=== PATIENT | female | born 1955 | race Caucasian/White ===

== ENCOUNTER → 2020-07-19 09:15 | Outpatient (BNVA) | payer OTHER, SELFPAY | PROVIDERS: PCP Internal Medicine; Visit Provider Internal Medicine | DX: I51.81 Takotsubo syndrome (principal); I51.3 Intracardiac thrombosis, not elsewhere classified; I21.4 Non-ST elevation (NSTEMI) myocardial infarction | CPT/HCPCS: Q3014 ==

== ENCOUNTER → 2020-11-12 09:33 | Outpatient (REF) | payer OTHER, SELFPAY ==
--- NOTE | 2020-11-12 09:37 | CA_ITS ---
Transthoracic Echocardiogram Patient (Last, First, Middle): Jossy Boone J Gender: Female Date of : 1955 Age: 65 Procedure Date: 11/12/2020 Procedure Type: Transthoracic Echocardiogram Location: OP Height: 160.02 cm Weight: 63.5 kg BSA: 1.66 m2 Heart Rate: bpm BP: 120 / 60 mmHg Extracting Machine Operator: LAVONNE Referring MD: Fred Gabriel MD Symptoms: I51.3 - Intracardiac thrombosis, not elsewhere classified Study Quality: Fair ECG Rhythm: Sinus Conclusions: - The left ventricular systolic function is normal. The visually estimated ejection fraction is between 60-65%. - No obvious valvular pathology seen on this study. Findings Left Ventricle Normal left ventricular cavity size. There is normal left ventricular wall thickness. The left ventricular systolic function is normal. The visually estimated ejection fraction is between 60-65%. There is no evidence of regional wall motion abnormalities. Diastolic function is normal for age. E/E prime ratio is <8, consistent with normal filling pressures. Right Ventricle Normal right ventricular cavity size and systolic function. Atria Both atria are normal in size. Aortic Valve There is a normal trileaflet aortic valve. There is no aortic valve stenosis. There is no aortic valve regurgitation. Mitral Valve The mitral valve appears normal. There is no mitral valve regurgitation. There is no mitral valve stenosis. Pulmonic Valve The pulmonic valve was not well visualized. Tricuspid Valve Normal tricuspid valve structure. There is trace tricuspid valve regurgitation. The pulmonary artery systolic pressure is normal. Great Vessels The asc aorta is normal in size. Venous The inferior vena cava is normal in size and collapses greater than 50% with inspiration. Pericardium/Pleural There is no evidence of pericardial effusion. Prior Study Comparison No significant change compared to prior study dated: 07/12/2019. Recommendations, Care & Conclusions No obvious valvular pathology seen on this study. Measurements 2D Linear Measurements IVSd: 1.04 0.6-0.9/0.6-1.0 cm LVIDd: 4.61 3.9-5.3/4.2-5.9 cm LVIDd Index: 2.78 2.4-3.2/2.2-3.1 cm/m2 LVIDs: 3.07 2.0-3.6 cm LVPWd: 1.01 0.7-1.1 cm Ao Root: 3.00 2.1-3.5 cm LA Diam: 3.30 2.7-3.8/3.0-4.0 cm LAIDs Index: 1.99 1.5-2.3 cm/m2 LV Mass: 205.33 67-162/88-224 g LV Mass Index: 123.69 43-95/49-115 g/m2 LVOT Diam: 2.00 3.0+(-)1.3 cm 2D Systolic Function EF 4C: 66.40 >55% EF 2C: 54.10 >55% EF BiP: 60.50 >55% Mitral Valve MV Pk E: 0.53 MV PK A: 0.59 MV Decel Time: 454.00 E/A: 0.90 E'Lateral: 8.70 E'Medial: 6.85 E/E' Med: 7.80 E/E' Lat: 6.10 PHT: 133.00 MVA PHT: 1.65 Decel Elliott: 1.17 Aortic Valve AoV Pk Refugio: 0.91 AoV Mn Refugio: 0.56 AoV VTI: 0.19 AoV Pk Grad: 3.00 Aov Mn Grad: 1.00 DAVY Cont.VTI: 3.71 LVOT LVOT Pk Refugio: 1.04 LVOT Mn Refugio: 0.67 LVOT VTI: 0.22 LVOT Pk Grad: 4.00 LVOT Mn Grad: 2.00 LVOT Diam: 2.00 LVOT Area: 3.14 Diastolic Function MV Pk E: 0.53 MV Pk A: 0.59 E/A: 0.90 E'Medial: 6.85 E/E' Med: 7.80 E' Laterial: 8.70 E/E' Lat: 6.10 Great Vessels Aorta Ao Root-2D: 3.00 2.0-3.7 cm Ao Asc: 3.00 2.1-3.4 cm Ao Arch: 2.70 Updated in Other Vendor System with Status of Final Fred Gabriel MD electronically signed on 11/12/2020 12:31:24 PM with status of Final
== END ==
LOC: HO.CARD 09:33
PROVIDERS: PCP Internal Medicine; Visit Provider Internal Medicine
DX: I51.3 Intracardiac thrombosis, not elsewhere classified (principal)
CPT/HCPCS: 93306

== ENCOUNTER → 2020-11-19 10:09 | Outpatient (BNVA) | payer OTHER, SELFPAY | PROVIDERS: PCP Internal Medicine; Referring Provider Internal Medicine; Visit Provider Internal Medicine | DX: I51.81 Takotsubo syndrome (principal); I51.3 Intracardiac thrombosis, not elsewhere classified; I21.4 Non-ST elevation (NSTEMI) myocardial infarction | CPT/HCPCS: 93005; 99212 ==

== ENCOUNTER 2021-04-01 08:29 | Outpatient (REF) | payer OTHER, SELFPAY ==
--- NOTE | 2021-04-04 11:38 | MHC.AU.ANO ---
Adult Audiological Evaluation Date of Visit: 04/01/21 Welfare Investigator Used: Not Applicable Reason for Appointment: Audiologic evaluation due to increasing hearing difficulties. Jossy reports she is frequently asking others to repeat speech and often watches television using the closed captions. Speech understanding seems more difficult when background noise is present and she tends to tune out or avoid social situations when there is too much noise. Jossy also notes loud sounds/speech become distorted and had one episode of unsteadiness with nausea when a loud plane passed overhead. Does patient feel they have a hearing loss?: Yes If Yes, Which Ear?: Both Ears When Was Hearing Difficulty First Noticed?: 4 to 5 years ago. Has hearing been tested previously?: No Hearing Handicap Inventory: HHIE SCORE: 32 Based on HHIE score, patient has: Severe perceived hearing handicap Ear History: Recent Ear Pain: With loud sounds Family History of Hearing Loss?: Yes Ear Infections in Childhood: Both Ears Ear used on the phone: Left Ear Blocked/Full Sensation in Ear(s): History of occupational noise exposure?: No History: History: No Medical History: Medical History: Interstitial Cystitis, Anxiety/Bipolar Disorder, High Blood Pressure, History of Heart Attack, History of Pancreatitis with gall bladder removed Medication List: Metoprolol Otoscopy: Right Ear: Unremarkable Left Ear: Unremarkable Tympanometry: Tympanometry performed due to: To assess integrity of the middle ear system Right Ear: Normal Middle Ear System (Type A) Left Ear: Normal Middle Ear System (Type A) Otoacoustic Emissions Frequency Range Used: 1.6-8 kHz Right Ear Results: Present 7548-0982 Hz, Absent 7320-7187 Hz Analysis: Present emissions suggest normal cochlear function Rules out peripheral hearing loss greater than a mild degree Reduced/Absent emissions suggest cochlear dysfunction Left Ear Results: Present 1850-4284 Hz, Absent 4267-8541 Hz Analysis: Present emissions suggest normal cochlear function Rules out peripheral hearing loss greater than a mild degree Reduced/Absent emissions suggest cochlear dysfunction Hearing Evaluation: Transducer(s) Used: Circumaural Headphones Method: Conventional Audiometry Stimuli Used: Pure Tones Right Ear: Description of Hearing: Normal hearing thresholds 250-4000 Hz, sloping to a moderate high frequency sensorineural hearing loss Left Ear: Description of Hearing: Normal hearing thresholds 250-4000 Hz, sloping to a mild high frequency sensorineural hearing loss Speech Recognition Threshold (SRT): Method Used: Monitored Live Voice Stimuli Used: Spondee Words Right Ear: 10 dB HL Left Ear: 10 dB HL Word Discrimination: Method: Recorded Lists Word Lists Used: NU-6 Right Ear: 100% at 50 dB HL Left Ear: 100% at 50 dB HL QuickSIN: Binaural Quick SIN Test : -3 dB SNR Loss. This score falls well within the normal range and suggests Jossy does not experience any more difficulty understanding speech with increasing levels of background noise than expected when in this controlled test environment. Real world listening situation may be more difficult. Interpretation of Results: Jossy overall has good hearing for both ears with excellent speech discrimination ability when in this controlled test environment with her full attention to the listening tasks. Listening in real world environments may be very different, particularly if Jossy is not fully focused on the speaker, or her anxiety/emotional state becomes hightened. Processing of auditory information may become much more difficult with these situations. Loud sounds may be unpleasant for Jossy which will also increase her sensitivity to these sounds and increase her anxiety and processing ability. These factors were discussed with Jossy and she feels they are likely influencing her hearing/listening difficulties. Recommendations: Discussed and provided a handout regarding communication strategies to use as needed. No further audiological action is indicated at this time. Advise re-evaluation if a change in hearing ability is suspected. Diagnosis: Primary Diagnosis: H90.3 Bilateral Sensorineural Hearing Loss Secondary Diagnosis: H93.293 Abnormal Auditory Perception Services Performed: Comprehensive Audiological Evaluation (CPT 39781) Diagnostic Otoacoustic Emissions (CPT 90385, 26+TC) Tympanometry (CPT 03196) Signature: Provider: Markell Ladd, [facility]
== END 2021-04-01 08:30 | disposition home or self-care (01) ==
LOC: HO.SH 08:29
PROVIDERS: Visit Provider Internal Medicine
DX: H90.3 Sensorineural hearing loss, bilateral (principal); H93.293 Other abnormal auditory perceptions, bilateral
CPT/HCPCS: 92557; 92567; 92588

== ENCOUNTER → 2021-11-25 09:28 | Outpatient (BNVA) | payer OTHER, SELFPAY | PROVIDERS: PCP Internal Medicine; Referring Provider Internal Medicine; Visit Provider Internal Medicine | DX: I51.81 Takotsubo syndrome (principal); I51.3 Intracardiac thrombosis, not elsewhere classified; I21.4 Non-ST elevation (NSTEMI) myocardial infarction | CPT/HCPCS: 93005; 99212 ==

== ENCOUNTER 2022-02-25 06:17 | Outpatient (REF) | payer OTHER, SELFPAY ==
[2022-02-25 06:29] LABS: MANUAL DIFF FLAG NO
[2022-02-25 07:27] LABS: Basophils Absolute Auto 0.1 X10*3/uL (0.0-0.2); Basophils Percent Auto 1.7 % (0-2); Eosinophils Absolute Auto 0.2 X10*3/uL (0.0-0.4); Eosinophils Percent Auto 5.3 % (0-4); Hematocrit 41.7 % (37.0-47.0); Hemoglobin 13.7 g/dl (12.0-16.0); Imm Gran Abs Auto 0.01 X10*3/uL (0.00-0.03); Imm Gran Pct Auto 0.2 % (0.0-0.4); Lymphocytes Absolute Auto 1.7 X10*3/uL (1.2-4.9); Lymphocytes Percent Auto 40.5 % (20-40); Mean Corpuscular HGB Conc 32.9 g/dl (31.0-35.0); Mean Corpuscular Hemoglobin 29.7 pg (27.0-33.0); Mean Corpuscular Volume 90.5 fL (80.0-98.0); Mean Platelet Volume 9.1 fL (9.4-12.3); Monocytes Absolute Auto 0.4 X10*3/uL (0.1-1.2); Monocytes Percent Auto 10.6 % (2-11); Neutrophils Absolute Auto 1.7 x10*3/uL (2.0-8.3); Neutrophils Percent Auto 41.7 % (45-73); Platelet Count 240 X10*3/uL (160-400); Red Blood Count 4.61 X10*6/uL (4.20-5.50); Red Cell Distribution Width 13.6 % (11.0-16.0); White Blood Count 4.2 X10*3/uL (4.8-10.8)
[2022-02-25 07:58] LABS: Alanine Aminotransferase 29 U/L (0-31); Albumin Level 3.9 g/dL (3.5-5.0); Alkaline Phosphatase 84 U/L (39-117); Anion Gap 16 (12-20); Aspartate Amino Transferase 28 U/L (5-31); Bilirubin Direct < 0.2 mg/dL (0.0-0.5); Bilirubin Total 0.3 mg/dL (0.0-1.0); Blood Urea Nitrogen 13 mg/dL (9-16); Carbon Dioxide 24 mmol/L (22-29); Chloride 107 mmol/L (96-108); Cholesterol 258 mg/dL; Estimated Glomerular Filt Rate > 60; Glucose Fasting 105 mg/dL (60-99); HDL Cholesterol 60 mg/dL; LDL Cholesterol Calculated 171 mg/dl; Potassium 4.6 mmol/L (3.3-5.1); Sodium 142 mmol/L (135-145); Total Protein 6.3 g/dL (6.5-8.0); Triglycerides 137 mg/dL
[2022-02-25 08:21] LABS: TSH reflex Free T4 1.97 uIU/mL (0.32-4.0)
== END 2022-02-25 06:18 | disposition home or self-care (01) ==
LOC: HO.LAB 06:17
PROVIDERS: Absent Provider Internal Medicine; PCP Internal Medicine; Visit Provider Internal Medicine
DX: Z00.01 Encounter for general adult medical examination with abnormal findings (principal); I51.81 Takotsubo syndrome; H91.93 Unspecified hearing loss, bilateral
CPT/HCPCS: 36415; 80053; 80061; 80076; 82248; 84443; 85025

== ENCOUNTER 2022-03-15 11:13 | Outpatient (REF) | payer OTHER, SELFPAY ==
[2022-03-15 11:23] LABS: Appearance Urine Clear; Color Urine Yellow; Glucose Urine UA Negative (Negative); Leukocyte Esterase Urine Small (1+) (Negative); Nitrite Urine Negative (Negative); Specific Gravity - Urine <= 1.005 (1.005-1.025); Urine Blood Negative (Negative); Urine Ketones Negative (Negative); Urine Protein Negative (Neg-Trace)
[2022-03-15 11:29] LABS: Bacteria Urine 4+ (None Seen); Hyaline Casts Urine 0-2 /LPF (0-2); RBC Urine 0-2 /HPF (0-2); Squamous Epithelial Cell Urine 0-2 /HPF (0-2); UACC Culture Trigger YES
== END 2022-03-15 11:14 | disposition home or self-care (01) ==
LOC: HO.LNP 11:13
PROVIDERS: Visit Provider Physician Assistant Medical
DX: R30.0 Dysuria (principal)
CPT/HCPCS: 81001; 87086; 87088; 87186

== ENCOUNTER 2022-09-12 16:01 | Emergency (ER) | payer OTHER, SELFPAY ==
[2022-09-12 16:43] VITALS: BP 163/85; BP 173/99; PULSE 75; PULSE 79; RESP 18; TEMP 36.6; O2SAT 98; O2SAT 99; BMI 21.0
--- NOTE | 2022-09-12 18:44 | MHC.EDTECH ---
due to dirrhea pt unable to give urine sample .
[2022-09-12 18:47] LABS: Basophils Percent Auto 0.4 % (0-2); Eosinophils Percent Auto 0.1 % (0-4); Hematocrit 44.3 % (37.0-47.0); Imm Gran Abs Auto 0.04 X10*3/uL (0.00-0.03); Imm Gran Pct Auto 0.4 % (0.0-0.4); Lymphocytes Absolute Auto 0.3 X10*3/uL (1.2-4.9); Lymphocytes Percent Auto 2.8 % (20-40); MANUAL DIFF FLAG SCAN; Mean Corpuscular HGB Conc 33.9 g/dl (31.0-35.0); Mean Corpuscular Hemoglobin 30.2 pg (27.0-33.0); Mean Corpuscular Volume 89.1 fL (80.0-98.0); Mean Platelet Volume 8.9 fL (9.4-12.3); Monocytes Absolute Auto 0.3 X10*3/uL (0.1-1.2); Monocytes Percent Auto 3.3 % (2-11); Neutrophils Absolute Auto 8.8 x10*3/uL (2.0-8.3); Platelet Count 227 X10*3/uL (160-400); Red Blood Count 4.97 X10*6/uL (4.20-5.50); Red Cell Distribution Width 12.9 % (11.0-16.0); SCAN SMEAR FLAG 1; White Blood Count 9.5 X10*3/uL (4.8-10.8)
[2022-09-12 18:54] LABS: Anion Gap 22 (12-20); Blood Urea Nitrogen 21 mg/dL (9-16); Calcium 9.5 mg/dL (8.4-10.2); Carbon Dioxide 16 mmol/L (22-29); Chloride 106 mmol/L (96-108); Creatinine Clr Calc Pharmacy 53.7; Estimated Glomerular Filt Rate > 60; Glucose Random 160 mg/dL (60-115); Potassium 4.1 mmol/L (3.3-5.1); Sodium 140 mmol/L (135-145)
[2022-09-12 19:19] LABS: SLIDE REVIEW VERIFIED
[2022-09-12] MEDS: Ondansetron ODT 4 MG TAB.RAPDIS TRANSLINGU (20:39)
--- NOTE | 2022-09-12 21:44 | ED_ITS ---
HPI - Nausea/Vomiting/Diarrhea General Chief complaint: Nausea/Vomiting/Diarrhea Stated complaint: FLU-LIKE SYMPTOMS,N/V/D Time Seen by Provider: 09/12/22 21:34 Source: patient Mode of arrival: ambulatory Limitations: no limitations History of Present Illness HPI Narrative: Patient comes to the emergency room complaining of nausea vomiting and diarrhea that is been present for about 20 hours. Patient states that her has the same symptoms but he is doing better now. Patient continues feeling nauseous, vomiting quite a bit and having diarrhea. Patient denies fever chills, no significant abdominal pain other than cramping. Patient denies chest pain, URI or UTI symptoms. Patient complaining of headache. Related Data Previous Rx's Medication Instructions Recorded lisinopril 5 mg tablet 5 mg PO DAILY #90 tabs 11/25/21 amitriptyline 10 mg tablet 10 mg PO BEDTIME 30 days #30 tabs 03/19/22 nitrofurantoin 100 mg PO Q12H 5 days #10 caps 06/05/22 monohydrate/macrocrystals 100 mg capsule (Macrobid) ketorolac 10 mg tablet 10 mg PO TID PRN pain #7 tabs 09/13/22 loperamide 2 mg capsule 2 mg PO Q4H PRN loose stool #14 09/13/22 caps ondansetron 4 mg disintegrating 4 mg PO Q6H PRN nausea and 09/13/22 tablet vomiting #14 tabs Allergies Allergy/AdvReac Type Severity Reaction Status Date / Time Penicillins [PENICILLINS] Allergy Severe HIVES Verified 09/12/22 20:36 cephalexin [Keflex] Allergy Unknown unknown Verified 09/12/22 20:36 Sulfa (Sulfonamide Allergy Unknown hives Verified 09/12/22 20:36 Antibiotics) morphine [MORPHINE] AdvReac Unknown ITCHY Verified 09/12/22 20:36 perflutren [From DEFINITY] AdvReac Unknown CHEST PAIN Verified 09/12/22 20:36 NSAIDS AdvReac Unknown GI upset Uncoded 03/19/22 09:00 Review of Systems Review of Systems: Constitutional : No Weight loss, No Fever, No Chills, No Night Sweats, No Fatigue, complaining of generalized Malaise ENT/Mouth : No Hearing loss, No Ear Pain, No Nasal Congestion, No Sinus Pain, No Hoarseness, No sore throat, No Rhinorrhea, No Swallowing Difficulty Eyes: No Eye Pain, No Swelling, No Redness, No Foreign Body, No Discharge, No Vision Changes Cardiovascular : No Chest Pain, No SOB, No Dyspnea on Exertion, No Orthopnea, No Edema, No Palpitations Respiratory : No Cough, No Sputum, No Wheezing, No Smoke Exposure, No Dyspnea Gastrointestinal : Complaining of nausea, vomiting and diarrhea. No Constipation, complaining of abdominal cramping intermittently, No Hematochezia, No Melena Genitourinary : no irregular bleeding, No Dysuria, No Urinary Frequency, No Hematuria, No Urinary Incontinence, No Urgency, No Flank Pain, No Urinary Flow Changes, No Hesitancy Musculoskeletal : No joint pain, No Myalgias, No Joint Swelling Skin : No Skin Lesions, No rash Neuro : No Weakness, No Numbness, No Paresthesias, No Loss of Consciousness, No Dizziness, No Headache Psych : No Anxiety/Panic, No Depression, No SI/HI/AH/VH, No Social Issues, Heme/Lymph: No Bruising, No Bleeding,No Lymphadenopathy Endocrine : No Polyuria, No Polydipsia, No Temperature Intolerance [facility] Past Medical History Medical History LV (left ventricular) mural thrombus Non-STEMI (non-ST elevated myocardial infarction) Stress-induced cardiomyopathy Surgical History History of cardiac catheterization (~05/13/19) History of cholecystectomy (~06/2017) History of knee surgery Family History Family History Father Substance use disorder Mother Cancer Other Mental health disorder Social History Social History Housing: House Patient Tobacco Use Status: Former Tobacco user Quit Date: 2014 Years Smoked: 30 e-Cigarette/Vaping Use: Never Used Advance Directives: No Advance Directives Information Provided: No Current occupational status: retired Cognitive needs: No Hearing needs: No Vision needs: Yes Physical Exam Vital Signs: Vital Signs: Last Vital Signs Temp 97.6 F 09/12/22 23:30 Pulse 82 09/12/22 23:30 Resp 16 09/12/22 23:30 BP 109/72 09/12/22 23:30 Pulse Ox 98 09/12/22 23:30 O2 Del Method 09/12/22 23:30 BMI result Body Mass Index 21.0 Const: Other: Appearance: Alert. Oriented X3. Patient is very nauseous Eyes: Pupils equal, round and reactive to light. ENT: Pharynx normal. Neck: Normal inspection. Neck supple. No lymph nodes noted. No crepitus CVS: Normal heart rate and rhythm. Pulses normal. Normal S1 and S2 Respiratory: No respiratory distress. Breath sounds normal. No Wheezing. No rales Abdomen: Soft and nontender. No rigidity. No distention. Skin: Skin warm and dry. Normal skin color. Normal skin turgor. Extremities: No lower extremity edema. No Lacerations. No Rash Neuro: Oriented X 3. No motor deficit. No sensory deficit. Moving all extremities. No slurred speech. CN 2 through 12 grossly intact Psych: calm, cooperative Course Course Course Narrative: -white blood cell count within normal limits. Patient's LFTs and Lipase levels pending -patient receiving IV fluids, Toradol, metoclopramide, patient refuses the permit this time, states that she cannot take anything p.o., we will offer later. Medications Administered Discontinued Medications Generic Name Dose Route Start Last Admin Trade Name Donavonq PRN Reason Stop Dose Admin Sodium Chloride 2,000 mls @ 999 mls/hr 09/12/22 21:42 09/12/22 22:06 Ns IVCONT 09/12/22 23:42 999 mls/hr .Q2H1M ONE Administration Ketorolac Tromethamine 30 mg 09/12/22 21:42 09/12/22 22:06 Ketorolac Tromethamine 30 Mg/Ml Vial IVPUSH 09/12/22 21:43 30 mg ONCE ONE Administration Metoclopramide HCl 10 mg 09/12/22 21:42 09/12/22 22:06 Metoclopramide Hcl 10 Mg/2 Ml Vial IVPUSH 09/12/22 21:43 10 mg ONCE ONE Administration Ondansetron HCl 4 mg 09/12/22 20:36 09/12/22 20:39 Ondansetron Odt 4 Mg Tab.Rapdis TRANSLINGU 09/12/22 20:37 4 mg ONCE ONE Administration Medical Decision Making Medical Decision Making MDM Narrative: Patient received IV fluids, ketorolac, Reglan and 1 p.o. dose of Zofran. Patient states that she feels much better. -patient was p.o. challenged, 8 solids and fluids and she was able to hold it down. Patient states that she feels ready to be discharged Differential Diagnosis Differential Diagnoses: The differential diagnosis associated with the presentation includes (Gastroenteritis, viral syndrome) Lab Data [facility] Lab Attestation statement: I reviewed the patient's lab results. 09/12/22 18:33 09/12/22 18:25 Labs: Lab Results 09/12/22 09/12/22 09/12/22 Range/Units 18:25 18:33 21:24 WBC 9.5 (4.8-10.8) X10*3/uL RBC 4.97 (4.20-5.50) X10*6/uL Hgb 15.0 (12.0-16.0) g/dl Hct 44.3 (37.0-47.0) % MCV 89.1 (80.0-98.0) fL MCH 30.2 (27.0-33.0) pg MCHC 33.9 (31.0-35.0) g/dl RDW 12.9 (11.0-16.0) % Plt Count 227 (160-400) X10*3/uL MPV 8.9 L (9.4-12.3) fL Immature Gran % (Auto) 0.4 (0.0-0.4) % Neut % (Auto) 93.0 H (45-73) % Lymph % (Auto) 2.8 L (20-40) % Stephens % (Auto) 3.3 (2-11) % Eos % (Auto) 0.1 (0-4) % Baso % (Auto) 0.4 (0-2) % Lymph # (Auto) 0.3 L (1.2-4.9) X10*3/uL Stephens # (Auto) 0.3 (0.1-1.2) X10*3/uL Eos # (Auto) 0.0 (0.0-0.4) X10*3/uL Baso # (Auto) 0.0 (0.0-0.2) X10*3/uL Abs Immat Gran (auto) 0.04 H (0.00-0.03) X10*3/uL Absolute Neuts (auto) 8.8 H (2.0-8.3) x10*3/uL Absolute Nucleated RBC 0.000 (0.0-0.012) X10*3/uL Nucleated RBC % (auto) 0.0 (0.0-0.2) /100WBC Smear Tech's Comments VERIFIED Sodium 140 (135-145) mmol/L Potassium 4.1 (3.3-5.1) mmol/L Chloride 106 (96-108) mmol/L Carbon Dioxide 16 L (22-29) mmol/L Anion Gap 22 H (12-20) BUN 21 H (9-16) mg/dL Creatinine 0.84 (0.5-1.4) mg/dL Estim Creat Clear Calc 53.7 Estimated GFR > 60 Random Glucose 160 H (60-115) mg/dL Calcium 9.5 (8.4-10.2) mg/dL Total Bilirubin 0.5 (0.0-1.0) mg/dL Direct Bilirubin < 0.2 (0.0-0.5) mg/dL AST 31 (5-31) U/L ALT 24 (0-31) U/L Alkaline Phosphatase 92 (39-117) U/L Total Protein 7.1 (6.5-8.0) g/dL Albumin 4.5 (3.5-5.0) g/dL Lipase 10 (8-78) U/L Influenza Type A (PCR) NEGATIVE (Negative) Influenza Type B (PCR) NEGATIVE (Negative) RSV RNA Qual (PCR) NEGATIVE (Negative) SARS-CoV-2 RNA (RT-PCR) NEGATIVE (Negative) Discharge Plan Discharge Clinical Impression: Nausea vomiting and diarrhea, Headache Patient Disposition: Home, Self-Care Instructions: Acute Headache (ED), Acute Nausea and Vomiting (ED), Acute Diarrhea (ED) Additional Instructions: Please follow-up with your primary care physician tomorrow. If you have any worsening or new symptoms, please return to the emergency room or call 911 Prescriptions: New ondansetron 4 mg tablet,disintegrating 4 mg PO Q6H PRN (Reason: nausea and vomiting) Qty: 14 0RF loperamide 2 mg capsule 2 mg PO Q4H PRN (Reason: loose stool) Qty: 14 0RF Rx Instructions: administer after each loose stool until symptoms controlled; do not exceed 8 mg per 24 hrs ketorolac 10 mg tablet 10 mg PO TID PRN (Reason: pain) Qty: 7 0RF No Action nitrofurantoin monohyd/m-cryst [Macrobid] 100 mg capsule 100 mg PO Q12H 5 Days Qty: 10 0RF Rx Instructions: must administer with a meal/food amitriptyline 10 mg tablet 10 mg PO BEDTIME 30 Days Qty: 30 0RF lisinopril 5 mg tablet 5 mg PO DAILY Qty: 90 3RF
[2022-09-12] MEDS: Ketorolac Tromethamine 30 MG/ML VIAL IVPUSH (22:06)
[2022-09-12] MEDS: Metoclopramide HCl 10 MG/2 ML VIAL IVPUSH (22:06)
[2022-09-12] MEDS: 0.9 % Sodium Chloride 2,000 ML 999 ML IVCONT (22:06)
[2022-09-12 22:08] LABS: Influenza A PCR NEGATIVE (Negative); Influenza B PCR NEGATIVE (Negative); Resp Syncy Virus RNA Qual PCR NEGATIVE (Negative); SARS COV2 PCR INHOUSE NEGATIVE (Negative)
[2022-09-12 22:26] LABS: Alanine Aminotransferase 24 U/L (0-31); Albumin Level 4.5 g/dL (3.5-5.0); Alkaline Phosphatase 92 U/L (39-117); Aspartate Amino Transferase 31 U/L (5-31); Bilirubin Direct < 0.2 mg/dL (0.0-0.5); Bilirubin Total 0.5 mg/dL (0.0-1.0); Lipase 10 U/L (8-78); Total Protein 7.1 g/dL (6.5-8.0)
[2022-09-12 23:30] VITALS: BP 109/72; PULSE 82; RESP 16; TEMP 36.4; O2SAT 98
--- NOTE | 2022-09-12 23:33 | MHC.EDTECH ---
this pct assumed care of pt at 2300 ,pt vitals sign taken .
--- NOTE | 2022-09-13 02:01 | PC.NURSE ---
I have been wathcing over this pts care since 2299 when our nurse left EM and we did not have a nurse to cover [facility] patients. So while in charge of the ED i watched over this patient. She has been discharged at this time. She verbalized an understanding of all DC orders and ambulated out of the department indepenently and with steady gait.
== END 2022-09-13 02:02 | disposition home or self-care (01) ==
PROVIDERS: Emergency Provider Emergency Medicine; PCP Internal Medicine
DX: R11.2 Nausea with vomiting, unspecified (principal); R19.7 Diarrhea, unspecified; R51.9 Headache, unspecified; I25.2 Old myocardial infarction; Z20.822 Contact with and (suspected) exposure to COVID-19
CPT/HCPCS: 0241U; 36415; 80048; 80076; 83690; 85025; 96374; 96375; 99284; J1885; J2765

== ENCOUNTER → 2022-12-09 15:09 | Outpatient (BNVA) | payer OTHER, SELFPAY | PROVIDERS: PCP Internal Medicine; Referring Provider Internal Medicine; Visit Provider Nurse Practitioner Family | DX: I51.81 Takotsubo syndrome (principal); E78.5 Hyperlipidemia, unspecified; I25.2 Old myocardial infarction | CPT/HCPCS: 93005; 99212 ==

== ENCOUNTER 2023-03-06 13:39 | Outpatient (REF) | payer MEDICARE, MEDICAID, SELFPAY ==
[2023-03-06 14:54] LABS: Appearance Urine Clear; Color Urine Yellow; Glucose Urine UA Negative (Negative); Leukocyte Esterase Urine Trace (Negative); Nitrite Urine Negative (Negative); Specific Gravity - Urine <= 1.005 (1.005-1.025); UMIC TRIGGER UACC YES; Urine Blood Negative (Negative); Urine Ketones Negative (Negative); Urine Protein Negative (Neg-Trace)
[2023-03-06 15:10] LABS: Bacteria Urine None Seen (None Seen); Hyaline Casts Urine 0-2 /LPF (0-2); RBC Urine 0-2 /HPF (0-2); WBC Urine 0-5 /HPF (0-5)
== END 2023-03-06 13:40 | disposition home or self-care (01) ==
LOC: HO.LAB 13:39
PROVIDERS: PCP Internal Medicine; Visit Provider Internal Medicine
DX: R30.0 Dysuria (principal)
CPT/HCPCS: 81001

== ENCOUNTER 2023-03-27 09:54 | Outpatient (AMB) | payer MEDICARE, SELFPAY ==
--- NOTE | 2023-03-27 09:57 | AM.OFFVISMDC ---
Intake Vital Signs 03/27/23 10:06 Height 5 ft 3 in Weight 125 lb 8 oz BMI 22.2 BP 134/56 L Blood Pressure Location Rt brachial Position Sitting Pulse 63 Pulse Source Pulse Oximeter Pulse Oximetry (%) 99 Oxygen Delivery Method Room Air Intake Visit Reasons: AWV Allergies Penicillins [PENICILLINS] Allergy (Severe, Verified 03/27/23 10:06) HIVES cephalexin [Keflex] Allergy (Unknown, Verified 03/27/23 10:06) unknown Sulfa (Sulfonamide Antibiotics) Allergy (Unknown, Verified 03/27/23 10:06) hives morphine [MORPHINE] Adverse Reaction (Unknown, Verified 03/27/23 10:06) ITCHY perflutren [From DEFINITY] Adverse Reaction (Unknown, Verified 03/27/23 10:06) CHEST PAIN NSAIDS Adverse Reaction (Unknown, Uncoded 12/09/22 15:15) GI upset Medication List - Last Reconciled 03/27/23 by Carrillo Zarco MD levofloxacin 250 mg PO DAILY 3 days lisinopril 5 mg PO DAILY HPI AWV HPI Details Patient is a 67-year-old female with a history of stress cardiomyopathy currently seeing 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 Patient says that she does not use more than 5 or 6 tablets a month She will be meeting with our behavior health coordinator so we can get her established with a new psychiatrist Meanwhile I can help her for next 3 months. If she needed script beyond that patient will come in for follow-up. Interstitial cystitis: Patient has been having symptoms for the past few days be did sent antibiotic for her as her UA showed small amount of inflammation She is feeling better She has made appointment with the Urology as well for follow-up. Labs are needed order placed to be done today. HPI Comments History of Present Illness Details AWV Medical/social history reviewed Past medical history reviewed [place] of care / care team list updated Surgical/ hospitalization history reviewed Current medications including OTC and supplements reviewed Family history reviewed Tobacco controlled form updated Alcohol use form updated Illicit drug use in social history reviewed Current diagnosis of depression ?screening updated Appropriate PHQ 2/PHQ-9 completed . Vital signs reviewed Alcohol tobacco drug use reviewed and discussed . MMSE completed . ? Fall risk: ?Assessed Fall history: ?None Have you had any falls with injury in the past year?? No Have you had 2 or more falls in the past year?? No Fall risk assessment completed Home safety discussed with the patient Functional ability assessed and discussed and documented Activities of daily living reviewed and appropriate actions taken . HRA filled out by the patient and reviewed by provider and scanned . Appropriate written screening schedule established . Any health advise needed provided . Advance care planning discussed with the patient , necessary paperwork filled Examination IPPE/AWE: Balance intact Romberg intact Tandem walk intact walk-in turn intact rise from sit to stand intact . ?Hearing ?whisper test pass . Medication list reviewed, patient is stable on medications All other providers patient is seeing discussed and noted . [facility] Medical History Non-STEMI (non-ST elevated myocardial infarction) LV (left ventricular) mural thrombus Stress-induced cardiomyopathy Surgical History History of cardiac catheterization (~05/13/19) History of cholecystectomy (~06/2017) History of knee surgery Family History Father Substance use disorder Mother Cancer Other Mental health disorder Social History Housing: House Patient Tobacco Use Status: Former Tobacco user Quit Date: 2014 Years Smoked: 30 e-Cigarette/Vaping Use: Never Used Current occupational status: retired Cognitive needs: No Hearing needs: No Vision needs: Yes Questionnaire Medicare Wellness Checkup What [age] 65-69 What gender do you identify with?: female During the past 4 weeks, how much have you been bothered by emotional problems such as feeling anxious, depressed, irritable, sad or downhearted, and blue?: moderately During the past 4 weeks, has your physical & emotional health limited your social activities with family, friends, neighbors, or groups?: moderately During the past 4 weeks, how much bodily pain have you generally had?: mild pain During the past 4 weeks, was someone available to help you if you needed & wanted help?: yes, some During the past 4 weeks, what was the hardest physical activity you could do for at least 2 minutes?: moderate Can you get to places out of walking distance without help? (For eg., can you travel alone on buses, taxis or drive your car?): Yes Can you go shopping for groceries or clothes without someone's help?: Yes Can you do your housework without help?: Yes Because of any health problems, do you need the help of another person with your personal care needs such as eating, bathing, dressing or getting around the house?: No Can you handle your own money without help?: Yes During the past 4 weeks, how would you rate your health in general?: fair During the past 4 weeks how have things been going for you?: good & bad parts about equal Are you having difficulties driving your car?: not applicable, I don't use a car Do you always fasten your seat belt when you are in a car?: yes, usually During past 4 weeks, have you been bothered by the following: often: Tiredness or fatigue? Have you fallen 2 or more times in the past year?: No Are you afraid of falling?: No Are you a smoker?: no During the past 4 weeks, how many drinks of wine, beer, or other alcoholic beverages did you have?: no alcohol at all Do you exercise for about 20 minutes 3 or more times a week?: yes, some of the time Have you been given information to help with the following?: no: Hazards in your house that might hurt you? How often do you have trouble taking medicines the way you have been told to take them?: I always take medicine as prescribed How confident are you that you can control & manage most of your health problems?: very confident What is your race?: White Mini Mental State Exam (MMSE) Orientation What is the (year) (season) (date) (day) (month)?: year, season, date, day and month Where are we (state) (county) (town or city) (hospital) (floor)?: state, county, town or city, hospital/clinic and floor Score Score: 10 Activity of Daily Living Bathing - sponge bath, tub bath or shower: receives no assistance (gets in/out by self, if usual bathing means Dressing - getting clothes from closets & drawers, including inner/outer garments & fasteners.: gets clothes & gets completely dressed without help Toileting - going to the 'toilet room' for urine/bowel elimination & cleaning self/arranging clothes: goes to toilet room, cleans self, arranges clothes without help Transfer: moves in & out of bed and chair without help (may use support object) Continence: controls urination/bowel movements completely by self Feeding: feeds self without help Total Score: 0 Information obtained from: patient Using telephone: independent Traveling: dependent Shopping: independent Preparing meals: independent Housework: independent Taking medicine: independent Managing money: independent PHQ-9 Over the last 2 weeks, how often have you been bothered by any of the following problems? 1. Little interest or pleasure in doing things: several days 2. Feeling down, depressed, or hopeless: not at all 3. Trouble falling or staying asleep, or sleeping too much: more than half the days 4. Feeling tired or having little energy: more than half the days 5. Poor appetite or overeating: more than half the days 6. Feeling bad about yourself - or that you are a failure or have let yourself or your family down: several days 7. Trouble concentrating on things, such as reading the newspaper or watching television: more than half the days 8. Moving or speaking so slowly that other people could have noticed. Or the opposite - being so fidgety or restless that you have been moving around a lot more than usual: more than half the days 9. Thoughts that you would be better off or of hurting yourself in some way: several days Total score: 13 Depression Screening Interpretation: Negative 41553 - PHQ-9 Billing: Yes Source: Developed by Drs. Emery Iqbal, Mayuri Cunha, Lester Kemp and colleagues, with an educational cheyanne from [employer]. Review of Systems Const Denies chills and Denies fever(s) ENT Denies epistaxis and Denies nasal discharge Card Denies chest pain Resp Denies chest congestion, Denies cough and Denies hemoptysis GI Denies diarrhea and Denies nausea Skin/Breast Denies rash Neuro Reports no additional complaints Psych Reports no additional complaints Endo Reports no additional complaints Physical Exam Vital Signs: Last Vital Signs Pulse 63 03/27/23 10:06 BP 134/56 L 03/27/23 10:06 Pulse Ox 99 03/27/23 10:06 Oxygen Delivery Method Room Air 03/27/23 10:06 BMI result Body Mass Index 22.2 Const General: cooperative, comfortable and no acute distress Orientation/consciousness: patient oriented x3 HEENT Head: Yes normocephalic Eyes General: appearance normal, both eyes and all related structures Neck Other: Supple Neck: Yes supple Resp Effort & Inspection: normal respiratory effort, no cough and no stridor Cardio Rhythm: regular rhythm Heart sounds: S1 normal heart sound present and S2 normal heart sound present Skin General skin exam: turgor normal Neuro Other: Motor sensory intact General: patient oriented x3, tone normal and moves all extremities Extrem Other: No lower extremity swelling. Right lower extremity: no edema Left lower extremity: no edema Psych Other: Normal effect, speech clear Assessment & Plan Assessment & Plan (1) Medicare annual wellness visit, initial: Code(s): Z00.00 - Encounter for general adult medical examination without abnormal findings (2) Papanicolaou smear declined: Code(s): Z53.20 - Procedure and treatment not carried out because of patient's decision for unspecified reasons (3) Mammogram declined: Code(s): Z53.20 - Procedure and treatment not carried out because of patient's decision for unspecified reasons (4) Colonoscopy refused: Code(s): Z53.20 - Procedure and treatment not carried out because of patient's decision for unspecified reasons (5) Interstitial cystitis: Code(s): N30.10 - Interstitial cystitis (chronic) without hematuria (6) Hyperlipidemia: Code(s): E78.5 - Hyperlipidemia, unspecified Qualifiers: Hyperlipidemia type: mixed hyperlipidemia Qualified Code(s): E78.2 - Mixed hyperlipidemia Plan Patient is a 67-year-old female with a history of stress cardiomyopathy currently seeing 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 Patient says that she does not use more than 5 or 6 tablets a month She will be meeting with our behavior health coordinator so we can get her established with a new psychiatrist Meanwhile I can help her for next 3 months. If she needed script beyond that patient will come in for follow-up. Interstitial cystitis: Patient has been having symptoms for the past few days be did sent antibiotic for her as her UA showed small amount of inflammation She is feeling better She has made appointment with the Urology as well for follow-up. Labs are needed order placed to be done today. Orders: Orders TSH reflex Free T4 Today E78.5 - Hyperlipidemia, unspecified, N30.10 - Interstitial cystitis (chronic) without hematuria Comprehensive Met. Panel Today E78.5 - Hyperlipidemia, unspecified, N30.10 - Interstitial cystitis (chronic) without hematuria LDL Cholesterol Direct Today E78.5 - Hyperlipidemia, unspecified, N30.10 - Interstitial cystitis (chronic) without hematuria Complete Blood Count Auto Diff Today E78.5 - Hyperlipidemia, unspecified, N30.10 - Interstitial cystitis (chronic) without hematuria Referrals Cologuard Test Z12.11 - Encounter for screening for malignant neoplasm of colon, Z12.12 - Encounter for screening for malignant neoplasm of rectum Medications: Discontinued levofloxacin Discontinued Reason: Doctor's Order 250 mg PO DAILY 3 days 3 tabs 0RF Quality Reporting (2019) Depression/Bipolar (159/160/161/177) PHQ-9: Total score: 13 Coding Level of Care Code Medicare First (G0438) Est Pt Level 4 (71536) Diagnoses Medicare annual wellness visit, initial Z00.00 Papanicolaou smear declined Z53.20 Mammogram declined Z53.20 Colonoscopy refused Z53.20 Interstitial cystitis N30.10 Mixed hyperlipidemia E78.2 Hyperlipidemia type: mixed hyperlipidemia CPT Codes Advance Care Planning - Time spent: 1-15 minutes, not on file ([id number]) Advance Care Planning Forms completed: [facility] Time spent: 1-15 minutes, not on file Actual minutes spent: 10
[2023-03-27 10:06] VITALS: BP 134/56; PULSE 63; O2SAT 99; BMI 22.2
== END 2023-03-27 11:44 | disposition home or self-care (01) ==
PROVIDERS: PCP Internal Medicine; Visit Provider Internal Medicine
DX: Z00.00 Encounter for general adult medical examination without abnormal findings (principal); Z53.20 Procedure and treatment not carried out because of patient's decision for unspecified reasons; N30.10 Interstitial cystitis (chronic) without hematuria; E78.2 Mixed hyperlipidemia
CPT/HCPCS: 1124F; G0438

== ENCOUNTER 2023-04-24 14:54 | Outpatient (AMB) | payer MEDICARE, MEDICAID, SELFPAY ==
--- NOTE | 2023-04-24 14:55 | A.OFFVIS_ITS ---
Intake Intake Visit Reasons: Interstitial cystitis (chronic) without hematuria Intake Note: NEW Patient presents today to established treatment for Interstitial cystitis (chronic) without Hematuria: Meds- None Allergies to Antibiotic- Penicillin & Sulfa Blood Thinner- None PVR- 72 mL Drug And Alcohol Treatment Specialist Required: No Accompanied by: Self / Same As Patient Allergies Penicillins [PENICILLINS] Allergy (Severe, Verified 04/24/23 15:13) HIVES cephalexin [Keflex] Allergy (Unknown, Verified 04/24/23 15:13) unknown Sulfa (Sulfonamide Antibiotics) Allergy (Unknown, Verified 04/24/23 15:13) hives morphine [MORPHINE] Adverse Reaction (Unknown, Verified 04/24/23 15:13) ITCHY perflutren [From DEFINITY] Adverse Reaction (Unknown, Verified 04/24/23 15:13) CHEST PAIN NSAIDS Adverse Reaction (Unknown, Uncoded 04/24/23 15:13) GI upset Medication List - Last Reconciled 04/24/23 by Perry Kline MD clonazepam 0.5 mg PO BEDTIME 30 days lisinopril 5 mg PO DAILY [id number]-ffqxb-exr 118-10-40.8-36 mg (Uribel) 1 tab PO QID PRN HPI HPI Comments History of Present Illness Details Jossy is a 67-year-old female who presents today to the office to establish as a new patient for an evaluation of interstitial cystitis. 04/24/2023? She presents today for an evaluation of chronic interstitial cystitis. The patient has past medical history significant for bipolar. Patient states that she was diagnosed with interstitial cystitis in 2014 by a urologist in [facility], she does not remember the name. She states that Cystoscopy was done at that time which was very painful and she ended up in the hospital after the Cystoscopy. She states that she had urinary symptoms of bladder pressure, and urinary frequency of every hour during day time, and nocturia x 2. Currently, she manages her interstitial cystitis symptom by following IC diet, however she cheats sometimes with ocassional wine or coffee. She states that she takes Prelief at that time. She is taking Prelief which helps to cut the acids out from beverages or foods. She states that she cannot take pyridium as it causes signfcant stomach upset. She states that she is unable to give a urine sample. Bladder scan was 72 ml. Plan: Continue IC diet, and Uirbel was prescribed 1 tablet up to 4 times a day, however I think that BID should be adequate no 90 tablets. Patient has had urinary tract infections in the past. She will call if UTIs recurs. I discussed that we requested urine sample so that it can be sent for culture to direct the antibiotic therapy. Follow-up in 1 year. [facility] Medical History Non-STEMI (non-ST elevated myocardial infarction) LV (left ventricular) mural thrombus Stress-induced cardiomyopathy Surgical History History of cardiac catheterization (~05/13/19) History of cholecystectomy (~06/2017) History of knee surgery Family History Father Substance use disorder Mother Cancer Other Mental health disorder Social History Housing: House Patient Tobacco Use Status: Former Tobacco user Quit Date: 2014 Years Smoked: 30 e-Cigarette/Vaping Use: Never Used Current occupational status: retired Cognitive needs: No Hearing needs: No Vision needs: Yes Review of Systems Const All systems reviewed & are unremarkable except as noted in HPI and below Reports no additional complaints Eyes Reports no additional complaints ENT Reports no additional complaints Card Denies dyspnea Resp Denies cough and Denies dyspnea GI Reports no additional complaints Reports no additional complaints Musc Reports no additional complaints Skin/Breast Denies rash and Denies unusual bruising Neuro Reports no additional complaints Psych Reports no additional complaints Endo Reports no additional complaints Alfonzo/Lymph Reports no additional complaints Aller/Immun Reports no additional complaints Physical Exam Const General: cooperative, healthy appearing and no acute distress Orientation/consciousness: patient oriented x3 HEENT Head: Yes normal to inspection, Yes normocephalic and Yes atraumatic Eyes Conjunctivae: conjunctivae normal Neck Neck: Yes normal visual inspection and Yes trachea midline Chest Chest palpation & inspection: normal inspection of the chest Resp Effort & Inspection: normal respiratory effort Cardio Rate: regular rate GI Inspection: Yes normal to inspection Palpation (GI): Soft to palpation Skin General skin exam: no rashes or lesions noted Neuro General: patient oriented x3 Extrem General: No edema Psych Appearance: grossly normal Office Procedures Post Void Residual Post Residual Void Post Void Residual (PVR): 72 [id number] Void Residual by ultrasound Assessment & Plan Assessment & Plan (1) Interstitial cystitis: Code(s): N30.10 - Interstitial cystitis (chronic) without hematuria (2) Urinary frequency: Code(s): R35.0 - Frequency of micturition (3) Sensation of pressure in bladder area: Code(s): R39.89 - Other symptoms and signs involving the genitourinary system Plan Plan: Continue IC diet, and Uirbel was prescribed 1 tablet up to 4 times a day, however I think that BID should be adequate no 90 tablets. Patient has had urinary tract infections in the past. She will call if UTIs recurs. I discussed that we will request a urine sample so that it can be sent for culture to direct the antibiotic therapy. Follow-up in 1 year. Orders: Orders AMB Post Void Residual by ultrasound 04/24/23 N39.8 - Other specified disorders of urinary system Medications: Abhi jeanjwlk-cwfzt-qga 118-10-40.8-36 mg (Uribel) administer with plenty of fluids 1 tab PO QID PRN 90 caps 0RF bladder pain Patient Instructions: The patient had an opportunity to ask questions regarding treatment plan. All questions were answered. Imaging, Laboratory studies and physical exam results were discussed and reviewed in detail. No major barriers to understanding were identified. The patient expressed understanding and agreement with the above treatment plan.? ? ? The patient is aware they should contact our office by phone for worsening of their current condition or the appearance of new symptoms. Compliance is encouraged with any medications and followup testing that is ordered.? ? ? It is a privilege to be allowed the opportunity to participate in the urologic care of your patient. If you have any questions or concerns regarding treatment for the above conditions please do not hesitate to contact me. The office telephone contact is [phone].? ? ? This note is constructed in part using voice recognition software. While every effort has been made to ensure accuracy silverware cleaner errors may have been included.? ? ? Yours sincerely,? ? ? Perry Kline MD? Coding Level of Care Code New Pt Level 4 (00071) Diagnoses Interstitial cystitis N30.10 Urinary frequency R35.0 Sensation of pressure in bladder area R39.89 CPT Codes Post Residual Void - PVR CPT Code: 28712-[id number] Void Residual by ultrasound ([id number])
== END 2023-04-24 15:46 | disposition home or self-care (01) ==
PROVIDERS: PCP Internal Medicine; Visit Provider Urology
DX: N30.10 Interstitial cystitis (chronic) without hematuria (principal); R35.0 Frequency of micturition; R39.89 Other symptoms and signs involving the genitourinary system
CPT/HCPCS: 99204

== ENCOUNTER → 2023-04-24 14:54 | Outpatient (BNVA) | payer MEDICARE, MEDICAID, SELFPAY | PROVIDERS: PCP Internal Medicine; Visit Provider Urology | DX: N30.10 Interstitial cystitis (chronic) without hematuria (principal); R35.0 Frequency of micturition; R39.89 Other symptoms and signs involving the genitourinary system | CPT/HCPCS: 51798 ==

== ENCOUNTER 2023-05-04 15:42 | Outpatient (REF) | payer MEDICARE, MEDICAID, SELFPAY ==
[2023-05-04 16:52] LABS: Appearance Urine Clear; Color Urine Yellow; Glucose Urine UA Negative (Negative); Leukocyte Esterase Urine Negative (Negative); Nitrite Urine Negative (Negative); PH 5.5 (5.0-9.0); Specific Gravity - Urine <= 1.005 (1.005-1.025); Urine Blood Negative (Negative); Urine Ketones Negative (Negative); Urine Protein Negative (Neg-Trace)
[2023-05-04 16:58] LABS: Bacteria Urine None Seen (None Seen); Hyaline Casts Urine 0-2 /LPF (0-2); RBC Urine 0-2 /HPF (0-2); Squamous Epithelial Cell Urine 0-2 /HPF (0-2); WBC Urine 0-5 /HPF (0-5)
== END 2023-05-04 15:43 | disposition home or self-care (01) ==
LOC: HO.LAB 15:42
PROVIDERS: PCP Internal Medicine; Visit Provider Urology
DX: R35.0 Frequency of micturition (principal)
CPT/HCPCS: 81001; 87086

== ENCOUNTER 2023-05-19 11:45 | Outpatient (REF) | payer MEDICARE, MEDICAID, SELFPAY ==
[2023-05-19 12:56] LABS: Appearance Urine Clear; Color Urine Yellow; Glucose Urine UA Negative (Negative); Leukocyte Esterase Urine Negative (Negative); Nitrite Urine Negative (Negative); PH 5.5 (5.0-9.0); Specific Gravity - Urine <= 1.005 (1.005-1.025); Urine Blood Negative (Negative); Urine Ketones Negative (Negative); Urine Protein Negative (Neg-Trace)
[2023-05-19 13:00] LABS: Bacteria Urine None Seen (None Seen); Hyaline Casts Urine 0-2 /LPF (0-2); RBC Urine 0-2 /HPF (0-2); Squamous Epithelial Cell Urine 0-2 /HPF (0-2); WBC Urine 0-5 /HPF (0-5)
== END 2023-05-19 11:46 | disposition home or self-care (01) ==
LOC: HO.LAB 11:45
PROVIDERS: Visit Provider Urology
DX: N30.10 Interstitial cystitis (chronic) without hematuria (principal)
CPT/HCPCS: 81001; 87086

== ENCOUNTER 2023-06-11 08:54 | Outpatient (AMB) | payer MEDICARE, MEDICAID, SELFPAY ==
--- NOTE | 2023-06-11 08:55 | A.OFFVIS_ITS ---
Intake Intake Visit Reasons: discuss treatment Intake Note: Patient presents today via phone to discuss treatment for Interstitial Cystitis: Meds- Oxybutynin Allergies to Antibiotic- Penicillin & Sulfa Blood Thinner- None Senior Program Analyst Required: No Accompanied by: Self / Same As Patient Allergies Penicillins [PENICILLINS] Allergy (Severe, Verified 06/11/23 08:56) HIVES cephalexin [Keflex] Allergy (Unknown, Verified 06/11/23 08:56) unknown Sulfa (Sulfonamide Antibiotics) Allergy (Unknown, Verified 06/11/23 08:56) hives morphine [MORPHINE] Adverse Reaction (Unknown, Verified 06/11/23 08:56) ITCHY perflutren [From DEFINITY] Adverse Reaction (Unknown, Verified 06/11/23 08:56) CHEST PAIN NSAIDS Adverse Reaction (Unknown, Uncoded 06/11/23 08:56) GI upset PFSH Medical History Non-STEMI (non-ST elevated myocardial infarction) LV (left ventricular) mural thrombus Stress-induced cardiomyopathy Surgical History History of cardiac catheterization (~05/13/19) History of cholecystectomy (~06/2017) History of knee surgery Family History Father Substance use disorder Mother Cancer Other Mental health disorder Social History Housing: House Patient Tobacco Use Status: Former Tobacco user Quit Date: 2014 Years Smoked: 30 e-Cigarette/Vaping Use: Never Used Current occupational status: retired Cognitive needs: No Hearing needs: No Vision needs: Yes Coding
--- NOTE | 2023-06-11 08:55 | A.OFFVIS_ITS ---
Intake Intake Visit Reasons: discuss treatment Allergies Penicillins [PENICILLINS] Allergy (Severe, Verified 07/09/23 08:49) HIVES cephalexin [Keflex] Allergy (Unknown, Verified 07/09/23 08:49) unknown Sulfa (Sulfonamide Antibiotics) Allergy (Unknown, Verified 07/09/23 08:49) hives morphine [MORPHINE] Adverse Reaction (Unknown, Verified 07/09/23 08:49) ITCHY perflutren [From DEFINITY] Adverse Reaction (Unknown, Verified 07/09/23 08:49) CHEST PAIN NSAIDS Adverse Reaction (Unknown, Uncoded 06/11/23 08:56) GI upset HPI HPI Comments History of Present Illness Details Jossy is a 68-year-old female who presents today via Tele-health visit for a follow-up. 06/11/2023? She is followed today to discuss treatment. She was last seen by me on 04/24/2023 for chronic interstitial cystitis. She states that she had cystoscopy hydrodistention and bladder instillation in the past was not helpful. She states that her insurance did not cover the uribel. She had tried Pyridium in the past which caused her nausea, vomiting and diarrhea. Patient states that she is on oxybutynin which did not help her bladder spasms. Review of charts: Last visit: 04/24/2023? She presents today for an evaluation of chronic interstitial cystitis. The patient has past medical history significant for bipolar. Patient states that she was diagnosed with interstitial cystitis in 2015 by a urologist in [facility], she does not remember the name. She states that Cystoscopy was done at that time which was very painful and she ended up in the hospital after the Cystoscopy. She states that she had urinary symptoms of bladder pressure, and urinary frequency of every hour during day time, and nocturia x 2. Currently, she manages her interstitial cystitis symptom by following IC diet, however she cheats sometimes with ocassional wine or coffee. She states that she takes Prelief at that time. She is taking Prelief which helps to cut the acids out from beverages or foods. She states that she cannot take pyridium as it causes signfcant stomach upset. She states that she is unable to give a urine sample. Bladder scan was 72 ml. 06/11/2023: Plan: Advised the patient to continue to follow IC diet. I will look into the insurance protocol for uribel and if she will call if UTIs recurs. I discussed that we requested urine sample so that it can be sent for culture to rule out UTI and direct the antibiotic therapy. [facility] Medical History Gallstone pancreatitis Non-STEMI (non-ST elevated myocardial infarction) LV (left ventricular) mural thrombus Stress-induced cardiomyopathy Surgical History History of cardiac catheterization (~05/13/19) History of cholecystectomy (~06/2017) History of knee surgery Family History Father Substance use disorder Mother Cancer Other Mental health disorder Social History Housing: House Alcohol intake: former Patient Tobacco Use Status: Former Tobacco user Quit Date: 2014 Years Smoked: 30 e-Cigarette/Vaping Use: Never Used Current occupational status: retired Cognitive needs: No Hearing needs: No Vision needs: Yes Review of Systems Const All systems reviewed & are unremarkable except as noted in HPI and below Reports no additional complaints Eyes Reports no additional complaints ENT Reports no additional complaints Card Denies dyspnea Resp Denies cough and Denies dyspnea GI Reports no additional complaints Reports no additional complaints Musc Reports no additional complaints Skin/Breast Denies rash and Denies unusual bruising Neuro Reports no additional complaints Psych Reports no additional complaints Endo Reports no additional complaints Alfonzo/Lymph Reports no additional complaints Aller/Immun Reports no additional complaints Assessment & Plan Assessment & Plan (1) Interstitial cystitis: Code(s): N30.10 - Interstitial cystitis (chronic) without hematuria (2) Urinary frequency: Code(s): R35.0 - Frequency of micturition (3) Sensation of pressure in bladder area: Code(s): R39.89 - Other symptoms and signs involving the genitourinary system Plan Advised the patient to continue to follow IC diet. I will look into the insurance protocol for uribel and if she will call if UTIs recurs. I discussed that we requested urine sample so that it can be sent for culture to direct the antibiotic therapy. Patient Instructions: The patient had an opportunity to ask questions regarding treatment plan. All questions were answered. Imaging, Laboratory studies and physical exam results were discussed and reviewed in detail. No major barriers to understanding were identified. The patient expressed understanding and agreement with the above treatment plan. The patient is aware they should contact our office by phone for worsening of their current condition or the appearance of new symptoms. Compliance is encouraged with any medications and followup testing that is ordered. It is a privilege to be allowed the opportunity to participate in the urologic care of your patient. If you have any questions or concerns regarding treatment for the above conditions please do not hesitate to contact me. The office telephone contact is [phone]. This note is constructed in part using voice recognition software. While every effort has been made to ensure accuracy shop laborer errors may have been included. Yours sincerely, Perry Kline MD Telehealth Telehealth Location of provider rendering services: practice address Location of patient: address on file Patient Identification confirmed using: Name, : Yes Telehealth method: voice only Patient verbally consented to treatment: Yes Patient verbally consented to billing insurance company: Yes Patient informed of any privacy concerns related to visit: Yes Minutes spent on Phone/Video with Pt.: 18 Coding Level of Care Code Tele Est Pt Level 3 (55632) Diagnoses Interstitial cystitis N30.10 Urinary frequency R35.0 Sensation of pressure in bladder area R39.89
== END 2023-06-11 10:44 | disposition home or self-care (01) ==
LOC: HO.HUSH 08:54
PROVIDERS: PCP Internal Medicine; Visit Provider Urology
DX: N30.10 Interstitial cystitis (chronic) without hematuria (principal); R35.0 Frequency of micturition; R39.89 Other symptoms and signs involving the genitourinary system
CPT/HCPCS: 99442

== ENCOUNTER → 2023-06-11 08:54 | Outpatient (BNVA) | payer MEDICARE, SELFPAY | PROVIDERS: PCP Internal Medicine; Visit Provider Urology ==

== ENCOUNTER 2023-06-15 20:55 | Emergency (ER) | payer MEDICARE, OTHER, SELFPAY ==
[2023-06-15 21:02] VITALS: BP 154/71; BP 164/100; PULSE 70; PULSE 74; RESP 16; TEMP 37.1; O2SAT 98; BMI 26.9
--- NOTE | 2023-06-15 21:09 | ECG_ITS ---
Test Reason : N/V Blood Pressure : / mmHG Vent. Rate : 070 BPM Atrial Rate : 070 BPM P-R Int : 156 ms QRS Dur : 076 ms QT Int : 408 ms P-R-T Axes : 042 053 052 degrees QTc Int : 440 ms Normal sinus rhythm Normal ECG When compared with ECG of 11-MAY-2019 01:59, T wave inversion no longer evident in Inferior leads T wave inversion no longer evident in Anterolateral leads QT has shortened Referred By: Gino Weston Electronically Signed By:Chevy Chadwick
--- NOTE | 2023-06-15 21:20 | ED.NAVMDI ---
HPI - Nausea/Vomiting/Diarrhea General Chief complaint: Nausea/Vomiting/Diarrhea Stated complaint: N/V Time Seen by Provider: 06/15/23 21:07 Source: patient Mode of arrival: EMS Limitations: no limitations History of Present Illness HPI Narrative: Patient came from home for nausea vomiting diarrhea started after midnight unable to take any p.o. fluids patient's was sick with only diarrhea got better. Patient vomited more than 15 times since last night and only for watery diarrhea loose bowel complaining of upper abdominal discomfort no fever but does have some chills denied any bad food intake no seafood intake no recent travel Related Data Previous Rx's Medication Instructions Recorded lisinopril 5 mg tablet 5 mg PO DAILY #90 tabs 01/09/23 clonazepam 0.5 mg tablet 0.5 mg PO BEDTIME Sleep and 04/24/23 anxiety 30 days #30 tabs methenam 118 mg-m.blue 10 1 tab PO QID PRN bladder pain #90 04/24/23 mg-s.phos 40.8 mg-p.salic 36 caps mg-hyos capsule (Uribel) oxybutynin chloride 5 mg tablet 5 mg PO TID PRN bladder spasms 30 05/18/23 days #90 tabs dicyclomine 20 mg tablet 20 mg PO TID PRN abdominal pain 06/16/23 #15 tabs ondansetron 4 mg disintegrating 4 mg PO Q6-8H PRN nausea and 06/16/23 tablet vomiting #10 tabs Allergies Allergy/AdvReac Type Severity Reaction Status Date / Time Penicillins [PENICILLINS] Allergy Severe HIVES Verified 06/11/23 08:56 cephalexin [Keflex] Allergy Unknown unknown Verified 06/11/23 08:56 Sulfa (Sulfonamide Allergy Unknown hives Verified 06/11/23 08:56 Antibiotics) morphine [MORPHINE] AdvReac Unknown ITCHY Verified 06/11/23 08:56 perflutren [From DEFINITY] AdvReac Unknown CHEST PAIN Verified 06/11/23 08:56 NSAIDS AdvReac Unknown GI upset Uncoded 06/11/23 08:56 Review of Systems Review of Systems: Yes all other systems are reviewed and are negative PMFSH Past Medical History Medical History (Updated 06/16/23 @ 00:17 by Gino Weston MD) Gallstone pancreatitis Non-STEMI (non-ST elevated myocardial infarction) LV (left ventricular) mural thrombus Stress-induced cardiomyopathy Surgical History History of cardiac catheterization (~05/13/19) History of cholecystectomy (~06/2017) History of knee surgery Family History Family History Father Substance use disorder Mother Cancer Other Mental health disorder Social History Social History Housing: House Patient Tobacco Use Status: Former Tobacco user Quit Date: 2014 Years Smoked: 30 e-Cigarette/Vaping Use: Never Used Advance Directives: No Advance Directives Information Provided: No Current occupational status: retired Cognitive needs: No Hearing needs: No Vision needs: Yes Physical Exam Vital Signs: Vital Signs: Last Vital Signs Temp 98.5 F 06/15/23 23:58 Pulse 69 06/15/23 23:58 Resp 12 06/15/23 23:58 BP 136/60 06/15/23 23:58 Pulse Ox 99 06/15/23 23:58 O2 Del Method Room Air 06/15/23 23:58 BMI result Body Mass Index 26.9 Appearance: Alert. Oriented X3. No acute distress. Eyes: PERRLA, No Nystagmus ENT: Pharynx normal. Oral Mucosa dry Neck: Normal inspection. Neck supple. CVS: Normal heart rate and rhythm. Pulses normal. Respiratory: No respiratory distress. Equal air entry bilateral, no wheezing/rales/rhonchi Abdomen: Soft, mild tenderness mid abdomen no rebound tenderness or guarding. Bowel sounds are present, no mass palpable, no CVA tenderness Skin: Skin warm and dry. Normal skin color. Normal skin turgor. Extremities: No lower extremity edema. No calf tenderness Neuro: Oriented X 3. No motor deficit. Medications Administered Discontinued Medications Generic Name Dose Route Start Last Admin Trade Name Freq PRN Reason Stop Dose Admin Dicyclomine HCl 20 mg 06/15/23 21:40 06/15/23 22:19 Dicyclomine Hcl 10 Mg Capsule PO 06/15/23 21:41 20 mg ONCE ONE Administration Sodium Chloride 1,000 mls @ 999 mls/hr 06/15/23 21:39 06/15/23 22:19 Ns IV 06/15/23 22:39 999 mls/hr .Q1H1M ONE Administration Ondansetron HCl 4 mg 06/15/23 21:39 06/15/23 22:19 Ondansetron Hcl 4 Mg/2 Ml Vial IVPUSH 06/15/23 21:40 4 mg ONCE ONE Administration Medical Decision Making Medical Decision Making [facility] Narrative: Patient with gastroenteritis likely viral after IV fluids and nausea medication patient feeling much better taking p.o. fluids discharge patient home on Zofran and dicyclomine Differential Diagnosis Differential Diagnoses: The differential diagnosis associated with the presentation includes Gastroenteritis/pancreatitis/gastritis Admission/Observation Consideration of admission/observation: Escalation of care including admission/observation considered Lab Data [facility] Lab Attestation statement: I reviewed the patient's lab results. 06/15/23 21:23 06/15/23 21:23 Labs: Lab Results 06/15/23 Range/Units 21:23 WBC 7.5 (4.8-10.8) X10*3/uL RBC 5.26 (4.20-5.50) X10*6/uL Hgb 15.1 (12.0-16.0) g/dl Hct 45.1 (37.0-47.0) % MCV 85.7 (80.0-98.0) fL MCH 28.7 (27.0-33.0) pg MCHC 33.5 (31.0-35.0) g/dl RDW 13.2 (11.0-16.0) % Plt Count 284 D (160-400) X10*3/uL MPV 9.3 L (9.4-12.3) fL Immature Gran % (Auto) 0.1 (0.0-0.4) % Neut % (Auto) 89.6 H (45-73) % Lymph % (Auto) 7.3 L (20-40) % [place] % (Auto) 2.7 (2-11) % Eos % (Auto) 0.0 (0-4) % Baso % (Auto) 0.3 (0-2) % Lymph # (Auto) 0.6 L (1.2-4.9) X10*3/uL [place] # (Auto) 0.2 (0.1-1.2) X10*3/uL Eos # (Auto) 0.0 (0.0-0.4) X10*3/uL Baso # (Auto) 0.0 (0.0-0.2) X10*3/uL Abs Immat Gran (auto) 0.01 (0.00-0.03) X10*3/uL Absolute Neuts (auto) 6.7 (2.0-8.3) x10*3/uL Absolute Nucleated RBC 0.000 (0.0-0.012) X10*3/uL Nucleated RBC % (auto) 0.0 (0.0-0.2) /100WBC Sodium 140 (135-145) mmol/L Potassium 4.3 (3.3-5.1) mmol/L Chloride 105 (96-108) mmol/L Carbon Dioxide 20 L (22-29) mmol/L Anion Gap 19 (12-20) BUN 20 H (9-16) mg/dL Creatinine 0.88 (0.5-1.4) mg/dL Estim Creat Clear Calc 57.0 Estimated GFR > 60 Random Glucose 157 H (60-115) mg/dL Calcium 10.0 (8.4-10.2) mg/dL Total Bilirubin 0.6 (0.0-1.0) mg/dL AST 28 (5-31) U/L ALT 21 (0-31) U/L Alkaline Phosphatase 72 (39-117) U/L Total Protein 7.9 (6.5-8.0) g/dL Albumin 4.7 (3.5-5.0) g/dL Lipase 13 (8-78) U/L COVID-19 (JUVENCIO) Negative (Negative) COVID-19 Clin Com See Note Discharge Plan Discharge Clinical Impression: Gastroenteritis Patient Disposition: Home, Self-Care Instructions: Gastroenteritis (ED) Additional Instructions: Drink plenty of fluids Medication for nausea as prescribed Follow with PCP if not better Prescriptions: New ondansetron 4 mg tablet,disintegrating 4 mg PO Q6-8H PRN (Reason: nausea and vomiting) Qty: 10 0RF dicyclomine 20 mg tablet 20 mg PO TID PRN (Reason: abdominal pain) Qty: 15 0RF No Action lisinopril 5 mg tablet 5 mg PO DAILY Qty: 90 3RF clonazepam 0.5 mg tablet 0.5 mg PO BEDTIME 30 Days Qty: 30 0RF Rx Instructions: administer 30 minutes before bedtime oxybutynin chloride 5 mg tablet 5 mg PO TID PRN (Reason: bladder spasms) 30 Days Qty: 90 0RF Uribel 118-10-40.8-36 mg capsule 1 tab PO QID PRN (Reason: bladder pain) Qty: 90 0RF Rx Instructions: administer with plenty of fluids
[2023-06-15 21:28] LABS: Basophils Percent Auto 0.3 % (0-2); Hemoglobin 15.1 g/dl (12.0-16.0); PLT CLUMP 1; SCAN SMEAR FLAG 1
[2023-06-15 21:30] LABS: Hematocrit 45.1 % (37.0-47.0); Imm Gran Abs Auto 0.01 X10*3/uL (0.00-0.03); Imm Gran Pct Auto 0.1 % (0.0-0.4); Lymphocytes Absolute Auto 0.6 X10*3/uL (1.2-4.9); Lymphocytes Percent Auto 7.3 % (20-40); MANUAL DIFF FLAG SCAN; Mean Corpuscular HGB Conc 33.5 g/dl (31.0-35.0); Mean Corpuscular Hemoglobin 28.7 pg (27.0-33.0); Mean Corpuscular Volume 85.7 fL (80.0-98.0); Mean Platelet Volume 9.3 fL (9.4-12.3); Monocytes Absolute Auto 0.2 X10*3/uL (0.1-1.2); Monocytes Percent Auto 2.7 % (2-11); Neutrophils Absolute Auto 6.7 x10*3/uL (2.0-8.3); Neutrophils Percent Auto 89.6 % (45-73); Red Blood Count 5.26 X10*6/uL (4.20-5.50); Red Cell Distribution Width 13.2 % (11.0-16.0)
[2023-06-15 21:46] LABS: Alanine Aminotransferase 21 U/L (0-31); Albumin Level 4.7 g/dL (3.5-5.0); Alkaline Phosphatase 72 U/L (39-117); Anion Gap 19 (12-20); Aspartate Amino Transferase 28 U/L (5-31); Bilirubin Total 0.6 mg/dL (0.0-1.0); Blood Urea Nitrogen 20 mg/dL (9-16); Carbon Dioxide 20 mmol/L (22-29); Chloride 105 mmol/L (96-108); Estimated Glomerular Filt Rate > 60; Glucose Random 157 mg/dL (60-115); Lipase 13 U/L (8-78); Potassium 4.3 mmol/L (3.3-5.1); Sodium 140 mmol/L (135-145); Total Protein 7.9 g/dL (6.5-8.0)
[2023-06-15 21:47] LABS: Platelet Count 284 X10*3/uL (160-400); White Blood Count 7.5 X10*3/uL (4.8-10.8)
[2023-06-15] MEDS: ondansetron HCL 4 MG/2 ML VIAL IVPUSH (22:19)
[2023-06-15] MEDS: 0.9 % Sodium Chloride 1,000 ML 999 ML IV (22:19)
[2023-06-15] MEDS: Dicyclomine HCl 10 MG CAPSULE 20 MG PO (22:19)
[2023-06-15 22:28] LABS: COVID-19 Test Negative (Negative); IDNOW Serial# 6674DD1D
[2023-06-15 23:58] VITALS: BP 136/60; PULSE 69; RESP 12; TEMP 36.9; O2SAT 99
[2023-06-16] MEDS: Prochlorperazine Edisylate 10 MG/2 ML VIAL 5 MG IVPUSH (00:41)
[2023-06-16] MEDS: Ketorolac Tromethamine 30 MG/ML VIAL IVPUSH (00:41)
[2023-06-16] MEDS: 0.9 % Sodium Chloride 1,000 ML 999 ML IV (00:43)
[2023-06-16 07:07] LABS: SLIDE REVIEW VERIFIED
== END 2023-06-16 01:49 | disposition home or self-care (01) ==
PROVIDERS: Emergency Provider Internal Medicine; PCP Internal Medicine
DX: K52.9 Noninfective gastroenteritis and colitis, unspecified (principal); Z87.891 Personal history of nicotine dependence; Z11.52 Encounter for screening for COVID-19
CPT/HCPCS: 80053; 83690; 85025; 87635; 93005; 96361; 96374; 96375; 99285; J0737; J1885; J2405

== ENCOUNTER → 2023-06-15 21:09 | Outpatient (BNV) | payer MEDICARE, SELFPAY | PROVIDERS: Emergency Provider Internal Medicine; PCP Internal Medicine; Visit Provider Internal Medicine Cardiovascular Disease | DX: K52.9 Noninfective gastroenteritis and colitis, unspecified (principal) | CPT/HCPCS: 93010 ==

== ENCOUNTER 2023-07-09 08:29 | Outpatient (AMB) | payer MEDICARE, MEDICAID, SELFPAY ==
--- NOTE | 2023-07-09 08:48 | MHC.PC.OV ---
Intake Visit Reasons: Med review/ [phone] Allergies Penicillins [PENICILLINS] Allergy (Severe, Verified 07/09/23 08:49) HIVES cephalexin [Keflex] Allergy (Unknown, Verified 07/09/23 08:49) unknown Sulfa (Sulfonamide Antibiotics) Allergy (Unknown, Verified 07/09/23 08:49) hives morphine [MORPHINE] Adverse Reaction (Unknown, Verified 07/09/23 08:49) ITCHY perflutren [From DEFINITY] Adverse Reaction (Unknown, Verified 07/09/23 08:49) CHEST PAIN NSAIDS Adverse Reaction (Unknown, Uncoded 06/11/23 08:56) GI upset Medication List - Last Reconciled 07/09/23 by Carrillo Zarco MD clonazepam 0.5 mg PO BEDTIME 30 days dicyclomine 20 mg PO TID PRN lisinopril 5 mg PO DAILY [id number] 118-10-40.8-36 mg (Uribel) 1 tab PO QID PRN ondansetron 4 mg PO Q6-8H PRN oxybutynin chloride 5 mg PO TID PRN 30 days Tobacco use date assessed: 07/09/23 Fall risk assessment: No Falls in past year Last assessed Fall Risk: 07/09/23 Dental Screening Dental Screen Date: 07/09/23 Did you have a dental visit in the last 12 months?: No Did you have a dental problem in the last 6 months where you did not have access to dental care?: No Was dental information given to patient?: No HPI Med review/ [phone] HPI Details Rib back I is suffering from COVID infection she is recovering it has been 2 weeks, but continued to cough and has slight chest congestion. Patient thinks that she does not need any antibiotic however at times do feel short of breath and would like to have a script for prednisone for few days. I have sent prednisone 20 mg to be taken once a day for 5 days. Clonazepam script sent for anxiety, patient now have psych med prescriber from end of July. That will be the last prescription from me for clonazepam. [facility] Medical History Gallstone pancreatitis Non-STEMI (non-ST elevated myocardial infarction) LV (left ventricular) mural thrombus Stress-induced cardiomyopathy Surgical History History of cardiac catheterization (~05/13/19) History of cholecystectomy (~06/2017) History of knee surgery Family History Father Substance use disorder Mother Cancer Other Mental health disorder Social History Housing: House Alcohol intake: former Patient Tobacco Use Status: Former Tobacco user Quit Date: 2014 Smoked: 30 e-Cigarette/Vaping Use: Never Used Current occupational status: retired Cognitive needs: No Hearing needs: No Vision needs: Yes Questionnaire Thrive Questionnaire Date Thrive assessed: 03/19/22 AUDIT C Alcohol Use Questionnaire (AUDIT-C) 1. How often do you have a drink containing alcohol?: Never 3. How often do you have six or more drinks on one occasion?: Never Total Score: 0 Score Reviewed/Action Taken: Yes CORBY-7 AMB Questionnaire CORBY-7 Date CORBY - 7 assessed: 03/19/22 Source: Developed by Drs. Emery Iqbal, Mayuri Cunha, Lester Kemp and colleagues, with an educational chyeanne from [employer]. Review of Systems Const Denies chills and Denies fever(s) ENT Denies epistaxis and Denies nasal discharge Card Denies chest pain Resp Denies hemoptysis GI Denies diarrhea and Denies nausea Skin/Breast Denies rash Neuro Reports no additional complaints Psych Reports no additional complaints Endo Reports no additional complaints Physical exam (Primary Care) Tobacco/Smoking Status: Tobacco use Status Tobacco use date assessed 07/09/23 07/09/23 08:49 Patient Tobacco Use Status Former Tobacco user 07/09/23 08:49 e-Cigarette/Vaping Use Never Used 07/09/23 08:49 Thrive Assessment: Date of Thrive Assessment Date Thrive assessed 03/19/22 07/09/23 08:49 Telehealth Telehealth Location of provider rendering services: practice address Location of patient: address on file Patient Identification confirmed using: Name, : Yes Telehealth method: voice only Patient verbally consented to treatment: Yes Patient verbally consented to billing insurance company: Yes Patient informed of any privacy concerns related to visit: Yes Minutes spent on Phone/Video with Pt.: 13 Assessment and Plan Assessment & Plan (1) COVID-19 virus infection: Code(s): U07.1 - COVID-19 (2) Anxiety, generalized: Code(s): F41.1 - Generalized anxiety disorder Plan Rib back I is suffering from COVID infection she is recovering it has been 2 weeks, but continued to cough and has slight chest congestion. Patient thinks that she does not need any antibiotic however at times do feel short of breath and would like to have a script for prednisone for few days. I have sent prednisone 20 mg to be taken once a day for 5 days. Clonazepam script sent for anxiety, patient now have psych med prescriber from end of July. That will be the last prescription from me for clonazepam. Medications: New prednisone 20 mg PO DAILY 5 tabs 0RF 5 days Refilled clonazepam administer 30 minutes before bedtime 0.5 mg PO BEDTIME 30 tabs 0RF Sleep and anxiety 30 days Coding Level of Care Code Tele New Pt Level 3 (29435) Diagnoses COVID-19 virus infection U07.1 Anxiety, generalized F41.1
== END 2023-07-09 13:05 | disposition home or self-care (01) ==
LOC: HO.HMGC 08:29
PROVIDERS: PCP Internal Medicine; Visit Provider Internal Medicine
DX: U07.1 COVID-19 (principal); F41.1 Generalized anxiety disorder
CPT/HCPCS: 99442

== ENCOUNTER 2023-08-31 16:57 | Outpatient (REF) | payer MEDICARE, MEDICAID, SELFPAY | END 2023-08-31 16:58 | disposition home or self-care (01) | LOC: HO.LAB 16:57 | PROVIDERS: PCP Internal Medicine; Visit Provider Urology | DX: Z13.89 Encounter for screening for other disorder (principal) ==

== ENCOUNTER 2023-09-01 17:34 | Outpatient (REF) | payer MEDICARE, MEDICAID, SELFPAY ==
[2023-09-01 18:27] LABS: Appearance Urine Clear; Color Urine Yellow; Glucose Urine UA Negative (Negative); Leukocyte Esterase Urine Negative (Negative); Nitrite Urine Negative (Negative); Specific Gravity - Urine <= 1.005 (1.005-1.025); Urine Blood Negative (Negative); Urine Ketones Negative (Negative); Urine Protein Negative (Neg-Trace)
[2023-09-01 18:30] LABS: Bacteria Urine None Seen (None Seen); Hyaline Casts Urine 0-2 /LPF (0-2); RBC Urine 0-2 /HPF (0-2); Squamous Epithelial Cell Urine 0-2 /HPF (0-2); WBC Urine 0-5 /HPF (0-5)
== END 2023-09-01 17:35 | disposition home or self-care (01) ==
LOC: HO.LNP 17:34
PROVIDERS: Visit Provider Urology
DX: R30.0 Dysuria (principal); R35.0 Frequency of micturition
CPT/HCPCS: 81001; 87086

== ENCOUNTER 2023-09-18 18:04 | Outpatient (REF) | payer MEDICARE, MEDICAID, SELFPAY ==
[2023-09-18 18:18] LABS: Appearance Urine Clear; Color Urine Yellow; Glucose Urine UA Negative (Negative); Leukocyte Esterase Urine Negative (Negative); Nitrite Urine Negative (Negative); Urine Blood Negative (Negative); Urine Ketones Negative (Negative); Urine Protein Negative (Neg-Trace)
[2023-09-18 19:45] LABS: Bacteria Urine None Seen (None Seen); Hyaline Casts Urine 0-2 /LPF (0-2); RBC Urine 0-2 /HPF (0-2); Squamous Epithelial Cell Urine 0-2 /HPF (0-2); WBC Urine 0-5 /HPF (0-5)
== END 2023-09-18 18:05 | disposition home or self-care (01) ==
LOC: HO.LNP 18:04
PROVIDERS: Visit Provider Urology
DX: N30.10 Interstitial cystitis (chronic) without hematuria (principal); R35.0 Frequency of micturition; E78.2 Mixed hyperlipidemia
CPT/HCPCS: 81001

== ENCOUNTER 2023-10-26 16:59 | Outpatient (REF) | payer MEDICARE, MEDICAID, SELFPAY ==
[2023-10-26 18:02] LABS: Appearance Urine Hazy; Color Urine Yellow; Glucose Urine UA Negative (Negative); Leukocyte Esterase Urine Trace (Negative); Nitrite Urine Negative (Negative); Specific Gravity - Urine >= 1.030 (1.005-1.025); UMIC TRIGGER UA YES; Urine Blood Moderate (2+) (Negative); Urine Ketones 15 mg/dL (Negative); Urine Protein 30 (1+) mg/dL (Neg-Trace)
[2023-10-26 18:24] LABS: Bacteria Urine 3+ (None Seen); Hyaline Casts Urine 0-2 /LPF (0-2); RBC Urine >20 /HPF (0-2); WBC Urine 21-50 /HPF (0-5)
== END 2023-10-26 17:00 | disposition home or self-care (01) ==
LOC: HO.LAB 16:59
PROVIDERS: PCP Internal Medicine; Visit Provider Urology
DX: R35.0 Frequency of micturition (principal); R30.0 Dysuria
CPT/HCPCS: 81001; 87086; 87088; 87186

== ENCOUNTER 2023-11-22 08:47 | Emergency (ER) | payer MEDICARE, MEDICAID, SELFPAY ==
[2023-11-22 08:57] VITALS: BP 169/88; PULSE 84; RESP 16; TEMP 36.7; O2SAT 99; BMI 23.4
--- NOTE | 2023-11-22 10:03 | ED_ITS ---
HPI - Skin/Abscess/Foreign Bdy General Chief complaint: Skin/Abscess/Foreign Body Stated complaint: hives, no relief Time Seen by Provider: 11/22/23 10:03 Source: patient Mode of arrival: ambulatory Limitations: no limitations History of Present Illness HPI narrative: 68 yo female with PMH of anxiety, cystitis, HLD, cardiomyopathy here with c/o being on macrobid in the past but for the past two weeks notes intermittent hives and itching sometimes responds to benadryl has tried OTC without relief. She has not had reaction in past. No airway issues. MYRTLE NATHAN complaint: rash Onset (ago): week(s) (2) Location: generalized Severity: mild Quality: pruritic Relieving factors: medication Exacerbating factors: none Context: recent illness and recent antibiotic Associated symptoms: denies other symptoms Treatments prior to arrival: OTC topical medication and Benadryl Related Data Previous Rx's ?Medication ?Instructions ?Recorded methenam 118 mg-m.blue 10 1 tab PO QID PRN bladder pain #90 04/24/23 mg-s.phos 40.8 mg-p.salic 36 caps mg-hyos capsule (Uribel) oxybutynin chloride 5 mg tablet 5 mg PO TID PRN bladder spasms 30 05/18/23 days #90 tabs dicyclomine 20 mg tablet 20 mg PO TID PRN abdominal pain 06/16/23 #15 tabs ondansetron 4 mg disintegrating 4 mg PO Q6-8H PRN nausea and 06/16/23 tablet vomiting #10 tabs clonazepam 0.5 mg tablet 0.5 mg PO BEDTIME Sleep and 07/09/23 anxiety 30 days #30 tabs prednisone 20 mg tablet 20 mg PO DAILY 5 days #5 tabs 07/09/23 fosfomycin tromethamine 3 gram 3 g PO Q3D 9 days #3 ea 09/03/23 oral packet tadalafil 5 mg tablet 5 mg PO DAILY 30 days #30 tabs 09/14/23 lisinopril 5 mg tablet 5 mg PO DAILY #90 tabs 10/15/23 nitrofurantoin 100 mg PO BID UTI 7 days #14 caps 10/29/23 monohydrate/macrocrystals 100 mg capsule (Macrobid) famotidine 20 mg tablet (Pepcid) 20 mg PO DAILY abdominal 11/22/23 discomfort 10 days #10 tabs prednisone 20 mg tablet 40 mg (2 x 20 mg) PO DAILY 5 days 11/22/23 #10 tabs Allergies Allergy/AdvReac Type Severity Reaction Status Date / Time Penicillins [PENICILLINS] Allergy Severe HIVES Verified 11/22/23 09:01 cephalexin [Keflex] Allergy Unknown unknown Verified 11/22/23 09:01 Sulfa (Sulfonamide Allergy Unknown hives Verified 11/22/23 09:01 Antibiotics) morphine [MORPHINE] AdvReac Unknown ITCHY Verified 11/22/23 09:01 perflutren [From DEFINITY] AdvReac Unknown CHEST PAIN Verified 11/22/23 09:01 NSAIDS AdvReac Unknown GI upset Uncoded 11/22/23 09:01 Review of Systems Review of Systems: Constitutional : No Fever, No Chills ENT/Mouth : No sore throat, No Rhinorrhea Eyes: No Eye Pain, No Swelling, No Redness Cardiovascular : No Chest Pain, No SOB Respiratory : No Cough, No Sputum Gastrointestinal : No Nausea, No Vomiting, No Diarrhea, No abdominal Pain Genitourinary : No Dysuria, No Hematuria Musculoskeletal : No joint pain, No Myalgias, No Joint Swelling Skin : No Skin Lesions, positive skin rash Neuro : No Weakness, No Numbness, No Headache Psych : No Anxiety, No Depression All other systems reviewed and are negative PMFSH Past Medical History Attestation statement: The following information was validated with the patient. Source: old records reviewed Medical History Gallstone pancreatitis Non-STEMI (non-ST elevated myocardial infarction) LV (left ventricular) mural thrombus Stress-induced cardiomyopathy Surgical History History of cardiac catheterization (~05/13/19) History of cholecystectomy (~06/2017) History of knee surgery Family History Family History Father Substance use disorder Mother Cancer Other Mental health disorder Social History Social History Housing: House Alcohol intake: former Patient Tobacco Use Status: Former Tobacco user Quit Date: 2014 Years Smoked: 30 e-Cigarette/Vaping Use: Never Used Current occupational status: retired Cognitive needs: No Hearing needs: No Vision needs: Yes Physical Exam Vital Signs: Vital Signs: Last Vital Signs Temp 98.1 F 11/22/23 08:57 Pulse 84 11/22/23 08:57 Resp 16 11/22/23 08:57 BP 169/88 H 11/22/23 08:57 Pulse Ox 99 11/22/23 08:57 O2 Del Method Room Air 11/22/23 08:57 BMI result Body Mass Index 23.4 Appearance: Alert. Oriented X3. No acute distress. Eyes: Pupils equal, round and reactive to light. ENT: Pharynx normal. no swelling Neck: Normal inspection. Neck supple. CVS: Normal heart rate and rhythm. Pulses normal. Respiratory: No respiratory distress. Breath sounds normal. Abdomen: Soft and nontender. Skin: Skin warm and dry. Normal skin color. faint hives noted on upper arms and lower abdomen Extremities: No lower extremity edema. Neuro: Oriented X 3. No motor deficit. No sensory deficit. Medical Decision Making Medical Decision Making [facility] Narrative: 68 yo female with PMH of anxiety, cystitis, HLD, cardiomyopathy here with c/o intermittent hives but no other symptoms post macrobid at this time will need to try other medications such as steroids, pepcid and zyrtec. She has no systemic symptoms she is very anxious wants urine test. At this time I will order urine. If no improvement in 5 days to follow up with doctor for lab work verbally discussed with patient. Differential Diagnosis Differential Diagnoses: The differential diagnosis associated with the presentation includes med related hives, stress related hives Admission/Observation Consideration of admission/observation: Escalation of care including admission/observation considered no airway issues stable for DC Lab Data [facility] Lab Attestation statement: I reviewed the patient's lab results. External Record Review External record reviewed: Inpatient record Prescription Management I considered prescription management with: Other Discharge Plan Discharge Clinical Impression: Urticaria Patient Disposition: Home, Self-Care Instructions: Urticaria (ED) Additional Instructions: take medications with food return for worsening swelling difficulty breathing I would be hesitant to take that medication again talk to your doctor follow up with doctor if not better in 5 days please take zyrtec 10 mg daily over the counter for 10 days Prescriptions: New prednisone 20 mg tablet 40 mg PO DAILY 5 Days Qty: 10 0RF famotidine [Pepcid] 20 mg tablet 20 mg PO DAILY 10 Days Qty: 10 0RF No Action oxybutynin chloride 5 mg tablet 5 mg PO TID PRN (Reason: bladder spasms) 30 Days Qty: 90 0RF fosfomycin tromethamine 3 gram packet 3 g PO Q3D 9 Days Qty: 3 0RF Rx Instructions: One dose (one packet) every 3 days tadalafil 5 mg tablet 5 mg PO DAILY 30 Days Qty: 30 1RF lisinopril 5 mg tablet 5 mg PO DAILY Qty: 90 0RF nitrofurantoin monohyd/m-cryst [Macrobid] 100 mg capsule 100 mg PO BID 7 Days Qty: 14 0RF Rx Instructions: must administer with a meal/food ondansetron 4 mg tablet,disintegrating 4 mg PO Q6-8H PRN (Reason: nausea and vomiting) Qty: 10 0RF dicyclomine 20 mg tablet 20 mg PO TID PRN (Reason: abdominal pain) Qty: 15 0RF clonazepam 0.5 mg tablet 0.5 mg PO BEDTIME 30 Days Qty: 30 0RF Rx Instructions: administer 30 minutes before bedtime prednisone 20 mg tablet 20 mg PO DAILY 5 Days Qty: 5 0RF Uribel 118-10-40.8-36 mg capsule 1 tab PO QID PRN (Reason: bladder pain) Qty: 90 0RF Rx Instructions: administer with plenty of fluids Print Language: Gambian
[2023-11-22 10:13] VITALS: BP 175/97; PULSE 88; RESP 16; TEMP 37.2; O2SAT 100
[2023-11-22 10:34] LABS: Appearance Urine Clear; Color Urine Yellow; Glucose Urine UA Negative (Negative); Leukocyte Esterase Urine Trace (Negative); Nitrite Urine Negative (Negative); PH 5.5 (5.0-9.0); Specific Gravity - Urine <= 1.005 (1.005-1.025); UMIC TRIGGER UACC YES; Urine Blood Negative (Negative); Urine Ketones Negative (Negative); Urine Protein Negative (Neg-Trace)
[2023-11-22 10:37] LABS: Bacteria Urine None Seen (None Seen); RBC Urine 0-2 /HPF (0-2); Squamous Epithelial Cell Urine 0-2 /HPF (0-2); WBC Urine 0-5 /HPF (0-5)
== END 2023-11-22 10:27 | disposition home or self-care (01) ==
LOC: HO.ED 10:17
PROVIDERS: Emergency Provider Emergency Medicine; PCP Internal Medicine
DX: L50.9 Urticaria, unspecified (principal); N30.90 Cystitis, unspecified without hematuria; Z79.2 Long term (current) use of antibiotics; F41.9 Anxiety disorder, unspecified; E78.5 Hyperlipidemia, unspecified; Z87.891 Personal history of nicotine dependence; Z79.899 Other long term (current) drug therapy
CPT/HCPCS: 81001; 99282; 99283

== ENCOUNTER 2023-12-05 08:04 | Outpatient (REF) | payer MEDICARE, MEDICAID, SELFPAY ==
[2023-12-05 08:20] LABS: MANUAL DIFF FLAG NO
[2023-12-05 08:41] LABS: Basophils Absolute Auto 0.1 X10*3/uL (0.0-0.2); Basophils Percent Auto 0.8 % (0-2); Eosinophils Absolute Auto 0.2 X10*3/uL (0.0-0.4); Eosinophils Percent Auto 2.4 % (0-4); Hematocrit 42.8 % (37.0-47.0); Imm Gran Abs Auto 0.02 X10*3/uL (0.00-0.03); Imm Gran Pct Auto 0.3 % (0.0-0.4); Lymphocytes Absolute Auto 2.1 X10*3/uL (1.2-4.9); Mean Corpuscular HGB Conc 32.7 g/dl (31.0-35.0); Mean Corpuscular Hemoglobin 28.8 pg (27.0-33.0); Mean Corpuscular Volume 88.1 fL (80.0-98.0); Mean Platelet Volume 8.6 fL (9.4-12.3); Monocytes Absolute Auto 0.7 X10*3/uL (0.1-1.2); Monocytes Percent Auto 8.9 % (2-11); Neutrophils Absolute Auto 4.7 x10*3/uL (2.0-8.3); Neutrophils Percent Auto 60.6 % (45-73); Platelet Count 271 X10*3/uL (160-400); Red Blood Count 4.86 X10*6/uL (4.20-5.50); Red Cell Distribution Width 12.8 % (11.0-16.0); White Blood Count 7.8 X10*3/uL (4.8-10.8)
[2023-12-05 09:20] LABS: Alanine Aminotransferase 19 U/L (0-31); Albumin Level 4.4 g/dL (3.5-5.0); Alkaline Phosphatase 78 U/L (39-117); Anion Gap 11 (12-20); Aspartate Amino Transferase 24 U/L (5-31); Bilirubin Total 0.4 mg/dL (0.0-1.0); Blood Urea Nitrogen 15 mg/dL (9-16); Calcium 9.8 mg/dL (8.4-10.2); Carbon Dioxide 26 mmol/L (22-29); Chloride 104 mmol/L (96-108); Estimated Glomerular Filt Rate > 60; Glucose Random 101 mg/dL (60-115); Potassium 4.3 mmol/L (3.3-5.1); Sodium 137 mmol/L (135-145); Total Protein 7.3 g/dL (6.5-8.0)
[2023-12-05 09:36] LABS: TSH reflex Free T4 1.76 uIU/mL (0.32-4.0)
[2023-12-05 10:59] LABS: Appearance Urine Turbid; Color Urine Yellow; Glucose Urine UA Negative (Negative); Leukocyte Esterase Urine Trace (Negative); Nitrite Urine Negative (Negative); PH 5.5 (5.0-9.0); Specific Gravity - Urine 1.015 (1.005-1.025); UMIC TRIGGER UA YES; Urine Blood Negative (Negative); Urine Ketones Negative (Negative); Urine Protein Trace mg/dL (Neg-Trace)
[2023-12-05 11:15] LABS: Bacteria Urine 1+ (None Seen); Hyaline Casts Urine 0-2 /LPF (0-2); RBC Urine 0-2 /HPF (0-2); Squamous Epithelial Cell Urine >20 /HPF (0-2)
[2023-12-07 21:23] LABS: LDL Cholesterol Direct 213 mg/dL (<100)
== END 2023-12-05 08:05 | disposition home or self-care (01) ==
LOC: HO.LAB 08:04
PROVIDERS: PCP Internal Medicine; Visit Provider Urology
DX: N30.10 Interstitial cystitis (chronic) without hematuria (principal); E78.5 Hyperlipidemia, unspecified; R30.0 Dysuria; R35.0 Frequency of micturition
CPT/HCPCS: 36415; 80053; 81001; 83721; 84443; 85025; 87086

== ENCOUNTER 2023-12-14 10:16 | Outpatient (AMB) | payer MEDICARE, MEDICAID, SELFPAY ==
--- NOTE | 2023-12-14 10:16 | A.OFFVIS_ITS ---
Intake Visit Reasons: Discuss UTI tx/microgen Intake Note: Patient presents today via phone to discuss Recurrent UTIs: Meds- None Allergies to Antibiotic- Penicillin & Sulfa Blood Thinner- None Sem Manager Required: No Accompanied by: Self / Same As Patient Allergies Penicillins [PENICILLINS] Allergy (Severe, Verified 12/14/23 10:18) HIVES cephalexin [Keflex] Allergy (Unknown, Verified 12/14/23 10:18) unknown Sulfa (Sulfonamide Antibiotics) Allergy (Unknown, Verified 12/14/23 10:18) hives morphine [MORPHINE] Adverse Reaction (Unknown, Verified 12/14/23 10:18) ITCHY perflutren [From DEFINITY] Adverse Reaction (Unknown, Verified 12/14/23 10:18) CHEST PAIN macrobid Allergy (Intermediate, Uncoded 12/14/23 10:18) Hives NSAIDS Adverse Reaction (Unknown, Uncoded 12/14/23 10:18) GI upset Medication List - Last Reconciled 12/14/23 by Perry Kline MD clonazepam 0.5 mg PO BEDTIME 30 days famotidine (Pepcid) 20 mg PO DAILY 10 days lisinopril 5 mg PO DAILY phenazopyridine (Pyridium) 100 mg PO TID PRN 3 days HPI Comments Details: 12/14/23--Jossy is a 68-year-old female who presents today via Tele-health visit for a follow-up. Past medical has history of bipolar. Chronic interstitial cystitis patient manages with IC diet and Prelief. She does not want to take other medications for the interstitial cystitis. She will use Pyridium p.r.n. for flare in painful urinary symptoms but states that the medication upsets her stomach even when she takes it with food. She was treated for UTI in October urine culture came back E coli. She had a urine culture 12/05/2023 that noted mixed bacteria. She states she saw a urogynecologist the told her she had stage II cystocele and vaginal atrophy, she was prescribed Estrace cream but stated that when she used the cream at affected her mood causing her to be very irritated. She is using [id number]-[id number] D mannose and a probiotic. Plan discussed she will call when she has UTI symptoms to have a urine culture done to distinguish between and IC flare and a true UTI. 30 minutes spent in review of records pertaining to this visit and including discussion with the patient and documentation of this visit. Review of charts: 06/11/2023? She is followed today to discuss treatment. She was last seen by me on 04/24/2023 for chronic interstitial cystitis. She states that she had cystoscopy hydrodistention and bladder instillation in the past was not helpful. She states that her insurance did not cover the uribel. She had tried Pyridium in the past which caused her nausea, vomiting and diarrhea. Patient states that she is on oxybutynin which did not help her bladder spasms. 04/24/2023? She presents today for an evaluation of chronic interstitial cystitis. The patient has past medical history significant for bipolar. Patient states that she was diagnosed with interstitial cystitis in 2015 by a urologist in [facility], she does not remember the name. She states that Cystoscopy was done at that time which was very painful and she ended up in the hospital after the Cystoscopy. She states that she had urinary symptoms of bladder pressure, and urinary frequency of every hour during day time, and nocturia x 2. Currently, she manages her interstitial cystitis symptom by following IC diet, however she cheats sometimes with ocassional wine or coffee. She states that she takes Prelief at that time. She is taking Prelief which helps to cut the acids out from beverages or foods. She states that she cannot take pyridium as it causes signfcant stomach upset. She states that she is unable to give a urine sample. Bladder scan was 72 ml. [facility] Medical History Gallstone pancreatitis Non-STEMI (non-ST elevated myocardial infarction) LV (left ventricular) mural thrombus Stress-induced cardiomyopathy Surgical History History of cardiac catheterization (~05/13/19) History of cholecystectomy (~06/2017) History of knee surgery Family History Father Substance use disorder Mother Cancer Other Mental health disorder Social History Housing: House Alcohol intake: former Patient Tobacco Use Status: Former Tobacco user Years Smoked: 30 e-Cigarette/Vaping Use: Never Used Current occupational status: retired Cognitive needs: No Hearing needs: No Vision needs: Yes Review of Systems Const All systems reviewed & are unremarkable except as noted in HPI and below Reports no additional complaints Eyes Reports no additional complaints ENT Reports no additional complaints Card Reports no additional complaints Resp Reports no additional complaints GI Reports no additional complaints Reports as per HPI Musc Reports no additional complaints Skin/Breast Reports system reviewed and no additional complaints, except as documented Neuro Reports no additional complaints Psych Reports no additional complaints Endo Reports no additional complaints Alfonzo/Lymph Reports no additional complaints Aller/Immun Reports no additional complaints Telehealth Telehealth Telehealth Platform: [employer] Location of provider rendering services: practice address Location of patient: address on file Patient Identification confirmed using: Name, : Yes Telehealth method: voice only Patient verbally consented to treatment: Yes Patient verbally consented to billing insurance company: Yes Patient informed of any privacy concerns related to visit: Yes Minutes spent on Phone/Video with Pt.: 23 Assessment & Plan Assessment & Plan (1) Interstitial cystitis: Code(s): N30.10 - Interstitial cystitis (chronic) without hematuria Category: Medical (2) Urinary frequency: Code(s): R35.0 - Frequency of micturition Category: Medical (3) Sensation of pressure in bladder area: Code(s): R39.89 - Other symptoms and signs involving the genitourinary system Category: Medical (4) Vaginal atrophy: Code(s): N95.2 - Postmenopausal atrophic vaginitis Category: Medical (5) Recurrent UTI: Code(s): N39.0 - Urinary tract infection, site not specified Category: Medical Plan She is using nejs-zqy-zvfwsey D mannose and a probiotic. Plan discussed she will call when she has UTI symptoms to have a urine culture done to distinguish between and IC flare and a true UTI. Medications: Discontinued ondansetron Discontinued Reason: Patient no longer taking 4 mg PO Q6-8H PRN 10 tabs 0RF nausea and vomiting dicyclomine Discontinued Reason: Patient no longer taking 20 mg PO TID PRN 15 tabs 0RF abdominal pain prednisone Discontinued Reason: Patient Completed Course 40 mg (2 x 20 mg) PO DAILY 5 days 10 tabs 0RF prednisone Discontinued Reason: Patient no longer taking 20 mg PO DAILY 5 days 5 tabs 0RF oxybutynin chloride Discontinued Reason: Patient no longer taking 5 mg PO TID 30 days PRN 90 tabs 0RF bladder spasms fosfomycin tromethamine One dose (one packet) every 3 days Discontinued Reason: Patient Completed Course 3 grams PO Q3D 9 days 3 ea 0RF N39.0 - Urinary tract infection, site not specified tadalafil Discontinued Reason: Patient Refused 5 mg PO DAILY 30 days 30 tabs 1RF N30.10 - Interstitial cystitis (chronic) without hematuria [id number] 118-10-40.8-36 mg (Uribel) administer with plenty of fluids Discontinued Reason: Doctor's Order 1 tab PO QID PRN 90 caps 0RF bladder pain levofloxacin Discontinued Reason: Patient Completed Course 250 mg PO DAILY 7 days 7 tabs 0RF R35.0 - Frequency of micturition Coding Level of Care Code Tele Est Pt Level 4 (84602) Diagnoses Interstitial cystitis N30.10 Urinary frequency R35.0 Sensation of pressure in bladder area R39.89 Vaginal atrophy N95.2 Recurrent UTI N39.0
== END 2023-12-14 11:11 | disposition home or self-care (01) ==
LOC: HO.HUSH 10:16
PROVIDERS: PCP Internal Medicine; Visit Provider Urology
DX: N30.10 Interstitial cystitis (chronic) without hematuria (principal); R35.0 Frequency of micturition; R39.89 Other symptoms and signs involving the genitourinary system; N95.2 Postmenopausal atrophic vaginitis; N39.0 Urinary tract infection, site not specified
CPT/HCPCS: 99442

== ENCOUNTER → 2023-12-14 10:16 | Outpatient (BNVA) | payer MEDICARE, MEDICAID, SELFPAY | PROVIDERS: PCP Internal Medicine; Visit Provider Urology ==

== ENCOUNTER 2023-12-18 12:41 | Outpatient (REF) | payer MEDICARE, MEDICAID, SELFPAY ==
[2023-12-18 12:51] LABS: Appearance Urine Clear; Color Urine Yellow; Glucose Urine UA Negative (Negative); Leukocyte Esterase Urine Negative (Negative); Nitrite Urine Negative (Negative); PH 5.5 (5.0-9.0); Urine Blood Negative (Negative); Urine Ketones Negative (Negative); Urine Protein Negative (Neg-Trace)
[2023-12-18 12:54] LABS: Bacteria Urine None Seen (None Seen); Hyaline Casts Urine 0-2 /LPF (0-2); RBC Urine 0-2 /HPF (0-2); Squamous Epithelial Cell Urine 0-2 /HPF (0-2); WBC Urine 0-5 /HPF (0-5)
== END 2023-12-18 12:42 | disposition home or self-care (01) ==
LOC: HO.LNP 12:41
PROVIDERS: Visit Provider Urology
DX: N39.0 Urinary tract infection, site not specified (principal)
CPT/HCPCS: 81001; 87086

== ENCOUNTER 2024-01-04 17:27 | Outpatient (REF) | payer MEDICARE, MEDICAID, SELFPAY ==
[2024-01-04 17:33] LABS: Appearance Urine Clear; Color Urine Yellow; Glucose Urine UA Negative (Negative); Leukocyte Esterase Urine Small (1+) (Negative); Nitrite Urine Negative (Negative); Specific Gravity - Urine <= 1.005 (1.005-1.025); UMIC TRIGGER UA YES; Urine Blood Negative (Negative); Urine Ketones Negative (Negative); Urine Protein Negative (Neg-Trace)
[2024-01-04 17:35] LABS: Bacteria Urine None Seen (None Seen); Hyaline Casts Urine 0-2 /LPF (0-2); RBC Urine 0-2 /HPF (0-2)
== END 2024-01-04 17:28 | disposition home or self-care (01) ==
LOC: HO.LNP 17:27
PROVIDERS: Visit Provider Urology
DX: R35.0 Frequency of micturition (principal); R30.0 Dysuria; N30.10 Interstitial cystitis (chronic) without hematuria
CPT/HCPCS: 81001; 87086

== ENCOUNTER 2024-01-08 08:09 | Outpatient (AMB) | payer MEDICARE, MEDICAID, SELFPAY ==
--- NOTE | 2024-01-08 08:41 | MHC.OFFWIV ---
Intake Vital Signs 01/08/24 08:44 Weight 0 oz BMI Reason not done Patient refused/unable BP 130/82 Blood Pressure Location Lt brachial Position Sitting Pulse 66 Pulse Source Pulse Oximeter Pulse Oximetry (%) 98 Oxygen Delivery Method Room Air Intake Visit Reasons: EP ?sty RT eye Patient Tobacco Use Status: Former Tobacco user Allergies Penicillins [PENICILLINS] Allergy (Severe, Verified 01/08/24 08:44) HIVES cephalexin [Keflex] Allergy (Unknown, Verified 01/08/24 08:44) unknown Sulfa (Sulfonamide Antibiotics) Allergy (Unknown, Verified 01/08/24 08:44) hives morphine [MORPHINE] Adverse Reaction (Unknown, Verified 01/08/24 08:44) ITCHY perflutren [From DEFINITY] Adverse Reaction (Unknown, Verified 01/08/24 08:44) CHEST PAIN macrobid Allergy (Intermediate, Uncoded 01/08/24 08:44) Hives NSAIDS Adverse Reaction (Unknown, Uncoded 01/08/24 08:44) GI upset Medication List - Last Reconciled 01/08/24 by Carrillo Zarco MD clonazepam 0.5 mg PO BEDTIME 30 days fosfomycin tromethamine 3 grams PO Q3D 9 days lisinopril 5 mg PO DAILY Do you need a note to return to daycare/school/sports/work: No HPI EP ?sty RT eye HPI Details Patient is 68-year-old female who has developed stye right upper eyelid with a past few days Came in today for assistance Vision is intact there is no blurring There is no pain with palpation of I On examination she has stye upper eyelid medial corner Patient is allergic to penicillin, sulfa, and had a reaction to Macrobid, she is reluctant to take Ciloxan eyedrops Have sent erythromycin eye ointment to be used Q 8 If stye not resolved patient will need ophthalmology visit. [facility] Medical History Gallstone pancreatitis Non-STEMI (non-ST elevated myocardial infarction) LV (left ventricular) mural thrombus Stress-induced cardiomyopathy Surgical History History of cardiac catheterization (~05/13/19) History of cholecystectomy (~06/2017) History of knee surgery Family History Father Substance use disorder Mother Cancer Other Mental health disorder Social History Housing: House Alcohol intake: former Patient Tobacco Use Status: Former Tobacco user Years Smoked: 30 e-Cigarette/Vaping Use: Never Used Current occupational status: retired Cognitive needs: No Hearing needs: No Vision needs: Yes Review of Systems Const All systems reviewed & are unremarkable except as noted in HPI and below Physical Exam Vital Signs: Last Vital Signs Pulse 66 01/08/24 08:44 BP 130/82 01/08/24 08:44 Pulse Ox 98 01/08/24 08:44 Oxygen Delivery Method Room Air 01/08/24 08:44 Const General: no acute distress Orientation/consciousness: patient oriented x3 Eyes Eyes/upper lids images: 1. Stye right upper eyelid medial corner, PEER, EOMI, no pain with palpation, conjunctiva non icteric and noninjected Resp Effort & Inspection: normal respiratory effort and able to speak in complete sentences Neuro General: patient oriented x3 Psych Mental Status: mental status grossly normal Assessment & Plan Assessment & Plan (1) Hordeolum externum right upper eyelid: Code(s): H00.011 - Hordeolum externum right upper eyelid Plan Patient is 68-year-old female who has developed stye right upper eyelid with a past few days Came in today for assistance Vision is intact there is no blurring There is no pain with palpation of I On examination she has stye upper eyelid medial corner Patient is allergic to penicillin, sulfa, and had a reaction to Macrobid, she is reluctant to take Ciloxan eyedrops Have sent erythromycin eye ointment to be used Q 8 If stye not resolved patient will need ophthalmology visit. Medications: New erythromycin 0.5 inches ophthalmic (eye) TID 3.5 grams 0RF Stye right eye Coding Level of Care Code Est Pt Level 3 (90229) Diagnoses Hordeolum externum right upper eyelid H00.011
[2024-01-08 08:44] VITALS: BP 130/82; PULSE 66; O2SAT 98
== END 2024-01-08 09:00 | disposition home or self-care (01) ==
PROVIDERS: PCP Internal Medicine; Visit Provider Internal Medicine
DX: H00.011 Hordeolum externum right upper eyelid (principal)
CPT/HCPCS: 99213

== ENCOUNTER 2024-01-23 10:32 | Outpatient (REF) | payer MEDICARE, MEDICAID, SELFPAY ==
[2024-01-23 11:16] LABS: Appearance Urine Clear; Color Urine Yellow; Glucose Urine UA Negative (Negative); Leukocyte Esterase Urine Trace (Negative); Nitrite Urine Negative (Negative); UMIC TRIGGER UACC YES; Urine Blood Negative (Negative); Urine Ketones Negative (Negative); Urine Protein Negative (Neg-Trace)
[2024-01-23 11:22] LABS: Bacteria Urine None Seen (None Seen); Hyaline Casts Urine 0-2 /LPF (0-2); RBC Urine 0-2 /HPF (0-2); WBC Urine 0-5 /HPF (0-5)
== END 2024-01-23 10:33 | disposition home or self-care (01) ==
LOC: HO.LAB 10:32
PROVIDERS: PCP Internal Medicine; Visit Provider Urology
DX: R39.9 Unspecified symptoms and signs involving the genitourinary system (principal)
CPT/HCPCS: 81001

== ENCOUNTER 2024-01-26 08:52 | Outpatient (REF) | payer MEDICARE, MEDICAID, SELFPAY ==
[2024-01-26 09:46] LABS: Appearance Urine Clear; Color Urine Dark Yellow; Glucose Urine UA Negative (Negative); Leukocyte Esterase Urine Negative (Negative); Nitrite Urine Negative (Negative); PH 5.5 (5.0-9.0); Urine Blood Negative (Negative); Urine Ketones Negative (Negative); Urine Protein Negative (Neg-Trace)
== END 2024-01-26 08:53 | disposition home or self-care (01) ==
LOC: HO.LAB 08:52
PROVIDERS: PCP Internal Medicine; Visit Provider Urology
DX: R39.9 Unspecified symptoms and signs involving the genitourinary system (principal)
CPT/HCPCS: 81003

== ENCOUNTER 2024-01-28 13:49 | Outpatient (AMB) | payer MEDICARE, MEDICAID, SELFPAY ==
[2024-01-28 13:58] VITALS: BP 116/58; PULSE 65; BMI 24.3
--- NOTE | 2024-01-28 13:58 | A.OFFVIS_ITS ---
Vital Signs 01/28/24 13:58 Height 5 ft 3 in Weight 137 lb 2.04 oz BMI 24.3 BP 116/58 L Blood Pressure Location Lt brachial Position Sitting Pulse 65 Intake Visit Reasons: r/sx 2 /1 year followup w/ekg Selling Manager Required: No Accompanied by: Self / Same As Patient Allergies Penicillins [PENICILLINS] Allergy (Severe, Verified 01/08/24 08:44) HIVES cephalexin [Keflex] Allergy (Unknown, Verified 01/08/24 08:44) unknown Sulfa (Sulfonamide Antibiotics) Allergy (Unknown, Verified 01/08/24 08:44) hives morphine [MORPHINE] Adverse Reaction (Unknown, Verified 01/08/24 08:44) ITCHY perflutren [From DEFINITY] Adverse Reaction (Unknown, Verified 01/08/24 08:44) CHEST PAIN macrobid Allergy (Intermediate, Uncoded 01/08/24 08:44) Hives NSAIDS Adverse Reaction (Unknown, Uncoded 01/08/24 08:44) GI upset Medication List - Last Reconciled 01/28/24 by Fred Gabriel MD clonazepam 0.5 mg PO BEDTIME 30 days hydroxyzine HCl 10 mg PO TID PRN lisinopril 5 mg PO DAILY HPI Comments Details: Jossy returns for follow-up regarding stress-induced cardiomyopathy. To recall, in 2019, she had chest pain and shortness of breath following argument with her family. Then had elevated troponins and elevated cardiac BNP. She was diagnosed as NSTEMI. She underwent cardiac catheterization. This revealed only minimal to mild luminal irregularities. She also had apical thrombus on echocardiogram. Impression was stress-induced cardiomyopathy. Of note, she had a similar episode of stress-induced cardiomyopathy but without any LV thrombus, in 2017 that happened in the setting of pancreatitis. Since last seen, she states she is doing quite good. No specific complaints from cardiac. In the past, she was walking almost 10 miles a day. She has not doing as much these days. With regard to medications, she has not been tolerant of beta-blockers including metoprolol and carvedilol. She is currently on a small dose of lisinopril only. [facility] Medical History Gallstone pancreatitis Non-STEMI (non-ST elevated myocardial infarction) LV (left ventricular) mural thrombus Stress-induced cardiomyopathy Surgical History History of cardiac catheterization (~05/13/19) History of cholecystectomy (~06/2017) History of knee surgery Family History Father Substance use disorder Mother Cancer Other Mental health disorder Social History Housing: House Alcohol intake: former Patient Tobacco Use Status: Former Tobacco user Years Smoked: 30 e-Cigarette/Vaping Use: Never Used Current occupational status: retired Cognitive needs: No Hearing needs: No Vision needs: Yes Review of Systems Const Denies chills, Denies fatigue, Denies fever(s), Denies weight gain and Denies weight loss ENT Denies dizziness Card Denies chest pain, Denies leg edema, Denies lightheadedness, Denies palpitations, Denies dyspnea on exertion, Denies orthopnea and Denies other Resp Denies cough and Denies dyspnea on exertion GI Denies hematochezia and Denies change in stool character Musc Denies abnormal gait, Denies muscle weakness, Denies numbness, Denies radiating pain into limb and Denies tingling Neuro Denies abnormal gait, Denies dizziness, Denies numbness and Denies tingling Endo Denies fatigue and Denies palpitations Physical Exam Vital Signs: Last Vital Signs Pulse 65 01/28/24 13:58 BP 116/58 L 01/28/24 13:58 BMI result Body Mass Index 24.3 Const General: comfortable and no acute distress Orientation/consciousness: patient oriented x3 HEENT Other: Unremarkable Head: Yes normal to inspection Neck Neck: Yes normal visual inspection Chest Chest palpation & inspection: normal inspection of the chest Resp Auscultation: clear to auscultation bilaterally Cardio Palpation: normal PMI Heart sounds: S1 normal heart sound present, S2 normal heart sound present, no gallops, no murmurs and no rubs GI Palpation (GI): Soft to palpation Back/Spine/Pelvis Other: unremarkable Skin General skin exam: no rashes or lesions noted Neuro General: patient oriented x3 Extrem General: Yes normal to inspection Psych Mental Status: mental status grossly normal Office Procedures EKG Details: EKG with sinus rhythm at 65/Min; sinus arrhythmias; no significant ST-T changes and otherwise unremarkable[place] [address][id number], Complete Assessment & Plan Assessment & Plan (1) Stress-induced cardiomyopathy: Code(s): I51.81 - Takotsubo syndrome Category: Medical (2) Hyperlipidemia: Code(s): E78.5 - Hyperlipidemia, unspecified Category: Medical Qualifiers: Hyperlipidemia type: mixed hyperlipidemia Qualified Code(s): E78.2 - Mixed hyperlipidemia Plan Cardiac studies were reviewed. Echocardiogram from 2019 hospitalization had shown LVEF of 15-20% with extensive wall motion abnormalities as well as an apical thrombus. Last echocardiogram from 2020 shows recovered LVEF. No thrombus noted. Cardiac catheterization had shown minimal irregularities in the LAD and circumflex and mild irregularities in the RCA but no obstructive disease anywhere. Similar picture in 2017 as well even though she did have a thrombus at that time. Overall, she has recurrent stress-induced cardiomyopathy, but now with recovered LVEF. She is not tolerant of beta-blockers including metoprolol/carvedilol. She remains on lisinopril and that can be continued. She is only on a small dose. Blood pressure is normal to slightly lowish. May not be able tolerate higher doses. With regard to lipids, they are quite high. Direct LDL 213 mg/dL. There is no significant disease on catheterization. However, his LDL is very high she can start taking statins. Recheck lipids in 3 months. Total time including review of records, counseling, documentation coordination of care-31 minutes. Orders: Orders Lipid Panel 3 Months E78.2 - Mixed hyperlipidemia, E78.5 - Hyperlipidemia, unspecified Liver Panel 3 Months E78.2 - Mixed hyperlipidemia, I25.10 - Atherosclerotic heart disease of [place] coronary artery without angina pectoris Medications: New atorvastatin (Lipitor) 40 mg PO QPM 90 tabs 3RF Coding Level of Care Code Est Pt Level 4 (95604) Diagnoses Stress-induced cardiomyopathy I51.81 Mixed hyperlipidemia E78.2 Hyperlipidemia type: mixed hyperlipidemia CPT Codes EKG - CPT: 18108-[id number], Complete ([id number])
== END 2024-01-28 14:23 | disposition home or self-care (01) ==
PROVIDERS: PCP Internal Medicine; Visit Provider Internal Medicine
DX: I51.81 Takotsubo syndrome (principal); E78.2 Mixed hyperlipidemia
CPT/HCPCS: 93010; 99214

== ENCOUNTER → 2024-01-28 13:49 | Outpatient (BNVA) | payer MEDICARE, MEDICAID, SELFPAY | PROVIDERS: PCP Internal Medicine; Visit Provider Internal Medicine | DX: I51.81 Takotsubo syndrome (principal); Z98.890 Other specified postprocedural states; E78.2 Mixed hyperlipidemia | CPT/HCPCS: 93005; 99212 ==

== ENCOUNTER 2024-04-16 11:01 | Outpatient (REF) | payer MEDICARE, MEDICAID, SELFPAY ==
[2024-04-16 11:27] LABS: Appearance Urine Clear; Color Urine Yellow; Glucose Urine UA Negative (Negative); Leukocyte Esterase Urine Negative (Negative); Nitrite Urine Negative (Negative); PH 5.5 (5.0-9.0); Urine Blood Negative (Negative); Urine Ketones Negative (Negative); Urine Protein Negative (Neg-Trace)
[2024-04-16 11:36] LABS: Bacteria Urine None Seen (None Seen); Hyaline Casts Urine 0-2 /LPF (0-2); RBC Urine 0-2 /HPF (0-2); Squamous Epithelial Cell Urine 0-2 /HPF (0-2); WBC Urine 0-5 /HPF (0-5)
== END 2024-04-16 11:02 | disposition home or self-care (01) ==
LOC: HO.LNP 11:01
PROVIDERS: Visit Provider Urology
DX: R30.0 Dysuria (principal); R39.9 Unspecified symptoms and signs involving the genitourinary system; N39.0 Urinary tract infection, site not specified
CPT/HCPCS: 81001; 87086

== ENCOUNTER → 2024-04-28 14:30 | Outpatient (BNVA) | payer MEDICARE, MEDICAID, SELFPAY | PROVIDERS: PCP Internal Medicine; Visit Provider Urology ==

== ENCOUNTER 2024-04-29 14:25 | Outpatient (AMB) | payer MEDICARE, MEDICAID, SELFPAY ==
--- NOTE | 2024-04-28 14:22 | A.OFFVIS_ITS ---
Intake Visit Reasons: 1y follow up Intake Note: Patient presents today via phone FOR 1Y F/U Meds- None Allergies to Antibiotic- Penicillin & Sulfa Blood Thinner- None Proof Machine Operator Required: No Accompanied by: Self / Same As Patient Allergies Penicillins [PENICILLINS] Allergy (Severe, Verified 04/28/24 14:25) HIVES cephalexin [Keflex] Allergy (Unknown, Verified 04/28/24 14:25) unknown Sulfa (Sulfonamide Antibiotics) Allergy (Unknown, Verified 04/28/24 14:25) hives morphine [MORPHINE] Adverse Reaction (Unknown, Verified 04/28/24 14:25) ITCHY perflutren [From DEFINITY] Adverse Reaction (Unknown, Verified 04/28/24 14:25) CHEST PAIN macrobid Allergy (Intermediate, Uncoded 04/28/24 14:25) Hives NSAIDS Adverse Reaction (Unknown, Uncoded 04/28/24 14:25) GI upset Medication List - Last Reconciled 04/29/24 by Perry Kline MD atorvastatin (Lipitor) 40 mg PO QPM clonazepam 0.5 mg PO BEDTIME 30 days hydroxyzine HCl 10 mg PO TID PRN lisinopril 5 mg PO DAILY phenazopyridine (Pyridium) 200 mg PO Q8H PRN HPI Comments Details: 04/29/24--Jossy is a 68-year-old female who presents today via Tele-health visit for a follow-up. Past medical has history of bipolar. Chronic interstitial cystitis patient states she is has symptoms of bladder/pelvic pain. She denies dysuria. Discussed trial os gabapentin, pyridium prn. Review of charts: 12/14/23--Jossy is a 68-year-old female who presents today via Tele-health visit for a follow-up. Past medical has history of bipolar. Chronic interstitial cystitis patient manages with IC diet and Prelief. She does not want to take other medications for the interstitial cystitis. She will use Pyridium p.r.n. for flare in painful urinary symptoms but states that the medication upsets her stomach even when she takes it with food. She was treated for UTI in October urine culture came back E coli. She had a urine culture 12/05/2023 that noted mixed bacteria. She states she saw a urogynecologist the to ld her she had stage II cystocele and vaginal atrophy, she was prescribed Estrace cream but stated that when she used the cream at affected her mood causing her to be very irritated. She is using [id number] D mannose and a probiotic. Plan discussed she will call when she has UTI symptoms to have a urine culture done to distinguish between and IC flare and a true UTI. 30 minutes spent in review of records pertaining to this visit and including discussion with the patient and documentation of this visit. 06/11/2023? She is followed today to discuss treatment. She was last seen by me on 04/24/2023 for chronic interstitial cystitis. She states that she had cystoscopy hydrodistention and bladder instillation in the past was not helpful. She states that her insurance did not cover the uribel. She had tried Pyridium in the past which caused her nausea, vomiting and diarrhea. Patient states that she is on oxybutynin which did not help her bladder spasms. 04/24/2023?She presents today for an evaluation of chronic interstitial cystitis. The patient has past medical history significant for bipolar. Patient states that she was diagnosed with interstitial cystitis in 2014 by a urologist in [facility], she does not remember the name. She states that Cystoscopy was done at that time which was very painful and she ended up in the hospital after the Cystoscopy. She states that she had urinary symptoms of bladder pressure, and urinary frequency of every hour during day time, and nocturia x 2. Currently, she manages her interstitial cystitis symptom by following IC diet, however she cheats sometimes with ocassional wine or coffee. She states that she takes Prelief at that time. She is taking Prelief which helps to cut the acids out from beverages or foods. She states that she cannot take pyridium as it causes signfcant stomach upset. She states that she is unable to give a urine sample. Bladder scan was 72 ml. [facility] Medical History Gallstone pancreatitis Non-STEMI (non-ST elevated myocardial infarction) LV (left ventricular) mural thrombus Stress-induced cardiomyopathy Surgical History History of cardiac catheterization (~05/13/19) History of cholecystectomy (~06/2017) History of knee surgery Family History Father Substance use disorder Mother Cancer Other Mental health disorder Social History Housing: House Alcohol intake: former Patient Tobacco Use Status: Former Tobacco user Years Smoked: 30 e-Cigarette/Vaping Use: Never Used Current occupational status: retired Cognitive needs: No Hearing needs: No Vision needs: Yes Telehealth Telehealth Telehealth Platform: Kiveda Location of provider rendering services: practice address Location of patient: address on file Patient Identification confirmed using: Name, : Yes Telehealth method: voice only Patient verbally consented to treatment: Yes Patient verbally consented to billing insurance company: Yes Patient informed of any privacy concerns related to visit: Yes Minutes spent on Phone/Video with Pt.: 18 Assessment & Plan Assessment & Plan (1) Interstitial cystitis: Code(s): N30.10 - Interstitial cystitis (chronic) without hematuria Category: Medical (2) Urinary frequency: Code(s): R35.0 - Frequency of micturition Category: Medical (3) Sensation of pressure in bladder area: Code(s): R39.89 - Other symptoms and signs involving the genitourinary system Category: Medical (4) Vaginal atrophy: Code(s): N95.2 - Postmenopausal atrophic vaginitis Category: Medical (5) Recurrent UTI: Code(s): N39.0 - Urinary tract infection, site not specified Category: Medical Plan Gabapentin, pyridium prn Medications: New phenazopyridine (Pyridium) take with food and hydrate well, drink water 200 mg PO Q8H PRN 30 tabs 1RF urinary pain gabapentin start with one tab daily for 7 days than may increase to bid, call for symptoms of dizziness 100 mg PO BID-TID 60 caps 1RF Coding Level of Care Code Tele Est Pt Level 4 (04106) Diagnoses Interstitial cystitis N30.10 Urinary frequency R35.0 Sensation of pressure in bladder area R39.89 Vaginal atrophy N95.2 Recurrent UTI N39.0
--- OUTSIDE RECORDS SUMMARY | 2024-04-28 14:45 | XMS_ITS | Continuity of Care Document ---
Author Organization [facility] Address [address] [place] [address], [address] [place] [address]- Care Team Providers Care Financial Data Analyst Name Role Phone Ilda Emery DE GUZMAN Primary Care Physician [place] [facility] [place]17[place]23 - 12/17/23 [facility] [address] [facility], [address]th [address] [place], [place] [address] Allergies, Adverse Reactions, Alerts Substance Reaction Severity Status penicillin Active Keflex Active E-Mycin Active Bactrim Active Medications apixaban 5 mg oral tablet = 5 mg, By Mouth, 2 times a day, # 60 tablet, 0 Refills, Maintenance, 05/14/19 10:24:20 EST, Tablet Start Date: 05/14/19 Stop Date: 06/13/19 Status: Ordered aspirin 81 mg oral delayed release tablet 81 mg, By Mouth, Daily, # 30 tablet, Refills 0, Tot. Refills 0, Maintenance, 05/14/19 10:24:54 EST,Route to Pharmacy Electronically, [id number], [facility] Start Date: 05/14/19 Status: Ordered atorvastatin 40 mg oral tablet = 40 mg, By Mouth, Daily at bedtime, # 30 tablet, 0 Refills, Maintenance, 05/14/19 10:25:06 EST, Tablet Start Date: 05/14/19 Status: Ordered estradiol 0.1 mg/g vaginal cream = 1 Gm, Vaginally, Every Thursday and Thursday, take every night for two weeks then twice weekly, # 42.5 Gm, 6 Refills, Maintenance, 11/17/23 16:33:00 EDT, [facility]/pharmacy #[id number], Partial fill upon patient request if the prescription is for a schedule II opi... Start Date: 11/17/23 Status: Ordered Vitamin C 500 mg oral tablet, chewable 1 tablet = 500 mg, Chew, 2 times a day, # 180 tablet, 3 Refills, Maintenance, 12/10/23 15:21:00 EDT, Chew Tablet, [facility]/pharmacy #[id number], Partial fill upon patient request if the prescription is for a schedule II opioid drug., 160, cm, 11/16/23 14:19:00 E... Start Date: 12/10/23 Status: Ordered Problem List Condition Confirmation Course Effective Dates Status H ealth Status Informant Anxiety Confirmed Active Vaginal atrophy Confirmed Active Bladder pain Confirmed Active Rectocele Confirmed Active Chronic GERD Confirmed Active HTN (hypertension) Confirmed Active Mixed incontinence Confirmed Active Cystocele with prolapse Confirmed Active [place] (myocardial infarction) Confirmed Active Myofascial pain Confirmed Active Osteoarthritis Confirmed Active Osteoporosis Confirmed Active Pelvic floor weakness Confirmed Active Recurrent UTI Confirmed Active Social History Social History Type Response Smoking Status Former smoker, quit more than 30 days ago entered on: 05/12/19 Sex Patient Care team information Care Team Personnel Name: Emery Gonsales DO Position: Reference Physician Member Role: PCP Address: Address: [address] [place] [address] [place] [address]- Name: Ernestina JACKSON, Charisma Position: [facility] RN Member Role: Primary Care Nurse Care Team Related Persons Name: JUVE SANCHEZ Address: [address] [address]
--- OUTSIDE RECORDS SUMMARY | 2024-04-28 14:45 | XMS_ITS | Continuity of Care Document ---
Author Organization [facility] Address [address] [place] [address], [address] [place] [address]- Care Team Providers Care Americanization Teacher Name Role Phone Ilda Emery DE GUZMAN Primary Care Physician [place] [facility] [place]s): 12/10/23 - 01/09/24 [facility] [address] [facility], 4th [address] [place], [place] [address] Allergies, Adverse Reactions, Alerts Substance Reaction Severity [...] Maintenance, 05/14/19 10:24:54 EST,Route to Pharmacy Electronically, [id number], [facility] Start Date: 05/14/19 Status: Ordered [...] Gm, 6 Refills, Maintenance, 11/17/23 16:33:00 EDT, [facility]/pharmacy #[id number], Partial fill upon patient request if the prescription is for a schedule II opi... Start Date: 11/17/23 Status: Ordered Vitamin C 500 mg oral tablet, chewable 1 tablet = 500 mg, Chew, 2 times a day, # 180 tablet, 3 Refills, Maintenance, 12/10/23 15:21:00 EDT, Chew Tablet, [facility]/pharmacy #[id number], Partial fill upon patient request if the [...] Confirmed Active Cystocele with prolapse Confirmed Active [place] (myocardial infarction) Confirmed Active Myofascial pain Confirmed Active Osteoarthritis Confirmed Active Osteoporosis Confirmed Active Pelvic floor weakness Confirmed Active Recurrent UTI Confirmed Active Social History Social History Type Response Smoking Status Former smoker, quit more than 30 days ago entered on: 05/12/19 Sex Patient Care team information Care Team Personnel Name: Emery Gonsales DO Position: Reference Physician Member Role: PCP Address: Address: [address] [place] [address] [place] [address]- Name: Ernestina JACKSON, Charisma Position: [facility] RN Member Role: Primary Care Nurse Care Team Related Persons Name: JUVE SANCHEZ Address: [address] [address]
--- OUTSIDE RECORDS SUMMARY | 2024-04-28 14:45 | XMS_ITS | Continuity of Care Document ---
Author Organization [facility] Address [address] [place] [address], [address] [place] [address]- Care Team Providers Care Jinrikisha Driver Name Role Phone Ilda Emery DE GUZMAN Primary Care Physician [phone] Encounter [facility] [place] Date(s): 12/14/23 - 01/13/24 [facility] [address] [facility], 4th [address] [place], [place] [address] Allergies, Adverse Reactions, Alerts Substance Reaction [...] Maintenance, 05/14/19 10:24:54 EST,Route to Pharmacy Electronically, [id number], [facility] Start Date: 05/14/19 Status: [...] Gm, 6 Refills, Maintenance, 11/17/23 16:33:00 EDT, [facility]/pharmacy #[id number], Partial fill upon patient request if the prescription is for a schedule II opi... Start Date: 11/17/23 Status: Ordered Vitamin C 500 mg oral tablet, chewable 1 tablet = 500 mg, Chew, 2 times a day, # 180 tablet, 3 Refills, Maintenance, 12/10/23 15:21:00 EDT, Chew Tablet, [facility]/pharmacy #[id number], Partial fill upon patient request if the [...] Confirmed Active Cystocele with prolapse Confirmed Active [place] (myocardial infarction) Confirmed Active Myofascial pain Confirmed Active Osteoarthritis Confirmed Active Osteoporosis Confirmed Active Pelvic floor weakness Confirmed Active Recurrent UTI Confirmed Active Social History Social History Type Response Smoking Status Former smoker, quit more than 30 days ago entered on: 05/12/19 Sex Patient Care team information Care Team Personnel Name: Emery Gonsales DO Position: Reference Physician Member Role: PCP Address: Address: [address] [place] [address] [place] [address]- Name: Ernestina JACKSON, Charisma Position: [facility] RN Member Role: Primary Care Nurse Care Team Related Persons Name: JUVE SANCHEZ Address: [address] [address]
--- OUTSIDE RECORDS SUMMARY | 2024-04-28 14:45 | XMS_ITS | Continuity of Care Document ---
Author Organization [facility] Address [address] [place] [address], [address] [place] [address]- Care Team Providers Care Learning Coordinator Name Role Phone Emery Gonsales DO Primary Care Physician [id number] Date[facility]23 - 03/23/[facility] [address] [facility], [address]th [address] [place], [place] [address] Attending Physician: Analia Velásquez MD Admitting Physician: Analia Velásquez MD Referring Physician: Emery Gonsales DO Allergies, Adverse Reactions, Alerts Substance Reaction Severity [...] Maintenance, 05/14/19 10:24:54 EST,Route to Pharmacy Electronically, [id number], [facility] Start Date: 05/14/19 Status: [...] Gm, 6 Refills, Maintenance, 11/17/23 16:33:00 EDT, [id number], Partial fill upon patient request if the prescription is for a schedule II opi... Start Date: 11/17/23 Status: Ordered Vitamin C 500 mg oral tablet, chewable 1 tablet = 500 mg, Chew, 2 times a day, # 180 tablet, 3 Refills, Maintenance, 12/10/23 15:21:00 EDT, Chew Tablet, [id number], Partial fill upon patient request if the [...] Confirmed Active Cystocele with prolapse Confirmed Active [place] (myocardial infarction) Confirmed Active Myofascial pain Confirmed Active Osteoarthritis Confirmed Active Osteoporosis Confirmed Active Pelvic floor weakness Confirmed Active Recurrent UTI Confirmed Active Social History Social History Type Response Smoking Status Former smoker, quit more than 30 days ago entered on: 05/12/19 Sex Patient Care team information Care Team Personnel Name: Emery Gonsales DO Position: Reference Physician Member Role: PCP Address: Address: [address] [place] [address] [place] [address]- Name: Ernestina JACKSON, Charisma Position: [facility] RN Member Role: Primary Care Nurse Care Team Related Persons Name: JUVE SANCHEZ Address: home [address] [place] [address]
--- OUTSIDE RECORDS SUMMARY | 2024-04-28 14:45 | XMS_ITS | Continuity of Care Document ---
Author Organization [facility] Address [address] [place] [address], 4t [place] [address]- Care Team Providers Care Steel Fabricating Supervisor Name Role Phone Ilda Emery DE GUZMAN Primary Care Physician Encounter [facility] Date(s): 11/17/23 - 12/17/23 [facility] [address] [facility], 4th Floor [place], [place] [address] Allergies, Adverse Reactions, Alerts Substance Reaction [...] Maintenance, 05/14/19 10:24:54 EST,Route to Pharmacy Electronically, [id number], [facility] Start Date: 05/14/19 Status: Ordered [...] Gm, 6 Refills, Maintenance, 11/17/23 16:33:00 EDT, [facility]/pharmacy #[id number], Partial fill upon patient request if the prescription is for a schedule II opi... Start Date: 11/17/23 Status: Ordered Vitamin C 500 mg oral tablet, chewable 1 tablet = 500 mg, Chew, 2 times a day, # 180 tablet, 3 Refills, Maintenance, 12/10/23 15:21:00 EDT, Chew Tablet, [facility]/pharmacy #[id number], Partial fill upon patient request if the [...] Confirmed Active Cystocele with prolapse Confirmed Active [place] (myocardial infarction) Confirmed Active Myofascial pain Confirmed Active Osteoarthritis Confirmed Active Osteoporosis Confirmed Active Pelvic floor weakness Confirmed Active Recurrent UTI Confirmed Active Social History Social History Type Response Smoking Status Former smoker, quit more than 30 days ago entered on: 05/12/19 Sex Patient Care team information Care Team Personnel Name: Emery Gonsales DO Position: Reference Physician Member Role: PCP Address: Address: [address] [place] [address] [place] [address]- Name: Ernestina JACKSON, Charisma Position: [facility] RN Member Role: Primary Care Nurse Care Team Related Persons Name: JUVE ASNCHEZ Address: [address] [address]
--- OUTSIDE RECORDS SUMMARY | 2024-04-28 14:45 | XMS_ITS | Continuity of Care Document ---
Author Organization [facility] Address [address] [place] [address], 4t [place] [address]- Care Team Providers Care Director Of Epidemiology Name Role Phone Ilda Emery DE GUZMAN Primary Care Physician Encounter [facility] Date(s): 12/11/23 - 01/10/24 [facility] [address] [facility], 4th [address] [place], [place] [address] Allergies, Adverse Reactions, Alerts Substance Reaction [...] Maintenance, 05/14/19 10:24:54 EST,Route to Pharmacy Electronically, [id number], [facility] Start Date: 05/14/19 [...] Gm, 6 Refills, Maintenance, 11/17/23 16:33:00 EDT, [facility]/pharmacy #[id number], Partial fill upon patient request if the prescription is for a schedule II opi... Start Date: 11/17/23 Status: Ordered Vitamin C 500 mg oral tablet, chewable 1 tablet = 500 mg, Chew, 2 times a day, # 180 tablet, 3 Refills, Maintenance, 12/10/23 15:21:00 EDT, Chew Tablet, [facility]/pharmacy #[id number], Partial fill upon patient request if the [...] Confirmed Active Cystocele with prolapse Confirmed Active [place] (myocardial infarction) Confirmed Active Myofascial pain Confirmed Active Osteoarthritis Confirmed Active Osteoporosis Confirmed Active Pelvic floor weakness Confirmed Active Recurrent UTI Confirmed Active Social History Social History Type Response Smoking Status Former smoker, quit more than 30 days ago entered on: 05/12/19 Sex Patient Care team information Care Team Personnel Name: Emery Gonsales DO Position: Reference Physician Member Role: PCP Address: Address: [address] [place] [address] [place] [address]- Name: Ernestina JACKSON, Charisma Position: [facility] RN Member Role: Primary Care Nurse Care Team Related Persons Name: JUVE SANCHEZ Address: [address] [address]
== END 2024-04-29 16:03 | disposition home or self-care (01) ==
PROVIDERS: PCP Internal Medicine; Visit Provider Urology
DX: R35.0 Frequency of micturition (principal); R39.89 Other symptoms and signs involving the genitourinary system; N95.2 Postmenopausal atrophic vaginitis; N39.0 Urinary tract infection, site not specified
CPT/HCPCS: 99442

== ENCOUNTER → 2024-04-29 14:25 | Outpatient (BNVA) | payer MEDICARE, MEDICAID, SELFPAY | PROVIDERS: PCP Internal Medicine; Visit Provider Urology ==

== ENCOUNTER 2024-07-04 15:53 | Outpatient (AMB) | payer MEDICARE, MEDICAID, SELFPAY ==
--- NOTE | 2024-07-04 15:53 | MHC.OFFVIS ---
Intake Visit Reasons: 10w/med review Intake Note: Patient is Present for Telephone Follow Up For Med Review Urology Med: None Antibiotic Allergy: Penicllins, Keflex,Sulfa Blood Thinner: None Patient states that she has not had any recent UTI symptoms. She did not take Gabapentin states that once her UTI cleared up her symptoms improved She states that she believes that when she had a UTI it triggered her IC Flare up Inbound Ingredient Logistics Specialist Required: No Accompanied by: Self / Same As Patient Allergies Penicillins [PENICILLINS] Allergy (Severe, Verified 07/04/24 15:57) HIVES cephalexin [Keflex] Allergy (Unknown, Verified 07/04/24 15:57) unknown Sulfa (Sulfonamide Antibiotics) Allergy (Unknown, Verified 07/04/24 15:57) hives morphine [MORPHINE] Adverse Reaction (Unknown, Verified 07/04/24 15:57) ITCHY perflutren [From DEFINITY] Adverse Reaction (Unknown, Verified 07/04/24 15:57) CHEST PAIN macrobid Allergy (Intermediate, Uncoded 07/04/24 15:57) Hives NSAIDS Adverse Reaction (Unknown, Uncoded 07/04/24 15:57) GI upset Medication List - Last Reconciled 07/04/24 by Perry Kline MD atorvastatin (Lipitor) 40 mg PO QPM clonazepam 0.5 mg PO BEDTIME 30 days hydroxyzine HCl 10 mg PO TID PRN lisinopril 5 mg PO DAILY phenazopyridine (Pyridium) 200 mg PO Q8H PRN HPI Comments Details: 07/04/24--Jossy is a 68-year-old female who presents today via Tele-health visit for a follow-up. Past medical has history of bipolar. Chronic interstitial cystitis patient states her symptoms of bladder/pelvic pain improved after she completed treatment for UTI. She did not take Gabapentin. She complains of flank pain. 04/29/24--Jossy is a 68-year-old female who presents today via Tele-health visit for a follow-up. Past medical has history of bipolar. Chronic interstitial cystitis patient states she is has symptoms of bladder/pelvic pain. She denies dysuria. Discussed trial os gabapentin, pyridium prn. 12/14/23--Jossy is a 68-year-old female who presents today via Tele-health visit for a follow-up. Past medical has history of bipolar. Chronic interstitial cystitis patient manages with IC diet and Prelief. She does not want to take other medications for the interstitial cystitis. She will use Pyridium p.r.n. for flare in painful urinary symptoms but states that the medication upsets her stomach even when she takes it with food. She was treated for UTI in October urine culture came back E coli. She had a urine culture 12/05/2023 that noted mixed bacteria. She states she saw a urogynecologist the told her she had stage II cystocele and vaginal atrophy, she was prescribed Estrace cream but stated that when she used the cream at affected her mood causing her to be very irritated. She is using [id number] D mannose and a probiotic. Plan discussed she will call when she has UTI symptoms to have a urine culture done to distinguish between and IC flare and a true UTI. 30 minutes spent in review of records pertaining to this visit and including discussion with the patient and documentation of this visit. 06/11/2023? She is followed today to discuss treatment. She was last seen by me on 04/24/2023 for chronic interstitial cystitis. She states that she had cystoscopy hydrodistention and bladder instillation in the past was not helpful. She states that her insurance did not cover the uribel. She had tried Pyridium in the past which caused her nausea, vomiting and diarrhea. Patient states that she is on oxybutynin which did not help her bladder spasms. [facility] Medical History Gallstone pancreatitis Non-STEMI (non-ST elevated myocardial infarction) LV (left ventricular) mural thrombus Stress-induced cardiomyopathy Surgical History History of cardiac catheterization (~05/13/19) History of cholecystectomy (~06/2017) History of knee surgery Family History Father Substance use disorder Mother Cancer Other Mental health disorder Social History Housing: House Alcohol intake: former Patient Tobacco Use Status: Former Tobacco user Years Smoked: 30 e-Cigarette/Vaping Use: Never Used Current occupational status: retired Cognitive needs: No Hearing needs: No Vision needs: Yes Telehealth Telehealth Telehealth Platform: Man[employer] Location of provider rendering services: practice address Location of patient: address on file Patient Identification confirmed using: Name, : Yes Telehealth method: voice only Patient verbally consented to treatment: Yes Patient verbally consented to billing insurance company: Yes Patient informed of any privacy concerns related to visit: Yes Minutes spent on Phone/Video with Pt.: 14 Assessment & Plan Assessment & Plan (1) Interstitial cystitis: Code(s): N30.10 - Interstitial cystitis (chronic) without hematuria Category: Medical (2) Urinary frequency: Code(s): R35.0 - Frequency of micturition Category: Medical (3) Vaginal atrophy: Code(s): N95.2 - Postmenopausal atrophic vaginitis Category: Medical (4) Recurrent UTI: Code(s): N39.0 - Urinary tract infection, site not specified Category: Medical Plan CT KUB. Orders: Orders CT abdomen pelvis wo IV con 07/04/24 R10.9 - Unspecified abdominal pain, N20.0 - Calculus of kidney Medications: Discontinued gabapentin start with one tab daily for 7 days than may increase to bid, call for symptoms of dizziness Discontinued Reason: Doctor's Order 100 mg PO BID-TID 60 caps 1RF Coding Level of Care Code Tele Est Pt Level 3 (79845) Complex EM visit Add On G2211 Diagnoses Interstitial cystitis N30.10 Urinary frequency R35.0 Vaginal atrophy N95.2 Recurrent UTI N39.0
--- OUTSIDE RECORDS SUMMARY | 2024-07-04 15:54 | XMS_ITS | Continuity of Care Document ---
Author Organization [facility] Address [address] [facility], 4t [place] [address]- Care Team Providers Care Real Estate Leasing Agent Name Role Phone Emery Gonsales DO Primary Care Physician Encounter [facility] Date(s): 05/16/24 - 06/15/24 [facility] [address] [facility], 4th [place] [address]- Attending Physician: Viola Hurtado Admitting Physician: Viola Hurtado Referring Physician: AdmtrViola Encounter Type: Triage Allergies, Adverse Reactions, Alerts Substance Criticality Severity Reaction Reaction Severity Status penicillin Active Keflex Active Bactrim Active E-Mycin Active Medications apixaban 5 mg oral tablet = 5 mg, By Mouth, 2 times a day, # 60 tablet, 0 Refills, Maintenance, 05/14/19 10:24:20 AM EST, Tablet, [facility] 3 Start Date: 05/14/19 Stop Date: 06/13/19 Status: Ordered Quantity: 60.0 Unit: tablet Repeat number: 1 aspirin 81 mg oral delayed release tablet 81 mg, By Mouth, Daily, # 30 tablet, Refills 0, Tot. Refills 0, Maintenance, 05/14/19 10:24:54 AM EST, Route to Pharmacy Electronically, [facility] 3 Start Date: 05/14/19 Status: Ordered Quantity: 30.0 Unit: tablet Repeat number: 1 atorvastatin 40 mg oral tablet = 40 mg, By Mouth, Daily at bedtime, # 30 tablet, 0 Refills, Maintenance, 05/14/19 10:25:06 AM EST, Tablet, [facility] 3 Start Date: 05/14/19 Status: Ordered Quantity: 30.0 Unit: tablet Repeat number: 1 estradiol 0.1 mg/g vaginal cream = 1 Gm, Vaginally, Every Thursday and Thursday, take every night for two weeks then twice weekly, # 42.5 Gm, 6 Refills, Maintenance, 11/17/23 4:33:00 PM EDT, [id number], Partial fill upon patientrequest if the prescription is for a schedule II opioid drug., 160, cm, 11/16/23 14:19:00 EDT, Height Start Date: 11/17/23 Status: Ordered Quantity: 42.5 Unit: g Repeat number: 7 Vitamin C 500 mg oral tablet, chewable 1 tablet = 500 mg, Chew, 2 times a day, # 180 tablet, 3 Refills, Maintenance, 12/10/23 3:21:00 PM EDT, Chew Tablet, [id number], Partial fill upon patient request if the prescription is for a schedule II opioid drug., 160, cm, 11/16/23 14:19:00 EDT, Height Start Date: 12/10/23 Status: Ordered Quantity: 180.0 Unit: tablet Repeat number: 4 Problem List Condition Confirmation Course Effective Dates Status H ealth Status Informant Anxiety Confirmed Active Vaginal atrophy Confirmed Active Bladder pain Confirmed Active Rectocele Confirmed Active Chronic GERD Confirmed Active HTN (hypertension) Confirmed Active Mixed incontinence Confirmed Active Cystocele with prolapse Confirmed Active [place] (myocardial infarction) Confirmed Active Myofascial pain Confirmed Active Osteoarthritis Confirmed Active Osteoporosis Confirmed Active Pelvic floor weakness Confirmed Active Recurrent UTI Confirmed Active Social History Social History Type Response Smoking Status Former smoker, quit more than 30 days ago entered on: 05/12/19 Sex Sex Representation Female (finding) Patient Care team information Care Team Personnel Name: Emery Gonsales DO Position: Reference Physician Member Role: PCP Address: [address] [place] [address] Emery Gonsales [place], [place] [address] Telecom: Name: Charisma Do RN Position: S RN Member Role: Primary Care Nurse Care Team Related Persons Name: JUVE SANCHEZ Insurance Providers Guarantor name: SHEKHAR Health Plan Information #: 1 Payer: MEDICARE PART B OUTPT Member Number: NA Policy Number: NA Group Number: NA Health Plan Information #: 2 Payer: [place] Member Number: NA Policy Number: NA Group Number: NA
== END 2024-07-04 16:29 | disposition home or self-care (01) ==
LOC: HO.HUSH 15:53
PROVIDERS: PCP Internal Medicine; Visit Provider Urology
DX: N30.10 Interstitial cystitis (chronic) without hematuria (principal); R35.0 Frequency of micturition; N95.2 Postmenopausal atrophic vaginitis; N39.0 Urinary tract infection, site not specified
CPT/HCPCS: 99442

== ENCOUNTER → 2024-08-09 16:13 | Outpatient (BNV) | payer MEDICARE, MEDICAID, SELFPAY | PROVIDERS: PCP Internal Medicine; Visit Provider Radiology Diagnostic Radiology | DX: N28.1 Cyst of kidney, acquired (principal); R14.0 Abdominal distension (gaseous) | CPT/HCPCS: 74176 ==

== ENCOUNTER 2024-11-24 16:09 | Outpatient (REF) | payer MEDICARE, MEDICAID, SELFPAY ==
[2024-11-24 17:25] LABS: Appearance Urine Clear; Color Urine Yellow; Glucose Urine UA Negative (Negative); Leukocyte Esterase Urine Negative (Negative); Nitrite Urine Negative (Negative); PH 6.5 (5.0-9.0); Urine Blood Negative (Negative); Urine Ketones Negative (Negative); Urine Protein Negative (Neg-Trace)
== END 2024-11-24 16:10 | disposition home or self-care (01) ==
LOC: HO.LAB 16:09
PROVIDERS: PCP Internal Medicine; Visit Provider Nurse Practitioner Family
DX: R39.9 Unspecified symptoms and signs involving the genitourinary system (principal)
CPT/HCPCS: 81003

== ENCOUNTER 2024-12-26 10:42 | Outpatient (REF) | payer MEDICARE, MEDICAID, SELFPAY ==
--- NOTE | ~2024-12-26 | XR_ITS ---
EXAMINATION: XR HAND, RIGHT CLINICAL INFORMATION: M79.641 - Pain in right hand COMPARISON: None available. TECHNIQUE: PA, lateral, and oblique views of the right hand. FINDINGS: There is mild asymmetric narrowing of DIP joints. Small marginal osteophytes are present at the IP joint of the thumb. Sclerosis and mild to moderate narrowing is noted at the first carpal metacarpal joint. Ulnar variance measured -2.7 mm. XR/XR hand RT min 3V IMPRESSION: Osteoarthritis is most evident at the first CMC joint. Electronically signed by: Hiren Benz MD 12/26/2024 02:23 PM EDT
== END 2024-12-26 10:43 | disposition home or self-care (01) ==
LOC: HO.HOSX 10:42
DX: S62.326A Displaced fracture of shaft of fifth metacarpal bone, right hand, initial encounter for closed fracture (principal); M79.643 Pain in unspecified hand
CPT/HCPCS: 73130; 99202

== ENCOUNTER 2024-12-26 13:09 | Outpatient (AMB) | payer MEDICARE, MEDICAID, SELFPAY ==
--- NOTE | 2024-12-26 13:17 | A.OFFVIS_ITS ---
Vital Signs 12/26/24 13:18 Height 5 ft 3 in Weight 137 lb BMI 24.3 Intake Visit Reasons: UC f/u RT hand fx Intake Note: Jossy is a right hand dominant female who presents today for a new patient evaluation of her right hand pain. Patient states she tripped and fell and forced all weight on hand and wrist. Seen at urgent care where xrays were taken. States pain is constant on palm. Denies any treatment for injury. She has been taking Tylenol to minimize pain. Reports she has numbness and tingling in all her hand. AM Allergies Penicillins (PENICILLINS) Allergy (Severe, Verified 12/26/24 14:27) HIVES cephalexin (Keflex) Allergy (Unknown, Verified 12/26/24 14:27) unknown Sulfa (Sulfonamide Antibiotics) Allergy (Unknown, Verified 12/26/24 14:27) hives morphine (MORPHINE) Adverse Reaction (Unknown, Verified 12/26/24 14:27) ITCHY perflutren (From DEFINITY) Adverse Reaction (Unknown, Verified 12/26/24 14:27) CHEST PAIN macrobid Allergy (Intermediate, Uncoded 12/26/24 13:38) Hives NSAIDS Adverse Reaction (Unknown, Uncoded 12/26/24 13:38) GI upset HPI HPI UC f/u RT hand fx: Details: Jossy is a right hand dominant female who presents today for a new patient evaluation of her right hand pain. Patient states she tripped and fell and forced all weight on hand and wrist. Seen at urgent care where xrays were taken. States pain is constant on palm. Denies any treatment for injury, however the patient was seen in the urgent care where x-rays were taken and she was provided with a Velcro wrist splint.. She has been taking Tylenol to minimize pain. Reports she has numbness and tingling in all her hand. [facility] Medical History Gallstone pancreatitis Non-STEMI (non-ST elevated myocardial infarction) LV (left ventricular) mural thrombus Stress-induced cardiomyopathy Surgical History History of cardiac catheterization (~05/13/19) History of cholecystectomy (~06/2017) History of knee surgery Family History Father Substance use disorder Mother Cancer Other Mental health disorder Social History Housing: House Alcohol intake: former Patient Tobacco Use Status: Former Tobacco user Years Smoked: 30 e-Cigarette/Vaping Use: Never Used Advance Directives: No Advance Directives Information Provided: Yes Current occupational status: retired 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 Neuro: Normal sensation of the tips of all digits of the right hand at this time Vascular: Cap refill brisk Pain: Tenderness to palpation over 5th metacarpal of right hand Slight tenderness to scaphoid tubercle of right hand Pain with all range of motion ROM: Patient is able to very weakly make close to a closed fist with the right hand Skin: No lacerations or abrasions. General: Significant ecchymosis noted throughout the right hand, worst on the 5th metacarpal Psych: Appears grossly normal Affect normal Attitude cooperative Office Procedures AMB Fracture Care Fracture Billing Code: Fracture Billing Code Results Reviewed Results Reviewed: X-rays obtained in the office today and independently reviewed by me, Gabriele Chance PA-C, demonstrate nondisplaced oblique 5th metacarpal shaft fracture. Assessment & Plan Assessment & Plan (1) Closed fracture of shaft of fifth metacarpal bone of right hand: Code(s): S62.326A - Displaced fracture of shaft of fifth metacarpal bone, right hand, initial encounter for closed fracture Category: Medical (2) Tenderness of anatomical snuffbox: Code(s): M79.643 - Pain in unspecified hand Category: Medical Plan 1. 5th metacarpal shaft fracture of right hand 2. Scaphoid tubercle/anatomical snuffbox tenderness Patient is educated about this condition Patient is educated about the typical recovery course At this time, patient was to be placed into a 2 finger ulnar gutter splint However, the patient did leave the office prior to being placed into a splint Patient went to the emergency department from our office, in the emergency department was called to place the patient into a splint Follow-up in 1 week with repeat x-rays to ensure no further displacement of the fracture If in 2 weeks the patient is still experiencing tenderness of the scaphoid tubercle and anatomic snuffbox, we will consider MRI to rule out an occult scaphoid fracture Patient and her daughter expressed understanding of this and are amenable to this plan Follow-up in 1 week Orders: Orders XR hand RT min 3V Today M79.641 - Pain in right hand Coding Level of Care Code New Pt Level 3 (27518) Diagnoses Closed fracture of shaft of fifth metacarpal bone of right hand S62.326A Tenderness of anatomical snuffbox M79.643 CPT Codes Fracture Care - Fracture Billing Code: Fracture Billing Code ([id number])
[2024-12-26 13:18] VITALS: BMI 24.3
== END 2024-12-26 13:58 | disposition home or self-care (01) ==
LOC: HO.HOS 13:09
PROVIDERS: PCP Internal Medicine
DX: S62.326A Displaced fracture of shaft of fifth metacarpal bone, right hand, initial encounter for closed fracture (principal); M79.643 Pain in unspecified hand
CPT/HCPCS: 99203

== ENCOUNTER → 2024-12-26 13:11 | Outpatient (BNV) | payer MEDICARE, MEDICAID, SELFPAY | PROVIDERS: Visit Provider Radiology Diagnostic Radiology | DX: M50.320 Other cervical disc degeneration, mid-cervical region, unspecified level (principal); R90.82 White matter disease, unspecified; M18.11 Unilateral primary osteoarthritis of first carpometacarpal joint, right hand | CPT/HCPCS: 70450; 72125; 73130 ==

== ENCOUNTER 2024-12-26 14:08 | Inpatient (IN) | payer MEDICARE, OTHER, SELFPAY ==
--- NOTE | ~2024-12-26 | CT_ITS ---
EXAMINATION: CT CERVICAL SPINE WITHOUT CONTRAST CLINICAL INFORMATION: Multiple falls DLP: 1224 mGY*cm COMPARISON: April 06, 2017 TECHNIQUE: Axial imaging was performed from the base of the skull through T2 without IV contrast. Coronal and sagittal reformatted images were generated from the original axial data set. ALARA: The examination used one or more of the following radiation dose reduction techniques: Automated exposure control, iterative reconstruction, and/or adjustment of mA and/or KV. FINDINGS: Degenerative endplate changes with sclerosis and osteophytes and moderate to severe disc space narrowing has mildly progressed since the prior examination at C3-4, C4-5, C5-6, and C6-7. C2-3 and C7-T1: Subtle anterolisthesis is again noted. Bilateral facet arthropathy is noted at C6-7 and C7-T1. Atherosclerotic calcific lesions are present in the carotid arteries. CT/CT cervical spine wo IV con IMPRESSION: Interval progression of degenerative disease and facet arthropathy. No acute abnormality. IMPRESSION: Unremarkable examination. Fleischner guidelines were followed. Electronically signed by: Hiren Benz MD 12/26/2024 03:27 PM EDT
--- NOTE | ~2024-12-26 | CT_ITS ---
CLINICAL HISTORY: flank pain CT abdomen and pelvis without contrast Comparison: CT/SR - CT ABDOMEN PELVIS WO IV CON - 08/09/24 16:21 EST Findings: Small linear scar within the right lower lobe. No consolidation or pleural effusion. There are multiple bilateral kidney cysts, similar to the prior study. There is a 9 mm hyperdense nodule within the lower pole of the left kidney without change. Renal lesions are incompletely evaluated secondary to lack of contrast. There is relatively pronounced infiltration of fat adjacent to the right kidney with interval increase. There is no urolithiasis or hydronephrosis. There are a few pancreatic calcifications. The liver, spleen, and adrenal glands are unremarkable. There has been a prior cholecystectomy. Moderate fecal retention within the colon. No bowel edema or dilatation. Pelvic contents unremarkable. Normal appendix. No acute fracture. IMPRESSION: 1. Infiltration of fat adjacent to the right kidney. Correlate with urinalysis to exclude pyelonephritis. 2. There are multiple bilateral kidney cysts and there is a small hyperdense nodule within the left kidney. These are incompletely evaluated by the current study. Consider further evaluation with ultrasound. This could be done on a nonemergent basis. This document has been electronically signed by: Kari Downing MD on 12/28/2024 18:39:50
--- NOTE | ~2024-12-26 | XR_ITS ---
EXAMINATION: XR THORACIC SPINE CLINICAL INFORMATION: fall, thoracic spine pain COMPARISON: None available. TECHNIQUE: 3 views of the thoracic spine were obtained. FINDINGS: There is a mild levoconvex scoliosis, apex at T6. There is a normal kyphosis. There is no subluxation. There are no fractures or compression deformities. No suspicious bone lesions. Mild multilevel disc and facet degenerative change. Cholecystectomy clips noted. There are mild vascular calcifications of the aorta. Remainder of the paravertebral soft tissues appear normal. Imaged lungs are clear. Mediastinal structures are normal. XR/XR thoracic spine 2V IMPRESSION: 1. No acute findings of the thoracic spine. Electronically signed by: Gordon Victor MD 12/28/2024 12:19 PM EDT
--- NOTE | ~2024-12-26 | CT_ITS ---
EXAMINATION: CT HEAD WITHOUT CONTRAST CLINICAL INFORMATION: Multiple falls COMPARISON: April 06, 2017 TECHNIQUE: Contiguous axial imaging was performed from the skull base to vertex without intravenous administration of contrast. This CT examination was performed using dose optimization techniques as appropriate, variously including the following: *Automated exposure control *Adjustment of mA and/or kV according to patient size (this includes techniques or standardized protocols for targeted exams where dose is matched to indication/reason for exam; i.e. extremities or head) *Use of iterative reconstruction technique DLP: 1224 mGY*cm FINDINGS: There is no acute ischemic change. Deep white matter and periventricular hypodensities are again noted. There is mild generalized atrophy. There is no intracranial hemorrhage. There is no mass-effect or midline shift. Basal cisterns and ventricles are within normal limits for age/cerebral volume. Orbits are symmetrical and unremarkable. Paranasal sinuses and mastoid air cells are pneumatized. There are no bony abnormalities. CT/CT head/brain wo IV con IMPRESSION: No acute intracranial abnormality. Electronically signed by: Hiren Benz MD 12/26/2024 03:19 PM EDT
[2024-12-26 14:21] VITALS: BP 99/62; PULSE 69; RESP 18; TEMP 36.3; O2SAT 100; BMI 23.5
--- NOTE | 2024-12-26 14:22 | ED_ITS ---
HPI - General Adult General Chief complaint: Head Injury Stated complaint: Fall 2 Times Head Injury Time Seen by Provider: 12/26/24 16:42 Source: patient and family (Daughter) Mode of arrival: ambulatory Limitations: no limitations History of Present Illness ED Provider: DR. Plunkett HPI narrative: A 69-year-old female came in with her daughter for evaluation of a mechanical fall today at home. Patient sustained a mechanical fall earlier today, +head strike, no LOC, +neck pain, no new weakness, no numbness. Patient lives home with her , as per family patient always have issue drinking water and keep herself hydrated. Patient declined any LOC or loss of consciousness. Patient used to take lithium for bipolar patient do not use lithium anymore. No history of anticoagulation. Also that patient been having a memory issues and becoming more disorganized. No SI, no HI, no auditory or visual hallucination. Related Data Previous Rx's ?Medication ?Instructions ?Recorded clonazepam 0.5 mg tablet 0.5 mg PO BEDTIME Sleep and 07/09/23 anxiety 30 days #30 tabs lisinopril 5 mg tablet 5 mg PO DAILY #90 tabs 01/13 phenazopyridine 200 mg tablet 200 mg PO Q8H PRN urinar y pain #30 04/29/24 (Pyridium) tabs fosfomycin tromethamine 3 gram 3 g PO Q3D 3 days #1 ea 12/12/24 oral packet Allergies Allergy/AdvReac Type Severity Reaction Status Date / Time Penicillins (PENICILLINS) Allergy Severe HIVES Verified 12/26/24 14:27 cephalexin (Keflex) Allergy Unknown unknown Verified 12/26/24 14:27 Sulfa (Sulfonamide Allergy Unknown hives Verified 12/26/24 14:27 Antibiotics) morphine (MORPHINE) AdvReac Unknown ITCHY Verified 12/26/24 14:27 perflutren (From DEFINITY) AdvReac Unknown CHEST PAIN Verified 12/26/24 14:27 macrobid Allergy Intermediate Hives Uncoded 12/26/24 13:38 NSAIDS AdvReac Unknown GI upset Uncoded 12/26/24 13:38 Review of Systems 2 Review of Systems: All other systems are reviewed and are negative Constitutional: Reports as per HPI and Reports no additional constitutional complaints Eyes: Reports as per HPI and Reports no additional eye complaints Reports system reviewed and no additional complaints, except as documented Cardiovascular: Reports as per HPI and Reports no additional cardiovascular complaints Respiratory: Reports as per HPI and Reports no additional respiratory complaints Gastrointestinal: Reports as per HPI and Reports no additional gastrointestinal complaints Genitourinary: Reports no additional female genitourinary complaints Musculoskeletal: Reports no additional musculoskeletal complaints Skin/Breast: Reports system reviewed and no additional complaints, except as docu Psychiatric: Reports no additional psychiatric complaints Endocrine: Reports no additional endocrine complaints Hematologic/Lymphatic: Reports no additional hematologic/lymphatic complaints Allergic/Immunologic: Reports no additional allergic/immunologic complaints Reports system reviewed and no additional complaints, except as documented and Reports Abnormal speech present [facility] Past Medical History Medical History Gallstone pancreatitis Non-STEMI (non-ST elevated myocardial infarction) LV (left ventricular) mural thrombus Stress-induced cardiomyopathy Surgical History History of cardiac catheterization (~05/13/19) History of cholecystectomy (~06/2017) History of knee surgery Family History Family History Father Substance use disorder Mother Cancer Other Mental health disorder Social History Social History Housing: House Alcohol intake: former Patient Tobacco Use Status: Former Tobacco user Years Smoked: 30 e-Cigarette/Vaping Use: Never Used Advance Directives: No Advance Directives Information Provided: Yes Current occupational status: retired 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 Blood pressure elevated. Heart rate normal. Respiratory rate normal. Temperature normal. Oxygen saturation normal. Appearance: Alert. Oriented X3. No acute distress. Head: Normal external exam. Normocephalic. Atraumatic. No Wyman signs noted. No raccoon eyes noted Eyes: PERRLA. EOMI. Conjunctiva and sclera normal. Eyelids normal. ENT: TM's Normal. Pharynx normal. Uvula midline. Moist mucous membranes. No trismus noted. No drooling noted. No muffled voice noted. Neck: Normal inspection. Neck supple. FROM. No adenopathy. Thyroid Normal. No meningeal signs. No neck mass noted. CVS: Normal heart rate and rhythm. Heart sound normal. No murmurs noted. Pulses normal throughout. Respiratory: No respiratory distress. Painless inspiration. Breath sounds normal. No wheezes/rales/rhonchi noted. Chest nontender. No accessory muscle usage noted or decreased air movement noted. Abdomen: Soft and nontender. Bowel sounds normal in all 4 quadrants. No distention noted. No organomegaly noted. No visible injury noted. Back: No CVA tenderness. Full range of motion noted. Skin: Skin warm and dry. Normal skin color. Normal skin turgor. No rashes/lesions/lacerations noted. Extremities: No lower extremity edema. Extremities exhibit normal range of motion. Extremities nontender. Neuro: Oriented X 3. Cranial nerve exam: II-XII are grossly intact No motor deficit. No sensory deficit. Reflexes normal. Course Course Course Narrative: This is an RME: Additional HPI, ROS, PE not included below will be deferred to primary provider. RME assessment and note performed by: Gloria Mello PA-C This is a [id number]-female who presents to the ER with a complaint of multiple falls. Family member reports disorganized thoughts and memory issues. Pt FOOSH and hit head 1 week ago. Pt following commands, ?very subtle right sided pronator drift. No obvious injury to head/neck. speech slightly slurred. Plan: CT head/neck, labs, further ER eval needed >>umberto nunez PA-C requesting patient to be placed in ulnar gutter splint as patient left without this previously. Reevaluation(s) Reevaluation #1: Patient with chronic problem of eating and drinking with decreased p.o. intake as per family, patient found to be dehydrated on exam, orthostatic in the emergency department, labs is showing MARIA E, receiving IV fluids in the emergency department and will admit. Patient is supposed to take lithium for bipolar but patient is not compliant confirmed that she has not had lithium for a while now. Time: 17:58 Medical Decision Making Differential Diagnosis Differential Diagnoses: The differential diagnosis associated with the presentation includes (Dehydration, electrolyte derangement, MARIA E, severe anemia, falls, intracranial bleed, cervical spine injury.) Admission/Observation Consideration of admission/observation: Escalation of care including admission/observation considered Lab Data MDM Lab Attestation statement: I reviewed the patient's lab results. 12/26/24 14:45 12/26/24 14:45 Labs: Lab Results 12/26/24 Range/Units 14:45 WBC 6.9 (4.8-10.8) X10*3/uL RBC 4.44 (4.20-5.50) X10*6/uL Hgb 12.2 (12.0-16.0) g/dl Hct 35.8 L (37.0-47.0) % MCV 80.6 (80.0-98.0) fL MCH 27.5 (27.0-33.0) pg MCHC 34.1 (31.0-35.0) g/dl RDW 13.6 (11.0-16.0) % Plt Count 317 (160-400) X10*3/uL MPV 7.7 L (9.4-12.3) fL Immature Gran % (Auto) 0.3 (0.0-0.4) % Neut % (Auto) 51.7 (45-73) % Lymph % (Auto) 35.6 (20-40) % Elbert % (Auto) 9.1 (2-11) % Eos % (Auto) 1.9 (0-4) % Baso % (Auto) 1.4 (0-2) % Lymph # (Auto) 2.5 (1.2-4.9) X10*3/uL Elbert # (Auto) 0.6 (0.1-1.2) X10*3/uL Eos # (Auto) 0.1 (0.0-0.4) X10*3/uL Baso # (Auto) 0.1 (0.0-0.2) X10*3/uL Abs Immat Gran (auto) 0.02 (0.00-0.03) X10*3/uL Absolute Neuts (auto) 3.6 (2.0-8.3) x10*3/uL Absolute Nucleated RBC 0.000 (0.0-0.012) X10*3/uL Nucleated RBC % (auto) 0.0 (0.0-0.2) /100WBC Sodium 132 L (135-145) mmol/L Potassium 5.3 H D (3.3-5.1) mmol/L Chloride 102 (96-108) mmol/L Carbon Dioxide 20 L (22-29) mmol/L Anion Gap 15 (12-20) BUN 33 H (9-16) mg/dL Creatinine 1.73 H (0.5-1.4) mg/dL Estim Creat Clear Calc 26.4 Estimated GFR 29 Random Glucose 98 (60-115) mg/dL Calcium 9.7 (8.4-10.2) mg/dL Magnesium 2.0 (1.6-2.6) mg/dL Total Bilirubin 0.5 (0.0-1.0) mg/dL Direct Bilirubin 0.2 (0.0-0.5) mg/dL AST 33 H (5-31) U/L ALT 22 (0-31) U/L Alkaline Phosphatase 148 H (39-117) U/L Troponin I High Sens 3.8 (<3.5-17.0) ng/L Total Protein 7.7 (6.5-8.0) g/dL Albumin 5.1 H (3.5-5.0) g/dL Independent Interpretation I performed an independent interpretation of an: CT Scan (Head/C-spine CT: Unremarkable examinations) Radiology Impression Discussion of test interpretation with radiology: I have reviewed the radiologist's reading. Discharge Plan Discharge Clinical Impression: MARIA E (acute kidney injury), Dehydration, Falls Patient Disposition: Admitted As Inpatient Print Language: Israeli
--- NOTE | 2024-12-26 14:30 | ECG_ITS ---
Test Reason : ?syncope Blood Pressure : */* mmHG Vent. Rate : 70 BPM Atrial Rate : 70 BPM P-R Int : 174 ms QRS Dur : 70 ms QT Int : 382 ms P-R-T Axes : 46 28 48 degrees QTcB Int : 412 ms Normal sinus rhythm Normal ECG When compared with ECG of 15-Jun-2023 21:57, Nonspecific T wave abnormality now evident in Anterior leads Referred By: Gloria Mello Electronically Signed By: KIM BELL
[2024-12-26 14:48] LABS: MANUAL DIFF FLAG NO
[2024-12-26 14:49] LABS: Basophils Absolute Auto 0.1 X10*3/uL (0.0-0.2); Basophils Percent Auto 1.4 % (0-2); Eosinophils Absolute Auto 0.1 X10*3/uL (0.0-0.4); Eosinophils Percent Auto 1.9 % (0-4); Hematocrit 35.8 % (37.0-47.0); Hemoglobin 12.2 g/dl (12.0-16.0); Imm Gran Abs Auto 0.02 X10*3/uL (0.00-0.03); Imm Gran Pct Auto 0.3 % (0.0-0.4); Lymphocytes Absolute Auto 2.5 X10*3/uL (1.2-4.9); Lymphocytes Percent Auto 35.6 % (20-40); Mean Corpuscular HGB Conc 34.1 g/dl (31.0-35.0); Mean Corpuscular Hemoglobin 27.5 pg (27.0-33.0); Mean Corpuscular Volume 80.6 fL (80.0-98.0); Mean Platelet Volume 7.7 fL (9.4-12.3); Monocytes Absolute Auto 0.6 X10*3/uL (0.1-1.2); Monocytes Percent Auto 9.1 % (2-11); Neutrophils Absolute Auto 3.6 x10*3/uL (2.0-8.3); Neutrophils Percent Auto 51.7 % (45-73); Platelet Count 317 X10*3/uL (160-400); Red Blood Count 4.44 X10*6/uL (4.20-5.50); Red Cell Distribution Width 13.6 % (11.0-16.0); White Blood Count 6.9 X10*3/uL (4.8-10.8)
[2024-12-26 15:09] LABS: Alanine Aminotransferase 22 U/L (0-31); Albumin Level 5.1 g/dL (3.5-5.0); Alkaline Phosphatase 148 U/L (39-117); Anion Gap 15 (12-20); Aspartate Amino Transferase 33 U/L (5-31); Bilirubin Direct 0.2 mg/dL (0.0-0.5); Bilirubin Total 0.5 mg/dL (0.0-1.0); Blood Urea Nitrogen 33 mg/dL (9-16); Calcium 9.7 mg/dL (8.4-10.2); Carbon Dioxide 20 mmol/L (22-29); Chloride 102 mmol/L (96-108); Creatinine Clr Calc Pharmacy 26.4; Estimated Glomerular Filt Rate 29; Glucose Random 98 mg/dL (60-115); Potassium 5.3 mmol/L (3.3-5.1); Sodium 132 mmol/L (135-145); Total Protein 7.7 g/dL (6.5-8.0)
[2024-12-26 15:16] LABS: Troponin-I High Sensitivity 3.8 ng/L (<3.5-17.0)
[2024-12-26 17:35] VITALS: BP 115/68; BP 118/54; PULSE 68; PULSE 83
[2024-12-26 17:36] VITALS: BP 110/71; PULSE 71
[2024-12-26] MEDS: Lactated Ringers 1,000 ML 999 ML IV (17:58)
[2024-12-26 18:01] VITALS: BP 118/54; PULSE 68; RESP 14; TEMP 36.3; O2SAT 97
--- NOTE | 2024-12-26 18:04 | PC.NURSE ---
Patient A&O x 3. Patient presents to ED c/o neck pain rated 5/10 non radiating and lightheadedness after falling multiple times and hitting head last week. Denies LOC, vision changes, and SOB. - thinners. Patient states Sary been feeling weaker and unsteady Orthostatics performed patient passed but felt dizzy during trial. IV 20G placed in left forearm, currently running LR. Xrays unremarkable. VSS and up to date. Plan of care on going
--- NOTE | 2024-12-26 18:37 | PC.NURSE ---
Patient ambulated to bathroom 1 assist, patient unsteady at times. Patient returned safely back to bed and infusion continued
[2024-12-26] MEDS: Enoxaparin Sodium 30 MG/0.3 ML SYRINGE SUBCUT (19:24)
[2024-12-26] MEDS: Lactated Ringers 1,000 ML 125 ML IVCONT (19:24)
--- NOTE | 2024-12-26 19:48 | PC.NURSE ---
pt comes with soft left wrist splint. states she was at another facility and was told it was unstable. no imaging done here. admit orders in, awaiting hospitalist. VICTORIANO Trinidad notified and assessed patient wrist at this time. plan for wrist splint application and ortho f/u tomorrow
--- NOTE | 2024-12-26 19:53 | PHA.MEDREC ---
Addendum entered by Debra Roth RPh 12/26/24 21:37: MED REC REVIEWED BY [facility] Original Note: Pharmacy Consult ? Medication Reconciliation Pharmacy has completed the medication reconciliation. spoke with pt and she confirmed her medications. Pt confirmed she is not taking Hydroxyzine anymore due to it keeping her up at night. Pt also confirmed she is not taking her Atorvastatin anymore stating it was giving her violent muscle spasms.
--- NOTE | 2024-12-26 19:58 | P.EN_ITS ---
Event Note Date of Service: 12/26/24 Event Note: Patient is a 69 YO F admitted to the hospital for dehydration and an MARIA E Patient was seen in our office earlier today for R fifth metacarpal shaft fracture Left office prior to splint placement Splint then placed in ED when it was discovered patient had walked there from our office Keep splint clean, dry, intact No acute orthopedic intervention needed at this time Keep previously scheduled follow up appt in 1 week in our office for re- evaluation Will re-evaluate in hospital if patient is still admitted at that time Time Spent With Patient Time: Total time managing care of this patient today ____ minutes.
--- NOTE | 2024-12-26 20:03 | PC.NURSE ---
pt comes with soft right wrist splint. states she was at another facility and was told it was unstable. no imaging done here. admit orders in, awaiting hospitalist. VICTORIANO Trinidad notified and assessed patient wrist at this time. plan for wrist splint application and ortho f/u tomorrow
--- NOTE | 2024-12-26 20:09 | PC.NURSE ---
per adilson, no wrist xr needed at this time as patient had one today and provider will obtain record
--- NOTE | 2024-12-26 20:24 | PC.NURSE ---
daughter of pt told this RN that patient had recent dx of bipolar and daughter feels pt is having an episode. pt a+ox2, rapid disorganized thoughts at times although redirects calmly, cooperatively. daughter states pt has episodes like this at home. VICTORIANO Larson notified and replied with confirmation
[2024-12-26 20:43] VITALS: BMI 24.1
[2024-12-26 20:44] VITALS: BP 121/87; PULSE 68; RESP 14; TEMP 36.5; O2SAT 97
[2024-12-26] MEDS: clonazePAM 0.5 MG TABLET PO (21:43)
--- NOTE | 2024-12-26 22:20 | P.HPHOSP_ITS ---
History of Present Illness Date of Service: 12/26/24 Attending physician on admission: Berta Salas Chief Complaint: s/p fall Patient is a 69-year-old female with past medical history bipolar disorder/schizoaffective disorder currently manic with auditory hallucinations, anxiety, undiagnosed ADHD/OCD, agoraphobia, claustrophobia, UTI, nephrolithiasis, , cataract was seen in the emergency department for a recent fall 5 days prior. Patient had just walked from the Orthopedics office for a R fifth metacarpal shaft fracture and left before receiving the wrist splint. Orthopedics was notified that patient was in the ED and patient was seen there. A splint is now in place on the right wrist. But more importantly patient's labs revealed an MARIA E and a UA is currently pending to rule out UTI. Patient also has evidence of hyperkalemia and hyponatremia. It is possible that patient has not been drinking fluids very well as she has been more groggy using hydroxyzine pamoate along with clonazepam and cyclobenzaprine as well as alcohol use more regularly over the last week. Patient also vapes marijuana at least twice daily if not more. Family expressed since your concern regarding patient's well being overall. Patient is permitting psychiatric evaluation and is not suicidal at this time. Patient also denies any homicidal ideations. Patient is reporting auditory hallucinations but is nonspecific accept the say that they are ?scary?. Small altercation between daughter and patient occurred during admission interview regarding patient's recent alcohol use. Patient's daughter brought up the subject of alcohol use and wanted to be sure that this advertising copy writer new the patient was using alcohol more often. Patient has been shooting [employer] LABS's and chloride in her coffee. Family did report over weekend that patient walked 4 [address] to the [employer] store and patient denies this. Patient has been dealing with her mental health issues her whole life but things worsened when she lost her daughter in 2010 to suicide. Patient was supposed to be on lithium 10-15 years prior and refused to start the medication. Patient states she was cheeking the medication. Patient has been hospitalized inpatient for her psychiatric history. Patient is acknowledging that she would benefit from a mood stabilizing agent along with Wellbutrin although she states this is probably contraindicated due to her diagnosis. Patient denies any history of overdose or intentions to hurt herself. Patient does not perform any self- injurious behaviors. Family does appear to be very supportive. Most concerning is the patient's fall that occurred approximately 5 days prior with a hit to the head. CT scans are all negative for any acute findings. Patient's memory has not been as good. Patient no longer drives. Patient has been more manic at home as well. OT evaluation with [facility] ordered. Psychiatric consultation will also be ordered. Review of Systems 2 Review of Systems: Patient currently denies any chest pain or shortness of breath at rest or with exertion. Patient is reporting ongoing insomnia and is looking forward to hopefully sleep tonight. Patient denies any headaches or visual changes. Patient denies any suicidal or homicidal ideations. Patient is reporting nonspecific auditory hallucinations and states ?it is scary?. Patient denies any issues with diarrhea or constipation. Yes all other systems are reviewed and are negative [facility] Medical History (Updated 12/26/24 @ 22:47 by EMA Ceja) Anxiety, generalized Marijuana use Alcohol use disorder Claustrophobia Agoraphobia Schizoaffective disorder Bipolar 1 disorder with moderate rama Gout Gallstone pancreatitis Non-STEMI (non-ST elevated myocardial infarction) LV (left ventricular) mural thrombus Stress-induced cardiomyopathy Cognitive capacity: Alert and orientated x3, able to follow commands Functional capacity: independent ambulation Patient : No Family History Father Substance use disorder Mother Cancer Other Mental health disorder Surgical History History of cardiac catheterization (~05/13/19) History of cholecystectomy (~06/2017) History of knee surgery Social History Household Members: Family Housing: House Do you presently have visiting nurse or other home services: No Alcohol intake: current Alcohol intake frequency: holidays/special occasions only Patient Tobacco Use Status: Former Tobacco user Years Smoked: 30 e-Cigarette/Vaping Use: Never Used Substance Use Type: Marijuana Current occupational status: retired 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 Cognitive needs: No Hearing needs: No Vision needs: Yes Ebola Risk: Travel/Contact With Anyone From Affected Area/s: No Has Patient Experienced Ebola Symptoms: No Meds Allergies Allergy/AdvReac Type Severity Reaction Status Date / Time Penicillins (PENICILLINS) Allergy Severe HIVES Verified 12/26/24 14:27 cephalexin (Keflex) Allergy Unknown unknown Verified 12/26/24 14:27 Sulfa (Sulfonamide Allergy Unknown hives Verified 12/26/24 14:27 Antibiotics) morphine (MORPHINE) AdvReac Unknown ITCHY Verified 12/26/24 14:27 perflutren (From DEFINITY) AdvReac Unknown CHEST PAIN Verified 12/26/24 14:27 macrobid Allergy Intermediate Hives Uncoded 12/26/24 13:38 NSAIDS AdvReac Unknown GI upset Uncoded 12/26/24 13:38 Active Medications: Current Medications Acetaminophen (Acetaminophen 325 Mg Tablet) 650 mg PO Q6H PRN PRN Reason: Pain, Mild 1-3,fever,headache Aspirin (Aspirin Enteric Coated 81 Mg Tablet.Dr) 81 mg PO DAILY COUNT INCLUDES THE [facility] Calcium Carbonate (Calcium Carbonate 750 Mg Tab.Chew) 750 mg PO Q4H PRN PRN Reason: Heartburn Clonazepam (Clonazepam 0.5 Mg Tablet) 0.5 mg PO DAILY PRN PRN Reason: Anxiety Enoxaparin Sodium (Enoxaparin Sodium 30 Mg/0.3 Ml Syringe) 30 mg SUBCUT Q24H COUNT INCLUDES THE [facility] Last Admin: 12/26/24 19:24 Dose: 30 mg Lactated Ringer's (Lr) 1,000 mls @ 125 mls/hr IVCONT .Q8H COUNT INCLUDES THE [facility] Last Infusion: 12/26/24 21:17 Dose: 0 mls/hr Lisinopril (Lisinopril 5 Mg Tablet) 5 mg PO DAILY COUNT INCLUDES THE [facility]; Protocol Magnesium Hydroxide (Milk Of Magnesia 30 Ml Oral.Susp) 30 ml PO DAILY PRN PRN Reason: Constipation Melatonin (Melatonin 3 Mg Tablet) 6 mg PO BEDTIME PRN PRN Reason: Insomnia Ondansetron HCl (Ondansetron Hcl 4 Mg/2 Ml Vial) 4 mg IVPUSH Q8H PRN PRN Reason: Nausea and Vomiting Polyethylene Glycol (Polyethylene Glycol 3350 17 Gm Powd.Pack) 17 gm PO DAILY PRN PRN Reason: Constipation Sodium Chloride (0.9 % Sodium Chloride Flush 3 Ml Syringe) 3 ml IVFLUSH QSHIFT COUNT INCLUDES THE [facility] Home Medications ?Medication ?Instructions ?Recorded ?Confirmed ?Last Taken ?Type acetaminophen 500 mg tablet 1,000 mg PO Q6H PRN Pain 0 12/26/24 12/26/24 12/26/24 History aspirin 81 mg tablet 81 mg PO DAILY 12/26/24/09/2712/25/24 History clonazepam 0.5 mg tablet 0.5 mg PO DAILY PRN Anxiety 12/26/24 12/26/24 12/26/24 History cyclobenzaprine 5 mg tablet 5 mg PO TID PRN Muscle Spa sm 12/26/24 12/26/24 Unknown History Physical Exam 2 Vital Signs and Narrative: Vital Signs: Last Vital Signs Temp 97.7 F 12/26/24 20:44 Pulse 68 12/26/24 20:44 Resp 14 12/26/24 20:44 BP 121/87 12/26/24 20:44 Pulse Ox 97 12/26/24 20:44 O2 Del Method Room Air 12/26/24 20:44 BMI result Body Mass Index 24.1 Alert and orientated X3, speech somewhat slow, patient is somewhat groggy able to provide history and follow commands Neuro: CN II-X11 intact, no deficits, visual acuity intact EYES: PERRLA, EOM intact, sclerae nonicteric, glasses on ENT: hearing intact, no issues with swallowing, uvula midline, lips moist, nares patent no epistaxis, dentures in place Cardiac: S1 S2 RRR, no murmur, no JVD, no edema in Lower ext Pulmonary: lungs clear to auscultation B Abdominal: BS active in all 4 quadrants, no guarding, tenderness, rebounding MSK: strength 5/5 upper and lower extremities : no CVA tenderness no bladder distension Extremities: no edema in lower extremities, PT and DP pulses palpable +2 Psych: mood manic, judgement and insight fair Skin: Intact Results Labs 12/26/24 14:45 12/26/24 14:45 Labs: Laboratory Results - last 24 hr 12/26/24 14:45 MCV 80.6 MCH 27.5 MCHC 34.1 RDW 13.6 Plt Count 317 MPV 7.7 L Immature Gran % (Auto) 0.3 Neut % (Auto) 51.7 Lymph % (Auto) 35.6 Petroleum % (Auto) 9.1 Eos % (Auto) 1.9 Baso % (Auto) 1.4 Lymph # (Auto) 2.5 Petroleum # (Auto) 0.6 Eos # (Auto) 0.1 Baso # (Auto) 0.1 Abs Immat Gran (auto) 0.02 Absolute Neuts (auto) 3.6 Absolute Nucleated RBC 0.000 Nucleated RBC % (auto) 0.0 Anion Gap 15 Estim Creat Clear Calc 26.4 Estimated GFR 29 Random Glucose 98 Calcium 9.7 Magnesium 2.0 Total Bilirubin 0.5 Direct Bilirubin 0.2 AST 33 H ALT 22 Alkaline Phosphatase 148 H Troponin I High Sens 3.8 Total Protein 7.7 Albumin 5.1 H ECG Attestation: I personally reviewed and interpreted this ECG as follows: (Normal sinus rhythm no ischemic changes normal QTC) Prior ECG tracings: available for review Imaging Radiologist's Impressions: Impressions Cervical Spine CT 12/26/24 13:43 IMPRESSION: Interval progression of degenerative disease and facet arthropathy. No acute abnormality. IMPRESSION: Unremarkable examination. Fleischner guidelines were followed. Electronically signed by: Hiren Benz MD 12/26/2024 03:27 PM EDT RP Head CT 12/26/24 13:43 IMPRESSION: No acute intracranial abnormality. Electronically signed by: Hiren Benz MD 12/26/2024 03:19 PM EDT RP Assessment and Plan (1) MARIA E (acute kidney injury): Status: Acute Plan Patient is a 69-year-old female with past medical history bipolar disorder/schizoaffective disorder currently manic with auditory hallucinations, anxiety, undiagnosed ADHD/OCD, agoraphobia, claustrophobia, UTI, nephrolithiasis, , cataract presenting with ?stubbed toe status post fall with no obvious injury to the left foot. Patient did encounter a R fifth metacarpal shaft fracture and was in the orthopedics office when she left suddenly without the splint and walk to the emergency department. Patient was found to be in MARIA E with hyperkalemia and hyponatremia. Family very concerned about patient's disposition mentally. Patient is agreeable to psychiatric evaluation and is reporting auditory hallucinations nonspecific that are scary but denies any SI or HI. MARIA E -IV fluids continue -BMP in AM -Avoid hypotension -Avoid nephrotoxic meds -Suspect secondary to dehydration Hyperkalemia -IV fluids running - on telemetry -Repeat labs in the a.m. Hyponatremia -Sodium 132 -Repeat BMP in AM Metabolic acidosis with normal anion gap -Repeat labs in the a.m. -No indication for bicarb -Continue IV fluids S/p Fall -PT eval -Fall prevention measures in place -CT of the head and neck were all negative for acute findings -There has been an increase in alcohol use with the last 1-2 weeks, use of marijuana via vaping, use of hydroxyzine pamoate combined with clonazepam and Flexeril which may have contributed to the fall R fifth metacarpal shaft fracture -Patient currently has wrist splint in place with no pain -Follow with Orthopedics as an outpatient Bipolar Scizoaffective disorder, currently depressed, somewhat manic with Auditory hallucinations -Patient has untreated psychiatric mental health issues for the last 10 years, history of noncompliance and inpatient psychiatric admissions -Psychiatric consultation ordered -Patient does not require section at this time -Patient does not require one-to-one at this time -Nursing staff updated and will notify this advertising copy writer if patient exhibits any unusual behaviors or need for further intervention -Clonazepam provided per patient's request, patient does take this at home -There has been an increase in alcohol use with the last 1-2 weeks, use of marijuana via vaping, use of hydroxyzine pamoate combined with clonazepam and Flexeril which may have contributed to the fall -Toxicology screen pending -OT eval ordered for [place] secondary to report of memory issues Alcohol use -Only reported increased use of alcohol over the last 1-2 weeks, patient walked 4 miles to the liquor store over the weekend -Patient has been drinking Sheryl is and/or occlusion in her coffee -CIWA ordered -Thiamine and folic acid ordered -No indication for phenobarbital at this time Marijuana use -Patient vapes marijuana at least twice daily -Patient maybe using marijuana to help with anxiety -No issues with hyperemesis cyclical syndrome DVT prophylaxis: Lovenox PPI prophylaxis: Omeprazole Med rec pending Full code status Quality Stroke Does the patient have a stroke diagnosis?: No Reason for No Anti-thrombotic by Day Two: N/A - Med Ordered VTE Prior VTE?: No VTE Risk Level:: Medical - moderate - high VTE Device Contraindication: Treatment Not Indicated VTE Drug Contraindication: N/A - Med Ordered
--- NOTE | 2024-12-26 23:16 | PC.NURSE ---
During admission patient at first denied alcohol use, than daughter stated that apparently patient has been drinking lately but since patient lives alone for most time it is unknown how much or how often. Finally patient agreed to drinking but only sometimes, not happy with daughter for mentioning this fact. CIWA scoring ordered. At this time =3.
[2024-12-27 00:49] LABS: Appearance Urine Clear; Color Urine Yellow; Glucose Urine UA Negative (Negative); Leukocyte Esterase Urine Trace (Negative); Nitrite Urine Negative (Negative); PH 5.5 (5.0-9.0); Specific Gravity - Urine <= 1.005 (1.005-1.025); UMIC TRIGGER UA YES; Urine Blood Negative (Negative); Urine Ketones Negative (Negative); Urine Protein Negative (Neg-Trace)
[2024-12-27 01:01] LABS: Amphetamine Screen Urine Not Detected (Not Detect); Barbiturates, Urine Not Detected (Not Detect); Benzodiazepines Screen Urine Not Detected (Not Detect); Buprenorphine Scr Not Detected (Not Detect); Cannabinoid Screen Urine POSITIVE (Not Detect); Cocaine Screen Urine Not Detected (Not Detect); Fentanyl, urine Not Detected (Not Detect); Methadone Screen, Urine Not Detected (Not Detect); Opiate Screen Urine Not Detected (Not Detect); Oxycodone Screen Urine Not Detected (Not Detect); Phencyclidine Screen Urine Not Detected (Not Detect)
[2024-12-27 01:15] LABS: Bacteria Urine None Seen (None Seen); Hyaline Casts Urine 0-2 /LPF (0-2); RBC Urine 0-2 /HPF (0-2); Squamous Epithelial Cell Urine 0-2 /HPF (0-2); WBC Urine 0-5 /HPF (0-5)
[2024-12-27 04:00] VITALS: BP 110/50; PULSE 63; RESP 16; TEMP 36.4; O2SAT 98
[2024-12-27] MEDS: Lactated Ringers 1,000 ML 125 ML IVCONT ×2 (04:16→12:22)
[2024-12-27] MEDS: Omeprazole 20 MG CAPSULE.DR PO (05:50)
[2024-12-27 06:03] LABS: MANUAL DIFF FLAG NO
[2024-12-27 06:19] LABS: Basophils Absolute Auto 0.1 X10*3/uL (0.0-0.2); Basophils Percent Auto 1.5 % (0-2); Eosinophils Absolute Auto 0.2 X10*3/uL (0.0-0.4); Eosinophils Percent Auto 3.3 % (0-4); Hematocrit 30.3 % (37.0-47.0); Imm Gran Abs Auto 0.01 X10*3/uL (0.00-0.03); Imm Gran Pct Auto 0.2 % (0.0-0.4); Lymphocytes Absolute Auto 2.1 X10*3/uL (1.2-4.9); Lymphocytes Percent Auto 44.9 % (20-40); Mean Corpuscular Hemoglobin 26.7 pg (27.0-33.0); Mean Platelet Volume 8.2 fL (9.4-12.3); Monocytes Absolute Auto 0.5 X10*3/uL (0.1-1.2); Monocytes Percent Auto 10.5 % (2-11); Neutrophils Absolute Auto 1.8 x10*3/uL (2.0-8.3); Neutrophils Percent Auto 39.6 % (45-73); Platelet Count 234 X10*3/uL (160-400); Red Blood Count 3.74 X10*6/uL (4.20-5.50); Red Cell Distribution Width 13.4 % (11.0-16.0); White Blood Count 4.6 X10*3/uL (4.8-10.8)
[2024-12-27 06:24] LABS: Alanine Aminotransferase 10 U/L (0-31); Albumin Level 3.6 g/dL (3.5-5.0); Alkaline Phosphatase 109 U/L (39-117); Anion Gap 12 (12-20); Aspartate Amino Transferase 24 U/L (5-31); Bilirubin Total 0.6 mg/dL (0.0-1.0); Blood Urea Nitrogen 26 mg/dL (9-16); Calcium 8.7 mg/dL (8.4-10.2); Carbon Dioxide 21 mmol/L (22-29); Chloride 109 mmol/L (96-108); Creatinine Clr Calc Pharmacy 40.5; Estimated Glomerular Filt Rate 48; Glucose Random 101 mg/dL (60-115); Potassium 4.6 mmol/L (3.3-5.1); Sodium 137 mmol/L (135-145); Total Protein 5.5 g/dL (6.5-8.0)
[2024-12-27 07:57] VITALS: BP 158/65; PULSE 70; RESP 18; TEMP 36.1; O2SAT 93
[2024-12-27] MEDS: 0.9 % Sodium Chloride Flush 3 ML SYRINGE IVFLUSH ×3 (08:20→23:42)
[2024-12-27] MEDS: Aspirin Enteric Coated 81 MG TABLET.DR PO (08:21)
[2024-12-27] MEDS: lisinopriL 5 MG TABLET PO (08:21)
[2024-12-27] MEDS: Folic Acid 1 MG TABLET PO (08:21)
[2024-12-27] MEDS: Thiamine HCL 100 MG TABLET PO (08:23)
[2024-12-27] MEDS: Acetaminophen 325 MG TABLET 650 MG PO (09:55)
[2024-12-27] MEDS: clonazePAM 0.5 MG TABLET PO ×2 (09:56→15:18)
--- NOTE | 2024-12-27 12:17 | PC.NURSE ---
patient does not want ike johnson to be involved in decision making,VICTORIANO Chua and Edith caseworker intake notified,
--- NOTE | 2024-12-27 13:13 | MHC.CM.PN ---
pt lives with her x and had no previous services she will be seen by psych prior to determing a dc plan pts hcp is [facility] [phone] other dgter is elizabeth [phone] family to bring in hcp
--- NOTE | 2024-12-27 15:00 | PC.NURSE ---
pt very upset about having a high fall risk bracelet and refuses to wear it and requests RN remove it
--- NOTE | 2024-12-27 15:05 | PM.PSYCN ---
History of Present Illness Date of Service: 12/27/2024 Chief Complaint: Adult Failure to thrive, MARIA E Sources of Information: patient interviewed, chart reviewed and crisis/core team assessment reviewed HPI Narrative: Mrs. Boone is a 69 year-old woman with hx of Bipolar Disorder who was admitted for MARIA E, electrolyte abnormalities due to decrease oral intake. She was brought to [facility] by her daughter as she was acting out of character in that she seemed more confused asking same questions over and over, has been presenting as more suspicious thinking someone she knew for decades ago may have been following her and was in waiting area at doctor's office, labile and irritable. Per daughter, she had also made statements about wanting to which is very frightening to them as they do have a sister (pt's daughter) who of suicide. Pt has had some falls and had a fracture but apparently was not seeking help for this until it came to her daughter's attention who brought her to see orthopedic provider. Pt had similar incident of manic/depressive episode that required inpatient psychiatric admission on M5. Per daughter, she has increased alcohol use, which pt declines. Utox was positive for THC. BAL not obtained. Pt seen in her room. She presents as tearful, but guarded at times. She reports this appeals writer should not believe what family are saying about her as this is some car of punishment. She notes that she has had difficulty sleeping and was concern about someone trying to harm her. When asked to elaborate, pt declines to give more details stating I'm better now. She does admit to a diagnosis of Bipolar but reports she will not take any antipsychotic medications to treat it. She reports it was traumatic to be hospitalized against her will almost 10 years ago. She reports she has been on number of medications including lamictal, lithium, risperidone which she does not think were helpful nor she needed them. She denies suicidal ideation. She is quite labile and dysphoric during our interview. She is suspicious of family and thinks that their motives to raise concern about her behaviors are not with intent to help her but punish her. Past Psychiatric History: Inpt: M5 2015 OP: Corey Mortensen Past medications trial: clonazepam, lithium, risperidone, lamictal. [facility] Medical History (Updated 12/27/24 @ 15:20 by Tika Chua PA-C) Anxiety, generalized Marijuana use Alcohol use disorder Claustrophobia Agoraphobia Schizoaffective disorder Bipolar 1 disorder with moderate rama Gout Gallstone pancreatitis Non-STEMI (non-ST elevated myocardial infarction) LV (left ventricular) mural thrombus Stress-induced cardiomyopathy Surgical History History of cardiac catheterization (~05/13/19) History of cholecystectomy (~06/2017) History of knee surgery Diagnostics Vital Signs (24Hr): Vital Signs - 24 hr 12/26/24 17:35 12/26/24 17:35 12/26/24 17:36 Temperature Pulse Rate 68 83 71 Respiratory Rate Blood Pressure 118/54 L 115/68 110/71 Pulse Oximetry Oxygen Delivery Method 12/26/24 18:01 12/26/24 20:44 12/27/24 04:00 Temperature 97.4 F 97.7 F 97.5 F Pulse Rate 68 68 63 Respiratory Rate 14 14 16 Blood Pressure 118/54 L 121/87 110/50 L Pulse Oximetry 97 97 98 Oxygen Delivery Method Room Air Room Air Room Air 12/27/24 07:57 Temperature 96.9 F Pulse Rate 70 Respiratory Rate 18 Blood Pressure 158/65 H Pulse Oximetry 93 Oxygen Delivery Method Room Air BMI result Body Mass Index 24.1 Labs 12/27/24 05:30 12/27/24 05:30 Labs: Laboratory Results - last 48 hr 12/26/24 12/27/24 12/27/24 14:45 00:23 00:27 WBC 6.9 RBC 4.44 Hgb 12.2 Hct 35.8 L MCV 80.6 MCH 27.5 MCHC 34.1 RDW 13.6 Plt Count 317 MPV 7.7 L Immature Gran % (Auto) 0.3 Neut % (Auto) 51.7 Lymph % (Auto) 35.6 [place] % (Auto) 9.1 Eos % (Auto) 1.9 Baso % (Auto) 1.4 Lymph # (Auto) 2.5 [place] # (Auto) 0.6 Eos # (Auto) 0.1 Baso # (Auto) 0.1 Abs Immat Gran (auto) 0.02 Absolute Neuts (auto) 3.6 Absolute Nucleated RBC 0.000 Nucleated RBC % (auto) 0.0 Sodium 132 L Potassium 5.3 H D Chloride 102 Carbon Dioxide 20 L Anion Gap 15 BUN 33 H Creatinine 1.73 H Estim Creat Clear Calc 26.4 Estimated GFR 29 Random Glucose 98 Calcium 9.7 Magnesium 2.0 Total Bilirubin 0.5 Direct Bilirubin 0.2 AST 33 H ALT 22 Alkaline Phosphatase 148 H Troponin I High Sens 3.8 Total Protein 7.7 Albumin 5.1 H Urine Color Yellow Urine Appearance Clear Urine pH 5.5 Ur Specific [place] <= 1.005 Urine Protein Negative Urine Glucose (UA) Negative Urine Ketones Negative Urine Blood Negative Urine Nitrite Negative Ur Leukocyte Esterase Trace H Urine RBC 0-2 Urine WBC 0-5 Ur Squamous Epith Cells 0-2 Urine Bacteria None Seen Hyaline Casts 0-2 Urine Opiates Screen Not Detected Ur Buprenorphine Scrn Not Detected Ur Oxycodone Screen Not Detected Urine Methadone Screen Not Detected Urine Fentanyl Screen Not Detected Ur Barbiturates Screen Not Detected Ur Phencyclidine Scrn Not Detected Ur Amphetamines Screen Not Detected U Benzodiazepines Scrn Not Detected Urine Cocaine Screen Not Detected U Marijuana (THC) Screen POSITIVE H 12/27/24 05:30 WBC 4.6 L RBC 3.74 L Hgb 10.0 L Hct 30.3 L MCV 81.0 MCH 26.7 L MCHC 33.0 RDW 13.4 Plt Count 234 D MPV 8.2 L Immature Gran % (Auto) 0.2 Neut % (Auto) 39.6 L Lymph % (Auto) 44.9 H [place] % (Auto) 10.5 Eos % (Auto) 3.3 Baso % (Auto) 1.5 Lymph # (Auto) 2.1 [place] # (Auto) 0.5 Eos # (Auto) 0.2 Baso # (Auto) 0.1 Abs Immat Gran (auto) 0.01 Absolute Neuts (auto) 1.8 L Absolute Nucleated RBC 0.000 Nucleated RBC % (auto) 0.0 Sodium 137 Potassium 4.6 Chloride 109 H Carbon Dioxide 21 L Anion Gap 12 BUN 26 H Creatinine 1.13 Estim Creat Clear Calc 40.5 Estimated GFR 48 Random Glucose 101 Calcium 8.7 D Magnesium Total Bilirubin 0.6 Direct Bilirubin AST 24 ALT 10 Alkaline Phosphatase 109 Troponin I High Sens Total Protein 5.5 L Albumin 3.6 Urine Color Urine Appearance Urine pH Ur Specific [place] Urine Protein Urine Glucose (UA) Urine Ketones Urine Blood Urine Nitrite Ur Leukocyte Esterase Urine RBC Urine WBC Ur Squamous Epith Cells Urine Bacteria Hyaline Casts Urine Opiates Screen Ur Buprenorphine Scrn Ur Oxycodone Screen Urine Methadone Screen Urine Fentanyl Screen Ur Barbiturates Screen Ur Phencyclidine Scrn Ur Amphetamines Screen U Benzodiazepines Scrn Urine Cocaine Screen U Marijuana (THC) Screen Imaging Radiology Impressions: ITS Impressions Cervical Spine CT 12/26/24 13:43 IMPRESSION: Interval progression of degenerative disease and facet arthropathy. No acute abnormality. IMPRESSION: Unremarkable examination. Fleischner guidelines were followed. Electronically signed by: Hiren Benz MD 12/26/2024 03:27 PM EDT RP Head CT 12/26/24 13:43 IMPRESSION: No acute intracranial abnormality. Electronically signed by: Hiren Benz MD 12/26/2024 03:19 PM EDT RP Mental Status Exam Mental Status Exam Narrative: Appearance: wearing hospital gown, fair hygiene, in NAD behavior: somewhat guarded Psychomotor: no agitation or retardation noted Speech: clear, hyperverbal, not pressured, spontaneous TP: some flight of ideas/ tangential TC: wanting to return home, not trusting family at this time, thinks they are all against her Mood: okay Affect: dysphoric, labile SI: denies, makes at times conditional suicidality statements if going to psych unit. But also appears very tearful and depressed HI: none VH/AH: no overt signs Delusions: some suspiciousness, also may not be fully forthcoming. Insight/judgment: impaired x 2. memory/cog: alert, oriented x 3. Medications Medications Current Medications Acetaminophen (Acetaminophen 325 Mg Tablet) 650 mg PO Q6H PRN PRN Reason: Pain, Mild 1-3,fever,headache Last Admin: 12/27/24 09:55 Dose: 650 mg Aspirin (Aspirin Enteric Coated 81 Mg Tablet.Dr) 81 mg PO DAILY FELA Last Admin: 12/27/24 08:21 Dose: 81 mg Calcium Carbonate (Calcium Carbonate 750 Mg Tab.Chew) 750 mg PO Q4H PRN PRN Reason: Heartburn Clonazepam (Clonazepam 0.5 Mg Tablet) 0.5 mg PO DAILY PRN PRN Reason: Anxiety Last Admin: 12/27/24 09:56 Dose: 0.5 mg Enoxaparin Sodium (Enoxaparin Sodium 30 Mg/0.3 Ml Syringe) 30 mg SUBCUT Q24H [facility] Last Admin: 12/26/24 19:24 Dose: 30 mg Folic Acid (Folic Acid 1 Mg Tablet) 1 mg PO DAILY [facility] Last Admin: 12/27/24 08:21 Dose: 1 mg Lactated Ringer's (Lr) 1,000 mls @ 125 mls/hr IVCONT .Q8H [facility] Last Admin: 12/27/24 12:22 Dose: 125 mls/hr Lisinopril (Lisinopril 5 Mg Tablet) 5 mg PO DAILY [facility]; Protocol Last Admin: 12/27/24 08:21 Dose: 5 mg Magnesium Hydroxide (Milk Of Magnesia 30 Ml Oral.Susp) 30 ml PO DAILY PRN PRN Reason: Constipation Melatonin (Melatonin 3 Mg Tablet) 6 mg PO BEDTIME PRN PRN Reason: Insomnia Omeprazole (Omeprazole 20 Mg Capsule.Dr) 20 mg PO DAILY@0630 [facility] Last Admin: 12/27/24 05:50 Dose: 20 mg Ondansetron HCl (Ondansetron Hcl 4 Mg/2 Ml Vial) 4 mg IVPUSH Q8H PRN PRN Reason: Nausea and Vomiting Polyethylene Glycol (Polyethylene Glycol 3350 17 Gm Powd.Pack) 17 gm PO DAILY PRN PRN Reason: Constipation Sodium Chloride (0.9 % Sodium Chloride Flush 3 Ml Syringe) 3 ml IVFLUSH QSHIFT [facility] Last Admin: 12/27/24 08:20 Dose: 3 ml Thiamine HCl (Thiamine Hcl 100 Mg Tablet) 100 mg PO DAILY [facility] Last Admin: 12/27/24 08:23 Dose: 100 mg Allergies Allergies Allergy/AdvReac Type Severity Reaction Status Date / Time Penicillins (PENICILLINS) Allergy Severe HIVES Verified 12/26/24 14:27 cephalexin (Keflex) Allergy Unknown unknown Verified 12/26/24 14:27 Sulfa (Sulfonamide Allergy Unknown hives Verified 12/26/24 14:27 Antibiotics) morphine (MORPHINE) AdvReac Unknown ITCHY Verified 12/26/24 14:27 perflutren (From DEFINITY) AdvReac Unknown CHEST PAIN Verified 12/26/24 14:27 macrobid Allergy Intermediate Hives Uncoded 12/26/24 13:38 NSAIDS AdvReac Unknown GI upset Uncoded 12/26/24 13:38 Assessment & Plan Assessment & Plan (1) Bipolar affective disorder, most recent episode mixed: Status: Acute Code(s): F31.60 - Bipolar disorder, current episode mixed, unspecified Plan Mrs. Boone is a 69 year-old woman with hx of Bipolar Disorder who was admitted to medical floor due to MARIA E and electrolyte abnormalities due to limited oral intake. Pt presents with mixed episode of rama and depressed mood. Per family, pt not caring for herself, not eating which has led to medical admission and also had fall and sustained a fracture which pt did not seem to think needed medical attention until daughter brought her to orthopedic clinic. Although she denies to this appeals writer suicidal ideation, per daughter she has made statements of wanting to as recent as today. She does present as tearful and not fully forthcoming with extend of delusional content related to some paranoid ideas and level of depressed mood. Pt currently declines any medications to treat mixed episode of depression and rama. PLAN 1. Recommend IPLOC for safety, containment and stabilization. 2. Please do care team referral once medically clear to coordinate bed search 3. can do olanzapine 5mg po q6h prn agitation Total time managing care of this patient today ____ minutes.
[2024-12-27 15:06] LABS: Iron 73 mcg/dL (30-160); Percent Iron Saturation 31 % (15-50); Total Iron Binding Capacity 233 mcg/dL (228-428); Unsaturated Iron Binding 160 ug/dL
--- NOTE | 2024-12-27 15:16 | P.PNIM_ITS ---
Subjective Subjective Date of Service: 12/27/24 Interval History: F/u MARIA E, electrolyte abnormalities Patient reports acute diarrhea while taking an unknown antibiotic, no diarrhea over the past 3-4 days No hematochezia, abdominal pain, nausea or vomiting Has had poor p.o. intake Significant concerns for manic episode by patient's daughter Daughter suggested the patient has recorded she is suicidal multiple times Family history of suicide Patient very agitated he discusses a mental health Review of Systems Review of Systems: Yes all other systems are reviewed and are negative Physical Exam 2 Vital Signs: Vital Signs: Last Vital Signs Temp 96.9 F 12/27/24 07:57 Pulse 70 12/27/24 07:57 Resp 18 12/27/24 07:57 BP 158/65 H 12/27/24 07:57 Pulse Ox 93 12/27/24 07:57 O2 Del Method Room Air 12/27/24 07:57 BMI result Body Mass Index 24.1 General: AOx3, no acute distress Resp: CTA bilaterally CVS: S1, S2, RRR GI: +BS, NT, no distention Skin: Warm, dry Neuro: Cranial nerves II-XII grossly intact bilaterally. Motor grossly intact bilaterally Extremities: No LE edema Psych: Manic, reports auditory and visual hallucinations Objective Data Active Medications Acetaminophen (Acetaminophen 325 Mg Tablet) 650 mg PO Q6H PRN PRN Reason: Pain, Mild 1-3,fever,headache Last Admin: 12/27/24 09:55 Dose: 650 mg Documented By: ALEJA Aspirin (Aspirin Enteric Coated 81 Mg Tablet.Dr) 81 mg PO DAILY [facility] Last Admin: 12/27/24 08:21 Dose: 81 mg Documented By: ALEJA Calcium Carbonate (Calcium Carbonate 750 Mg Tab.Chew) 750 mg PO Q4H PRN PRN Reason: Heartburn Clonazepam (Clonazepam 0.5 Mg Tablet) 0.5 mg PO DAILY PRN PRN Reason: Anxiety Last Admin: 12/27/24 09:56 Dose: 0.5 mg Documented By: ALEJA Enoxaparin Sodium (Enoxaparin Sodium 30 Mg/0.3 Ml Syringe) 30 mg SUBCUT Q24H [facility] Last Admin: 12/26/24 19:24 Dose: 30 mg Documented By: TEZ Folic Acid (Folic Acid 1 Mg Tablet) 1 mg PO DAILY [facility] Last Admin: 12/27/24 08:21 Dose: 1 mg Documented By: ALEJA Lactated Ringer's (Lr) 1,000 mls @ 125 mls/hr IVCONT .Q8H [facility] Last Admin: 12/27/24 12:22 Dose: 125 mls/hr Documented By: ALEJA Lisinopril (Lisinopril 5 Mg Tablet) 5 mg PO DAILY [facility]; Protocol Last Admin: 12/27/24 08:21 Dose: 5 mg Documented By: ALEJA Magnesium Hydroxide (Milk Of Magnesia 30 Ml Oral.Susp) 30 ml PO DAILY PRN PRN Reason: Constipation Melatonin (Melatonin 3 Mg Tablet) 6 mg PO BEDTIME PRN PRN Reason: Insomnia Omeprazole (Omeprazole 20 Mg Capsule.Dr) 20 mg PO DAILY@629 [facility] Last Admin: 12/27/24 05:50 Dose: 20 mg Documented By: JUAN C Ondansetron HCl (Ondansetron Hcl 4 Mg/2 Ml Vial) 4 mg IVPUSH Q8H PRN PRN Reason: Nausea and Vomiting Polyethylene Glycol (Polyethylene Glycol 3350 17 Gm Powd.Pack) 17 gm PO DAILY PRN PRN Reason: Constipation Sodium Chloride (0.9 % Sodium Chloride Flush 3 Ml Syringe) 3 ml IVFLUSH QSHIFT [facility] Last Admin: 12/27/24 08:20 Dose: 3 ml Documented By: ALEJA Thiamine HCl (Thiamine Hcl 100 Mg Tablet) 100 mg PO DAILY [facility] Last Admin: 12/27/24 08:23 Dose: 100 mg Documented By: ALEJA Labs 12/27/24 05:30 12/27/24 05:30 Labs: Laboratory Results - last 24 hr 12/26/24 12/27/24 12/27/24 14:45 00:23 00:27 MCV MCH MCHC RDW Plt Count MPV Immature Gran % (Auto) Neut % (Auto) Lymph % (Auto) [place] % (Auto) Eos % (Auto) Baso % (Auto) Lymph # (Auto) [place] # (Auto) Eos # (Auto) Baso # (Auto) Abs Immat Gran (auto) Absolute Neuts (auto) Absolute Nucleated RBC Nucleated RBC % (auto) Anion Gap Estim Creat Clear Calc Estimated GFR Random Glucose Calcium Iron TIBC % Saturation Unsat Iron Binding Total Bilirubin AST ALT Alkaline Phosphatase Troponin I High Sens 3.8 Total Protein Albumin Urine Color Yellow Urine Appearance Clear Urine pH 5.5 Ur Specific [place] <= 1.005 Urine Protein Negative Urine Glucose (UA) Negative Urine Ketones Negative Urine Blood Negative Urine Nitrite Negative Ur Leukocyte Esterase Trace H Urine RBC 0-2 Urine WBC 0-5 Ur Squamous Epith Cells 0-2 Urine Bacteria None Seen Hyaline Casts 0-2 Urine Opiates Screen Not Detected Ur Buprenorphine Scrn Not Detected Ur Oxycodone Screen Not Detected Urine Methadone Screen Not Detected Urine Fentanyl Screen Not Detected Ur Barbiturates Screen Not Detected Ur Phencyclidine Scrn Not Detected Ur Amphetamines Screen Not Detected U Benzodiazepines Scrn Not Detected Urine Cocaine Screen Not Detected U Marijuana (THC) Screen POSITIVE H 12/27/24 12/27/24 05:30 14:01 MCV 81.0 MCH 26.7 L MCHC 33.0 RDW 13.4 Plt Count 234 D MPV 8.2 L Immature Gran % (Auto) 0.2 Neut % (Auto) 39.6 L Lymph % (Auto) 44.9 H [place] % (Auto) 10.5 Eos % (Auto) 3.3 Baso % (Auto) 1.5 Lymph # (Auto) 2.1 [place] # (Auto) 0.5 Eos # (Auto) 0.2 Baso # (Auto) 0.1 Abs Immat Gran (auto) 0.01 Absolute Neuts (auto) 1.8 L Absolute Nucleated RBC 0.000 Nucleated RBC % (auto) 0.0 Anion Gap 12 Estim Creat Clear Calc 40.5 Estimated GFR 48 Random Glucose 101 Calcium 8.7 D Iron 73 TIBC 233 % Saturation 31 Unsat Iron Binding 160 Total Bilirubin 0.6 AST 24 ALT 10 Alkaline Phosphatase 109 Troponin I High Sens Total Protein 5.5 L Albumin 3.6 Urine Color Urine Appearance Urine pH Ur Specific [place] Urine Protein Urine Glucose (UA) Urine Ketones Urine Blood Urine Nitrite Ur Leukocyte Esterase Urine RBC Urine WBC Ur Squamous Epith Cells Urine Bacteria Hyaline Casts Urine Opiates Screen Ur Buprenorphine Scrn Ur Oxycodone Screen Urine Methadone Screen Urine Fentanyl Screen Ur Barbiturates Screen Ur Phencyclidine Scrn Ur Amphetamines Screen U Benzodiazepines Scrn Urine Cocaine Screen U Marijuana (THC) Screen Assessment and Plan (1) MARIA E (acute kidney injury): Status: Acute (2) Mood disorder: Status: Acute Plan 69-year-old female with bipolar/schizoaffective disorder, admitted for MARIA E and electrolyte abnormalities after having significant diarrhea recently MARIA E, secondary to dehydration -improvement with IV fluids, discontinue now -BMP with improvement -Avoid hypotension -Avoid nephrotoxic meds Hyperkalemia - improved, potassium now normal, 4.6 - discontinue IV fluids Hyponatremia - improved, now 137 - discontinue IV fluids as above Metabolic acidosis with normal anion gap - improving, IV fluids discontinued S/p Fall -PT eval pending -Fall prevention measures in place -CT of the head and neck were all negative for acute findings -There has been an increase in alcohol use with the last 1-2 weeks, use of marijuana via vaping, use of hydroxyzine pamoate combined with clonazepam and Flexeril which may have contributed to the fall R fifth metacarpal shaft fracture -Patient currently has wrist splint in place with no pain -Follow with Orthopedics as an outpatient Bipolar Scizoaffective disorder, currently depressed, somewhat manic with Auditory hallucinations - psych consult - care team consult -OT eval Alcohol use -Only reported increased use of alcohol over the last 1-2 weeks, patient walked 4 [address] to the [employer] store over the weekend -Patient has been drinking Sheryl is and/or occlusion in her coffee -CIWA ordered -Thiamine and folic acid ordered -No indication for phenobarbital at this time DVT prophylaxis: Lovenox PPI prophylaxis: Omeprazole Full code status Quality Stroke Does the patient have a stroke diagnosis?: No Reason for No Anti-thrombotic by Day Two: N/A - Med Ordered VTE Prior VTE?: No VTE Risk Level:: Medical - moderate - high VTE Device Contraindication: Treatment Not Indicated VTE Drug Contraindication: N/A - Med Ordered
[2024-12-27 15:41] LABS: Folate 11.9 ng/mL (> or = 4.0); Vitamin B12 219 pg/mL (200-900)
[2024-12-27 16:00] VITALS: BP 132/76; PULSE 64; RESP 12; TEMP 36.1; O2SAT 97
[2024-12-27] MEDS: Enoxaparin Sodium 30 MG/0.3 ML SYRINGE SUBCUT (16:45)
[2024-12-27 20:00] VITALS: BP 164/84; PULSE 62; RESP 18; TEMP 36.8; O2SAT 98
--- NOTE | 2024-12-27 20:56 | PC.NURSE ---
Patient reporting headache, reporting took tylenol this morning for a headache and it was not helpful. Patient reports feeling like a migraine coming. Patient also reporting back pain, bp 164/84, hr 62. Patient reports taking klonopin at bedtime, dose given in the morning, pt asking for bedtime klonopin. Dr. Salas notified.
[2024-12-27] MEDS: ondansetron HCL 4 MG/2 ML VIAL IVPUSH (21:19)
[2024-12-27] MEDS: traMADoL HCL 50 MG TABLET PO (21:21)
--- NOTE | 2024-12-28 | ECG_ITS ---
Test Reason : chest pain Blood Pressure : */* mmHG Vent. Rate : 62 BPM Atrial Rate : 62 BPM P-R Int : 174 ms QRS Dur : 86 ms QT Int : 410 ms P-R-T Axes : 62 49 55 degrees QTcB Int : 416 ms Normal sinus rhythm Normal ECG When compared with ECG of 26-Dec-2024 14:36, Nonspecific T wave abnormality no longer evident in Anterior leads Referred By: Tika Chua Electronically Signed By: KIM BELL
[2024-12-28 03:35] VITALS: BP 114/52; PULSE 54; RESP 18; TEMP 37; O2SAT 100
[2024-12-28] MEDS: Omeprazole 20 MG CAPSULE.DR PO (05:52)
[2024-12-28 07:11] LABS: Hematocrit 32.8 % (37.0-47.0); Hemoglobin 10.5 g/dl (12.0-16.0); Mean Corpuscular Volume 84.3 fL (80.0-98.0); Mean Platelet Volume 8.7 fL (9.4-12.3); Platelet Count 234 X10*3/uL (160-400); Red Blood Count 3.89 X10*6/uL (4.20-5.50); Red Cell Distribution Width 13.5 % (11.0-16.0); White Blood Count 3.4 X10*3/uL (4.8-10.8)
[2024-12-28 07:31] LABS: Alanine Aminotransferase 15 U/L (0-31); Albumin Level 3.7 g/dL (3.5-5.0); Alkaline Phosphatase 106 U/L (39-117); Anion Gap 11 (12-20); Aspartate Amino Transferase 29 U/L (5-31); Bilirubin Total 0.4 mg/dL (0.0-1.0); Blood Urea Nitrogen 15 mg/dL (9-16); Calcium 9.1 mg/dL (8.4-10.2); Carbon Dioxide 25 mmol/L (22-29); Chloride 108 mmol/L (96-108); Creatinine Clr Calc Pharmacy 45.8; Estimated Glomerular Filt Rate 55; Glucose Random 77 mg/dL (60-115); Potassium 4.9 mmol/L (3.3-5.1); Sodium 139 mmol/L (135-145); Total Protein 5.8 g/dL (6.5-8.0)
[2024-12-28 08:00] VITALS: BP 132/59; PULSE 63; RESP 16; TEMP 36.2; O2SAT 100
[2024-12-28] MEDS: Aspirin Enteric Coated 81 MG TABLET.DR PO (09:09)
[2024-12-28] MEDS: lisinopriL 5 MG TABLET PO (09:09)
[2024-12-28] MEDS: Thiamine HCL 100 MG TABLET PO (09:09)
[2024-12-28] MEDS: Folic Acid 1 MG TABLET PO (09:09)
[2024-12-28] MEDS: 0.9 % Sodium Chloride Flush 3 ML SYRINGE IVFLUSH (09:12)
[2024-12-28] MEDS: ondansetron HCL 4 MG/2 ML VIAL IVPUSH (10:23)
[2024-12-28] MEDS: traMADoL HCL 50 MG TABLET PO (10:23)
--- NOTE | 2024-12-28 14:14 | PM.DS ---
DS: Providers Provider Date of Service: 12/28/24 Date of admission: 12/26/24 18:08 Date of discharge: 12/28/24 Primary care physician: Carrillo Zarco MD Consults: 12/26/24 19:53 Consult to Orthopedics Routine Consulting Provider: [facility] Reason for consultation: Pt with right 5th metacarpal shaft fracture ?splinting 12/26/24 22:43 Consult to Psychiatry Routine Consulting Provider: [facility] [facility] Covering Reason for consultation: Rama with known bipolar/schizoaffective, family concerned 12/27/24 15:10 Inpt CARE Team Crisis Consult Routine Comment: Reason for consultation: bipolar, manic, daughter states pt suicidal DS: Diagnosis Discharge Diagnosis (1) Bipolar affective disorder, most recent episode mixed: Status: Acute DS: Summary Hospital Course Hospital Course: Admission H&P: Patient is a 69-year-old female with past medical history bipolar disorder/schizoaffective disorder currently manic with auditory hallucinations, anxiety, undiagnosed ADHD/OCD, agoraphobia, claustrophobia, UTI, nephrolithiasis, , cataract was seen in the emergency department for a recent fall 5 days prior. Patient had just walked from the Orthopedics office for a R fifth metacarpal shaft fracture and left before receiving the wrist splint. Orthopedics was notified that patient was in the ED and patient was seen there. A splint is now in place on the right wrist. But more importantly patient's labs revealed an MARIA E and a UA is currently pending to rule out UTI. Patient also has evidence of hyperkalemia and hyponatremia. It is possible that patient has not been drinking fluids very well as she has been more groggy using hydroxyzine pamoate along with clonazepam and cyclobenzaprine as well as alcohol use more regularly over the last week. Patient also vapes marijuana at least twice daily if not more. Family expressed since your concern regarding patient's well being overall. Patient is permitting psychiatric evaluation and is not suicidal at this time. Patient also denies any homicidal ideations. Patient is reporting auditory hallucinations but is nonspecific accept the say that they are ?scary?. Small altercation between daughter and patient occurred during admission interview regarding patient's recent alcohol use. Patient's daughter brought up the subject of alcohol use and wanted to be sure that this financial writer new the patient was using alcohol more often. Patient has been shooting Sheryl[employer] and chloride in her coffee. Family did report over weekend that patient walked 4 miles to the liquor store and patient denies this. Patient has been dealing with her mental health issues her whole life but things worsened when she lost her daughter in 2010 to suicide. Patient was supposed to be on lithium 10-15 years prior and refused to start the medication. Patient states she was cheeking the medication. Patient has been hospitalized inpatient for her psychiatric history. Patient is acknowledging that she would benefit from a mood stabilizing agent along with Wellbutrin although she states this is probably contraindicated due to her diagnosis. Patient denies any history of overdose or intentions to hurt herself. Patient does not perform any self-injurious behaviors. Family does appear to be very supportive. Most concerning is the patient's fall that occurred approximately 5 days prior with a hit to the head. CT scans are all negative for any acute findings. Patient's memory has not been as good. Patient no longer drives. Patient has been more manic at home as well. OT evaluation with [facility] ordered. Psychiatric consultation will also be ordered. Hospital course: Patient was admitted for MARIA E secondary to dehydration from having frequent diarrhea. Diarrhea has subsided and patient has not had diarrhea for over 5 days at this point. She was treated with IV fluids with great improvement of her electrolytes and creatinine the following day. Hyperkalemia, metabolic acidosis and hyponatremia also improved with IV fluids. CT head and neck were negative after fall. Fall was suspected to be secondary to alcohol, marijuana and psychiatric medications. PT eval without recommendations for acute level skilled physical therapy. OT eval with recommendations for continued mental health support as well as support for proper med management and support including family assist with higher level care such as bills, driving, medications. Medically the patient has progressed to baseline. She continues to have psychiatric concerns including hallucinations. She was evaluated by Psychiatry and care team with recommendations for section 12, medication adjustment and transfer to [facility]. Patient has a history of alcohol use disorder, CIWA scores have remained low throughout admission not requiring withdrawal medication. Status at Discharge Functional status at discharge: independent ambulation Overall status at discharge: patient is back to baseline Time Attestation Discharge Coordination Time (in mins): 45 Quality: Safe Use of Opioids Does Pt have an Active Cancer Diagnosis on the Problem List?: No Quality: Stroke Does the patient have a stroke diagnosis?: No Physical Exam Vital Signs: Vital Signs: Last Vital Signs Temp 97.2 F 12/28/24 08:00 Pulse 63 12/28/24 08:00 Resp 16 12/28/24 08:00 BP 132/59 L 12/28/24 08:00 Pulse Ox 100 12/28/24 08:00 O2 Del Method Room Air 12/28/24 08:00 BMI result Body Mass Index 24.1 General: AOx3, no acute distress Resp: CTA bilaterally CVS: S1, S2, RRR GI: +BS, NT, no distention Skin: Warm, dry Neuro: Cranial nerves II-XII grossly intact bilaterally. Motor grossly intact bilaterally Extremities: No edema Psych: Labile mood DS: Data Data Completed and Pending Labs on day of discharge: Laboratory Results - last 24 hr 12/27/24 12/28/24 14:01 05:28 WBC 3.4 L RBC 3.89 L Hgb 10.5 L Hct 32.8 L MCV 84.3 MCH 27.0 MCHC 32.0 RDW 13.5 Plt Count 234 MPV 8.7 L Absolute Nucleated RBC 0.000 Nucleated RBC % (auto) 0.0 Sodium 139 Potassium 4.9 Chloride 108 Carbon Dioxide 25 Anion Gap 11 L BUN 15 Creatinine 1.00 Estim Creat Clear Calc 45.8 Estimated GFR 55 Random Glucose 77 Calcium 9.1 Iron 73 TIBC 233 % Saturation 31 Unsat Iron Binding 160 Total Bilirubin 0.4 AST 29 ALT 15 Alkaline Phosphatase 106 Total Protein 5.8 L Albumin 3.7 Vitamin B12 219 Folate 11.9 Discharge Plan Discharge Anticipated Discharge Date/Time: 12/28/24 14:01 Patient Disposition: Xfer Psychiatric Hosp Discharge Diagnosis: MARIA E secondary to dehydration - improved with IVF. acute rama bipolar Referrals: Carrillo Zarco MD [Primary Care Provider, Internal Medicine] - 1 Week Discharge Medications: New olanzapine 5 mg Tablet 5 mg PO Q6H PRN (Reason: agitation) Qty: 90 0RF folic acid 1 mg Tablet 1 mg PO DAILY Qty: 90 0RF thiamine mononitrate (vit B1) 100 mg Tablet 100 mg PO DAILY Qty: 90 0RF Continued lisinopril 5 mg tablet 5 mg PO DAILY Qty: 90 3RF cyclobenzaprine 5 mg tablet 5 mg PO TID PRN (Reason: Muscle Spasm) acetaminophen 500 mg Tablet 1,000 mg PO Q6H PRN (Reason: Pain) aspirin 81 mg Tablet 81 mg PO DAILY clonazepam 0.5 mg tablet 0.5 mg PO DAILY PRN (Reason: Anxiety) Rx Instructions: administer 30 minutes before bedtime Discharge Orders: Discharge Order (Routine); Ordered 12/28/24 Ordered By: Tika Chua Diet: Regular diet Activity on Discharge: As tolerated Stand Alone Forms: Patient Portal Discharge page Print Language: Swedish Care Plan Goals: recover from MARIA E due to dehydration stabilization of mood disorder Health Concerns: MARIA E secondary to dehydration - improved with IVF mood disorder, rama. medication recs per psych: olanzapine 5mg Q6H PRN agitation alcohol use disorder Plan of Treatment: transfer to [facility] for inpt level of treatment for bipolar affective disorder, current episode, mixed encourage PO fluids, MARIA E resolved alcohol use disoder - continue to monitor CIWA scores Assessment: see above Discharge Date/Time: 12/28/24 15:06
[2024-12-28] MEDS: clonazePAM 0.5 MG TABLET PO (14:28)
--- NOTE | 2024-12-28 14:32 | MHC.CM.PN ---
pt tranferred to billy brown
--- NOTE | 2024-12-28 15:33 | PC.NURSE ---
Pt was calm and cooperative for most of the day. When this nurse approached patient to remove IV and send her to S1 per Psychiatrist order, pt was very upset and emotional and refusing to go. Security was called to help with transfer, as pt is section 12 and cannot choose to leave hospital. Pt did eventually calm down and Iv was removed and she was transferred down to S1 with no further incident.
--- NOTE | 2024-12-28 17:11 | PM.EVENT ---
Event Note Date of Service: 12/28/24 Event Note: Notified that patient was complaining of severe right flank pain. She had no complaints of this earlier. Patient reports that it feels like a cramping sensation that radiates across her upper abdomen. She also complains of chest pain. No nausea, vomiting or diaphoresis. Patient denies shortness of breath. She is rating her pain 10/10 in the right flank as well as her chest. Patient seen and evaluated When patient is complaining of chest pain she is pointing at her left upper quadrant. Right flank pain not present with tapping on back when patient is distracted. The patient appears comfortable when distracted otherwise we will lean forward in state that she has severe pain and needs go to the emergency department. Reassured patient that we ordered testing for her symptoms and will transfer to the medical floor if needed. A/P R flank pain - A/P CT with out contrast - UA negative yesterday - CBC and BMP ok this morning LUQ/ chest pain - Stat EKG and troponin Time Spent With Patient Time: Total time managing care of this patient today ____ minutes.
== END 2024-12-28 15:06 | DRG 641 ==
LOC: HO.ED 18:03 → HO.EDOVER 18:27 → HO.S3 19:20
PROVIDERS: Nurse Practitioner Family; Physician Assistant Medical; Social Worker; Admitting Provider Internal Medicine; Emergency Provider Emergency Medicine; PCP Internal Medicine; Visit Provider Physician Assistant
DX: E86.0 Dehydration (principal); N17.9 Acute kidney failure, unspecified; F31.60 Bipolar disorder, current episode mixed, unspecified; R29.6 Repeated falls; E87.5 Hyperkalemia; S62.326A Displaced fracture of shaft of fifth metacarpal bone, right hand, initial encounter for closed fracture; W19.XXXA Unspecified fall, initial encounter; E87.20 Acidosis, unspecified; F10.90 Alcohol use, unspecified, uncomplicated; E87.1 Hypo-osmolality and hyponatremia; Z79.82 Long term (current) use of aspirin; Z79.899 Other long term (current) drug therapy
CPT/HCPCS: 36415; 70450; 72070; 72125; 74176; 80048; 80053; 80076; 80307; 81001; 81003; 82607; 82746; 83540; 83735; 84484; 85025; 85027; 93005; 97161; 97165; 99285; J1650; J2405; J7120; S9485

== ENCOUNTER → 2024-12-26 14:30 | Outpatient (BNV) | payer MEDICARE, MEDICAID, SELFPAY | PROVIDERS: Admitting Provider Internal Medicine; Emergency Provider Emergency Medicine; PCP Internal Medicine; Visit Provider Internal Medicine | DX: Z13.6 Encounter for screening for cardiovascular disorders (principal) | CPT/HCPCS: 93010 ==

== ENCOUNTER 2024-12-26 18:08 | Outpatient (BNV) | payer MEDICARE, MEDICAID, SELFPAY | END 2024-12-28 17:44 | PROVIDERS: Admitting Provider Internal Medicine; Emergency Provider Emergency Medicine; PCP Internal Medicine; Visit Provider Internal Medicine | DX: R07.9 Chest pain, unspecified (principal) | CPT/HCPCS: 93010 ==

== ENCOUNTER 2024-12-26 18:08 | Outpatient (BNV) | payer MEDICARE, MEDICAID, SELFPAY | END 2024-12-28 08:47 | PROVIDERS: Admitting Provider Internal Medicine; Emergency Provider Emergency Medicine; PCP Internal Medicine; Visit Provider Radiology Diagnostic Radiology | DX: N28.1 Cyst of kidney, acquired (principal); N28.81 Hypertrophy of kidney; R91.1 Solitary pulmonary nodule; M54.6 Pain in thoracic spine; W19.XXXA Unspecified fall, initial encounter | CPT/HCPCS: 72070 ==

== ENCOUNTER → 2024-12-26 18:08 | Outpatient (BNV) | payer MEDICARE, MEDICAID, SELFPAY | PROVIDERS: Admitting Provider Internal Medicine; Emergency Provider Emergency Medicine; PCP Internal Medicine; Visit Provider Nurse Practitioner Family | DX: F31.60 Bipolar disorder, current episode mixed, unspecified (principal) | CPT/HCPCS: 99223; 99232; 99239; 99499 ==

== ENCOUNTER → 2024-12-26 18:08 | Outpatient (BNV) | payer MEDICARE, MEDICAID, SELFPAY | PROVIDERS: Admitting Provider Internal Medicine; Emergency Provider Emergency Medicine; PCP Internal Medicine; Visit Provider Social Worker | DX: F31.61 Bipolar disorder, current episode mixed, mild (principal) | CPT/HCPCS: 99232 ==

== ENCOUNTER → 2024-12-26 18:08 | Outpatient (BNV) | payer MEDICARE, MEDICAID, SELFPAY | PROVIDERS: Admitting Provider Internal Medicine; Emergency Provider Emergency Medicine; PCP Internal Medicine | DX: S62.326A Displaced fracture of shaft of fifth metacarpal bone, right hand, initial encounter for closed fracture (principal) | CPT/HCPCS: 99499 ==

== ENCOUNTER 2024-12-28 16:17 | Inpatient (IN) | payer MEDICARE, OTHER, SELFPAY ==
--- NOTE | ~2024-12-28 | XR_ITS ---
EXAMINATION: XR HAND, RIGHT CLINICAL INFORMATION: R fifth MC fracture COMPARISON: 01/02/2025, 12/26/2024. TECHNIQUE: PA, lateral, and oblique views of the right hand. FINDINGS: Redemonstration of a comminuted nondisplaced fracture of the fifth metacarpal shaft. Stable anatomical alignment. No obvious healing at this time. No new fracture or dislocation. Moderate osteoarthrosis of the first CMC joint again noted. Mild arthritis in the first MCP joint and interphalangeal joint of the thumb. Joint spaces otherwise maintained. Negative ulnar variance noted. XR/XR hand RT min 3V IMPRESSION: Comminuted nondisplaced fracture fifth metacarpal diaphysis without change. Electronically signed by: Gordon Victor MD 01/09/2025 11:22 AM EDT
--- NOTE | ~2024-12-28 | XR_ITS ---
EXAMINATION: XR HAND 3 OR MORE VIEWS RIGHT HISTORY: Right 5th finger fracture COMPARISON: Comparison is made with the prior examination dated 12/26/2024. FINDINGS: Three views of the right hand are submitted. Osseous mineralization is normal. There is a comminuted nondisplaced fracture of the 5th metacarpal shaft. The bones are otherwise intact. There is moderate osteoarthritis of the 1st carpometacarpal joint with joint space narrowing and osteophyte formation. The soft tissues are unremarkable. XR/XR hand RT min 3V IMPRESSION: Comminuted nondisplaced fracture of the 5th metacarpal shaft. Electronically signed by: Emery Concepcion MD 01/02/2025 11:25 AM EDT
[2024-12-28 16:24] VITALS: BP 165/76; PULSE 86; RESP 18; TEMP 36.9; O2SAT 96
--- NOTE | 2024-12-28 18:50 | PC.ADMIT ---
Pt is a 69 year old female with PMHx significant for non-STEMI, schizoaffective dx, mood dx, stress-induced cardiomyopathy, gout, alcohol use disorder, gallstone pancreatitis, left ventricular mural thrombus, and HTN, who was brought to the ED and hospitalized on S3 for the tx of MARIA E secondary to dehydration. Pt was admitted to S1 on 12b around 15:00. Pt was referred to psychiatry after increased rama and delusional + suicidal statements were made. Pt's children were concerned as one of pt's daughters did commit suicide . Pt has history of being on m5 10 years ago and a recent diagnosis of bipolar disorder. During the admission pt is uncooperative, agitated, asking to leave, and overall manic, hyperverbal and anxious. Pt refused to sign any documents and refused to participate on admission assessment. It's also been reported that pt has not been getting any sleep, and was reporting auditory hallucinations threatening her. Insight and judgment are poor. Utox (+) for marijuana, skin check completed w/ no significant findings. Pt has a healthcareproxy - one of her daughters Brielle [phone].
[2024-12-28 20:00] VITALS: BP 97/76; PULSE 71; RESP 18; TEMP 36.6; O2SAT 96
--- NOTE | 2024-12-29 03:53 | PC.NURSE ---
Pt had Troponin - High sensitivity ordered 12/28 1700 while on med/surg, lab inquired about it at 0310 today, Emir Brown NP, notified, she put in a STAT order but changed it to have it done with the other lab orders in the morning.
[2024-12-29 07:43] LABS: Hemoglobin A1C 105.6971 umol/L; Total Hemoglobin (HGBA1C) 3101.5455 umol/L
[2024-12-29 07:51] LABS: Alanine Aminotransferase 21 U/L (0-31); Albumin Level 4.3 g/dL (3.5-5.0); Alkaline Phosphatase 119 U/L (39-117); Anion Gap 18 (12-20); Aspartate Amino Transferase 36 U/L (5-31); Blood Urea Nitrogen 18 mg/dL (9-16); Calcium 9.5 mg/dL (8.4-10.2); Carbon Dioxide 21 mmol/L (22-29); Chloride 99 mmol/L (96-108); Cholesterol 222 mg/dL (<200); Estimated Glomerular Filt Rate 40; HDL Cholesterol 47 mg/dL (>40); Potassium 5.2 mmol/L (3.3-5.1); Sodium 133 mmol/L (135-145); Total Protein 6.7 g/dL (6.5-8.0); Triglycerides 181 mg/dL (<150)
[2024-12-29 07:55] LABS: Troponin-I High Sensitivity < 2.7 ng/L (<3.5-17.0)
[2024-12-29 08:00] VITALS: BP 128/62; PULSE 71; RESP 16; TEMP 36.1; O2SAT 98
[2024-12-29] MEDS: Aspirin Enteric Coated 81 MG TABLET.DR PO (08:44)
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
--- NOTE | 2024-12-29 11:34 | HO.PM.IMCN ---
History of Present Illness Data of Consult Service Date: 12/29/24 Primary Care Provider: Unknown Physician HPI Reason for consult: Medical consult flank pain 69-year-old female with past medical history bipolar disorder/schizoaffective disorder currently manic with auditory hallucinations, anxiety, undiagnosed ADHD/OCD, agoraphobia, claustrophobia, UTI, nephrolithiasis is seen for Flank pain. Patient was recently DC from medical after she was admitted for acute kidney injury secondary to dehydration. She was having frequent diarrhea. She has no further diarrhea. She was treated with IV fluids with correction of her electrolytes and creatinine. Her recent CT scan of her head and neck negative. Prior to admit she was using alcohol, marijuana and psychiatric medications which most likely contributed to her fall. She continued to have hallucinations and was evaluated by Psychiatry, she is now section 12 to [facility] psych. She did not have any evidence of withdrawal. Patient with a past medical history of interstitial cystitis, she was recently treated with 3 doses of fosfomycin on 12/12/2024 by urologist. Review of Systems Review of Systems: Denies any shortness of breath, chest pain, dizziness, lightheadedness, abdominal pain or discomfort, nausea vomiting or diarrhea PMFSH Medical History Anxiety, generalized Marijuana use Alcohol use disorder Claustrophobia Agoraphobia Schizoaffective disorder Bipolar 1 disorder with moderate rama Gout Gallstone pancreatitis Non-STEMI (non-ST elevated myocardial infarction) LV (left ventricular) mural thrombus Stress-induced cardiomyopathy Family History Father Substance use disorder Mother Cancer Other Mental health disorder Surgical History History of cardiac catheterization (~05/13/19) History of cholecystectomy (~06/2017) History of knee surgery Social History Household Members: Unknown / Unable to assess Household Members Other:: refusing to report Housing: Unknown / Unable to assess Alcohol intake: current Alcohol intake frequency: holidays/special occasions only Patient Tobacco Use Status: Former Tobacco user Years Smoked: 30 e-Cigarette/Vaping Use: Never Used Substance Use Type: Marijuana Currently Displaying Signs/Symptoms of Drug Intoxication Withdrawal: No Spiritual Healthcare Practices: none reported. pt refusing to engage Zoroastrian Healthcare Practices: none reported. pt refusing to engage Cultural Healthcare Practices: none reported. 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 Cognitive needs: No Hearing needs: No Vision needs: Yes Meds Allergies Allergy/AdvReac Type Severity Reaction Status Date / Time Penicillins (PENICILLINS) Allergy Severe HIVES Verified 12/26/24 14:27 cephalexin (Keflex) Allergy Unknown unknown Verified 12/26/24 14:27 Sulfa (Sulfonamide Allergy Unknown hives Verified 12/26/24 14:27 Antibiotics) morphine (MORPHINE) AdvReac Unknown ITCHY Verified 12/26/24 14:27 perflutren (From DEFINITY) AdvReac Unknown CHEST PAIN Verified 12/26/24 14:27 macrobid Allergy Intermediate Hives Uncoded 12/26/24 13:38 NSAIDS AdvReac Unknown GI upset Uncoded 12/26/24 13:38 Active Medications: Current Medications Acetaminophen (Acetaminophen 325 Mg Tablet) 650 mg PO Q6H PRN PRN Reason: Headache/Pain, Scale 1-10 Al Hydroxide/Mg Hydroxide (Magnesium Hydrox/Alum Hydrox 30 Ml Oral.Susp) 30 ml PO Q6H PRN PRN Reason: Heartburn/Nausea Aspirin (Aspirin Enteric Coated 81 Mg Tablet.) 81 mg PO DAILY [facility] Last Admin: 12/29/24 08:44 Dose: 81 mg Clonazepam (Clonazepam 0.5 Mg Tablet) 0.5 mg PO DAILY PRN PRN Reason: Anxiety Last Admin: 12/29/24 06:04 Dose: 0.5 mg Cyclobenzaprine HCl (Cyclobenzaprine Hcl 5 Mg Tablet) 5 mg PO TID PRN PRN Reason: Muscle Spasm Folic Acid (Folic Acid 1 Mg Tablet) 1 mg PO DAILY [facility] Last Admin: 12/29/24 08:44 Dose: 1 mg Lisinopril (Lisinopril 5 Mg Tablet) 5 mg PO DAILY [facility]; Protocol Last Admin: 12/29/24 08:44 Dose: 5 mg Magnesium Hydroxide (Milk Of Magnesia 30 Ml Oral.Susp) 30 ml PO DAILY PRN PRN Reason: Constipation Nicotine Polacrilex (Nicotine Polacrilex 2 Mg Gum) 4 mg BUCCAL Q2H PRN PRN Reason: Nicotine Cravings Olanzapine (Olanzapine 5 Mg Tablet) 5 mg PO Q6H PRN PRN Reason: agitation Thiamine HCl (Thiamine Hcl 100 Mg Tablet) 100 mg PO DAILY [facility] Last Admin: 12/29/24 08:44 Dose: 100 mg Trazodone HCl (Trazodone Hcl 50 Mg Tablet) 50 mg PO BEDTIME MRX1 PRN PRN Reason: Insomnia Home Medications ?Medication ?Instructions ?Recorded ?Confirmed ?Last Taken ?Type acetaminophen 500 mg tablet 1,000 mg PO Q6H PRN Pain 12/26/24 12/28/24 12/27/24 09:55 History aspirin 81 mg tablet 81 mg PO DAILY 12/26/24 12/28/24 12/28/24 09:09 History clonazepam 0.5 mg tablet 0.5 mg PO DAILY PRN Anxiety 12/26/24 12/28/24 12/28/24 15:00 History cyclobenzaprine 5 mg tablet 5 mg PO TID PRN Muscle Spasm 12/26/24 12/28/24 Unknown History Physical Exam Vital Signs and Narrative: Vital Signs: Last Vital Signs Temp 97.0 F 12/29/24 08:00 Pulse 71 12/29/24 08:00 Resp 16 12/29/24 08:00 BP 128/62 12/29/24 08:00 Pulse Ox 98 12/29/24 08:00 O2 Del Method Room Air 12/29/24 08:00 CONST: Alert and oriented, in NAD. Anxious, not happy that she is here HEENT: Normocephalic, atraumatic, MMM RESP: Lungs clear, RRR even and regular HEART:,RRR, S1, S2. no edema GI:Abdomen Soft NT, ND. + BS times four :Deferred SKIN: Warm dry and intact, no visible lesions or rashes NEURO:CN II-XII Intact bilaterally, Sensation intact. Speech clear PSYCH: Anxious affect, rapid speech Results Labs 12/29/24 07:27 Labs: Laboratory Results - last 24 hr 12/29/24 07:27 Anion Gap 18 Estim Creat Clear Calc TNP Estimated GFR 40 Random Glucose 66 Estimat Average Glucose 105 Hemoglobin A1c % 5.3 Calcium 9.5 Total Bilirubin 0.5 AST 36 H ALT 21 Alkaline Phosphatase 119 H Troponin I High Sens < 2.7 Total Protein 6.7 Albumin 4.3 Triglycerides 181 H Cholesterol 222 H LDL Cholesterol, Calc 139 H HDL Cholesterol 47 Assessment and Plan (1) Interstitial cystitis: Status: Acute Plan Recent MARIA E secondary to dehydration - improved with IVF Slight increase of creatinine to 1.31 Encourage foods and we will check an a.m. Bipolar affective disorder, current episode, mixed/Alcohol DO/Mood disorder No evidence of withdrawal Would avoid any Narcotic medications Flank pain/Interstitial Cystitis Patient had an abdominopelvic CT done yesterday after she reported flank pain, which had an infiltration of fat adjacent to the right kidney. There is no evidence of urolithiasis or hydronephrosis Her most recent UA was on 12/27/2024 which showed a trace of leukocyte esterase, no bacteria no blood no WBCs. Recommendations to check a urinalysis to rule out pyelonephritis, awaiting collection She was also noted to have multiple bilateral kidney cyst in the small hyperdense nodule within the left kidney, they recommend outpatient follow up for this. Noted on imaging in August. Patient has a history of Interstitial Cystitis. Followed by urology. No leukocytosis, slight increase in CR to 1.31 Encourage fluids, repeat labs in am. Recently treated with fosfomycin on 12/12/2024 by outpatient Urology.
--- NOTE | 2024-12-29 15:24 | PC.NURSE ---
Became intussive and when he was redirected he became combative, he was able to be redirected by staff and is now quiet is in his room.
[2024-12-29 20:00] VITALS: BP 166/70; PULSE 62; RESP 17; TEMP 36.3; O2SAT 98
[2024-12-30 08:00] VITALS: BP 138/88; TEMP 36.1
[2024-12-30] MEDS: Aspirin Enteric Coated 81 MG TABLET.DR PO (08:43)
[2024-12-30 09:05] LABS: Anion Gap 13 (12-20); Blood Urea Nitrogen 18 mg/dL (9-16); Calcium 9.6 mg/dL (8.4-10.2); Carbon Dioxide 25 mmol/L (22-29); Chloride 98 mmol/L (96-108); Estimated Glomerular Filt Rate 44; Potassium 4.5 mmol/L (3.3-5.1); Sodium 131 mmol/L (135-145)
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
[2024-12-30 14:33] VITALS: BMI 23.5
[2024-12-30 16:30] LABS: MANUAL DIFF FLAG NO
[2024-12-30 16:31] LABS: Hematocrit 35.3 % (37.0-47.0); Hemoglobin 11.9 g/dl (12.0-16.0); Imm Gran Abs Auto 0.01 X10*3/uL (0.00-0.03); Imm Gran Pct Auto 0.2 % (0.0-0.4); Lymphocytes Absolute Auto 1.9 X10*3/uL (1.2-4.9); Mean Corpuscular HGB Conc 33.7 g/dl (31.0-35.0); Mean Corpuscular Hemoglobin 27.2 pg (27.0-33.0); Mean Corpuscular Volume 80.6 fL (80.0-98.0); NRBC Abs Auto 0.000 X10*3/uL (0.0-0.012); NRBC Pct Auto 0.0 /100WBC (0.0-0.2); Platelet Count 282 X10*3/uL (160-400); Red Blood Count 4.38 X10*6/uL (4.20-5.50); White Blood Count 5.8 X10*3/uL (4.8-10.8)
[2024-12-30 16:59] LABS: Alanine Aminotransferase 39 U/L (0-31); Albumin Level 4.8 g/dL (3.5-5.0); Alkaline Phosphatase 122 U/L (39-117); Anion Gap 16 (12-20); Aspartate Amino Transferase 67 U/L (5-31); Blood Urea Nitrogen 19 mg/dL (9-16); Calcium 9.8 mg/dL (8.4-10.2); Carbon Dioxide 24 mmol/L (22-29); Chloride 99 mmol/L (96-108); Creatinine Clr Calc Pharmacy 37.8; Estimated Glomerular Filt Rate 44; Potassium 5.0 mmol/L (3.3-5.1); Sodium 134 mmol/L (135-145); Total Protein 7.3 g/dL (6.5-8.0)
[2024-12-30 20:00] VITALS: BP 134/65; PULSE 75; RESP 16; TEMP 36.9; O2SAT 99
[2024-12-30] MEDS: carBAMazepine ER 100 MG TAB.ER.12H PO (21:19)
[2024-12-31 08:00] VITALS: BP 142/66; PULSE 70; RESP 16; TEMP 36.5; O2SAT 100
[2024-12-31] MEDS: Aspirin Enteric Coated 81 MG TABLET.DR PO (09:19)
--- NOTE | 2024-12-31 19:21 | P.PNPSI_ITS ---
Subjective Subjective Date of Service: 12/31/24 Reason For Visit: Mixed rama agitation Subjective Notes: Conditional Voluntary Interim History: Pt slept most of the night. She has been seeking a particular male peer. She reports she is better, continues to present with labile mood, although accepting more the fact that she is not stable and needs psychiatric treatment. She asks this display card writer if I am not an maria c, thinks she is going through spiritual journey and she has to make changes in ther life. She is less irritable but oscilates between expansive mood, to being tearful. She denies SI/HI. She thinks she has been cured of all medical conditions. She is taking carbamazepine. does not want antipsychotic. Review of Systems Review of Systems Denies any shortness of breath, chest pain, dizziness, lightheadedness, abdominal pain or discomfort, nausea vomiting or diarrhea Mental Status Exam Mental Status Exam Narrative: Appearance: wearing hospital gown, fair hygiene, in NAD behavior:overly friendly Psychomotor: no agitation or retardation noted Speech: clear, hyperverbal, not pressured, spontaneous TP: some flight of ideas/ tangential TC: wanting to return home, not trusting family at this time, thinks they are all against her Mood: better Affect: dysphoric, labile SI: denies, makes at times conditional suicidality statements if going to psych unit. But also appears very tearful and depressed HI: none VH/AH: no overt signs Delusions: some suspiciousness, also may not be fully forthcoming. Insight/judgment: impaired x 2. memory/cog: alert, oriented x 3. Diagnostics Vital Signs (24Hr): Vital Signs - 24 hr 12/30/24 20:00 12/31/24 08:00 Temperature 98.4 F 97.7 F Pulse Rate 75 70 Respiratory Rate 16 16 Blood Pressure 134/65 142/66 H Pulse Oximetry 99 100 Oxygen Delivery Method Room Air Room Air BMI result Body Mass Index 23.5 Labs 12/30/24 16:25 12/30/24 16:25 Labs: Laboratory Results - last 48 hr 12/30/24 12/30/24 08:41 16:25 WBC 5.8 RBC 4.38 Hgb 11.9 L Hct 35.3 L MCV 80.6 MCH 27.2 MCHC 33.7 RDW 13.1 Plt Count 282 MPV 7.8 L Immature Gran % (Auto) 0.2 Neut % (Auto) 52.5 Lymph % (Auto) 32.4 Dukes % (Auto) 10.4 Eos % (Auto) 3.1 Baso % (Auto) 1.4 Lymph # (Auto) 1.9 Dukes # (Auto) 0.6 Eos # (Auto) 0.2 Baso # (Auto) 0.1 Abs Immat Gran (auto) 0.01 Absolute Neuts (auto) 3.1 Absolute Nucleated RBC 0.000 Nucleated RBC % (auto) 0.0 Sodium 131 L 134 L Potassium 4.5 5.0 Chloride 98 99 Carbon Dioxide 25 24 Anion Gap 13 16 BUN 18 H 19 H Creatinine 1.22 1.21 Estim Creat Clear Calc TNP 37.8 Estimated GFR 44 44 Random Glucose 132 H 96 Calcium 9.6 9.8 Total Bilirubin 0.3 AST 67 H ALT 39 H Alkaline Phosphatase 122 H Total Protein 7.3 Albumin 4.8 Medications Medications Current Medications Acetaminophen (Acetaminophen 325 Mg Tablet) 650 mg PO Q6H PRN PRN Reason: Headache/Pain, Scale 1-10 Last Admin: 12/31/24 11:18 Dose: 650 mg Al Hydroxide/Mg Hydroxide (Magnesium Hydrox/Alum Hydrox 30 Ml Oral.Susp) 30 ml PO Q6H PRN PRN Reason: Heartburn/Nausea Aspirin (Aspirin Enteric Coated 81 Mg Tablet.Dr) 81 mg PO DAILY [facility] Last Admin: 12/31/24 09:19 Dose: 81 mg Carbamazepine (Carbamazepine Er 100 Mg Tab.Er.12h) 100 mg PO BEDTIME [facility] Last Admin: 12/30/24 21:19 Dose: 100 mg Clonazepam (Clonazepam 0.5 Mg Tablet) 0.5 mg PO DAILY@2030 PRN PRN Reason: Anxiety Last Admin: 12/30/24 20:48 Dose: 0.5 mg Cyclobenzaprine HCl (Cyclobenzaprine Hcl 5 Mg Tablet) 5 mg PO TID PRN PRN Reason: Muscle Spasm Last Admin: 12/31/24 12:00 Dose: 5 mg Famotidine (Famotidine 20 Mg Tablet) 20 mg PO DAILY [facility] Last Admin: 12/31/24 09:19 Dose: 20 mg Folic Acid (Folic Acid 1 Mg Tablet) 1 mg PO DAILY [facility] Last Admin: 12/31/24 09:19 Dose: 1 mg Lisinopril (Lisinopril 5 Mg Tablet) 5 mg PO DAILY [facility]; Protocol Last Admin: 12/31/24 09:19 Dose: 5 mg Magnesium Hydroxide (Milk Of Magnesia 30 Ml Oral.Susp) 30 ml PO DAILY PRN PRN Reason: Constipation Nicotine Polacrilex (Nicotine Polacrilex 2 Mg Gum) 4 mg BUCCAL Q2H PRN PRN Reason: Nicotine Cravings Nystatin (Nystatin Powder 15 Gm Bottle) 1 appl TOPICAL BID [facility]; Protocol Olanzapine (Olanzapine 5 Mg Tablet) 5 mg PO Q6H PRN PRN Reason: agitation Thiamine HCl (Thiamine Hcl 100 Mg Tablet) 100 mg PO DAILY [facility] Last Admin: 12/31/24 09:19 Dose: 100 mg Trazodone HCl (Trazodone Hcl 50 Mg Tablet) 50 mg PO BEDTIME MRX1 PRN PRN Reason: Insomnia Vitamin D (Cholecalciferol (Vitamin D3) 25 Mcg Tablet) 25 mcg PO DAILY [facility] Last Admin: 12/31/24 18:25 Dose: 25 mcg Allergies Allergies Allergy/AdvReac Type Severity Reaction Status Date / Time Penicillins (PENICILLINS) Allergy Severe HIVES Verified 12/26/24 14:27 cephalexin (Keflex) Allergy Unknown unknown Verified 12/26/24 14:27 Sulfa (Sulfonamide Allergy Unknown hives Verified 12/26/24 14:27 Antibiotics) morphine (MORPHINE) AdvReac Unknown ITCHY Verified 12/26/24 14:27 perflutren (From DEFINITY) AdvReac Unknown CHEST PAIN Verified 12/26/24 14:27 macrobid Allergy Intermediate Hives Uncoded 12/26/24 13:38 NSAIDS AdvReac Unknown GI upset Uncoded 12/26/24 13:38 Assessment & Plan Assessment & Plan (1) Bipolar affective disorder, most recent episode mixed: Status: Acute Code(s): F31.60 - Bipolar disorder, current episode mixed, unspecified (2) Agoraphobia: Status: Acute Code(s): F40.00 - Agoraphobia, unspecified (3) Alcohol use disorder: Status: Acute Code(s): F10.90 - Alcohol use, unspecified, uncomplicated Plan Patient on section 12 B long history of bipolar disorder question of schizoaffective disorder. Chronic auditory hallucinations versus dissociative phenomena but clear episodes of rama and depression not currently treated. Had reportedly been altered state prior to being admitted medically for dehydration acute kidney injury then transferred to Psychiatry. Need additional clarification from her ex- with whom she lives with other family regarding dangerousness to self self neglect hospitalist consult also ordered. Patient given literature regarding bipolar disorder including treatment. Would consider Lamictal consider weight neutral antipsychotic such as Geodon. Try and clarify and evaluate consideration of filing for civil commitment and tx plan. Other option is to continue to try and develop therapeutic relationship with the patient who could also sign in as a conditional voluntary. She is quite dismissive at this time regarding any substance use issues or overuse of prescription medication Abdominal CT scan reviewed labs and EKG reviewed. Discussed case with hospitalist consult. Pending UA C&S 12/31 continue tx. encourage to accept antipsychotic. Reason for continued inpatient stay Substantial Risk for: inability to function Time Spent With Patient Time: Total time managing care of this patient today ____ minutes.
[2024-12-31 19:54] VITALS: BP 142/68; PULSE 103; RESP 16; TEMP 36.8; O2SAT 96
[2024-12-31] MEDS: carBAMazepine ER 100 MG TAB.ER.12H PO (20:32)
--- NOTE | 2025-01-01 05:13 | PC.NURSE ---
Patient was restless and intrusive most shift, at times disruptive, screaming or invading personal space, multiple attempts to redirect unsuccessful. call center representative provider Jaiden Barney notified, and one time Valium 10 mg, Haldol 5 mg and Ativan 2 mg administered by mouth; patient currently in bed sleeping, will continue to monitor.
[2025-01-01 08:00] VITALS: BP 99/60; PULSE 65; RESP 16; TEMP 36.2; O2SAT 96
[2025-01-01] MEDS: Aspirin Enteric Coated 81 MG TABLET.DR PO (08:17)
[2025-01-01 11:34] VITALS: BP 111/71
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
[2025-01-01 16:47] LABS: Alanine Aminotransferase 32 U/L (0-31); Albumin Level 4.5 g/dL (3.5-5.0); Alkaline Phosphatase 108 U/L (39-117); Anion Gap 14 (12-20); Aspartate Amino Transferase 47 U/L (5-31); Blood Urea Nitrogen 23 mg/dL (9-16); Calcium 9.4 mg/dL (8.4-10.2); Carbon Dioxide 24 mmol/L (22-29); Chloride 99 mmol/L (96-108); Creatinine Clr Calc Pharmacy 32.7; Estimated Glomerular Filt Rate 37; Potassium 4.8 mmol/L (3.3-5.1); Sodium 132 mmol/L (135-145); Total Protein 6.8 g/dL (6.5-8.0)
[2025-01-01] MEDS: carBAMazepine ER 100 MG TAB.ER.12H PO (19:58)
[2025-01-01 20:00] VITALS: BP 127/82; PULSE 87; RESP 17; TEMP 36.6; O2SAT 96
[2025-01-01] MEDS: Magnesium Hydrox/Alum Hydrox 30 ML ORAL.SUSP PO (20:01)
[2025-01-02 08:00] VITALS: BP 137/69; PULSE 76; RESP 18; TEMP 36.2; O2SAT 96
[2025-01-02 08:32] VITALS: BP 137/69
[2025-01-02] MEDS: Aspirin Enteric Coated 81 MG TABLET.DR PO (08:32)
--- NOTE | 2025-01-02 10:44 | PM.EVENT ---
Event Note Date of Service: 01/02/25 Event Note: Patient was seen in Orthopedics office for 5th metacarpal shaft fracture of right hand. She left without having splint applied with recommendations to have Xrays repeated in 1 week. Will recheck Xray and consult orthopedics. Time Spent With Patient Time: Total time managing care of this patient today ____ minutes.
[2025-01-02 12:54] LABS: Specific Gravity - Urine <= 1.005 (1.005-1.025)
--- NOTE | 2025-01-02 16:12 | PM.PNORT ---
Subjective Subjective Date of Service: 01/02/25 Interval history: Patient is a 69-year-old female admitted to Geriatric psych unit Patient was seen in our office last week for nondisplaced right 5th metacarpal fracture Patient has been out of splint for the past few days, reports no increase in pain or swelling No acute complaints or concerns at this time Physical Exam Vital Signs: Vital Signs: Last Vital Signs Temp 97.2 F 01/02/25 08:00 Pulse 76 01/02/25 08:00 Resp 18 01/02/25 08:00 BP 137/69 01/02/25 08:32 Pulse Ox 96 01/02/25 08:00 O2 Del Method Room Air 01/02/25 08:00 BMI result Body Mass Index 23.5 Extrem: Other: Patient is alert, oriented, and in no acute distress. Neuro: Normal sensation of the tips of all digits of the right hand at this time Vascular: Cap refill brisk Pain: No Tenderness to palpation over 5th metacarpal of right hand Pain with all range of motion ROM: Patient is able to make close to a closed fist with the right hand Skin: No lacerations or abrasions. General: Ecchymosis nearly resolved on the right hand Psych: Appears grossly normal Affect normal Attitude cooperative Procedures Date of Service Date of Service: 01/02/25 Orthopedic Splinting/Casting Injury #1: Upper extremity injury location: hand Upper extremity immobilizer: ulnar gutter Progress Note: A&P Assessment and plan (1) Closed fracture of shaft of fifth metacarpal bone of right hand: Status: Acute Plan 1. Right 5th metacarpal fracture, nondisplaced Patient appears to be recovering well from her injury Patient is educated about the typical recovery course At this time, patient is educated that the likelihood of needing surgery is much lower now that she has a full week out from injury Patient is replaced into a splint due to mild swelling If patient is still admitted in a week we will place her into a cast If patient has been discharged at that time, we will see her in our office for cast placement No further acute orthopedic intervention indicated until 1 week from now Time Spent With Patient Time: Total time managing care of this patient today ____ minutes. Quality Stroke Does the patient have a stroke diagnosis?: No VTE Prior VTE?: No VTE Risk Level:: Medical - low VTE Device Contraindication: Treatment Not Indicated VTE Drug Contraindication: Treatment Not Indicated
--- NOTE | 2025-01-02 16:39 | HO.PSYCHPN ---
Subjective Subjective Date of Service: 12/26/24 Reason For Visit: Mixed rama agitation Subjective Notes: Conditional Voluntary Healthcare Proxy: Yes Interim History: Patient seen psychiatric follow-up mood somewhat calmer has been taking olanzapine past day had been quite paranoid and agitated. Case reviewed extensively with patient's family who states she had been relatively stable until cycling into manic agitation off and on over the past month and a half. Periods of confusion paranoia suspiciousness patient mildly hyponatremic Mental Status Exam Mental Status Exam Narrative: Appearance: wearing hospital gown, fair hygiene, in NAD behavior:overly friendly Psychomotor: no agitation or retardation noted Speech: clear, not pressured, spontaneous TP: some flight of ideas/ tangential TC: Agreeable to treatment states she is feeling better on olanzapine Mood ?calmer Affect: dysphoric, labile SI: denies, makes at times conditional suicidality statements if going to psych unit. But also appears very tearful and depressed HI: none VH/AH: Tends to downplay some more spring Delusions: some suspiciousness, also may not be fully forthcoming. Insight/judgment: impaired x 2. memory/cog: alert, oriented x 3. Diagnostics Vital Signs (24Hr): Vital Signs - 24 hr 01/01/25 20:00 01/02/25 08:00 01/02/25 08:32 Temperature 97.8 F 97.2 F Pulse Rate 87 76 Respiratory Rate 17 18 Blood Pressure 127/82 137/69 137/69 Pulse Oximetry 96 96 Oxygen Delivery Method Room Air Room Air BMI result Body Mass Index 23.5 Labs 12/30/24 16:25 01/01/25 15:31 Labs: Laboratory Results - last 48 hr 01/01/25 01/01/25 01/02/25 15:31 22:15 12:30 Sodium 132 L Potassium 4.8 Chloride 99 Carbon Dioxide 24 Anion Gap 14 BUN 23 H Creatinine 1.40 Estim Creat Clear Calc 32.7 Estimated GFR 37 Random Glucose 105 Calcium 9.4 Total Bilirubin 0.4 AST 47 H ALT 32 H Alkaline Phosphatase 108 Total Protein 6.8 Albumin 4.5 Ur Specific [place] <= 1.005 Urine Osmolality 240 L Ur Random Sodium 32.0 Ur Random Potassium 22.0 Ur Random Chloride 31.0 Imaging Radiology Impressions: ITS Impressions Hand X-Ray 01/02/25 10:46 IMPRESSION: Comminuted nondisplaced fracture of the 5th metacarpal shaft. Electronically signed by: Emery Concepcion MD 01/02/2025 11:25 AM EDT RP Medications Medications Current Medications Acetaminophen (Acetaminophen 325 Mg Tablet) 650 mg PO Q6H PRN PRN Reason: Headache/Pain, Scale 1-10 Last Admin: 01/02/25 15:07 Dose: 650 mg Al Hydroxide/Mg Hydroxide (Magnesium Hydrox/Alum Hydrox 30 Ml Oral.Susp) 30 ml PO Q6H PRN PRN Reason: Heartburn/Nausea Last Admin: 01/01/25 20:01 Dose: 30 ml Aspirin (Aspirin Enteric Coated 81 Mg Tablet.Dr) 81 mg PO DAILY [facility] Last Admin: 01/02/25 08:32 Dose: 81 mg Clonazepam (Clonazepam 0.5 Mg Tablet) 0.5 mg PO BID PRN PRN Reason: Anxiety Last Admin: 01/01/25 22:53 Dose: 0.5 mg Cyclobenzaprine HCl (Cyclobenzaprine Hcl 5 Mg Tablet) 5 mg PO TID PRN PRN Reason: Muscle Spasm Last Admin: 01/01/25 22:53 Dose: 5 mg Famotidine (Famotidine 20 Mg Tablet) 20 mg PO DAILY [facility] Last Admin: 01/02/25 08:32 Dose: 20 mg Fluticasone Propionate (Fluticasone Propionate Nasal 16 Gm [place]) 1 spray NOSTRIL-B DAILY [facility] Last Admin: 01/02/25 10:58 Dose: 1 spray Folic Acid (Folic Acid 1 Mg Tablet) 1 mg PO DAILY [facility] Last Admin: 01/02/25 08:32 Dose: 1 mg Lisinopril (Lisinopril 5 Mg Tablet) 5 mg PO DAILY [facility]; Protocol Last Admin: 01/02/25 08:32 Dose: 5 mg Magnesium Hydroxide (Milk Of Magnesia 30 Ml Oral.Susp) 30 ml PO DAILY PRN PRN Reason: Constipation Nicotine Polacrilex (Nicotine Polacrilex 2 Mg Gum) 4 mg BUCCAL Q2H PRN PRN Reason: Nicotine Cravings Nystatin (Nystatin Powder 15 Gm Bottle) 1 appl TOPICAL BID [facility]; Protocol Last Admin: 01/02/25 08:38 Dose: 1 appl Olanzapine (Olanzapine 5 Mg Tablet) 5 mg PO Q6H PRN PRN Reason: agitation Last Admin: 01/01/25 22:53 Dose: 5 mg Thiamine HCl (Thiamine Hcl 100 Mg Tablet) 100 mg PO DAILY [facility] Last Admin: 01/02/25 08:32 Dose: 100 mg Trazodone HCl (Trazodone Hcl 50 Mg Tablet) 50 mg PO BEDTIME MRX1 PRN PRN Reason: Insomnia Last Admin: 01/01/25 22:53 Dose: 50 mg Vitamin D (Cholecalciferol (Vitamin D3) 25 Mcg Tablet) 25 mcg PO DAILY [facility] Last Admin: 01/02/25 08:32 Dose: 25 mcg Allergies Allergies Allergy/AdvReac Type Severity Reaction Status Date / Time Penicillins (PENICILLINS) Allergy Severe HIVES Verified 12/26/24 14:27 cephalexin (Keflex) Allergy Unknown unknown Verified 12/26/24 14:27 Sulfa (Sulfonamide Allergy Unknown hives Verified 12/26/24 14:27 Antibiotics) morphine (MORPHINE) AdvReac Unknown ITCHY Verified 12/26/24 14:27 perflutren (From DEFINITY) AdvReac Unknown CHEST PAIN Verified 12/26/24 14:27 macrobid Allergy Intermediate Hives Uncoded 12/26/24 13:38 NSAIDS AdvReac Unknown GI upset Uncoded 12/26/24 13:38 Assessment & Plan Assessment & Plan (1) Schizoaffective disorder: Status: Acute Code(s): F25.9 - Schizoaffective disorder, unspecified (2) Closed fracture of shaft of fifth metacarpal bone of right hand: Status: Acute Code(s): S62.326A - Displaced fracture of shaft of fifth metacarpal bone, right hand, initial encounter for closed fracture Plan 1. Right 5th metacarpal fracture, nondisplaced Patient appears to be recovering well from her injury Patient is educated about the typical recovery course At this time, patient is educated that the likelihood of needing surgery is much lower now that she has a full week out from injury Patient is replaced into a splint due to mild swelling If patient is still admitted in a week we will place her into a cast If patient has been discharged at that time, we will see her in our office for cast placement No further acute orthopedic intervention indicated until 1 week from now 01/02/25 pt agreeable to olanzapine and Depakote. Required Haldol and Valium the other day Patient educated on: diagnosis and medication risk/benefits Guardian/Caregiver educated on: diagnosis, medication risk/benefits, substance abuse and therapeutic strategies Informed Consent: further education needed Reason for continued inpatient stay Substantial Risk for: harm to self, inability to function, rapid decompensation and med/psych decompensation Time Spent With Patient Time: Total time managing care of this patient today _40___ minutes.
[2025-01-02 20:00] VITALS: BP 140/68; PULSE 82; RESP 18; TEMP 35.5; O2SAT 93
[2025-01-03 08:55] VITALS: BP 117/66; PULSE 76; RESP 18; TEMP 36.4; O2SAT 100
[2025-01-03] MEDS: Aspirin Enteric Coated 81 MG TABLET.DR PO (08:58)
[2025-01-03 20:00] VITALS: BP 123/63; PULSE 74; RESP 18; TEMP 36.6; O2SAT 96
--- NOTE | 2025-01-03 21:52 | HO.PSYCHPN ---
Subjective Subjective Date of Service: 01/03/25 Reason For Visit: Mixed rama agitation Subjective Notes: Conditional Voluntary Interim History: Patient superficially bright generally calm denies hallucinations mood instability history of not being forthcoming More cooperative out of her room more some noted expansiveness overly bright Medication Compliance: Yes Mental Status Exam Mental Status Exam Narrative: Appearance: NAD quite bright behavior:overly friendly Psychomotor: no agitation or retardation noted Speech: clear, not pressured, spontaneous TP: some flight of ideas/ tangential TC: Agreeable to treatment states she is feeling better on olanzapine Mood ?calmer Affect: dysphoric, labile SI: denies, makes at times conditional suicidality statements if going to psych unit. But also appears very tearful and depressed HI: none VH/AH: Tends to downplay some more spring Delusions: some suspiciousness, also may not be fully forthcoming. Insight/judgment: impaired x 2. memory/cog: alert, oriented x 3. Diagnostics Vital Signs (24Hr): Vital Signs - 24 hr 01/03/25 08:55 Temperature 97.6 F Pulse Rate 76 Respiratory Rate 18 Blood Pressure 117/66 Pulse Oximetry 100 Oxygen Delivery Method Room Air BMI result Body Mass Index 23.5 Labs 12/30/24 16:25 01/01/25 15:31 Labs: Laboratory Results - last 48 hr 01/01/25 01/02/25 22:15 12:30 Ur Specific [place] <= 1.005 Urine Osmolality 240 L Ur Random Sodium 32.0 Ur Random Potassium 22.0 Ur Random Chloride 31.0 Imaging Radiology Impressions: ITS Impressions Hand X-Ray 01/02/25 10:46 IMPRESSION: Comminuted nondisplaced fracture of the 5th metacarpal shaft. Electronically signed by: Emery Concepcion MD 01/02/2025 11:25 AM EDT Medications Medications Current Medications Acetaminophen (Acetaminophen 325 Mg Tablet) 650 mg PO Q6H PRN PRN Reason: Headache/Pain, Scale 1-10 Last Admin: 01/02/25 15:07 Dose: 650 mg Al Hydroxide/Mg Hydroxide (Magnesium Hydrox/Alum Hydrox 30 Ml Oral.Susp) 30 ml PO Q6H PRN PRN Reason: Heartburn/Nausea Last Admin: 01/01/25 20:01 Dose: 30 ml Aspirin (Aspirin Enteric Coated 81 Mg Tablet.) 81 mg PO DAILY [facility] Last Admin: 01/03/25 08:58 Dose: 81 mg Clonazepam (Clonazepam 0.5 Mg Tablet) 0.5 mg PO BID PRN PRN Reason: Anxiety Last Admin: 01/03/25 20:29 Dose: 0.5 mg Cyclobenzaprine HCl (Cyclobenzaprine Hcl 5 Mg Tablet) 5 mg PO TID PRN PRN Reason: Muscle Spasm Last Admin: 01/03/25 09:14 Dose: 5 mg Divalproex Sodium (Divalproex Sodium 250 Mg Tablet.Dr) 250 mg PO BID [facility] Last Admin: 01/03/25 20:18 Dose: 250 mg Famotidine (Famotidine 20 Mg Tablet) 20 mg PO DAILY [facility] Last Admin: 01/03/25 08:57 Dose: 20 mg Fluticasone Propionate (Fluticasone Propionate Nasal 16 Gm [place]) 1 spray NOSTRIL-B DAILY [facility] Last Admin: 01/03/25 08:59 Dose: 1 spray Folic Acid (Folic Acid 1 Mg Tablet) 1 mg PO DAILY [facility] Last Admin: 01/03/25 08:57 Dose: 1 mg Lisinopril (Lisinopril 5 Mg Tablet) 5 mg PO DAILY [facility]; Protocol Last Admin: 01/03/25 08:58 Dose: 5 mg Magnesium Hydroxide (Milk Of Magnesia 30 Ml Oral.Susp) 30 ml PO DAILY PRN PRN Reason: Constipation Nicotine Polacrilex (Nicotine Polacrilex 2 Mg Gum) 4 mg BUCCAL Q2H PRN PRN Reason: Nicotine Cravings Last Admin: 01/03/25 20:29 Dose: 4 mg Nystatin (Nystatin Powder 15 Gm Bottle) 1 appl TOPICAL BID [facility]; Protocol Last Admin: 01/03/25 20:18 Dose: 1 appl Olanzapine (Olanzapine 5 Mg Tablet) 5 mg PO Q6H PRN PRN Reason: agitation Last Admin: 01/03/25 01:18 Dose: 5 mg Olanzapine (Olanzapine 5 Mg Tablet) 5 mg PO BEDTIME [facility] Last Admin: 01/03/25 20:18 Dose: 5 mg Thiamine HCl (Thiamine Hcl 100 Mg Tablet) 100 mg PO DAILY [facility] Last Admin: 01/03/25 08:57 Dose: 100 mg Trazodone HCl (Trazodone Hcl 50 Mg Tablet) 50 mg PO BEDTIME MRX1 PRN PRN Reason: Insomnia Last Admin: 01/03/25 01:19 Dose: 50 mg Vitamin D (Cholecalciferol (Vitamin D3) 25 Mcg Tablet) 25 mcg PO DAILY [facility] Last Admin: 01/03/25 08:58 Dose: 25 mcg Allergies Allergies Allergy/AdvReac Type Severity Reaction Status Date / Time Penicillins (PENICILLINS) Allergy Severe HIVES Verified 12/26/24 14:27 cephalexin (Keflex) Allergy Unknown unknown Verified 12/26/24 14:27 Sulfa (Sulfonamide Allergy Unknown hives Verified 12/26/24 14:27 Antibiotics) morphine (MORPHINE) AdvReac Unknown ITCHY Verified 12/26/24 14:27 perflutren (From DEFINITY) AdvReac Unknown CHEST PAIN Verified 12/26/24 14:27 macrobid Allergy Intermediate Hives Uncoded 12/26/24 13:38 NSAIDS AdvReac Unknown GI upset Uncoded 12/26/24 13:38 Assessment & Plan Assessment & Plan (1) Schizoaffective disorder: Status: Acute Code(s): F25.9 - Schizoaffective disorder, unspecified (2) Closed fracture of shaft of fifth metacarpal bone of right hand: Status: Acute Code(s): S62.326A - Displaced fracture of shaft of fifth metacarpal bone, right hand, initial encounter for closed fracture Plan 1. Right 5th metacarpal fracture, nondisplaced Patient appears to be recovering well from her injury Patient is educated about the typical recovery course At this time, patient is educated that the likelihood of needing surgery is much lower now that she has a full week out from injury Patient is replaced into a splint due to mild swelling If patient is still admitted in a week we will place her into a cast If patient has been discharged at that time, we will see her in our office for cast placement No further acute orthopedic intervention indicated until 1 week from now 01/02/25 pt agreeable to olanzapine and Depakote. Required Haldol and Valium the other day 01/03/2025 Continue Depakote and olanzapine encourage compliance patient has long history of brief compliance and then discontinuing with then long periods of until illness Reason for continued inpatient stay Substantial Risk for: inability to function, rapid decompensation and med/psych decompensation Time Spent With Patient Time: Total time managing care of this patient today ____ minutes.
[2025-01-04 08:34] VITALS: BP 154/71; PULSE 75; RESP 18; TEMP 36.3; O2SAT 97
[2025-01-04] MEDS: Aspirin Enteric Coated 81 MG TABLET.DR PO (08:38)
--- NOTE | 2025-01-04 13:16 | P.PNPSI_ITS ---
Subjective Subjective Date of Service: 01/04/25 Reason For Visit: Mixed rama agitation Subjective Notes: Conditional Voluntary Interim History: Patient seen psychiatric follow-up. Patient somewhat sedated some slurring of speech. Patient has been in bed no gross psychotic symptoms does seem sedated Mental Status Exam Mental Status Exam Narrative: Appearance: Casually dressed behavior: Fatigue Psychomotor: Slow Speech: Slurred, not pressured, spontaneous TP: generally linear and logical TC: Agreeable to treatment states she is feeling better but feels significantly fatigued Mood she states good but tired Affect: Appropriate SI: none expressed HI: none expressed VH/AH: States much decreased even the normal intrusive comments criticism Insight/judgment: impaired x 2. memory/cog: alert, oriented x 3. Diagnostics Vital Signs (24Hr): Vital Signs - 24 hr 01/03/25 20:00 01/04/25 08:34 Temperature 97.9 F 97.3 F Pulse Rate 74 75 Respiratory Rate 18 18 Blood Pressure 123/63 154/71 H Pulse Oximetry 96 97 Oxygen Delivery Method Room Air Room Air BMI result Body Mass Index 23.5 Labs 12/30/24 16:25 01/06/25 07:26 Imaging Radiology Impressions: ITS Impressions Hand X-Ray 01/02/25 10:46 IMPRESSION: Comminuted nondisplaced fracture of the 5th metacarpal shaft. Electronically signed by: Emery Concepcion MD 01/02/2025 11:25 AM EDT RP Medications Medications Current Medications Acetaminophen (Acetaminophen 325 Mg Tablet) 650 mg PO Q6H PRN PRN Reason: Headache/Pain, Scale 1-10 Last Admin: 01/02/25 15:07 Dose: 650 mg Al Hydroxide/Mg Hydroxide (Magnesium Hydrox/Alum Hydrox 30 Ml Oral.Susp) 30 ml PO Q6H PRN PRN Reason: Heartburn/Nausea Last Admin: 01/01/25 20:01 Dose: 30 ml Aspirin (Aspirin Enteric Coated 81 Mg Tablet.Dr) 81 mg PO DAILY [facility] Last Admin: 01/04/25 08:38 Dose: 81 mg Clonazepam (Clonazepam 0.5 Mg Tablet) 0.5 mg PO BID PRN PRN Reason: Anxiety Last Admin: 01/04/25 08:37 Dose: 0.5 mg Cyclobenzaprine HCl (Cyclobenzaprine Hcl 5 Mg Tablet) 5 mg PO TID PRN PRN Reason: Muscle Spasm Last Admin: 01/04/25 03:51 Dose: 5 mg Divalproex Sodium (Divalproex Sodium 250 Mg Tablet.Dr) 250 mg PO BID [facility] Last Admin: 01/04/25 08:38 Dose: 250 mg Famotidine (Famotidine 20 Mg Tablet) 20 mg PO DAILY [facility] Last Admin: 01/04/25 08:38 Dose: 20 mg Fluticasone Propionate (Fluticasone Propionate Nasal 16 Gm [place]) 1 spray NOSTRIL-B DAILY [facility] Last Admin: 01/04/25 08:39 Dose: 1 spray Folic Acid (Folic Acid 1 Mg Tablet) 1 mg PO DAILY [facility] Last Admin: 01/04/25 08:37 Dose: 1 mg Lisinopril (Lisinopril 5 Mg Tablet) 5 mg PO DAILY [facility]; Protocol Last Admin: 01/04/25 08:38 Dose: 5 mg Magnesium Hydroxide (Milk Of Magnesia 30 Ml Oral.Susp) 30 ml PO DAILY PRN PRN Reason: Constipation Nicotine Polacrilex (Nicotine Polacrilex 2 Mg Gum) 4 mg BUCCAL Q2H PRN PRN Reason: Nicotine Cravings Last Admin: 01/04/25 08:36 Dose: 4 mg Nystatin (Nystatin Powder 15 Gm Bottle) 1 appl TOPICAL BID [facility]; Protocol Last Admin: 01/04/25 09:09 Dose: 1 appl Olanzapine (Olanzapine 5 Mg Tablet) 5 mg PO Q6H PRN PRN Reason: agitation Last Admin: 01/04/25 08:36 Dose: 5 mg Olanzapine (Olanzapine 5 Mg Tablet) 5 mg PO BEDTIME [facility] Last Admin: 01/03/25 20:18 Dose: 5 mg Thiamine HCl (Thiamine Hcl 100 Mg Tablet) 100 mg PO DAILY [facility] Last Admin: 01/04/25 08:37 Dose: 100 mg Trazodone HCl (Trazodone Hcl 50 Mg Tablet) 50 mg PO BEDTIME MRX1 PRN PRN Reason: Insomnia Last Admin: 01/03/25 01:19 Dose: 50 mg Vitamin D (Cholecalciferol (Vitamin D3) 25 Mcg Tablet) 25 mcg PO DAILY [facility] Last Admin: 01/04/25 08:37 Dose: 25 mcg Allergies Allergies Allergy/AdvReac Type Severity Reaction Status Date / Time Penicillins (PENICILLINS) Allergy Severe HIVES Verified 12/26/24 14:27 cephalexin (Keflex) Allergy Unknown unknown Verified 12/26/24 14:27 Sulfa (Sulfonamide Allergy Unknown hives Verified 12/26/24 14:27 Antibiotics) morphine (MORPHINE) AdvReac Unknown ITCHY Verified 12/26/24 14:27 perflutren (From DEFINITY) AdvReac Unknown CHEST PAIN Verified 12/26/24 14:27 macrobid Allergy Intermediate Hives Uncoded 12/26/24 13:38 NSAIDS AdvReac Unknown GI upset Uncoded 12/26/24 13:38 Assessment & Plan Assessment & Plan (1) Schizoaffective disorder: Status: Acute Code(s): F25.9 - Schizoaffective disorder, unspecified (2) Closed fracture of shaft of fifth metacarpal bone of right hand: Status: Acute Code(s): S62.326A - Displaced fracture of shaft of fifth metacarpal bone, right hand, initial encounter for closed fracture Plan 1. Right 5th metacarpal fracture, nondisplaced Patient appears to be recovering well from her injury Patient is educated about the typical recovery course At this time, patient is educated that the likelihood of needing surgery is much lower now that she has a full week out from injury Patient is replaced into a splint due to mild swelling If patient is still admitted in a week we will place her into a cast If patient has been discharged at that time, we will see her in our office for cast placement No further acute orthopedic intervention indicated until 1 week from now 01/02/25 pt agreeable to olanzapine and Depakote. Required Haldol and Valium the other day 01/03/2025 Continue Depakote and olanzapine encourage compliance patient has long history of brief compliance and then discontinuing with then long periods of until illness 01/04/2025 Patient seems quite fatigued after Depakote 250 mg in the morning change to bedtime 375 mg olanzapine 5 mg unclear the patient needs to be on muscle relaxer would try and taper and discontinue Reason for continued inpatient stay Substantial Risk for: inability to function, rapid decompensation and med/psych decompensation Time Spent With Patient Time: Total time managing care of this patient today ____ minutes.
[2025-01-04 20:00] VITALS: BP 146/73; PULSE 72; RESP 18; TEMP 36.3; O2SAT 98
[2025-01-05 08:00] VITALS: BP 138/70; PULSE 70; RESP 16; TEMP 2.5; TEMP 36.5
[2025-01-05] MEDS: Aspirin Enteric Coated 81 MG TABLET.DR PO (09:36)
[2025-01-05 09:50] VITALS: BMI 23.8
--- NOTE | 2025-01-05 10:04 | PC.NURSE ---
requested to only have one piece of gum
[2025-01-05 19:13] LABS: Anion Gap 14 (12-20); Blood Urea Nitrogen 16 mg/dL (9-16); Calcium 9.9 mg/dL (8.4-10.2); Carbon Dioxide 25 mmol/L (22-29); Chloride 94 mmol/L (96-108); Creatinine Clr Calc Pharmacy 39.9; Estimated Glomerular Filt Rate 47; Potassium 4.7 mmol/L (3.3-5.1); Sodium 128 mmol/L (135-145)
[2025-01-05 20:00] VITALS: BP 136/63; PULSE 71; TEMP 36.2; O2SAT 99
[2025-01-05] MEDS: Divalproex Sodium Sprinkles 125 MG CAP.DR.SPR 375 MG PO (20:40)
--- NOTE | 2025-01-05 22:46 | PM.EVENT ---
Event Note Date of Service: 01/05/25 Event Note: Hospitalist consult placed for hyponatremia. Sodium slowly decreasing throughout stay, initially 131, 134, 132, now 128. Per nursing documentation patient has been eating 75-100% of her meals. The patient is currently resting and medicated for sleep, therefore history was difficult to obtain. She denies any headache, nausea, vomiting or shortness of breath. No lower extremity edema or orthopnea. The patient is receiving trazodone, olanzapine and Depakote which can cause hyponatremia. Blood sugar is normal. Vitals are stable. Exam is without fluid overload, no crackles in lungs and no pitting edema. Pt did wake up briefly when I visited her and responded to her name and denied any of the above sx. Nursing staff reported that this is her usual level of consciousness when medicated for sleep. Suggest repeat BMP in the morning and nephrology consult for further w/u. Case was discussed with Dr French who agrees with plan. Time Spent With Patient Time: Total time managing care of this patient today ____ minutes.
--- NOTE | 2025-01-05 23:42 | P.PNPSI_ITS ---
Subjective Subjective Date of Service: 01/05/25 Reason For Visit: Mixed rama agitation Subjective Notes: Conditional Voluntary Interim History: Patient without gross rama no significant depression denies any current auditory hallucinations eating drinking taking medication as prescribed. Medication Compliance: Yes Mental Status Exam Mental Status Exam Narrative: Appearance: NAD quite bright behavior: Superficially bright and friendly Psychomotor: no agitation or retardation noted Speech: clear, not pressured, spontaneous TP: generally linear and logical TC: Agreeable to treatment states she is feeling better on olanzapine Mood ?good Affect: non-labile, calm, normo-intense SI: none expressed HI: none expressed VH/AH: Denies states she is not experiencing Insight/judgment improving Seems to be making an effort to appear totally well asking to be discharged 01/06/2025 memory/cog: alert, oriented x 3. Diagnostics Vital Signs (24Hr): Vital Signs - 24 hr 01/05/25 08:00 01/05/25 20:00 Temperature 36.5 F L 97.1 F Pulse Rate 70 71 Respiratory Rate 16 Blood Pressure 138/70 136/63 Pulse Oximetry 99 Oxygen Delivery Method Room Air BMI result Body Mass Index 23.8 Labs 12/30/24 16:25 01/06/25 07:26 Labs: Laboratory Results - last 48 hr 01/05/25 18:50 Sodium 128 L Potassium 4.7 Chloride 94 L Carbon Dioxide 25 Anion Gap 14 BUN 16 Creatinine 1.15 Estim Creat Clear Calc 39.9 Estimated GFR 47 Random Glucose 96 Calcium 9.9 Imaging Radiology Impressions: ITS Impressions Hand X-Ray 01/02/25 10:46 IMPRESSION: Comminuted nondisplaced fracture of the 5th metacarpal shaft. Electronically signed by: Emery Concepcion MD 01/02/2025 11:25 AM EDT Medications Medications Current Medications Acetaminophen (Acetaminophen 325 Mg Tablet) 650 mg PO Q6H PRN PRN Reason: Headache/Pain, Scale 1-10 Last Admin: 01/04/25 20:35 Dose: 650 mg Al Hydroxide/Mg Hydroxide (Magnesium Hydrox/Alum Hydrox 30 Ml Oral.Susp) 30 ml PO Q6H PRN PRN Reason: Heartburn/Nausea Last Admin: 01/01/25 20:01 Dose: 30 ml Aspirin (Aspirin Enteric Coated 81 Mg Tablet.) 81 mg PO DAILY [facility] Last Admin: 01/05/25 09:36 Dose: 81 mg Clonazepam (Clonazepam 0.5 Mg Tablet) 0.5 mg PO BID PRN PRN Reason: Anxiety Last Admin: 01/05/25 20:46 Dose: 0.5 mg Cyclobenzaprine HCl (Cyclobenzaprine Hcl 5 Mg Tablet) 5 mg PO TID PRN PRN Reason: Muscle Spasm Last Admin: 01/05/25 13:04 Dose: 5 mg Divalproex Sodium (Divalproex Sodium Sprinkles 125 Mg ) 375 mg PO BEDTIME [facility] Last Admin: 01/05/25 20:40 Dose: 375 mg Famotidine (Famotidine 20 Mg Tablet) 20 mg PO DAILY [facility] Last Admin: 01/05/25 09:36 Dose: 20 mg Fluticasone Propionate (Fluticasone Propionate Nasal 16 Gm [place]) 1 spray NOSTRIL-B DAILY [facility] Last Admin: 01/05/25 09:36 Dose: 1 spray Folic Acid (Folic Acid 1 Mg Tablet) 1 mg PO DAILY [facility] Last Admin: 01/05/25 09:35 Dose: 1 mg Lisinopril (Lisinopril 5 Mg Tablet) 5 mg PO DAILY [facility]; Protocol Last Admin: 01/05/25 09:35 Dose: 5 mg Magnesium Hydroxide (Milk Of Magnesia 30 Ml Oral.Susp) 30 ml PO DAILY PRN PRN Reason: Constipation Nicotine Polacrilex (Nicotine Polacrilex 2 Mg Gum) 4 mg BUCCAL Q2H PRN PRN Reason: Nicotine Cravings Last Admin: 01/05/25 20:46 Dose: 4 mg Nystatin (Nystatin Powder 15 Gm Bottle) 1 appl TOPICAL BID [facility]; Protocol Last Admin: 01/05/25 20:40 Dose: 1 appl Olanzapine (Olanzapine 5 Mg Tablet) 5 mg PO Q6H PRN PRN Reason: agitation Last Admin: 01/04/25 08:36 Dose: 5 mg Olanzapine (Olanzapine 5 Mg Tablet) 5 mg PO BEDTIME [facility] Last Admin: 01/05/25 20:40 Dose: 5 mg Thiamine HCl (Thiamine Hcl 100 Mg Tablet) 100 mg PO DAILY [facility] Last Admin: 01/05/25 09:35 Dose: 100 mg Trazodone HCl (Trazodone Hcl 50 Mg Tablet) 50 mg PO BEDTIME MRX1 PRN PRN Reason: Insomnia Last Admin: 01/04/25 20:27 Dose: 50 mg Vitamin D (Cholecalciferol (Vitamin D3) 25 Mcg Tablet) 25 mcg PO DAILY [facility] Last Admin: 01/05/25 09:35 Dose: 25 mcg Allergies Allergies Allergy/AdvReac Type Severity Reaction Status Date / Time Penicillins (PENICILLINS) Allergy Severe HIVES Verified 12/26/24 14:27 cephalexin (Keflex) Allergy Unknown unknown Verified 12/26/24 14:27 Sulfa (Sulfonamide Allergy Unknown hives Verified 12/26/24 14:27 Antibiotics) morphine (MORPHINE) AdvReac Unknown ITCHY Verified 12/26/24 14:27 perflutren (From DEFINITY) AdvReac Unknown CHEST PAIN Verified 12/26/24 14:27 macrobid Allergy Intermediate Hives Uncoded 12/26/24 13:38 NSAIDS AdvReac Unknown GI upset Uncoded 12/26/24 13:38 Assessment & Plan Assessment & Plan (1) Schizoaffective disorder: Status: Acute Code(s): F25.9 - Schizoaffective disorder, unspecified (2) Closed fracture of shaft of fifth metacarpal bone of right hand: Status: Acute Code(s): S62.326A - Displaced fracture of shaft of fifth metacarpal bone, right hand, initial encounter for closed fracture Plan 1. Right 5th metacarpal fracture, nondisplaced Patient appears to be recovering well from her injury Patient is educated about the typical recovery course At this time, patient is educated that the likelihood of needing surgery is much lower now that she has a full week out from injury Patient is replaced into a splint due to mild swelling If patient is still admitted in a week we will place her into a cast If patient has been discharged at that time, we will see her in our office for cast placement No further acute orthopedic intervention indicated until 1 week from now 01/02/25 pt agreeable to olanzapine and Depakote. Required Haldol and Valium the other day 01/03/2025 Continue Depakote and olanzapine encourage compliance patient has long history of brief compliance and then discontinuing with then long periods of until illness 01/05/2025 Patient does appear to be making an effort to be calm and cooperative as possible denying all symptoms not grossly euphoric concentration good thoughts linear. Patient had had hyponatremia previously and when on Tegretol will check electrolytes. Patient may be downplaying any psychotic symptoms which she states have been very chronic continue olanzapine Depakote 375 again check labs make sure sodium has normalized. Reason for continued inpatient stay Substantial Risk for: inability to function, rapid decompensation and med/psych decompensation Time Spent With Patient Time: Total time managing care of this patient today ____ minutes.
[2025-01-06 07:56] LABS: Anion Gap 13 (12-20); Blood Urea Nitrogen 17 mg/dL (9-16); Calcium 9.7 mg/dL (8.4-10.2); Carbon Dioxide 28 mmol/L (22-29); Chloride 96 mmol/L (96-108); Creatinine Clr Calc Pharmacy 42.4; Estimated Glomerular Filt Rate 50; Magnesium 2.3 mg/dL (1.6-2.6); Potassium 5.1 mmol/L (3.3-5.1); Sodium 132 mmol/L (135-145)
[2025-01-06 08:00] VITALS: BP 113/79; PULSE 77; RESP 18; TEMP 36.3; O2SAT 99
--- NOTE | 2025-01-06 08:02 | PM.EVENT ---
Event Note Date of Service: 01/06/25 Event Note: Chart reviewed 69 yr old woman with mild to moderate hyponatremia Initial urine SG was < 1.005 Na was 128 on 01/05 and currently at 132 Suggest Restrict PO fluid intake to 1.2 L per 24 hrs Salt tabs 1 gm PO BID x 4 doses Replace Lisinopril 5 mg with Losartan 25 mg QD Labs ordered for 01/07 Goal pNa > 130 Full consult to follow Time Spent With Patient Time: Total time managing care of this patient today ____ minutes.
[2025-01-06] MEDS: Aspirin Enteric Coated 81 MG TABLET.DR PO (08:29)
[2025-01-06 08:30] VITALS: BP 113/79
[2025-01-06] MEDS: Sodium Chloride Tab 1 GM TABLET PO ×2 (08:58→21:01)
[2025-01-06 20:00] VITALS: BP 150/79; PULSE 106; TEMP 2.4; TEMP 36.3; O2SAT 99
--- NOTE | 2025-01-06 20:46 | HO.PSYCHPN ---
Subjective Subjective Date of Service: 01/06/25 Reason For Visit: Mixed rama agitation Interim History: calm, pleasant. reports she slept wonderfully. mood good. lab results reviewed with pt. per staff, denies AVH, but +RIS. taking meds. VPA dosing increased. labs pending. less labile/reactive. sleeping well. Mental Status Exam Mental Status Exam Narrative: Appearance: NAD quite bright behavior:overly friendly Psychomotor: no agitation or retardation noted Speech: clear, not pressured, spontaneous TP: generally linear and logical TC: Agreeable to treatment states she is feeling better on olanzapine Mood ?good Affect: non-labile, calm, normo-intense SI: none expressed HI: none expressed VH/AH: none expressed Insight/judgment: impaired x 2. memory/cog: alert, oriented x 3. Diagnostics Vital Signs (24Hr): Vital Signs - 24 hr 01/06/25 08:00 01/06/25 08:30 Temperature 97.3 F Pulse Rate 77 Respiratory Rate 18 Blood Pressure 113/79 113/79 Pulse Oximetry 99 Oxygen Delivery Method Room Air BMI result Body Mass Index 23.8 Labs 12/30/24 16:25 01/06/25 07:26 Labs: Laboratory Results - last 48 hr 01/05/25 01/06/25 18:50 07:26 Sodium 128 L 132 L Potassium 4.7 5.1 Chloride 94 L 96 Carbon Dioxide 25 28 Anion Gap 14 13 BUN 16 17 H Creatinine 1.15 1.08 Estim Creat Clear Calc 39.9 42.4 Estimated GFR 47 50 Random Glucose 96 110 Calcium 9.9 9.7 Magnesium 2.3 Imaging Radiology Impressions: ITS Impressions Hand X-Ray 01/02/25 10:46 IMPRESSION: Comminuted nondisplaced fracture of the 5th metacarpal shaft. Electronically signed by: Emery Concepcion MD 01/02/2025 11:25 AM EDT RP Medications Medications Current Medications Acetaminophen (Acetaminophen 325 Mg Tablet) 650 mg PO Q6H PRN PRN Reason: Headache/Pain, Scale 1-10 Last Admin: 01/04/25 20:35 Dose: 650 mg Al Hydroxide/Mg Hydroxide (Magnesium Hydrox/Alum Hydrox 30 Ml Oral.Susp) 30 ml PO Q6H PRN PRN Reason: Heartburn/Nausea Last Admin: 01/01/25 20:01 Dose: 30 ml Aspirin (Aspirin Enteric Coated 81 Mg Tablet.) 81 mg PO DAILY [facility] Last Admin: 01/06/25 08:29 Dose: 81 mg Clonazepam (Clonazepam 0.5 Mg Tablet) 0.5 mg PO BID PRN PRN Reason: Anxiety Last Admin: 01/06/25 12:16 Dose: 0.5 mg Cyclobenzaprine HCl (Cyclobenzaprine Hcl 5 Mg Tablet) 5 mg PO TID PRN PRN Reason: Muscle Spasm Last Admin: 01/05/25 13:04 Dose: 5 mg Divalproex Sodium (Divalproex Sodium Sprinkles 125 Mg ) 375 mg PO BEDTIME [facility] Last Admin: 01/05/25 20:40 Dose: 375 mg Famotidine (Famotidine 20 Mg Tablet) 20 mg PO DAILY [facility] Last Admin: 01/06/25 08:29 Dose: 20 mg Fluticasone Propionate (Fluticasone Propionate Nasal 16 Gm [place]) 1 spray NOSTRIL-B DAILY [facility] Last Admin: 01/06/25 08:28 Dose: 1 spray Folic Acid (Folic Acid 1 Mg Tablet) 1 mg PO DAILY [facility] Last Admin: 01/06/25 08:30 Dose: 1 mg Losartan Potassium (Losartan Potassium 25 Mg Tablet) 25 mg PO DAILY [facility]; Protocol Magnesium Hydroxide (Milk Of Magnesia 30 Ml Oral.Susp) 30 ml PO DAILY PRN PRN Reason: Constipation Nicotine Polacrilex (Nicotine Polacrilex 2 Mg Gum) 4 mg BUCCAL Q2H PRN PRN Reason: Nicotine Cravings Last Admin: 01/06/25 18:42 Dose: 4 mg Nystatin (Nystatin Powder 15 Gm Bottle) 1 appl TOPICAL BID [facility]; Protocol Last Admin: 01/06/25 08:31 Dose: 1 appl Olanzapine (Olanzapine 5 Mg Tablet) 5 mg PO Q6H PRN PRN Reason: agitation Last Admin: 01/04/25 08:36 Dose: 5 mg Olanzapine (Olanzapine 5 Mg Tablet) 5 mg PO BEDTIME [facility] Last Admin: 01/05/25 20:40 Dose: 5 mg Sodium Chloride (Sodium Chloride Tab 1 Gm Tablet) 1 gm PO BID [facility] Stop: 01/07/25 21:01 Last Admin: 01/06/25 08:58 Dose: 1 gm Thiamine HCl (Thiamine Hcl 100 Mg Tablet) 100 mg PO DAILY [facility] Last Admin: 01/06/25 08:30 Dose: 100 mg Trazodone HCl (Trazodone Hcl 50 Mg Tablet) 50 mg PO BEDTIME MRX1 PRN PRN Reason: Insomnia Last Admin: 01/04/25 20:27 Dose: 50 mg Vitamin D (Cholecalciferol (Vitamin D3) 25 Mcg Tablet) 25 mcg PO DAILY [facility] Last Admin: 01/06/25 08:30 Dose: 25 mcg Allergies Allergies Allergy/AdvReac Type Severity Reaction Status Date / Time Penicillins (PENICILLINS) Allergy Severe HIVES Verified 12/26/24 14:27 cephalexin (Keflex) Allergy Unknown unknown Verified 12/26/24 14:27 Sulfa (Sulfonamide Allergy Unknown hives Verified 12/26/24 14:27 Antibiotics) morphine (MORPHINE) AdvReac Unknown ITCHY Verified 12/26/24 14:27 perflutren (From DEFINITY) AdvReac Unknown CHEST PAIN Verified 12/26/24 14:27 macrobid Allergy Intermediate Hives Uncoded 12/26/24 13:38 NSAIDS AdvReac Unknown GI upset Uncoded 12/26/24 13:38 Assessment & Plan Assessment & Plan (1) Schizoaffective disorder: Status: Acute Code(s): F25.9 - Schizoaffective disorder, unspecified (2) Closed fracture of shaft of fifth metacarpal bone of right hand: Status: Acute Code(s): S62.326A - Displaced fracture of shaft of fifth metacarpal bone, right hand, initial encounter for closed fracture Plan 1. Right 5th metacarpal fracture, nondisplaced Patient appears to be recovering well from her injury Patient is educated about the typical recovery course At this time, patient is educated that the likelihood of needing surgery is much lower now that she has a full week out from injury Patient is replaced into a splint due to mild swelling If patient is still admitted in a week we will place her into a cast If patient has been discharged at that time, we will see her in our office for cast placement No further acute orthopedic intervention indicated until 1 week from now 01/02/25 pt agreeable to olanzapine and Depakote. Required Haldol and Valium the other day 01/03/2025 Continue Depakote and olanzapine encourage compliance patient has long history of brief compliance and then discontinuing with then long periods of until illness 01/06: improved mood, stable. taking meds, sleeping well. labs reviewed, reassuring. continue current mgmt. Reason for continued inpatient stay Substantial Risk for: inability to function and rapid decompensation Time Spent With Patient Time: Total time managing care of this patient today ____ minutes.
[2025-01-06] MEDS: Divalproex Sodium Sprinkles 125 MG CAP.DR.SPR 375 MG PO (21:01)
[2025-01-07 08:00] VITALS: BP 172/81; PULSE 78; RESP 16; TEMP 36.3; O2SAT 95
[2025-01-07] MEDS: Sodium Chloride Tab 1 GM TABLET PO ×2 (08:36→20:53)
[2025-01-07] MEDS: Aspirin Enteric Coated 81 MG TABLET.DR PO (08:37)
[2025-01-07 11:51] LABS: Anion Gap 14 (12-20); Blood Urea Nitrogen 22 mg/dL (9-16); Calcium 9.5 mg/dL (8.4-10.2); Carbon Dioxide 24 mmol/L (22-29); Chloride 103 mmol/L (96-108); Creatinine Clr Calc Pharmacy 34.9; Estimated Glomerular Filt Rate 40; Potassium 5.0 mmol/L (3.3-5.1); Sodium 136 mmol/L (135-145)
--- NOTE | 2025-01-07 12:46 | P.PNPSI_ITS ---
Subjective Subjective Date of Service: 01/07/25 Reason For Visit: Mixed rama agitation Interim History: denies AH or negative thoughts. slept well. no complaints or requests. per staff, started fluid restriction. pleasant, slept well. no depression. some anxiety. social, cooperative. Mental Status Exam Mental Status Exam Narrative: Appearance: NAD quite bright behavior:overly friendly Psychomotor: no agitation or retardation noted Speech: clear, not pressured, spontaneous TP: generally linear and logical TC: Agreeable to treatment states she is feeling better on olanzapine Mood ?good Affect: non-labile, calm, normo-intense SI: none expressed HI: none expressed VH/AH: none expressed Insight/judgment: impaired x 2. memory/cog: alert, oriented x 3. Diagnostics Vital Signs (24Hr): Vital Signs - 24 hr 01/06/25 20:00 01/07/25 08:00 Temperature 36.3 F L 97.3 F Pulse Rate 106 H 78 Respiratory Rate 16 Blood Pressure 150/79 H 172/81 H Pulse Oximetry 99 95 Oxygen Delivery Method Room Air Room Air BMI result Body Mass Index 23.8 Labs 12/30/24 16:25 01/07/25 11:24 Labs: Laboratory Results - last 48 hr 01/05/25 01/06/25 01/07/25 18:50 07:26 11:24 Sodium 128 L 132 L 136 Potassium 4.7 5.1 5.0 Chloride 94 L 96 103 Carbon Dioxide 25 28 24 Anion Gap 14 13 14 BUN 16 17 H 22 H Creatinine 1.15 1.08 1.31 Estim Creat Clear Calc 39.9 42.4 34.9 Estimated GFR 47 50 40 Random Glucose 96 110 108 Calcium 9.9 9.7 9.5 Magnesium 2.3 Imaging Radiology Impressions: ITS Impressions Hand X-Ray 01/02/25 10:46 IMPRESSION: Comminuted nondisplaced fracture of the 5th metacarpal shaft. Electronically signed by: Emery Concepcion MD 01/02/2025 11:25 AM EDT Medications Medications Current Medications Acetaminophen (Acetaminophen 325 Mg Tablet) 650 mg PO Q6H PRN PRN Reason: Headache/Pain, Scale 1-10 Last Admin: 01/06/25 21:47 Dose: 650 mg Al Hydroxide/Mg Hydroxide (Magnesium Hydrox/Alum Hydrox 30 Ml Oral.Susp) 30 ml PO Q6H PRN PRN Reason: Heartburn/Nausea Last Admin: 01/01/25 20:01 Dose: 30 ml Aspirin (Aspirin Enteric Coated 81 Mg Tablet.) 81 mg PO DAILY [facility] Last Admin: 01/07/25 08:37 Dose: 81 mg Clonazepam (Clonazepam 0.5 Mg Tablet) 0.5 mg PO BID PRN PRN Reason: Anxiety Last Admin: 01/06/25 23:11 Dose: 0.5 mg Cyclobenzaprine HCl (Cyclobenzaprine Hcl 5 Mg Tablet) 5 mg PO TID PRN PRN Reason: Muscle Spasm Last Admin: 01/05/25 13:04 Dose: 5 mg Divalproex Sodium (Divalproex Sodium Sprinkles 125 Mg Cap.) 375 mg PO BEDTIME [facility] Last Admin: 01/06/25 21:01 Dose: 375 mg Famotidine (Famotidine 20 Mg Tablet) 20 mg PO DAILY [facility] Last Admin: 01/07/25 08:37 Dose: 20 mg Fluticasone Propionate (Fluticasone Propionate Nasal 16 Gm [place]) 1 spray NOSTRIL-B DAILY [facility] Last Admin: 01/07/25 08:39 Dose: 1 spray Folic Acid (Folic Acid 1 Mg Tablet) 1 mg PO DAILY [facility] Last Admin: 01/07/25 08:37 Dose: 1 mg Losartan Potassium (Losartan Potassium 25 Mg Tablet) 25 mg PO DAILY [facility]; Protocol Last Admin: 01/07/25 08:37 Dose: 25 mg Magnesium Hydroxide (Milk Of Magnesia 30 Ml Oral.Susp) 30 ml PO DAILY PRN PRN Reason: Constipation Nicotine Polacrilex (Nicotine Polacrilex 2 Mg Gum) 4 mg BUCCAL Q2H PRN PRN Reason: Nicotine Cravings Last Admin: 01/06/25 23:13 Dose: 4 mg Nystatin (Nystatin Powder 15 Gm Bottle) 1 appl TOPICAL BID [facility]; Protocol Last Admin: 01/07/25 08:40 Dose: 1 appl Olanzapine (Olanzapine 5 Mg Tablet) 5 mg PO Q6H PRN PRN Reason: agitation Last Admin: 01/04/25 08:36 Dose: 5 mg Olanzapine (Olanzapine 5 Mg Tablet) 5 mg PO BEDTIME [facility] Last Admin: 01/06/25 21:01 Dose: 5 mg Sodium Chloride (Sodium Chloride Tab 1 Gm Tablet) 1 gm PO BID [facility] Stop: 01/07/25 21:01 Last Admin: 01/07/25 08:36 Dose: 1 gm Thiamine HCl (Thiamine Hcl 100 Mg Tablet) 100 mg PO DAILY [facility] Last Admin: 01/07/25 08:37 Dose: 100 mg Trazodone HCl (Trazodone Hcl 50 Mg Tablet) 50 mg PO BEDTIME MRX1 PRN PRN Reason: Insomnia Last Admin: 01/04/25 20:27 Dose: 50 mg Vitamin D (Cholecalciferol (Vitamin D3) 25 Mcg Tablet) 25 mcg PO DAILY [facility] Last Admin: 01/07/25 08:38 Dose: 25 mcg Allergies Allergies Allergy/AdvReac Type Severity Reaction Status Date / Time Penicillins (PENICILLINS) Allergy Severe HIVES Verified 12/26/24 14:27 cephalexin (Keflex) Allergy Unknown unknown Verified 12/26/24 14:27 Sulfa (Sulfonamide Allergy Unknown hives Verified 12/26/24 14:27 Antibiotics) morphine (MORPHINE) AdvReac Unknown ITCHY Verified 12/26/24 14:27 perflutren (From DEFINITY) AdvReac Unknown CHEST PAIN Verified 12/26/24 14:27 macrobid Allergy Intermediate Hives Uncoded 12/26/24 13:38 NSAIDS AdvReac Unknown GI upset Uncoded 12/26/24 13:38 Assessment & Plan Assessment & Plan (1) Schizoaffective disorder: Status: Acute Code(s): F25.9 - Schizoaffective disorder, unspecified (2) Closed fracture of shaft of fifth metacarpal bone of right hand: Status: Acute Code(s): S62.326A - Displaced fracture of shaft of fifth metacarpal bone, right hand, initial encounter for closed fracture Plan 1. Right 5th metacarpal fracture, nondisplaced Patient appears to be recovering well from her injury Patient is educated about the typical recovery course At this time, patient is educated that the likelihood of needing surgery is much lower now that she has a full week out from injury Patient is replaced into a splint due to mild swelling If patient is still admitted in a week we will place her into a cast If patient has been discharged at that time, we will see her in our office for cast placement No further acute orthopedic intervention indicated until 1 week from now 01/02/25 pt agreeable to olanzapine and Depakote. Required Haldol and Valium the other day 01/03/2025 Continue Depakote and olanzapine encourage compliance patient has long history of brief compliance and then discontinuing with then long periods of until illness 01/05/2025 Patient does appear to be making an effort to be calm and cooperative as possible denying all symptoms not grossly euphoric concentration good thoughts linear. Patient had had hyponatremia previously and when on Tegretol will check electrolytes. Patient may be downplaying any psychotic symptoms which she states have been very chronic continue olanzapine Depakote 375 again check labs make sure sodium has normalized. 01/06: improved mood, stable. taking meds, sleeping well. labs reviewed, reassuring. continue current mgmt. 01/07: BUN continues uptrend, Na WNL. denies AH or negative thoughts. slept well fluid restriction in place. continue current mgmt otherwise. Reason for continued inpatient stay Substantial Risk for: inability to function and rapid decompensation Time Spent With Patient Time: Total time managing care of this patient today ____ minutes.
[2025-01-07 20:00] VITALS: BP 180/91; PULSE 81; RESP 17; TEMP 36.6; O2SAT 100
[2025-01-07] MEDS: Divalproex Sodium Sprinkles 125 MG CAP.DR.SPR 375 MG PO (20:53)
[2025-01-07 22:26] VITALS: BP 159/74; PULSE 77; RESP 18
[2025-01-08 08:00] VITALS: BP 156/68; PULSE 75; RESP 18; TEMP 36.8; O2SAT 99
[2025-01-08 08:32] LABS: Anion Gap 14 (12-20); Blood Urea Nitrogen 22 mg/dL (9-16); Calcium 9.9 mg/dL (8.4-10.2); Carbon Dioxide 24 mmol/L (22-29); Chloride 103 mmol/L (96-108); Creatinine Clr Calc Pharmacy 40.5; Estimated Glomerular Filt Rate 48; Potassium 4.9 mmol/L (3.3-5.1); Sodium 136 mmol/L (135-145)
[2025-01-08] MEDS: Aspirin Enteric Coated 81 MG TABLET.DR PO (08:36)
--- NOTE | 2025-01-08 09:11 | PM.EVENT ---
Event Note Date of Service: 01/08/25 Event Note: Pt is a 69-year-old female admitted to [facility] unit with consultation placed for hyponatremia. Pt has been seen and evaluated by Nephrology who suggested fluid restriction to 1.2 L daily, salt tabs 1 g p.o. b.i.d. x4, and switching lisinopril to losartan 25 mg daily with a goal of serum sodium >130. Pt has completed her supplemental salt tabs to good effect sodium yesterday 136 and repeat today 136. Continue fluid restriction for now, pending additional input by Nephrology. Time Spent With Patient Time: Total time managing care of this patient today ____ minutes.
--- NOTE | 2025-01-08 09:32 | HO.PSYCHPN ---
Subjective Subjective Date of Service: 01/08/25 Reason For Visit: Mixed rama agitation Interim History: calm, cooperative, pleasant. concerned about elevated BP and tiring of fluid restriction. per staff, slept well overnight, no issues. Mental Status Exam Mental Status Exam Narrative: Appearance: NAD quite bright behavior: overly friendly Psychomotor: no agitation or retardation noted Speech: clear, not pressured, spontaneous TP: generally linear and logical TC: Agreeable to treatment states she is feeling better on olanzapine Mood ?good Affect: non-labile, calm, normo-intense SI: none expressed HI: none expressed VH/AH: none expressed Insight/judgment: impaired x 2. memory/cog: alert, oriented x 3. Diagnostics Vital Signs (24Hr): Vital Signs - 24 hr 01/07/25 20:00 01/07/25 22:26 Temperature 97.9 F Pulse Rate 81 77 Respiratory Rate 17 18 Blood Pressure 180/91 H 159/74 H Pulse Oximetry 100 Oxygen Delivery Method Room Air BMI result Body Mass Index 23.8 Labs 12/30/24 16:25 01/08/25 07:31 Labs: Laboratory Results - last 48 hr 01/07/25 01/08/25 11:24 07:31 Sodium 136 136 Potassium 5.0 4.9 Chloride 103 103 Carbon Dioxide 24 24 Anion Gap 14 14 BUN 22 H 22 H Creatinine 1.31 1.13 Estim Creat Clear Calc 34.9 40.5 Estimated GFR 40 48 Random Glucose 108 107 Calcium 9.5 9.9 Imaging Radiology Impressions: ITS Impressions Hand X-Ray 01/02/25 10:46 IMPRESSION: Comminuted nondisplaced fracture of the 5th metacarpal shaft. Electronically signed by: Emery Concepcion MD 01/02/2025 11:25 AM EDT RP Medications Medications Current Medications Acetaminophen (Acetaminophen 325 Mg Tablet) 650 mg PO Q6H PRN PRN Reason: Headache/Pain, Scale 1-10 Last Admin: 01/06/25 21:47 Dose: 650 mg Al Hydroxide/Mg Hydroxide (Magnesium Hydrox/Alum Hydrox 30 Ml Oral.Susp) 30 ml PO Q6H PRN PRN Reason: Heartburn/Nausea Last Admin: 01/01/25 20:01 Dose: 30 ml Aspirin (Aspirin Enteric Coated 81 Mg Tablet.) 81 mg PO DAILY [facility] Last Admin: 01/08/25 08:36 Dose: 81 mg Clonazepam (Clonazepam 0.5 Mg Tablet) 0.5 mg PO BID PRN PRN Reason: Anxiety Last Admin: 01/07/25 20:57 Dose: 0.5 mg Cyclobenzaprine HCl (Cyclobenzaprine Hcl 5 Mg Tablet) 5 mg PO TID PRN PRN Reason: Muscle Spasm Last Admin: 01/05/25 13:04 Dose: 5 mg Divalproex Sodium (Divalproex Sodium Sprinkles 125 Mg ) 375 mg PO BEDTIME [facility] Last Admin: 01/07/25 20:53 Dose: 375 mg Famotidine (Famotidine 20 Mg Tablet) 20 mg PO DAILY [facility] Last Admin: 01/08/25 08:35 Dose: 20 mg Fluticasone Propionate (Fluticasone Propionate Nasal 16 Gm [place]) 1 spray NOSTRIL-B DAILY [facility] Last Admin: 01/08/25 08:36 Dose: 1 spray Folic Acid (Folic Acid 1 Mg Tablet) 1 mg PO DAILY [facility] Last Admin: 01/08/25 08:36 Dose: 1 mg Losartan Potassium (Losartan Potassium 25 Mg Tablet) 25 mg PO DAILY [facility]; Protocol Last Admin: 01/08/25 08:35 Dose: 25 mg Magnesium Hydroxide (Milk Of Magnesia 30 Ml Oral.Susp) 30 ml PO DAILY PRN PRN Reason: Constipation Nicotine Polacrilex (Nicotine Polacrilex 2 Mg Gum) 4 mg BUCCAL Q2H PRN PRN Reason: Nicotine Cravings Last Admin: 01/08/25 06:29 Dose: 4 mg Nystatin (Nystatin Powder 15 Gm Bottle) 1 appl TOPICAL BID [facility]; Protocol Last Admin: 01/08/25 08:36 Dose: 1 appl Olanzapine (Olanzapine 5 Mg Tablet) 5 mg PO Q6H PRN PRN Reason: agitation Last Admin: 01/04/25 08:36 Dose: 5 mg Olanzapine (Olanzapine 5 Mg Tablet) 5 mg PO BEDTIME [facility] Last Admin: 01/07/25 20:53 Dose: 5 mg Thiamine HCl (Thiamine Hcl 100 Mg Tablet) 100 mg PO DAILY [facility] Last Admin: 01/08/25 08:36 Dose: 100 mg Trazodone HCl (Trazodone Hcl 50 Mg Tablet) 50 mg PO BEDTIME MRX1 PRN PRN Reason: Insomnia Last Admin: 01/04/25 20:27 Dose: 50 mg Vitamin D (Cholecalciferol (Vitamin D3) 25 Mcg Tablet) 25 mcg PO DAILY [facility] Last Admin: 01/08/25 08:36 Dose: 25 mcg Allergies Allergies Allergy/AdvReac Type Severity Reaction Status Date / Time Penicillins (PENICILLINS) Allergy Severe HIVES Verified 12/26/24 14:27 cephalexin (Keflex) Allergy Unknown unknown Verified 12/26/24 14:27 Sulfa (Sulfonamide Allergy Unknown hives Verified 12/26/24 14:27 Antibiotics) morphine (MORPHINE) AdvReac Unknown ITCHY Verified 12/26/24 14:27 perflutren (From DEFINITY) AdvReac Unknown CHEST PAIN Verified 12/26/24 14:27 macrobid Allergy Intermediate Hives Uncoded 12/26/24 13:38 NSAIDS AdvReac Unknown GI upset Uncoded 12/26/24 13:38 Assessment & Plan Assessment & Plan (1) Schizoaffective disorder: Status: Acute Code(s): F25.9 - Schizoaffective disorder, unspecified (2) Closed fracture of shaft of fifth metacarpal bone of right hand: Status: Acute Code(s): S62.326A - Displaced fracture of shaft of fifth metacarpal bone, right hand, initial encounter for closed fracture Plan 1. Right 5th metacarpal fracture, nondisplaced Patient appears to be recovering well from her injury Patient is educated about the typical recovery course At this time, patient is educated that the likelihood of needing surgery is much lower now that she has a full week out from injury Patient is replaced into a splint due to mild swelling If patient is still admitted in a week we will place her into a cast If patient has been discharged at that time, we will see her in our office for cast placement No further acute orthopedic intervention indicated until 1 week from now 01/02/25 pt agreeable to olanzapine and Depakote. Required Haldol and Valium the other day 01/03/2025 Continue Depakote and olanzapine encourage compliance patient has long history of brief compliance and then discontinuing with then long periods of until illness 01/05/2025 Patient does appear to be making an effort to be calm and cooperative as possible denying all symptoms not grossly euphoric concentration good thoughts linear. Patient had had hyponatremia previously and when on Tegretol will check electrolytes. Patient may be downplaying any psychotic symptoms which she states have been very chronic continue olanzapine Depakote 375 again check labs make sure sodium has normalized. 01/06: improved mood, stable. taking meds, sleeping well. labs reviewed, reassuring. continue current mgmt. 01/07: BUN continues uptrend, Na WNL. denies AH or negative thoughts. slept well fluid restriction in place. continue current mgmt otherwise. 01/08: BUN and Na stable. on fluid restriction, would like to come off. no overt psychosis. pleasant, cooperative. continue current mgmt. Reason for continued inpatient stay Substantial Risk for: inability to function and rapid decompensation Time Spent With Patient Time: Total time managing care of this patient today ____ minutes.
[2025-01-08 20:00] VITALS: BP 159/75; PULSE 77; RESP 16; TEMP 36.8; O2SAT 96
[2025-01-08] MEDS: Divalproex Sodium Sprinkles 125 MG CAP.DR.SPR 375 MG PO (20:42)
[2025-01-09 08:00] VITALS: BP 136/65; PULSE 70; RESP 16; TEMP 36.2; O2SAT 99
--- NOTE | 2025-01-09 08:51 | P.PNPSI_ITS ---
Subjective Subjective Date of Service: 01/09/25 Reason For Visit: Mixed rama agitation Subjective Notes: Conditional Voluntary Interim History: Pt slept through the night. She completed 3 days of fluids restriction per nephrology. She presents as less labile. She asks about cast for her left wrist. She denies SI/HI. She reports sleeping better. No overt delusional content including hoahaoism or paranoid. She is taking medications as prescribed. Medication Compliance: Yes Side effects from medications: No Review of Systems Review of Systems Denies any shortness of breath, chest pain, dizziness, lightheadedness, abdominal pain or discomfort, nausea vomiting or diarrhea Mental Status Exam Mental Status Exam Narrative: Appearance: NAD quite bright behavior: overly friendly Psychomotor: no agitation or retardation noted Speech: clear, not pressured, spontaneous TP: generally linear and logical TC: Agreeable to treatment states she is feeling better on olanzapine Mood ?good Affect: non-labile, calm, normo-intense SI: none expressed HI: none expressed VH/AH: none expressed Insight/judgment: impaired x 2. memory/cog: alert, oriented x 3. Diagnostics Vital Signs (24Hr): Vital Signs - 24 hr 01/08/25 20:00 Temperature 98.2 F Pulse Rate 77 Respiratory Rate 16 Blood Pressure 159/75 H Pulse Oximetry 96 Oxygen Delivery Method Room Air BMI result Body Mass Index 23.8 Labs 12/30/24 16:25 01/08/25 07:31 Labs: Laboratory Results - last 48 hr 01/07/25 01/08/25 11:24 07:31 Sodium 136 136 Potassium 5.0 4.9 Chloride 103 103 Carbon Dioxide 24 24 Anion Gap 14 14 BUN 22 H 22 H Creatinine 1.31 1.13 Estim Creat Clear Calc 34.9 40.5 Estimated GFR 40 48 Random Glucose 108 107 Calcium 9.5 9.9 Imaging Radiology Impressions: ITS Impressions Hand X-Ray 01/02/25 10:46 IMPRESSION: Comminuted nondisplaced fracture of the 5th metacarpal shaft. Electronically signed by: Emery Concepcion MD 01/02/2025 11:25 AM EDT Medications Medications Current Medications Acetaminophen (Acetaminophen 325 Mg Tablet) 650 mg PO Q6H PRN PRN Reason: Headache/Pain, Scale 1-10 Last Admin: 01/08/25 15:36 Dose: 650 mg Al Hydroxide/Mg Hydroxide (Magnesium Hydrox/Alum Hydrox 30 Ml Oral.Susp) 30 ml PO Q6H PRN PRN Reason: Heartburn/Nausea Last Admin: 01/01/25 20:01 Dose: 30 ml Aspirin (Aspirin Enteric Coated 81 Mg Tablet.Dr) 81 mg PO DAILY [facility] Last Admin: 01/08/25 08:36 Dose: 81 mg Clonazepam (Clonazepam 0.5 Mg Tablet) 0.5 mg PO BID PRN PRN Reason: Anxiety Last Admin: 01/08/25 20:42 Dose: 0.5 mg Cyclobenzaprine HCl (Cyclobenzaprine Hcl 5 Mg Tablet) 5 mg PO TID PRN PRN Reason: Muscle Spasm Last Admin: 01/05/25 13:04 Dose: 5 mg Divalproex Sodium (Divalproex Sodium Sprinkles 125 Mg Cap..[place]) 375 mg PO BEDTIME [facility] Last Admin: 01/08/25 20:42 Dose: 375 mg Famotidine (Famotidine 20 Mg Tablet) 20 mg PO DAILY [facility] Last Admin: 01/08/25 08:35 Dose: 20 mg Fluticasone Propionate (Fluticasone Propionate Nasal 16 Gm [place]) 1 spray NOSTRIL-B DAILY [facility] Last Admin: 01/08/25 08:36 Dose: 1 spray Folic Acid (Folic Acid 1 Mg Tablet) 1 mg PO DAILY [facility] Last Admin: 01/08/25 08:36 Dose: 1 mg Losartan Potassium (Losartan Potassium 25 Mg Tablet) 25 mg PO DAILY [facility]; Protocol Last Admin: 01/08/25 08:35 Dose: 25 mg Magnesium Hydroxide (Milk Of Magnesia 30 Ml Oral.Susp) 30 ml PO DAILY PRN PRN Reason: Constipation Nicotine Polacrilex (Nicotine Polacrilex 2 Mg Gum) 4 mg BUCCAL Q2H PRN PRN Reason: Nicotine Cravings Last Admin: 01/08/25 17:56 Dose: 4 mg Nystatin (Nystatin Powder 15 Gm Bottle) 1 appl TOPICAL BID [facility]; Protocol Last Admin: 01/08/25 20:48 Dose: 1 appl Olanzapine (Olanzapine 5 Mg Tablet) 5 mg PO Q6H PRN PRN Reason: agitation Last Admin: 01/04/25 08:36 Dose: 5 mg Olanzapine (Olanzapine 5 Mg Tablet) 5 mg PO BEDTIME [facility] Last Admin: 01/08/25 20:42 Dose: 5 mg Thiamine HCl (Thiamine Hcl 100 Mg Tablet) 100 mg PO DAILY [facility] Last Admin: 01/08/25 08:36 Dose: 100 mg Trazodone HCl (Trazodone Hcl 50 Mg Tablet) 50 mg PO BEDTIME MRX1 PRN PRN Reason: Insomnia Last Admin: 01/08/25 20:42 Dose: 50 mg Vitamin D (Cholecalciferol (Vitamin D3) 25 Mcg Tablet) 25 mcg PO DAILY [facility] Last Admin: 01/08/25 08:36 Dose: 25 mcg Allergies Allergies Allergy/AdvReac Type Severity Reaction Status Date / Time Penicillins (PENICILLINS) Allergy Severe HIVES Verified 12/26/24 14:27 cephalexin (Keflex) Allergy Unknown unknown Verified 12/26/24 14:27 Sulfa (Sulfonamide Allergy Unknown hives Verified 12/26/24 14:27 Antibiotics) morphine (MORPHINE) AdvReac Unknown ITCHY Verified 12/26/24 14:27 perflutren (From DEFINITY) AdvReac Unknown CHEST PAIN Verified 12/26/24 14:27 macrobid Allergy Intermediate Hives Uncoded 12/26/24 13:38 NSAIDS AdvReac Unknown GI upset Uncoded 12/26/24 13:38 Assessment & Plan Assessment & Plan (1) Schizoaffective disorder: Status: Acute Code(s): F25.9 - Schizoaffective disorder, unspecified (2) Closed fracture of shaft of fifth metacarpal bone of right hand: Status: Acute Code(s): S62.326A - Displaced fracture of shaft of fifth metacarpal bone, right hand, initial encounter for closed fracture Plan 1. Right 5th metacarpal fracture, nondisplaced Patient appears to be recovering well from her injury Patient is educated about the typical recovery course At this time, patient is educated that the likelihood of needing surgery is much lower now that she has a full week out from injury Patient is replaced into a splint due to mild swelling If patient is still admitted in a week we will place her into a cast If patient has been discharged at that time, we will see her in our office for cast placement No further acute orthopedic intervention indicated until 1 week from now 01/02/25 pt agreeable to olanzapine and Depakote. Required Haldol and Valium the other day 01/03/2025 Continue Depakote and olanzapine encourage compliance patient has long history of brief compliance and then discontinuing with then long periods of until illness 01/05/2025 Patient does appear to be making an effort to be calm and cooperative as possible denying all symptoms not grossly euphoric concentration good thoughts linear. Patient had had hyponatremia previously and when on Tegretol will check electrolytes. Patient may be downplaying any psychotic symptoms which she states have been very chronic continue olanzapine Depakote 375 again check labs make sure sodium has normalized. 01/06: improved mood, stable. taking meds, sleeping well. labs reviewed, reassuring. continue current mgmt. 01/07: BUN continues uptrend, Na WNL. denies AH or negative thoughts. slept well fluid restriction in place. continue current mgmt otherwise. 01/08: BUN and Na stable. on fluid restriction, would like to come off. no overt psychosis. pleasant, cooperative. continue current mgmt. 01/09 pt completed 3 days of fluid restrictions per nephrology. Will d/c fluid restriction, monitor Sodium in 2 days. She presents as less labile, no overt hoahaoism or paranoid delusions. taking medications as prescribed. may need cast while on the unit per Ortho. Reason for continued inpatient stay Substantial Risk for: inability to function Time Spent With Patient Time: Total time managing care of this patient today ____ minutes.
[2025-01-09] MEDS: Aspirin Enteric Coated 81 MG TABLET.DR PO (09:04)
[2025-01-09 09:05] VITALS: BP 136/65
[2025-01-09 20:00] VITALS: BP 138/66; PULSE 77; RESP 16; TEMP 35.7; O2SAT 96
[2025-01-09] MEDS: Divalproex Sodium Sprinkles 125 MG CAP.DR.SPR 375 MG PO (22:18)
[2025-01-10 08:00] VITALS: BP 140/75; PULSE 76; RESP 18; TEMP 36.3; O2SAT 98
[2025-01-10 08:04] LABS: Alanine Aminotransferase 21 U/L (0-31); Albumin Level 4.4 g/dL (3.5-5.0); Alkaline Phosphatase 91 U/L (39-117); Anion Gap 11 (12-20); Aspartate Amino Transferase 30 U/L (5-31); Blood Urea Nitrogen 19 mg/dL (9-16); Calcium 9.1 mg/dL (8.4-10.2); Carbon Dioxide 27 mmol/L (22-29); Chloride 99 mmol/L (96-108); Creatinine Clr Calc Pharmacy 45.4; Estimated Glomerular Filt Rate 54; Potassium 4.6 mmol/L (3.3-5.1); Sodium 132 mmol/L (135-145); Total Protein 6.4 g/dL (6.5-8.0)
[2025-01-10] MEDS: Aspirin Enteric Coated 81 MG TABLET.DR PO (08:50)
--- NOTE | 2025-01-10 16:40 | P.PNPSI_ITS ---
Subjective Subjective Date of Service: 01/10/25 Reason For Visit: Mixed rama agitation Subjective Notes: Conditional Voluntary Interim History: Pt sleeping well. She presents as less labile, taking medications. No SI/HI. No overt delusional content reported. Less intrusive with peers. Sodium again low 132, will recheck again tomorrow, reach out to nephrology for additional recommendation as she completed tx with salt tablets, and completed 3 days of fluid restriction. Medication Compliance: Yes Review of Systems Review of Systems Denies any shortness of breath, chest pain, dizziness, lightheadedness, abdominal pain or discomfort, nausea vomiting or diarrhea Mental Status Exam Mental Status Exam Narrative: Appearance: NAD quite bright behavior: overly friendly Psychomotor: no agitation or retardation noted Speech: clear, not pressured, spontaneous TP: generally linear and logical TC: Agreeable to treatment states she is feeling better on olanzapine Mood ?good Affect: non-labile, calm, normo-intense SI: none expressed HI: none expressed VH/AH: none expressed Insight/judgment: impaired x 2. memory/cog: alert, oriented x 3. Diagnostics Vital Signs (24Hr): Vital Signs - 24 hr 01/09/25 20:00 01/10/25 08:00 Temperature 96.2 F L 97.4 F Pulse Rate 77 76 Respiratory Rate 16 18 Blood Pressure 138/66 140/75 H Pulse Oximetry 96 98 Oxygen Delivery Method Room Air Room Air BMI result Body Mass Index 23.8 Labs 12/30/24 16:25 01/11/25 07:14 Labs: Laboratory Results - last 48 hr 01/10/25 07:16 Sodium 132 L Potassium 4.6 Chloride 99 Carbon Dioxide 27 Anion Gap 11 L BUN 19 H Creatinine 1.01 Estim Creat Clear Calc 45.4 Estimated GFR 54 Random Glucose 94 Calcium 9.1 D Total Bilirubin 0.3 AST 30 ALT 21 Alkaline Phosphatase 91 Total Protein 6.4 L Albumin 4.4 Imaging Radiology Impressions: ITS Impressions Hand X-Ray 01/02/25 10:46 IMPRESSION: Comminuted nondisplaced fracture of the 5th metacarpal shaft. Electronically signed by: Emery Concepcion MD 01/02/2025 11:25 AM EDT Hand X-Ray 01/09/25 11:10 IMPRESSION: Comminuted nondisplaced fracture fifth metacarpal diaphysis without change. Electronically signed by: Gordon Victor MD 01/09/2025 11:22 AM EDT Medications Medications Current Medications Acetaminophen (Acetaminophen 325 Mg Tablet) 650 mg PO Q6H PRN PRN Reason: Headache/Pain, Scale 1-10 Last Admin: 01/08/25 15:36 Dose: 650 mg Al Hydroxide/Mg Hydroxide (Magnesium Hydrox/Alum Hydrox 30 Ml Oral.Susp) 30 ml PO Q6H PRN PRN Reason: Heartburn/Nausea Last Admin: 01/01/25 20:01 Dose: 30 ml Aspirin (Aspirin Enteric Coated 81 Mg Tablet.) 81 mg PO DAILY [facility] Last Admin: 01/10/25 08:50 Dose: 81 mg Clonazepam (Clonazepam 0.5 Mg Tablet) 0.5 mg PO BID PRN PRN Reason: Anxiety Last Admin: 01/09/25 22:18 Dose: 0.5 mg Cyclobenzaprine HCl (Cyclobenzaprine Hcl 5 Mg Tablet) 5 mg PO TID PRN PRN Reason: Muscle Spasm Last Admin: 01/10/25 14:16 Dose: 5 mg Divalproex Sodium (Divalproex Sodium Sprinkles 125 Mg Cap.) 375 mg PO BEDTIME [facility] Last Admin: 01/09/25 22:18 Dose: 375 mg Famotidine (Famotidine 20 Mg Tablet) 20 mg PO DAILY [facility] Last Admin: 01/10/25 08:50 Dose: 20 mg Fluticasone Propionate (Fluticasone Propionate Nasal 16 Gm [place]) 1 spray NOSTRIL-B DAILY [facility] Last Admin: 01/10/25 08:51 Dose: 1 spray Folic Acid (Folic Acid 1 Mg Tablet) 1 mg PO DAILY [facility] Last Admin: 01/10/25 08:51 Dose: 1 mg Losartan Potassium (Losartan Potassium 25 Mg Tablet) 25 mg PO DAILY [facility]; Protocol Last Admin: 01/10/25 08:51 Dose: 25 mg Magnesium Hydroxide (Milk Of Magnesia 30 Ml Oral.Susp) 30 ml PO DAILY PRN PRN Reason: Constipation Nicotine Polacrilex (Nicotine Polacrilex 2 Mg Gum) 4 mg BUCCAL Q2H PRN PRN Reason: Nicotine Cravings Last Admin: 01/10/25 14:16 Dose: 4 mg Olanzapine (Olanzapine 5 Mg Tablet) 5 mg PO Q6H PRN PRN Reason: agitation Last Admin: 01/04/25 08:36 Dose: 5 mg Olanzapine (Olanzapine 5 Mg Tablet) 5 mg PO BEDTIME [facility] Last Admin: 01/09/25 22:19 Dose: 5 mg Thiamine HCl (Thiamine Hcl 100 Mg Tablet) 100 mg PO DAILY [facility] Last Admin: 01/10/25 08:51 Dose: 100 mg Trazodone HCl (Trazodone Hcl 50 Mg Tablet) 50 mg PO BEDTIME MRX1 PRN PRN Reason: Insomnia Last Admin: 01/08/25 20:42 Dose: 50 mg Vitamin D (Cholecalciferol (Vitamin D3) 25 Mcg Tablet) 25 mcg PO DAILY [facility] Last Admin: 01/10/25 08:51 Dose: 25 mcg Allergies Allergies Allergy/AdvReac Type Severity Reaction Status Date / Time Penicillins (PENICILLINS) Allergy Severe HIVES Verified 12/26/24 14:27 cephalexin (Keflex) Allergy Unknown unknown Verified 12/26/24 14:27 Sulfa (Sulfonamide Allergy Unknown hives Verified 12/26/24 14:27 Antibiotics) morphine (MORPHINE) AdvReac Unknown ITCHY Verified 12/26/24 14:27 perflutren (From DEFINITY) AdvReac Unknown CHEST PAIN Verified 12/26/24 14:27 macrobid Allergy Intermediate Hives Uncoded 12/26/24 13:38 NSAIDS AdvReac Unknown GI upset Uncoded 12/26/24 13:38 Assessment & Plan Assessment & Plan (1) Schizoaffective disorder: Status: Acute Code(s): F25.9 - Schizoaffective disorder, unspecified (2) Closed fracture of shaft of fifth metacarpal bone of right hand: Status: Acute Code(s): S62.326A - Displaced fracture of shaft of fifth metacarpal bone, right hand, initial encounter for closed fracture Plan 1. Right 5th metacarpal fracture, nondisplaced Patient appears to be recovering well from her injury Patient is educated about the typical recovery course At this time, patient is educated that the likelihood of needing surgery is much lower now that she has a full week out from injury Patient is replaced into a splint due to mild swelling If patient is still admitted in a week we will place her into a cast If patient has been discharged at that time, we will see her in our office for cast placement No further acute orthopedic intervention indicated until 1 week from now 01/02/25 pt agreeable to olanzapine and Depakote. Required Haldol and Valium the other day 01/03/2025 Continue Depakote and olanzapine encourage compliance patient has long history of brief compliance and then discontinuing with then long periods of until illness 01/05/2025 Patient does appear to be making an effort to be calm and cooperative as possible denying all symptoms not grossly euphoric concentration good thoughts linear. Patient had had hyponatremia previously and when on Tegretol will check electrolytes. Patient may be downplaying any psychotic symptoms which she states have been very chronic continue olanzapine Depakote 375 again check labs make sure sodium has normalized. 01/06: improved mood, stable. taking meds, sleeping well. labs reviewed, reassuring. continue current mgmt. 01/07: BUN continues uptrend, Na WNL. denies AH or negative thoughts. slept well fluid restriction in place. continue current mgmt otherwise. 01/08: BUN and Na stable. on fluid restriction, would like to come off. no overt psychosis. pleasant, cooperative. continue current mgmt. 01/09 pt completed 3 days of fluid restrictions per nephrology. Will d/c fluid restriction, monitor Sodium in 2 days. She presents as less labile, no overt moravian or paranoid delusions. taking medications as prescribed. may need cast while on the unit per Ortho. 01/10 more stable psychiatrically. hyponatremia today 132 did complete fluid restriction x 3 days and salt tablets x 4 doses BID per nephrology. will recheck tomorrow. Reason for continued inpatient stay Substantial Risk for: inability to function Time Spent With Patient Time: Total time managing care of this patient today ____ minutes.
[2025-01-10] MEDS: Divalproex Sodium Sprinkles 125 MG CAP.DR.SPR 375 MG PO (19:53)
[2025-01-10 20:00] VITALS: BP 160/81; PULSE 81; RESP 18; TEMP 36.1; O2SAT 98
[2025-01-11 07:55] VITALS: BP 119/65; PULSE 69; RESP 18; TEMP 36.4; O2SAT 96
[2025-01-11] MEDS: Aspirin Enteric Coated 81 MG TABLET.DR PO (08:19)
[2025-01-11 08:35] LABS: Alanine Aminotransferase 19 U/L (0-31); Albumin Level 4.2 g/dL (3.5-5.0); Alkaline Phosphatase 87 U/L (39-117); Anion Gap 13 (12-20); Aspartate Amino Transferase 28 U/L (5-31); Blood Urea Nitrogen 23 mg/dL (9-16); Calcium 8.8 mg/dL (8.4-10.2); Carbon Dioxide 23 mmol/L (22-29); Chloride 102 mmol/L (96-108); Creatinine Clr Calc Pharmacy 42.4; Estimated Glomerular Filt Rate 50; Potassium 4.4 mmol/L (3.3-5.1); Sodium 134 mmol/L (135-145); Total Protein 6.1 g/dL (6.5-8.0)
--- NOTE | 2025-01-11 16:41 | HO.PSYCHPN ---
Subjective Subjective Date of Service: 01/11/25 Reason For Visit: Mixed rama agitation Subjective Notes: Conditional Voluntary Interim History: Pt slept through the night. She presents as calmer, less labile. No overt delusional content. No SI/HI. She is taking medications as prescribed. Sodium improved today to 134. She has been visible on the unit, social with peers. Review of Systems Review of Systems Denies any shortness of breath, chest pain, dizziness, lightheadedness, abdominal pain or discomfort, nausea vomiting or diarrhea Mental Status Exam Mental Status Exam Narrative: Appearance: NAD quite bright behavior: overly friendly Psychomotor: no agitation or retardation noted Speech: clear, not pressured, spontaneous TP: generally linear and logical TC: Agreeable to treatment states she is feeling better on olanzapine Mood ?good Affect: non-labile, calm, normo-intense SI: none expressed HI: none expressed VH/AH: none expressed Insight/judgment: impaired x 2. memory/cog: alert, oriented x 3. Diagnostics Vital Signs (24Hr): Vital Signs - 24 hr 01/10/25 20:00 01/11/25 07:55 Temperature 97 F 97.6 F Pulse Rate 81 69 Respiratory Rate 18 18 Blood Pressure 160/81 H 119/65 Pulse Oximetry 98 96 Oxygen Delivery Method Room Air Room Air BMI result Body Mass Index 23.8 Labs 12/30/24 16:25 01/11/25 07:14 Labs: Laboratory Results - last 48 hr 01/10/25 01/11/25 07:16 07:14 Sodium 132 L 134 L Potassium 4.6 4.4 Chloride 99 102 Carbon Dioxide 27 23 Anion Gap 11 L 13 BUN 19 H 23 H Creatinine 1.01 1.08 Estim Creat Clear Calc 45.4 42.4 Estimated GFR 54 50 Random Glucose 94 106 Calcium 9.1 D 8.8 Total Bilirubin 0.3 0.2 AST 30 28 ALT 21 19 Alkaline Phosphatase 91 87 Total Protein 6.4 L 6.1 L Albumin 4.4 4.2 Imaging Radiology Impressions: ITS Impressions Hand X-Ray 01/02/25 10:46 IMPRESSION: Comminuted nondisplaced fracture of the 5th metacarpal shaft. Electronically signed by: Emery Concepcion MD 01/02/2025 11:25 AM EDT Hand X-Ray 01/09/25 11:10 IMPRESSION: Comminuted nondisplaced fracture fifth metacarpal diaphysis without change. Electronically signed by: Gordon Victor MD 01/09/2025 11:22 AM EDT Medications Medications Current Medications Acetaminophen (Acetaminophen 325 Mg Tablet) 650 mg PO Q6H PRN PRN Reason: Headache/Pain, Scale 1-10 Last Admin: 01/10/25 19:59 Dose: 650 mg Al Hydroxide/Mg Hydroxide (Magnesium Hydrox/Alum Hydrox 30 Ml Oral.Susp) 30 ml PO Q6H PRN PRN Reason: Heartburn/Nausea Last Admin: 01/01/25 20:01 Dose: 30 ml Aspirin (Aspirin Enteric Coated 81 Mg Tablet.Dr) 81 mg PO DAILY [facility] Last Admin: 01/11/25 08:19 Dose: 81 mg Clonazepam (Clonazepam 0.5 Mg Tablet) 0.5 mg PO BID PRN PRN Reason: Anxiety Last Admin: 01/10/25 22:25 Dose: 0.5 mg Cyclobenzaprine HCl (Cyclobenzaprine Hcl 5 Mg Tablet) 5 mg PO TID PRN PRN Reason: Muscle Spasm Last Admin: 01/10/25 14:16 Dose: 5 mg Divalproex Sodium (Divalproex Sodium Sprinkles 125 Mg [place].Spr) 375 mg PO BEDTIME [facility] Last Admin: 01/10/25 19:53 Dose: 375 mg Famotidine (Famotidine 20 Mg Tablet) 20 mg PO DAILY [facility] Last Admin: 01/11/25 08:18 Dose: 20 mg Fluticasone Propionate (Fluticasone Propionate Nasal 16 Gm [place]) 1 spray NOSTRIL-B DAILY [facility] Last Admin: 01/11/25 08:21 Dose: 1 spray Folic Acid (Folic Acid 1 Mg Tablet) 1 mg PO DAILY [facility] Last Admin: 01/11/25 08:18 Dose: 1 mg Losartan Potassium (Losartan Potassium 25 Mg Tablet) 25 mg PO DAILY [facility]; Protocol Last Admin: 01/11/25 08:19 Dose: 25 mg Magnesium Hydroxide (Milk Of Magnesia 30 Ml Oral.Susp) 30 ml PO DAILY PRN PRN Reason: Constipation Nicotine Polacrilex (Nicotine Polacrilex 2 Mg Gum) 4 mg BUCCAL Q2H PRN PRN Reason: Nicotine Cravings Last Admin: 01/11/25 15:18 Dose: 4 mg Olanzapine (Olanzapine 5 Mg Tablet) 5 mg PO Q6H PRN PRN Reason: agitation Last Admin: 01/04/25 08:36 Dose: 5 mg Olanzapine (Olanzapine 5 Mg Tablet) 5 mg PO BEDTIME [facility] Last Admin: 01/10/25 19:53 Dose: 5 mg Thiamine HCl (Thiamine Hcl 100 Mg Tablet) 100 mg PO DAILY [facility] Last Admin: 01/11/25 08:19 Dose: 100 mg Trazodone HCl (Trazodone Hcl 50 Mg Tablet) 50 mg PO BEDTIME MRX1 PRN PRN Reason: Insomnia Last Admin: 01/10/25 22:22 Dose: 50 mg Vitamin D (Cholecalciferol (Vitamin D3) 25 Mcg Tablet) 25 mcg PO DAILY [facility] Last Admin: 01/11/25 08:19 Dose: 25 mcg Allergies Allergies Allergy/AdvReac Type Severity Reaction Status Date / Time Penicillins (PENICILLINS) Allergy Severe HIVES Verified 12/26/24 14:27 cephalexin (Keflex) Allergy Unknown unknown Verified 12/26/24 14:27 Sulfa (Sulfonamide Allergy Unknown hives Verified 12/26/24 14:27 Antibiotics) morphine (MORPHINE) AdvReac Unknown ITCHY Verified 12/26/24 14:27 perflutren (From DEFINITY) AdvReac Unknown CHEST PAIN Verified 12/26/24 14:27 macrobid Allergy Intermediate Hives Uncoded 12/26/24 13:38 NSAIDS AdvReac Unknown GI upset Uncoded 12/26/24 13:38 Assessment & Plan Assessment & Plan (1) Schizoaffective disorder: Status: Acute Code(s): F25.9 - Schizoaffective disorder, unspecified (2) Closed fracture of shaft of fifth metacarpal bone of right hand: Status: Acute Code(s): S62.326A - Displaced fracture of shaft of fifth metacarpal bone, right hand, initial encounter for closed fracture Plan 1. Right 5th metacarpal fracture, nondisplaced Patient appears to be recovering well from her injury Patient is educated about the typical recovery course At this time, patient is educated that the likelihood of needing surgery is much lower now that she has a full week out from injury Patient is replaced into a splint due to mild swelling If patient is still admitted in a week we will place her into a cast If patient has been discharged at that time, we will see her in our office for cast placement No further acute orthopedic intervention indicated until 1 week from now 01/02/25 pt agreeable to olanzapine and Depakote. Required Haldol and Valium the other day 01/03/2025 Continue Depakote and olanzapine encourage compliance patient has long history of brief compliance and then discontinuing with then long periods of until illness 01/05/2025 Patient does appear to be making an effort to be calm and cooperative as possible denying all symptoms not grossly euphoric concentration good thoughts linear. Patient had had hyponatremia previously and when on Tegretol will check electrolytes. Patient may be downplaying any psychotic symptoms which she states have been very chronic continue olanzapine Depakote 375 again check labs make sure sodium has normalized. 01/06: improved mood, stable. taking meds, sleeping well. labs reviewed, reassuring. continue current mgmt. 01/07: BUN continues uptrend, Na WNL. denies AH or negative thoughts. slept well fluid restriction in place. continue current mgmt otherwise. 01/08: BUN and Na stable. on fluid restriction, would like to come off. no overt psychosis. pleasant, cooperative. continue current mgmt. 01/09 pt completed 3 days of fluid restrictions per nephrology. Will d/c fluid restriction, monitor Sodium in 2 days. She presents as less labile, no overt bahai or paranoid delusions. taking medications as prescribed. may need cast while on the unit per Ortho. 01/10 more stable psychiatrically. hyponatremia today 132 did complete fluid restriction x 3 days and salt tablets x 4 doses BID per nephrology. will recheck tomorrow. 01/11 continue tx. improved sodium today 134. Reason for continued inpatient stay Substantial Risk for: inability to function Time Spent With Patient Time: Total time managing care of this patient today ____ minutes.
[2025-01-11 20:00] VITALS: BP 141/70; PULSE 75; RESP 18; TEMP 36.6; O2SAT 97
[2025-01-11] MEDS: Divalproex Sodium Sprinkles 125 MG CAP.DR.SPR 375 MG PO (20:20)
[2025-01-12 08:00] VITALS: BP 141/65; PULSE 72; RESP 16; TEMP 36.7; O2SAT 100
[2025-01-12] MEDS: Aspirin Enteric Coated 81 MG TABLET.DR PO (08:35)
[2025-01-12 11:14] VITALS: BMI 24.0
[2025-01-12 20:00] VITALS: BP 155/78; PULSE 78; RESP 18; TEMP 36.6; O2SAT 98
--- NOTE | 2025-01-12 20:58 | HO.PSYCHPN ---
Subjective Subjective Date of Service: 01/12/25 Reason For Visit: Mixed rama agitation Subjective Notes: Conditional Voluntary Interim History: Pt sleeping through the night. Less visual hallucinations and ideas that ex was here on the unit trying to harm her. She presents as less labile. No SI/HI. taking medications as prescribed. Medication Compliance: Yes Side effects from medications: No Diagnostics Vital Signs (24Hr): Vital Signs - 24 hr 01/12/25 08:00 01/12/25 20:00 Temperature 98.0 F 97.9 F Pulse Rate 72 78 Respiratory Rate 16 18 Blood Pressure 141/65 H 155/78 H Pulse Oximetry 100 98 Oxygen Delivery Method Room Air Room Air BMI result Body Mass Index 24.0 Labs 12/30/24 16:25 01/11/25 07:14 Labs: Laboratory Results - last 48 hr 01/11/25 07:14 Sodium 134 L Potassium 4.4 Chloride 102 Carbon Dioxide 23 Anion Gap 13 BUN 23 H Creatinine 1.08 Estim Creat Clear Calc 42.4 Estimated GFR 50 Random Glucose 106 Calcium 8.8 Total Bilirubin 0.2 AST 28 ALT 19 Alkaline Phosphatase 87 Total Protein 6.1 L Albumin 4.2 Imaging Radiology Impressions: ITS Impressions Hand X-Ray 01/02/25 10:46 IMPRESSION: Comminuted nondisplaced fracture of the 5th metacarpal shaft. Electronically signed by: Emery Concepcion MD 01/02/2025 11:25 AM EDT Hand X-Ray 01/09/25 11:10 IMPRESSION: Comminuted nondisplaced fracture fifth metacarpal diaphysis without change. Electronically signed by: Gordon Victor MD 01/09/2025 11:22 AM EDT Medications Medications Current Medications Acetaminophen (Acetaminophen 325 Mg Tablet) 650 mg PO Q6H PRN PRN Reason: Headache/Pain, Scale 1-10 Last Admin: 01/11/25 22:40 Dose: 650 mg Al Hydroxide/Mg Hydroxide (Magnesium Hydrox/Alum Hydrox 30 Ml Oral.Susp) 30 ml PO Q6H PRN PRN Reason: Heartburn/Nausea Last Admin: 01/01/25 20:01 Dose: 30 ml Aspirin (Aspirin Enteric Coated 81 Mg Tablet.Dr) 81 mg PO DAILY [facility] Last Admin: 01/12/25 08:35 Dose: 81 mg Clonazepam (Clonazepam 0.5 Mg Tablet) 0.5 mg PO BID PRN PRN Reason: Anxiety Last Admin: 01/11/25 20:20 Dose: 0.5 mg Cyclobenzaprine HCl (Cyclobenzaprine Hcl 5 Mg Tablet) 5 mg PO TID PRN PRN Reason: Muscle Spasm Last Admin: 01/10/25 14:16 Dose: 5 mg Divalproex Sodium (Divalproex Sodium Sprinkles 125 Mg ) 375 mg PO BEDTIME [facility] Last Admin: 01/11/25 20:20 Dose: 375 mg Famotidine (Famotidine 20 Mg Tablet) 20 mg PO DAILY [facility] Last Admin: 01/12/25 08:35 Dose: 20 mg Fluticasone Propionate (Fluticasone Propionate Nasal 16 Gm [place]) 1 spray NOSTRIL-B DAILY [facility] Last Admin: 01/12/25 08:43 Dose: 1 spray Folic Acid (Folic Acid 1 Mg Tablet) 1 mg PO DAILY [facility] Last Admin: 01/12/25 08:35 Dose: 1 mg Losartan Potassium (Losartan Potassium 25 Mg Tablet) 25 mg PO DAILY [facility]; Protocol Last Admin: 01/12/25 08:35 Dose: 25 mg Magnesium Hydroxide (Milk Of Magnesia 30 Ml Oral.Susp) 30 ml PO DAILY PRN PRN Reason: Constipation Nicotine Polacrilex (Nicotine Polacrilex 2 Mg Gum) 4 mg BUCCAL Q2H PRN PRN Reason: Nicotine Cravings Last Admin: 01/12/25 20:11 Dose: 4 mg Olanzapine (Olanzapine 5 Mg Tablet) 5 mg PO Q6H PRN PRN Reason: agitation Last Admin: 01/04/25 08:36 Dose: 5 mg Olanzapine (Olanzapine 5 Mg Tablet) 5 mg PO BEDTIME [facility] Last Admin: 01/11/25 20:21 Dose: 5 mg Thiamine HCl (Thiamine Hcl 100 Mg Tablet) 100 mg PO DAILY [facility] Last Admin: 01/12/25 08:35 Dose: 100 mg Trazodone HCl (Trazodone Hcl 50 Mg Tablet) 50 mg PO BEDTIME MRX1 PRN PRN Reason: Insomnia Last Admin: 01/11/25 20:20 Dose: 50 mg Vitamin D (Cholecalciferol (Vitamin D3) 25 Mcg Tablet) 25 mcg PO DAILY [facility] Last Admin: 01/12/25 08:35 Dose: 25 mcg Allergies Allergies Allergy/AdvReac Type Severity Reaction Status Date / Time Penicillins (PENICILLINS) Allergy Severe HIVES Verified 12/26/24 14:27 cephalexin (Keflex) Allergy Unknown unknown Verified 12/26/24 14:27 Sulfa (Sulfonamide Allergy Unknown hives Verified 12/26/24 14:27 Antibiotics) morphine (MORPHINE) AdvReac Unknown ITCHY Verified 12/26/24 14:27 perflutren (From DEFINITY) AdvReac Unknown CHEST PAIN Verified 12/26/24 14:27 macrobid Allergy Intermediate Hives Uncoded 12/26/24 13:38 NSAIDS AdvReac Unknown GI upset Uncoded 12/26/24 13:38 Assessment & Plan Assessment & Plan (1) Schizoaffective disorder: Status: Acute Code(s): F25.9 - Schizoaffective disorder, unspecified (2) Closed fracture of shaft of fifth metacarpal bone of right hand: Status: Acute Code(s): S62.326A - Displaced fracture of shaft of fifth metacarpal bone, right hand, initial encounter for closed fracture Plan 1. Right 5th metacarpal fracture, nondisplaced Patient appears to be recovering well from her injury Patient is educated about the typical recovery course At this time, patient is educated that the likelihood of needing surgery is much lower now that she has a full week out from injury Patient is replaced into a splint due to mild swelling If patient is still admitted in a week we will place her into a cast If patient has been discharged at that time, we will see her in our office for cast placement No further acute orthopedic intervention indicated until 1 week from now 01/02/25 pt agreeable to olanzapine and Depakote. Required Haldol and Valium the other day 01/03/2025 Continue Depakote and olanzapine encourage compliance patient has long history of brief compliance and then discontinuing with then long periods of until illness 01/05/2025 Patient does appear to be making an effort to be calm and cooperative as possible denying all symptoms not grossly euphoric concentration good thoughts linear. Patient had had hyponatremia previously and when on Tegretol will check electrolytes. Patient may be downplaying any psychotic symptoms which she states have been very chronic continue olanzapine Depakote 375 again check labs make sure sodium has normalized. 01/06: improved mood, stable. taking meds, sleeping well. labs reviewed, reassuring. continue current mgmt. 01/07: BUN continues uptrend, Na WNL. denies AH or negative thoughts. slept well fluid restriction in place. continue current mgmt otherwise. 01/08: BUN and Na stable. on fluid restriction, would like to come off. no overt psychosis. pleasant, cooperative. continue current mgmt. 01/09 pt completed 3 days of fluid restrictions per nephrology. Will d/c fluid restriction, monitor Sodium in 2 days. She presents as less labile, no overt anabaptism or paranoid delusions. taking medications as prescribed. may need cast while on the unit per Ortho. 01/10 more stable psychiatrically. hyponatremia today 132 did complete fluid restriction x 3 days and salt tablets x 4 doses BID per nephrology. will recheck tomorrow. 01/11 continue tx. improved sodium today 134. 01/12 continue tx. continue to monitor Sodium. off fluid restriction per nephrology. Reason for continued inpatient stay Substantial Risk for: inability to function Time Spent With Patient Time: Total time managing care of this patient today ____ minutes.
[2025-01-12] MEDS: Divalproex Sodium Sprinkles 125 MG CAP.DR.SPR 375 MG PO (21:29)
[2025-01-13 08:00] VITALS: BP 134/76; PULSE 74; RESP 16; TEMP 35.8; O2SAT 99
[2025-01-13] MEDS: Aspirin Enteric Coated 81 MG TABLET.DR PO (08:53)
[2025-01-13 08:54] VITALS: BP 134/65
--- NOTE | 2025-01-13 17:11 | HO.PSYCHPN ---
Subjective Subjective Date of Service: 01/13/25 Reason For Visit: Mixed rama agitation Interim History: Pt sleeping through the night. Less visual hallucinations and ideas that ex was here on the unit trying to harm her. She presents as less labile. No SI/HI. taking medications as prescribed. Review of Systems Review of Systems Denies any shortness of breath, chest pain, dizziness, lightheadedness, abdominal pain or discomfort, nausea vomiting or diarrhea Mental Status Exam Mental Status Exam Narrative: Appearance: NAD quite bright behavior: overly friendly Psychomotor: no agitation or retardation noted Speech: clear, not pressured, spontaneous TP: generally linear and logical TC: Agreeable to treatment states she is feeling better on olanzapine Mood ?good Affect: non-labile, calm, normo-intense SI: none expressed HI: none expressed VH/AH: none expressed Insight/judgment: impaired x 2. memory/cog: alert, oriented x 3. Diagnostics Vital Signs (24Hr): Vital Signs - 24 hr 01/12/25 20:00 01/13/25 08:00 01/13/25 08:54 Temperature 97.9 F 96.4 F L Pulse Rate 78 74 Respiratory Rate 18 16 Blood Pressure 155/78 H 134/76 134/65 Pulse Oximetry 98 99 Oxygen Delivery Method Room Air Room Air BMI result Body Mass Index 24.0 Labs 12/30/24 16:25 01/11/25 07:14 Imaging Radiology Impressions: ITS Impressions Hand X-Ray 01/02/25 10:46 IMPRESSION: Comminuted nondisplaced fracture of the 5th metacarpal shaft. Electronically signed by: Emery Concepcion MD 01/02/2025 11:25 AM EDT Hand X-Ray 01/09/25 11:10 IMPRESSION: Comminuted nondisplaced fracture fifth metacarpal diaphysis without change. Electronically signed by: Gordon Victor MD 01/09/2025 11:22 AM EDT Medications Medications Current Medications Acetaminophen (Acetaminophen 325 Mg Tablet) 650 mg PO Q6H PRN PRN Reason: Headache/Pain, Scale 1-10 Last Admin: 01/13/25 15:32 Dose: 650 mg Al Hydroxide/Mg Hydroxide (Magnesium Hydrox/Alum Hydrox 30 Ml Oral.Susp) 30 ml PO Q6H PRN PRN Reason: Heartburn/Nausea Last Admin: 01/01/25 20:01 Dose: 30 ml Aspirin (Aspirin Enteric Coated 81 Mg Tablet.Dr) 81 mg PO DAILY [facility] Last Admin: 01/13/25 08:53 Dose: 81 mg Clonazepam (Clonazepam 0.5 Mg Tablet) 0.5 mg PO BID PRN PRN Reason: Anxiety Last Admin: 01/13/25 13:14 Dose: 0.5 mg Cyclobenzaprine HCl (Cyclobenzaprine Hcl 5 Mg Tablet) 5 mg PO TID PRN PRN Reason: Muscle Spasm Last Admin: 01/13/25 15:31 Dose: 5 mg Divalproex Sodium (Divalproex Sodium Sprinkles 125 Mg ) 375 mg PO BEDTIME [facility] Last Admin: 01/12/25 21:29 Dose: 375 mg Famotidine (Famotidine 20 Mg Tablet) 20 mg PO DAILY [facility] Last Admin: 01/13/25 08:53 Dose: 20 mg Fluticasone Propionate (Fluticasone Propionate Nasal 16 Gm [place]) 1 spray NOSTRIL-B DAILY [facility] Last Admin: 01/13/25 09:00 Dose: 1 spray Folic Acid (Folic Acid 1 Mg Tablet) 1 mg PO DAILY [facility] Last Admin: 01/13/25 08:54 Dose: 1 mg Losartan Potassium (Losartan Potassium 25 Mg Tablet) 25 mg PO DAILY [facility]; Protocol Last Admin: 01/13/25 08:54 Dose: 25 mg Magnesium Hydroxide (Milk Of Magnesia 30 Ml Oral.Susp) 30 ml PO DAILY PRN PRN Reason: Constipation Nicotine Polacrilex (Nicotine Polacrilex 2 Mg Gum) 4 mg BUCCAL Q2H PRN PRN Reason: Nicotine Cravings Last Admin: 01/13/25 15:32 Dose: 4 mg Olanzapine (Olanzapine 5 Mg Tablet) 5 mg PO Q6H PRN PRN Reason: agitation Last Admin: 01/04/25 08:36 Dose: 5 mg Olanzapine (Olanzapine 5 Mg Tablet) 5 mg PO BEDTIME [facility] Last Admin: 01/12/25 21:28 Dose: 5 mg Thiamine HCl (Thiamine Hcl 100 Mg Tablet) 100 mg PO DAILY [facility] Last Admin: 01/13/25 08:54 Dose: 100 mg Trazodone HCl (Trazodone Hcl 50 Mg Tablet) 50 mg PO BEDTIME MRX1 PRN PRN Reason: Insomnia Last Admin: 01/12/25 21:28 Dose: 50 mg Vitamin D (Cholecalciferol (Vitamin D3) 25 Mcg Tablet) 25 mcg PO DAILY [facility] Last Admin: 01/13/25 08:54 Dose: 25 mcg Allergies Allergies Allergy/AdvReac Type Severity Reaction Status Date / Time Penicillins (PENICILLINS) Allergy Severe HIVES Verified 12/26/24 14:27 cephalexin (Keflex) Allergy Unknown unknown Verified 12/26/24 14:27 Sulfa (Sulfonamide Allergy Unknown hives Verified 12/26/24 14:27 Antibiotics) morphine (MORPHINE) AdvReac Unknown ITCHY Verified 12/26/24 14:27 perflutren (From DEFINITY) AdvReac Unknown CHEST PAIN Verified 12/26/24 14:27 macrobid Allergy Intermediate Hives Uncoded 12/26/24 13:38 NSAIDS AdvReac Unknown GI upset Uncoded 12/26/24 13:38 Assessment & Plan Assessment & Plan (1) Schizoaffective disorder: Status: Acute Code(s): F25.9 - Schizoaffective disorder, unspecified (2) Closed fracture of shaft of fifth metacarpal bone of right hand: Status: Acute Code(s): S62.326A - Displaced fracture of shaft of fifth metacarpal bone, right hand, initial encounter for closed fracture Plan 1. Right 5th metacarpal fracture, nondisplaced Patient appears to be recovering well from her injury Patient is educated about the typical recovery course At this time, patient is educated that the likelihood of needing surgery is much lower now that she has a full week out from injury Patient is replaced into a splint due to mild swelling If patient is still admitted in a week we will place her into a cast If patient has been discharged at that time, we will see her in our office for cast placement No further acute orthopedic intervention indicated until 1 week from now 01/02/25 pt agreeable to olanzapine and Depakote. Required Haldol and Valium the other day 01/03/2025 Continue Depakote and olanzapine encourage compliance patient has long history of brief compliance and then discontinuing with then long periods of until illness 01/05/2025 Patient does appear to be making an effort to be calm and cooperative as possible denying all symptoms not grossly euphoric concentration good thoughts linear. Patient had had hyponatremia previously and when on Tegretol will check electrolytes. Patient may be downplaying any psychotic symptoms which she states have been very chronic continue olanzapine Depakote 375 again check labs make sure sodium has normalized. 01/06: improved mood, stable. taking meds, sleeping well. labs reviewed, reassuring. continue current mgmt. 01/07: BUN continues uptrend, Na WNL. denies AH or negative thoughts. slept well fluid restriction in place. continue current mgmt otherwise. 01/08: BUN and Na stable. on fluid restriction, would like to come off. no overt psychosis. pleasant, cooperative. continue current mgmt. 01/09 pt completed 3 days of fluid restrictions per nephrology. Will d/c fluid restriction, monitor Sodium in 2 days. She presents as less labile, no overt catholic or paranoid delusions. taking medications as prescribed. may need cast while on the unit per Ortho. 01/10 more stable psychiatrically. hyponatremia today 132 did complete fluid restriction x 3 days and salt tablets x 4 doses BID per nephrology. will recheck tomorrow. 01/11 continue tx. improved sodium today 134. 01/12 continue tx. continue to monitor Sodium. off fluid restriction per nephrology. 01/13 continue tx. ordered BMP for 01/14- monitor sodium. Reason for continued inpatient stay Substantial Risk for: inability to function Time Spent With Patient Time: Total time managing care of this patient today ____ minutes.
[2025-01-13 20:00] VITALS: BP 130/64; PULSE 72; RESP 18; TEMP 37; O2SAT 98
[2025-01-13] MEDS: Divalproex Sodium Sprinkles 125 MG CAP.DR.SPR 375 MG PO (20:58)
[2025-01-14 07:15] LABS: Anion Gap 14 (12-20); Blood Urea Nitrogen 25 mg/dL (9-16); Calcium 9.8 mg/dL (8.4-10.2); Carbon Dioxide 27 mmol/L (22-29); Chloride 100 mmol/L (96-108); Creatinine Clr Calc Pharmacy 46.2; Estimated Glomerular Filt Rate 56; Potassium 4.6 mmol/L (3.3-5.1); Sodium 136 mmol/L (135-145)
[2025-01-14 07:55] VITALS: BP 128/71; PULSE 67; RESP 18; TEMP 36.6; O2SAT 95
[2025-01-14] MEDS: Aspirin Enteric Coated 81 MG TABLET.DR PO (08:08)
--- NOTE | 2025-01-14 17:37 | P.PNPSI_ITS ---
Subjective Subjective Date of Service: 01/14/25 Reason For Visit: Mixed rama agitation Subjective Notes: Conditional Voluntary Interim History: Medical record and nursing notes reviewed; case discussed during rounds with team/nursing staff, and met with patient for supportive therapy/psychoeducation, as well as medication management. Patient reports sleeping well, was medication compliant. Denies side effect. She has lots of questions related to her medication and the diagnosis. She also wanted us to talk to her daughter today to update her. Refer her to the treatment team on Thursday. Patient reports she was agitated on the phone with her daughter yesterday today she feels okay. Hyper verbal, can be intrusive but no agitation, she is aware of labs were drawn this morning Medication Compliance: Yes Side effects from medications: No Attending Groups: Yes Review of Systems Acute medical concerns: No Medical Review of Systems: unchanged Review of Systems Review of Systems Denies any shortness of breath, chest pain, dizziness, lightheadedness, abdominal pain or discomfort, nausea vomiting or diarrhea Yes all other systems are reviewed and are negative Mental Status Exam Mental Status Exam Narrative: Appearance: NAD quite bright behavior: overly friendly Psychomotor: no agitation or retardation noted Speech: clear, not pressured, spontaneous TP: generally linear and logical, tangential, hyperverbal. TC: WNL Mood ?good Affect: non-labile, calm, normo-intense SI: none expressed HI: none expressed VH/AH: none expressed Insight/judgment: impaired x 2. memory/cog: alert, oriented x 3. Diagnostics Vital Signs (24Hr): Vital Signs - 24 hr 01/13/25 20:00 01/14/25 07:55 Temperature 98.6 F 97.9 F Pulse Rate 72 67 Respiratory Rate 18 18 Blood Pressure 130/64 128/71 Pulse Oximetry 98 95 Oxygen Delivery Method Room Air Room Air BMI result Body Mass Index 24.0 Labs 12/30/24 16:25 01/14/25 06:40 Labs: Laboratory Results - last 48 hr 01/14/25 06:40 Sodium 136 Potassium 4.6 Chloride 100 Carbon Dioxide 27 Anion Gap 14 BUN 25 H Creatinine 0.99 Estim Creat Clear Calc 46.2 Estimated GFR 56 Random Glucose 97 Calcium 9.8 D Imaging Radiology Impressions: ITS Impressions Hand X-Ray 01/02/25 10:46 IMPRESSION: Comminuted nondisplaced fracture of the 5th metacarpal shaft. Electronically signed by: Emery Concepcion MD 01/02/2025 11:25 AM EDT RP Hand X-Ray 01/09/25 11:10 IMPRESSION: Comminuted nondisplaced fracture fifth metacarpal diaphysis without change. Electronically signed by: Gordon Victor MD 01/09/2025 11:22 AM EDT RP Medications Medications Current Medications Acetaminophen (Acetaminophen 325 Mg Tablet) 650 mg PO Q6H PRN PRN Reason: Headache/Pain, Scale 1-10 Last Admin: 01/13/25 15:32 Dose: 650 mg Al Hydroxide/Mg Hydroxide (Magnesium Hydrox/Alum Hydrox 30 Ml Oral.Susp) 30 ml PO Q6H PRN PRN Reason: Heartburn/Nausea Last Admin: 01/01/25 20:01 Dose: 30 ml Aspirin (Aspirin Enteric Coated 81 Mg Tablet.) 81 mg PO DAILY [facility] Last Admin: 01/14/25 08:08 Dose: 81 mg Clonazepam (Clonazepam 0.5 Mg Tablet) 0.5 mg PO BID PRN PRN Reason: Anxiety Last Admin: 01/13/25 20:58 Dose: 0.5 mg Cyclobenzaprine HCl (Cyclobenzaprine Hcl 5 Mg Tablet) 5 mg PO TID PRN PRN Reason: Muscle Spasm Last Admin: 01/13/25 15:31 Dose: 5 mg Divalproex Sodium (Divalproex Sodium Sprinkles 125 Mg Cap.) 375 mg PO BEDTIME [facility] Last Admin: 01/13/25 20:58 Dose: 375 mg Famotidine (Famotidine 20 Mg Tablet) 20 mg PO DAILY [facility] Last Admin: 01/14/25 08:09 Dose: 20 mg Fluticasone Propionate (Fluticasone Propionate Nasal 16 Gm [place]) 1 spray NOSTRIL-B DAILY [facility] Last Admin: 01/14/25 08:08 Dose: 1 spray Folic Acid (Folic Acid 1 Mg Tablet) 1 mg PO DAILY [facility] Last Admin: 01/14/25 08:08 Dose: 1 mg Losartan Potassium (Losartan Potassium 25 Mg Tablet) 25 mg PO DAILY [facility]; Protocol Last Admin: 01/14/25 08:09 Dose: 25 mg Magnesium Hydroxide (Milk Of Magnesia 30 Ml Oral.Susp) 30 ml PO DAILY PRN PRN Reason: Constipation Nicotine Polacrilex (Nicotine Polacrilex 2 Mg Gum) 4 mg BUCCAL Q2H PRN PRN Reason: Nicotine Cravings Last Admin: 01/14/25 14:33 Dose: 4 mg Olanzapine (Olanzapine 5 Mg Tablet) 5 mg PO Q6H PRN PRN Reason: agitation Last Admin: 01/04/25 08:36 Dose: 5 mg Olanzapine (Olanzapine 5 Mg Tablet) 5 mg PO BEDTIME [facility] Last Admin: 01/13/25 20:58 Dose: 5 mg Thiamine HCl (Thiamine Hcl 100 Mg Tablet) 100 mg PO DAILY [facility] Last Admin: 01/14/25 08:09 Dose: 100 mg Trazodone HCl (Trazodone Hcl 50 Mg Tablet) 50 mg PO BEDTIME MRX1 PRN PRN Reason: Insomnia Last Admin: 01/13/25 20:58 Dose: 50 mg Vitamin D (Cholecalciferol (Vitamin D3) 25 Mcg Tablet) 25 mcg PO DAILY [facility] Last Admin: 01/14/25 08:09 Dose: 25 mcg Allergies Allergies Allergy/AdvReac Type Severity Reaction Status Date / Time Penicillins (PENICILLINS) Allergy Severe HIVES Verified 12/26/24 14:27 cephalexin (Keflex) Allergy Unknown unknown Verified 12/26/24 14:27 Sulfa (Sulfonamide Allergy Unknown hives Verified 12/26/24 14:27 Antibiotics) morphine (MORPHINE) AdvReac Unknown ITCHY Verified 12/26/24 14:27 perflutren (From DEFINITY) AdvReac Unknown CHEST PAIN Verified 12/26/24 14:27 macrobid Allergy Intermediate Hives Uncoded 12/26/24 13:38 NSAIDS AdvReac Unknown GI upset Uncoded 12/26/24 13:38 Assessment & Plan Assessment & Plan (1) Schizoaffective disorder: Status: Acute Code(s): F25.9 - Schizoaffective disorder, unspecified (2) Closed fracture of shaft of fifth metacarpal bone of right hand: Status: Acute Code(s): S62.326A - Displaced fracture of shaft of fifth metacarpal bone, right hand, initial encounter for closed fracture Plan 1. Right 5th metacarpal fracture, nondisplaced Patient appears to be recovering well from her injury Patient is educated about the typical recovery course At this time, patient is educated that the likelihood of needing surgery is much lower now that she has a full week out from injury Patient is replaced into a splint due to mild swelling If patient is still admitted in a week we will place her into a cast If patient has been discharged at that time, we will see her in our office for cast placement No further acute orthopedic intervention indicated until 1 week from now 01/02/25 pt agreeable to olanzapine and Depakote. Required Haldol and Valium the other day 01/03/2025 Continue Depakote and olanzapine encourage compliance patient has long history of brief compliance and then discontinuing with then long periods of until illness 01/05/2025 Patient does appear to be making an effort to be calm and cooperative as possible denying all symptoms not grossly euphoric concentration good thoughts linear. Patient had had hyponatremia previously and when on Tegretol will check electrolytes. Patient may be downplaying any psychotic symptoms which she states have been very chronic continue olanzapine Depakote 375 again check labs make sure sodium has normalized. 01/06: improved mood, stable. taking meds, sleeping well. labs reviewed, reassuring. continue current mgmt. 01/07: BUN continues uptrend, Na WNL. denies AH or negative thoughts. slept well fluid restriction in place. continue current mgmt otherwise. 01/08: BUN and Na stable. on fluid restriction, would like to come off. no overt psychosis. pleasant, cooperative. continue current mgmt. 01/09 pt completed 3 days of fluid restrictions per nephrology. Will d/c fluid restriction, monitor Sodium in 2 days. She presents as less labile, no overt anglican or paranoid delusions. taking medications as prescribed. may need cast while on the unit per Ortho. 01/10 more stable psychiatrically. hyponatremia today 132 did complete fluid restriction x 3 days and salt tablets x 4 doses BID per nephrology. will recheck tomorrow. 01/11 continue tx. improved sodium today 134. 01/12 continue tx. continue to monitor Sodium. off fluid restriction per nephrology. 01/13 continue tx. ordered BMP for 01/14- monitor sodium. 01/14/25: Social, visible, hyperverbal, but pleasant and cooperavie. Lots of questions related to med and diagnoses. Denies safety concern. Somewhat intrusive. Sodium 136 WNL. Elevated BUN 25. Patient educated on: diagnosis, medication risk/benefits and therapeutic strategies Informed Consent: understands and further education needed Reason for continued inpatient stay Substantial Risk for: med/psych decompensation Time Spent With Patient Time: Total time managing care of this patient today ____ minutes.
[2025-01-14] MEDS: Divalproex Sodium Sprinkles 125 MG CAP.DR.SPR 375 MG PO (19:59)
[2025-01-14 20:00] VITALS: BP 143/64; PULSE 74; RESP 16; TEMP 35.8; O2SAT 97
[2025-01-15 07:55] VITALS: BP 138/67; PULSE 88; RESP 18; TEMP 36.7; O2SAT 98
[2025-01-15] MEDS: Aspirin Enteric Coated 81 MG TABLET.DR PO (08:27)
--- NOTE | 2025-01-15 14:00 | HO.PSYCHPN ---
Subjective Subjective Date of Service: 01/15/25 Reason For Visit: Mixed rama agitation Subjective Notes: Conditional Voluntary Interim History: Medical record and nursing notes reviewed; case discussed during rounds with team/nursing staff, and met with patient for supportive therapy/psychoeducation, as well as medication management. Reports that she slept very well last night. Compliant with medication with no side effects. She is visible and social. Discussed with patient regarding sodium and BUN levels. Reports having really good visit with her daughter yesterday and that she was calm. Denies safety concerns Medication Compliance: Yes Side effects from medications: No Attending Groups: Yes Review of Systems Acute medical concerns: No Medical Review of Systems: unchanged Review of Systems Review of Systems Denies any shortness of breath, chest pain, dizziness, lightheadedness, abdominal pain or discomfort, nausea vomiting or diarrhea Yes all other systems are reviewed and are negative Mental Status Exam Mental Status Exam Narrative: Appearance: NAD quite bright behavior: overly friendly Psychomotor: no agitation or retardation noted Speech: clear, not pressured, spontaneous TP: generally linear and logical, tangential, hyperverbal. TC: WNL Mood ?good Affect: non-labile, calm, normo-intense SI: none expressed HI: none expressed VH/AH: none expressed Insight/judgment: impaired x 2. memory/cog: alert, oriented x 3. Diagnostics Vital Signs (24Hr): Vital Signs - 24 hr 01/14/25 20:00 01/15/25 07:55 Temperature 96.4 F L 98.1 F Pulse Rate 74 88 Respiratory Rate 16 18 Blood Pressure 143/64 H 138/67 Pulse Oximetry 97 98 Oxygen Delivery Method Room Air Room Air BMI result Body Mass Index 24.0 Labs 12/30/24 16:25 01/14/25 06:40 Labs: Laboratory Results - last 48 hr 01/14/25 06:40 Sodium 136 Potassium 4.6 Chloride 100 Carbon Dioxide 27 Anion Gap 14 BUN 25 H Creatinine 0.99 Estim Creat Clear Calc 46.2 Estimated GFR 56 Random Glucose 97 Calcium 9.8 D Imaging Radiology Impressions: ITS Impressions Hand X-Ray 01/02/25 10:46 IMPRESSION: Comminuted nondisplaced fracture of the 5th metacarpal shaft. Electronically signed by: Emery Concepcion MD 01/02/2025 11:25 AM EDT Hand X-Ray 01/09/25 11:10 IMPRESSION: Comminuted nondisplaced fracture fifth metacarpal diaphysis without change. Electronically signed by: Gordon Victor MD 01/09/2025 11:22 AM EDT Medications Medications Current Medications Acetaminophen (Acetaminophen 325 Mg Tablet) 650 mg PO Q6H PRN PRN Reason: Headache/Pain, Scale 1-10 Last Admin: 01/13/25 15:32 Dose: 650 mg Al Hydroxide/Mg Hydroxide (Magnesium Hydrox/Alum Hydrox 30 Ml Oral.Susp) 30 ml PO Q6H PRN PRN Reason: Heartburn/Nausea Last Admin: 01/01/25 20:01 Dose: 30 ml Aspirin (Aspirin Enteric Coated 81 Mg Tablet.) 81 mg PO DAILY [facility] Last Admin: 01/15/25 08:27 Dose: 81 mg Clonazepam (Clonazepam 0.5 Mg Tablet) 0.5 mg PO BID PRN PRN Reason: Anxiety Last Admin: 01/14/25 21:41 Dose: 0.5 mg Cyclobenzaprine HCl (Cyclobenzaprine Hcl 5 Mg Tablet) 5 mg PO TID PRN PRN Reason: Muscle Spasm Last Admin: 01/14/25 21:41 Dose: 5 mg Divalproex Sodium (Divalproex Sodium Sprinkles 125 Mg Cap.) 375 mg PO BEDTIME [facility] Last Admin: 01/14/25 19:59 Dose: 375 mg Famotidine (Famotidine 20 Mg Tablet) 20 mg PO DAILY [facility] Last Admin: 01/15/25 08:26 Dose: 20 mg Fluticasone Propionate (Fluticasone Propionate Nasal 16 Gm [place]) 1 spray NOSTRIL-B DAILY [facility] Last Admin: 01/15/25 08:27 Dose: 1 spray Folic Acid (Folic Acid 1 Mg Tablet) 1 mg PO DAILY [facility] Last Admin: 01/15/25 08:26 Dose: 1 mg Losartan Potassium (Losartan Potassium 25 Mg Tablet) 25 mg PO DAILY [facility]; Protocol Last Admin: 01/15/25 08:26 Dose: 25 mg Magnesium Hydroxide (Milk Of Magnesia 30 Ml Oral.Susp) 30 ml PO DAILY PRN PRN Reason: Constipation Nicotine Polacrilex (Nicotine Polacrilex 2 Mg Gum) 4 mg BUCCAL Q2H PRN PRN Reason: Nicotine Cravings Last Admin: 01/15/25 08:26 Dose: 4 mg Olanzapine (Olanzapine 5 Mg Tablet) 5 mg PO Q6H PRN PRN Reason: agitation Last Admin: 01/04/25 08:36 Dose: 5 mg Olanzapine (Olanzapine 5 Mg Tablet) 5 mg PO BEDTIME [facility] Last Admin: 01/14/25 20:00 Dose: 5 mg Thiamine HCl (Thiamine Hcl 100 Mg Tablet) 100 mg PO DAILY [facility] Last Admin: 01/15/25 08:27 Dose: 100 mg Trazodone HCl (Trazodone Hcl 50 Mg Tablet) 50 mg PO BEDTIME MRX1 PRN PRN Reason: Insomnia Last Admin: 01/14/25 21:41 Dose: 50 mg Vitamin D (Cholecalciferol (Vitamin D3) 25 Mcg Tablet) 25 mcg PO DAILY [facility] Last Admin: 01/15/25 08:26 Dose: 25 mcg Allergies Allergies Allergy/AdvReac Type Severity Reaction Status Date / Time Penicillins (PENICILLINS) Allergy Severe HIVES Verified 12/26/24 14:27 cephalexin (Keflex) Allergy Unknown unknown Verified 12/26/24 14:27 Sulfa (Sulfonamide Allergy Unknown hives Verified 12/26/24 14:27 Antibiotics) morphine (MORPHINE) AdvReac Unknown ITCHY Verified 12/26/24 14:27 perflutren (From DEFINITY) AdvReac Unknown CHEST PAIN Verified 12/26/24 14:27 macrobid Allergy Intermediate Hives Uncoded 12/26/24 13:38 NSAIDS AdvReac Unknown GI upset Uncoded 12/26/24 13:38 Assessment & Plan Assessment & Plan (1) Schizoaffective disorder: Status: Acute Code(s): F25.9 - Schizoaffective disorder, unspecified (2) Closed fracture of shaft of fifth metacarpal bone of right hand: Status: Acute Code(s): S62.326A - Displaced fracture of shaft of fifth metacarpal bone, right hand, initial encounter for closed fracture Plan 1. Right 5th metacarpal fracture, nondisplaced Patient appears to be recovering well from her injury Patient is educated about the typical recovery course At this time, patient is educated that the likelihood of needing surgery is much lower now that she has a full week out from injury Patient is replaced into a splint due to mild swelling If patient is still admitted in a week we will place her into a cast If patient has been discharged at that time, we will see her in our office for cast placement No further acute orthopedic intervention indicated until 1 week from now 01/02/25 pt agreeable to olanzapine and Depakote. Required Haldol and Valium the other day 01/03/2025 Continue Depakote and olanzapine encourage compliance patient has long history of brief compliance and then discontinuing with then long periods of until illness 01/05/2025 Patient does appear to be making an effort to be calm and cooperative as possible denying all symptoms not grossly euphoric concentration good thoughts linear. Patient had had hyponatremia previously and when on Tegretol will check electrolytes. Patient may be downplaying any psychotic symptoms which she states have been very chronic continue olanzapine Depakote 375 again check labs make sure sodium has normalized. 01/06: improved mood, stable. taking meds, sleeping well. labs reviewed, reassuring. continue current mgmt. 01/07: BUN continues uptrend, Na WNL. denies AH or negative thoughts. slept well fluid restriction in place. continue current mgmt otherwise. 01/08: BUN and Na stable. on fluid restriction, would like to come off. no overt psychosis. pleasant, cooperative. continue current mgmt. 01/09 pt completed 3 days of fluid restrictions per nephrology. Will d/c fluid restriction, monitor Sodium in 2 days. She presents as less labile, no overt muslim or paranoid delusions. taking medications as prescribed. may need cast while on the unit per Ortho. 01/10 more stable psychiatrically. hyponatremia today 132 did complete fluid restriction x 3 days and salt tablets x 4 doses BID per nephrology. will recheck tomorrow. 01/11 continue tx. improved sodium today 134. 01/12 continue tx. continue to monitor Sodium. off fluid restriction per nephrology. 01/13 continue tx. ordered BMP for 01/14- monitor sodium. 01/14/25: Social, visible, hyperverbal, but pleasant and cooperavie. Lots of questions related to med and diagnoses. Denies safety concern. Somewhat intrusive. Sodium 136 WNL. Elevated BUN 01/15/25: Discussed with patient regarding lab results. Mood is calm, have good visit with her daughter yesterday. No behavior issues in the she is hyper verbal and could be intrusive symptoms. No safety concerns. No appetite or sleep issues. Patient educated on: medication risk/benefits and therapeutic strategies Informed Consent: understands and further education needed Reason for continued inpatient stay Substantial Risk for: med/psych decompensation Time Spent With Patient Time: Total time managing care of this patient today ____ minutes.
[2025-01-15] MEDS: Divalproex Sodium Sprinkles 125 MG CAP.DR.SPR 375 MG PO (19:48)
[2025-01-15 20:00] VITALS: BP 101/63; PULSE 76; RESP 18; TEMP 36.9; O2SAT 99
[2025-01-16 09:33] VITALS: BP 136/63; PULSE 75; RESP 18; TEMP 36.6; O2SAT 97
[2025-01-16] MEDS: Aspirin Enteric Coated 81 MG TABLET.DR PO (09:35)
--- NOTE | 2025-01-16 10:46 | HO.PSYCHPN ---
Subjective Subjective Date of Service: 01/16/25 Reason For Visit: Mixed rama agitation Subjective Notes: Conditional Voluntary Interim History: Pt slept through the night. Pt presents overall calmer, no overt delusional content nor psychosis. She does show some degree of insight into symptoms in that she notes that she needed to be here and take medications. She denies SI/HI. She has been visible on the unit, social with peers. No behavioral concerns but pt does interrupts others although much less intrusive. Medication Compliance: Yes Review of Systems Review of Systems Denies any shortness of breath, chest pain, dizziness, lightheadedness, abdominal pain or discomfort, nausea vomiting or diarrhea Yes all other systems are reviewed and are negative Mental Status Exam Mental Status Exam Narrative: Appearance: NAD quite bright behavior: overly friendly Psychomotor: no agitation or retardation noted Speech: clear, not pressured, spontaneous TP: generally linear and logical, tangential, hyperverbal. TC: WNL Mood ?good Affect: non-labile, calm, normo-intense SI: none expressed HI: none expressed VH/AH: none expressed Insight/judgment: impaired x 2. memory/cog: alert, oriented x 3. Diagnostics Vital Signs (24Hr): Vital Signs - 24 hr 01/15/25 20:00 01/16/25 09:33 Temperature 98.4 F 97.9 F Pulse Rate 76 75 Respiratory Rate 18 18 Blood Pressure 101/63 136/63 Pulse Oximetry 99 97 Oxygen Delivery Method Room Air Room Air BMI result Body Mass Index 24.0 Labs 12/30/24 16:25 01/14/25 06:40 Imaging Radiology Impressions: ITS Impressions Hand X-Ray 01/02/25 10:46 IMPRESSION: Comminuted nondisplaced fracture of the 5th metacarpal shaft. Electronically signed by: Emery Concepcion MD 01/02/2025 11:25 AM EDT RP Hand X-Ray 01/09/25 11:10 IMPRESSION: Comminuted nondisplaced fracture fifth metacarpal diaphysis without change. Electronically signed by: Gordon Victor MD 01/09/2025 11:22 AM EDT RP Medications Medications Current Medications Acetaminophen (Acetaminophen 325 Mg Tablet) 650 mg PO Q6H PRN PRN Reason: Headache/Pain, Scale 1-10 Last Admin: 01/13/25 15:32 Dose: 650 mg Al Hydroxide/Mg Hydroxide (Magnesium Hydrox/Alum Hydrox 30 Ml Oral.Susp) 30 ml PO Q6H PRN PRN Reason: Heartburn/Nausea Last Admin: 01/01/25 20:01 Dose: 30 ml Aspirin (Aspirin Enteric Coated 81 Mg Tablet.) 81 mg PO DAILY [facility] Last Admin: 01/16/25 09:35 Dose: 81 mg Clonazepam (Clonazepam 0.5 Mg Tablet) 0.5 mg PO BID PRN PRN Reason: Anxiety Last Admin: 01/15/25 14:14 Dose: 0.5 mg Cyclobenzaprine HCl (Cyclobenzaprine Hcl 5 Mg Tablet) 5 mg PO TID PRN PRN Reason: Muscle Spasm Last Admin: 01/16/25 09:54 Dose: 5 mg Divalproex Sodium (Divalproex Sodium Sprinkles 125 Mg Cap.) 375 mg PO BEDTIME [facility] Last Admin: 01/15/25 19:48 Dose: 375 mg Famotidine (Famotidine 20 Mg Tablet) 20 mg PO DAILY [facility] Last Admin: 01/16/25 09:36 Dose: 20 mg Fluticasone Propionate (Fluticasone Propionate Nasal 16 Gm [place]) 1 spray NOSTRIL-B DAILY [facility] Last Admin: 01/16/25 09:36 Dose: 1 spray Folic Acid (Folic Acid 1 Mg Tablet) 1 mg PO DAILY [facility] Last Admin: 01/16/25 09:36 Dose: 1 mg Losartan Potassium (Losartan Potassium 25 Mg Tablet) 25 mg PO DAILY [facility]; Protocol Last Admin: 01/16/25 09:36 Dose: 25 mg Magnesium Hydroxide (Milk Of Magnesia 30 Ml Oral.Susp) 30 ml PO DAILY PRN PRN Reason: Constipation Nicotine Polacrilex (Nicotine Polacrilex 2 Mg Gum) 4 mg BUCCAL Q2H PRN PRN Reason: Nicotine Cravings Last Admin: 01/16/25 02:53 Dose: 4 mg Olanzapine (Olanzapine 5 Mg Tablet) 5 mg PO Q6H PRN PRN Reason: agitation Last Admin: 01/04/25 08:36 Dose: 5 mg Olanzapine (Olanzapine 5 Mg Tablet) 5 mg PO BEDTIME [facility] Last Admin: 01/15/25 19:47 Dose: 5 mg Thiamine HCl (Thiamine Hcl 100 Mg Tablet) 100 mg PO DAILY [facility] Last Admin: 01/16/25 09:36 Dose: 100 mg Trazodone HCl (Trazodone Hcl 50 Mg Tablet) 50 mg PO BEDTIME MRX1 PRN PRN Reason: Insomnia Last Admin: 01/16/25 02:51 Dose: 50 mg Vitamin D (Cholecalciferol (Vitamin D3) 25 Mcg Tablet) 25 mcg PO DAILY [facility] Last Admin: 01/16/25 09:35 Dose: 25 mcg Allergies Allergies Allergy/AdvReac Type Severity Reaction Status Date / Time Penicillins (PENICILLINS) Allergy Severe HIVES Verified 12/26/24 14:27 cephalexin (Keflex) Allergy Unknown unknown Verified 12/26/24 14:27 Sulfa (Sulfonamide Allergy Unknown hives Verified 12/26/24 14:27 Antibiotics) morphine (MORPHINE) AdvReac Unknown ITCHY Verified 12/26/24 14:27 perflutren (From DEFINITY) AdvReac Unknown CHEST PAIN Verified 12/26/24 14:27 macrobid Allergy Intermediate Hives Uncoded 12/26/24 13:38 NSAIDS AdvReac Unknown GI upset Uncoded 12/26/24 13:38 Assessment & Plan Assessment & Plan (1) Bipolar 1 disorder with moderate rama: Status: Acute Code(s): F31.12 - Bipolar disorder, current episode manic without psychotic features, moderate (2) Closed fracture of shaft of fifth metacarpal bone of right hand: Status: Acute Code(s): S62.326A - Displaced fracture of shaft of fifth metacarpal bone, right hand, initial encounter for closed fracture Assessment and Plan: 1. Right 5th metacarpal fracture, nondisplaced Patient appears to be recovering well from her injury Patient is educated about the typical recovery course At this time, patient is educated that the likelihood of needing surgery is much lower now that she has a full week out from injury Patient is replaced into a splint due to mild swelling If patient is still admitted in a week we will place her into a cast If patient has been discharged at that time, we will see her in our office for cast placement Plan No further acute orthopedic intervention indicated until 1 week from now 01/02/25 pt agreeable to olanzapine and Depakote. Required Haldol and Valium the other day 01/03/2025 Continue Depakote and olanzapine encourage compliance patient has long history of brief compliance and then discontinuing with then long periods of until illness 01/05/2025 Patient does appear to be making an effort to be calm and cooperative as possible denying all symptoms not grossly euphoric concentration good thoughts linear. Patient had had hyponatremia previously and when on Tegretol will check electrolytes. Patient may be downplaying any psychotic symptoms which she states have been very chronic continue olanzapine Depakote 375 again check labs make sure sodium has normalized. 01/06: improved mood, stable. taking meds, sleeping well. labs reviewed, reassuring. continue current mgmt. 01/07: BUN continues uptrend, Na WNL. denies AH or negative thoughts. slept well fluid restriction in place. continue current mgmt otherwise. 01/08: BUN and Na stable. on fluid restriction, would like to come off. no overt psychosis. pleasant, cooperative. continue current mgmt. 01/09 pt completed 3 days of fluid restrictions per nephrology. Will d/c fluid restriction, monitor Sodium in 2 days. She presents as less labile, no overt islam or paranoid delusions. taking medications as prescribed. may need cast while on the unit per Ortho. 01/10 more stable psychiatrically. hyponatremia today 132 did complete fluid restriction x 3 days and salt tablets x 4 doses BID per nephrology. will recheck tomorrow. 01/11 continue tx. improved sodium today 134. 01/12 continue tx. continue to monitor Sodium. off fluid restriction per nephrology. 01/13 continue tx. ordered [facility] for 01/14- monitor sodium. 01/14/25: Social, visible, hyperverbal, but pleasant and cooperative. Lots of questions related to med and diagnoses. Denies safety concern. Somewhat intrusive. Sodium 136 WNL. Elevated BUN 01/15/25: Discussed with patient regarding lab results. Mood is calm, have good visit with her daughter yesterday. No behavior issues in the she is hyper verbal and could be intrusive symptoms. No safety concerns. No appetite or sleep issues. 01/16 continue tx. will increase depakote to 500mg po qhs. check sodium tomorrow. she is now off fluid restriction. Reason for continued inpatient stay Substantial Risk for: inability to function Time Spent With Patient Time: Total time managing care of this patient today ____ minutes.
[2025-01-16 20:00] VITALS: BP 135/65; PULSE 80; RESP 18; TEMP 36.3; O2SAT 100
[2025-01-16] MEDS: Divalproex Sodium Sprinkles 125 MG CAP.DR.SPR 500 MG PO (20:29)
[2025-01-17 07:55] VITALS: BP 134/65; PULSE 70; RESP 18; TEMP 36.9; O2SAT 98
[2025-01-17] MEDS: Aspirin Enteric Coated 81 MG TABLET.DR PO (08:11)
--- NOTE | 2025-01-17 16:05 | HO.PSYCHPN ---
Subjective Subjective Date of Service: 01/17/25 Reason For Visit: Mixed rama agitation Subjective Notes: Conditional Voluntary Interim History: Pt slept all night. She presents as calm and cooperative. No SI/HI. No overt psychosis or delusions. She has been visible on the unit. No behavioral concerns. She does note that she needed to be here and is accepting medications. She does report having a lot of energy. no overt temple or paranoid delusions. At times can be intrusive with peers. Medication Compliance: Yes Side effects from medications: No Attending Groups: Yes Mental Status Exam Mental Status Exam Narrative: Appearance: NAD quite bright behavior: overly friendly Psychomotor: no agitation or retardation noted Speech: clear, not pressured, spontaneous TP: generally linear and logical, tangential, hyperverbal. TC: WNL Mood ?good Affect: non-labile, calm, normo-intense SI: none expressed HI: none expressed VH/AH: none expressed Insight/judgment: impaired x 2. memory/cog: alert, oriented x 3. Diagnostics Vital Signs (24Hr): Vital Signs - 24 hr 01/16/25 20:00 01/17/25 07:55 Temperature 97.3 F 98.4 F Pulse Rate 80 70 Respiratory Rate 18 18 Blood Pressure 135/65 134/65 Pulse Oximetry 100 98 Oxygen Delivery Method Room Air Room Air BMI result Body Mass Index 24.0 Labs 12/30/24 16:25 01/18/25 07:53 Imaging Radiology Impressions: ITS Impressions Hand X-Ray 01/02/25 10:46 IMPRESSION: Comminuted nondisplaced fracture of the 5th metacarpal shaft. Electronically signed by: Emery Concepcion MD 01/02/2025 11:25 AM EDT RP Hand X-Ray 01/09/25 11:10 IMPRESSION: Comminuted nondisplaced fracture fifth metacarpal diaphysis without change. Electronically signed by: Gordon Victor MD 01/09/2025 11:22 AM EDT Medications Medications Current Medications Acetaminophen (Acetaminophen 325 Mg Tablet) 650 mg PO Q6H PRN PRN Reason: Headache/Pain, Scale 1-10 Last Admin: 01/13/25 15:32 Dose: 650 mg Al Hydroxide/Mg Hydroxide (Magnesium Hydrox/Alum Hydrox 30 Ml Oral.Susp) 30 ml PO Q6H PRN PRN Reason: Heartburn/Nausea Last Admin: 01/01/25 20:01 Dose: 30 ml Aspirin (Aspirin Enteric Coated 81 Mg Tablet.) 81 mg PO DAILY [facility] Last Admin: 01/17/25 08:11 Dose: 81 mg Clonazepam (Clonazepam 0.5 Mg Tablet) 0.5 mg PO DAILY PRN PRN Reason: Anxiety Cyclobenzaprine HCl (Cyclobenzaprine Hcl 5 Mg Tablet) 5 mg PO TID PRN PRN Reason: Muscle Spasm Last Admin: 01/16/25 20:28 Dose: 5 mg Divalproex Sodium (Divalproex Sodium Sprinkles 125 Mg Cap.) 500 mg PO BEDTIME FELA Famotidine (Famotidine 20 Mg Tablet) 20 mg PO DAILY [facility] Last Admin: 01/17/25 08:11 Dose: 20 mg Fluticasone Propionate (Fluticasone Propionate Nasal 16 Gm [place]) 1 spray NOSTRIL-B DAILY [facility] Last Admin: 01/17/25 08:11 Dose: 1 spray Folic Acid (Folic Acid 1 Mg Tablet) 1 mg PO DAILY [facility] Last Admin: 01/17/25 08:11 Dose: 1 mg Losartan Potassium (Losartan Potassium 25 Mg Tablet) 25 mg PO DAILY [facility]; Protocol Last Admin: 01/17/25 08:12 Dose: 25 mg Magnesium Hydroxide (Milk Of Magnesia 30 Ml Oral.Susp) 30 ml PO DAILY PRN PRN Reason: Constipation Nicotine Polacrilex (Nicotine Polacrilex 2 Mg Gum) 4 mg BUCCAL Q2H PRN PRN Reason: Nicotine Cravings Last Admin: 01/17/25 12:02 Dose: 4 mg Olanzapine (Olanzapine 5 Mg Tablet) 5 mg PO Q6H PRN PRN Reason: agitation Last Admin: 01/04/25 08:36 Dose: 5 mg Olanzapine (Olanzapine 5 Mg Tablet) 5 mg PO BEDTIME FELA Last Admin: 01/16/25 20:28 Dose: 5 mg Thiamine HCl (Thiamine Hcl 100 Mg Tablet) 100 mg PO DAILY [facility] Last Admin: 01/17/25 08:11 Dose: 100 mg Trazodone HCl (Trazodone Hcl 50 Mg Tablet) 50 mg PO BEDTIME MRX1 PRN PRN Reason: Insomnia Last Admin: 01/16/25 20:28 Dose: 50 mg Vitamin D (Cholecalciferol (Vitamin D3) 25 Mcg Tablet) 25 mcg PO DAILY FELA Last Admin: 01/17/25 08:11 Dose: 25 mcg Allergies Allergies Allergy/AdvReac Type Severity Reaction Status Date / Time Penicillins (PENICILLINS) Allergy Severe HIVES Verified 12/26/24 14:27 cephalexin (Keflex) Allergy Unknown unknown Verified 12/26/24 14:27 Sulfa (Sulfonamide Allergy Unknown hives Verified 12/26/24 14:27 Antibiotics) morphine (MORPHINE) AdvReac Unknown ITCHY Verified 12/26/24 14:27 perflutren (From DEFINITY) AdvReac Unknown CHEST PAIN Verified 12/26/24 14:27 macrobid Allergy Intermediate Hives Uncoded 12/26/24 13:38 NSAIDS AdvReac Unknown GI upset Uncoded 12/26/24 13:38 Assessment & Plan Assessment & Plan (1) Bipolar 1 disorder with moderate rama: Status: Acute Code(s): F31.12 - Bipolar disorder, current episode manic without psychotic features, moderate (2) Closed fracture of shaft of fifth metacarpal bone of right hand: Status: Acute Code(s): S62.326A - Displaced fracture of shaft of fifth metacarpal bone, right hand, initial encounter for closed fracture Assessment and Plan: 1. Right 5th metacarpal fracture, nondisplaced Patient appears to be recovering well from her injury Patient is educated about the typical recovery course At this time, patient is educated that the likelihood of needing surgery is much lower now that she has a full week out from injury Patient is replaced into a splint due to mild swelling If patient is still admitted in a week we will place her into a cast If patient has been discharged at that time, we will see her in our office for cast placement Plan No further acute orthopedic intervention indicated until 1 week from now 01/02/25 pt agreeable to olanzapine and Depakote. Required Haldol and Valium the other day 01/03/2025 Continue Depakote and olanzapine encourage compliance patient has long history of brief compliance and then discontinuing with then long periods of until illness 01/05/2025 Patient does appear to be making an effort to be calm and cooperative as possible denying all symptoms not grossly euphoric concentration good thoughts linear. Patient had had hyponatremia previously and when on Tegretol will check electrolytes. Patient may be downplaying any psychotic symptoms which she states have been very chronic continue olanzapine Depakote 375 again check labs make sure sodium has normalized. 01/06: improved mood, stable. taking meds, sleeping well. labs reviewed, reassuring. continue current mgmt. 01/07: BUN continues uptrend, Na WNL. denies AH or negative thoughts. slept well fluid restriction in place. continue current mgmt otherwise. 01/08: BUN and Na stable. on fluid restriction, would like to come off. no overt psychosis. pleasant, cooperative. continue current mgmt. 01/09 pt completed 3 days of fluid restrictions per nephrology. Will d/c fluid restriction, monitor Sodium in 2 days. She presents as less labile, no overt temple or paranoid delusions. taking medications as prescribed. may need cast while on the unit per Ortho. 01/10 more stable psychiatrically. hyponatremia today 132 did complete fluid restriction x 3 days and salt tablets x 4 doses BID per nephrology. will recheck tomorrow. 01/11 continue tx. improved sodium today 134. 01/12 continue tx. continue to monitor Sodium. off fluid restriction per nephrology. 01/13 continue tx. ordered BMP for 01/14- monitor sodium. 01/14/25: Social, visible, hyperverbal, but pleasant and cooperative. Lots of questions related to med and diagnoses. Denies safety concern. Somewhat intrusive. Sodium 136 WNL. Elevated BUN 01/15/25: Discussed with patient regarding lab results. Mood is calm, have good visit with her daughter yesterday. No behavior issues in the she is hyper verbal and could be intrusive symptoms. No safety concerns. No appetite or sleep issues. 01/16 continue tx. will increase depakote to 500mg po qhs. check sodium tomorrow. she is now off fluid restriction. 01/17 continue tx. bmp ordered for tomorrow. Reason for continued inpatient stay Substantial Risk for: inability to function Time Spent With Patient Time: Total time managing care of this patient today ____ minutes.
[2025-01-17] MEDS: Divalproex Sodium Sprinkles 125 MG CAP.DR.SPR 500 MG PO (19:44)
[2025-01-17 19:46] VITALS: BP 162/77; PULSE 101; RESP 16; TEMP 36.6; O2SAT 97
[2025-01-18 07:55] VITALS: BP 123/62; PULSE 94; RESP 18; TEMP 36.6; O2SAT 97
[2025-01-18] MEDS: Aspirin Enteric Coated 81 MG TABLET.DR PO (08:01)
[2025-01-18 08:29] LABS: Anion Gap 13 (12-20); Blood Urea Nitrogen 26 mg/dL (9-16); Calcium 9.6 mg/dL (8.4-10.2); Carbon Dioxide 29 mmol/L (22-29); Chloride 98 mmol/L (96-108); Creatinine Clr Calc Pharmacy 44.5; Estimated Glomerular Filt Rate 53; Potassium 4.5 mmol/L (3.3-5.1); Sodium 135 mmol/L (135-145)
--- NOTE | 2025-01-18 16:21 | P.PNPSI_ITS ---
Subjective Subjective Date of Service: 01/18/25 Reason For Visit: Mixed rama agitation Subjective Notes: Conditional Voluntary Interim History: Pt slept all night. She denies depressed mood. No SI/HI. Less paranoid delusions, no overt s/s of psychosis. 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 No behavioral concerns. Medication Compliance: Yes Review of Systems Review of Systems Denies any shortness of breath, chest pain, dizziness, lightheadedness, abdominal pain or discomfort, nausea vomiting or diarrhea Yes all other systems are reviewed and are negative Mental Status Exam Mental Status Exam Narrative: Appearance: NAD quite bright behavior: overly friendly Psychomotor: no agitation or retardation noted Speech: clear, not pressured, spontaneous TP: generally linear and logical, tangential, hyperverbal. TC: WNL Mood ?good Affect: non-labile, calm, normo-intense SI: none expressed HI: none expressed VH/AH: none expressed Insight/judgment: impaired x 2. memory/cog: alert, oriented x 3. Diagnostics Vital Signs (24Hr): Vital Signs - 24 hr 01/17/25 19:46 01/18/25 07:55 Temperature 97.9 F 97.9 F Pulse Rate 101 H 94 Respiratory Rate 16 18 Blood Pressure 162/77 H 123/62 Pulse Oximetry 97 97 Oxygen Delivery Method Room Air Room Air BMI result Body Mass Index 24.0 Labs 12/30/24 16:25 01/18/25 07:53 Labs: Laboratory Results - last 48 hr 01/18/25 07:53 Sodium 135 Potassium 4.5 Chloride 98 Carbon Dioxide 29 Anion Gap 13 BUN 26 H Creatinine 1.03 Estim Creat Clear Calc 44.5 Estimated GFR 53 Random Glucose 107 Calcium 9.6 Imaging Radiology Impressions: ITS Impressions Hand X-Ray 01/02/25 10:46 IMPRESSION: Comminuted nondisplaced fracture of the 5th metacarpal shaft. Electronically signed by: Emery Concepcion MD 01/02/2025 11:25 AM EDT Hand X-Ray 01/09/25 11:10 IMPRESSION: Comminuted nondisplaced fracture fifth metacarpal diaphysis without change. Electronically signed by: Gordon Victor MD 01/09/2025 11:22 AM EDT Medications Medications Current Medications Acetaminophen (Acetaminophen 325 Mg Tablet) 650 mg PO Q6H PRN PRN Reason: Headache/Pain, Scale 1-10 Last Admin: 01/17/25 20:22 Dose: 650 mg Al Hydroxide/Mg Hydroxide (Magnesium Hydrox/Alum Hydrox 30 Ml Oral.Susp) 30 ml PO Q6H PRN PRN Reason: Heartburn/Nausea Last Admin: 01/01/25 20:01 Dose: 30 ml Aspirin (Aspirin Enteric Coated 81 Mg Tablet.) 81 mg PO DAILY [facility] Last Admin: 01/18/25 08:01 Dose: 81 mg Clonazepam (Clonazepam 0.5 Mg Tablet) 0.5 mg PO DAILY PRN PRN Reason: Anxiety Last Admin: 01/17/25 22:33 Dose: 0.5 mg Cyclobenzaprine HCl (Cyclobenzaprine Hcl 5 Mg Tablet) 5 mg PO TID PRN PRN Reason: Muscle Spasm Last Admin: 01/18/25 14:41 Dose: 5 mg Divalproex Sodium (Divalproex Sodium Sprinkles 125 Mg Cap.) 500 mg PO BEDTIME [facility] Last Admin: 01/17/25 19:44 Dose: 500 mg Famotidine (Famotidine 20 Mg Tablet) 20 mg PO DAILY [facility] Last Admin: 01/18/25 08:01 Dose: 20 mg Fluticasone Propionate (Fluticasone Propionate Nasal 16 Gm [place]) 1 spray NOSTRIL-B DAILY [facility] Last Admin: 01/18/25 08:01 Dose: 1 spray Folic Acid (Folic Acid 1 Mg Tablet) 1 mg PO DAILY [facility] Last Admin: 01/18/25 08:01 Dose: 1 mg Losartan Potassium (Losartan Potassium 25 Mg Tablet) 25 mg PO DAILY [facility]; Protocol Last Admin: 01/18/25 08:01 Dose: 25 mg Magnesium Hydroxide (Milk Of Magnesia 30 Ml Oral.Susp) 30 ml PO DAILY PRN PRN Reason: Constipation Nicotine Polacrilex (Nicotine Polacrilex 2 Mg Gum) 4 mg BUCCAL Q2H PRN PRN Reason: Nicotine Cravings Last Admin: 01/18/25 13:47 Dose: 4 mg Olanzapine (Olanzapine 5 Mg Tablet) 5 mg PO Q6H PRN PRN Reason: agitation Last Admin: 01/17/25 22:33 Dose: 5 mg Olanzapine (Olanzapine 5 Mg Tablet) 5 mg PO BEDTIME [facility] Last Admin: 01/17/25 19:44 Dose: 5 mg Thiamine HCl (Thiamine Hcl 100 Mg Tablet) 100 mg PO DAILY [facility] Last Admin: 01/18/25 08:01 Dose: 100 mg Trazodone HCl (Trazodone Hcl 50 Mg Tablet) 50 mg PO BEDTIME MRX1 PRN PRN Reason: Insomnia Last Admin: 01/17/25 22:32 Dose: 50 mg Vitamin D (Cholecalciferol (Vitamin D3) 25 Mcg Tablet) 25 mcg PO DAILY [facility] Last Admin: 01/18/25 08:01 Dose: 25 mcg Allergies Allergies Allergy/AdvReac Type Severity Reaction Status Date / Time Penicillins (PENICILLINS) Allergy Severe HIVES Verified 12/26/24 14:27 cephalexin (Keflex) Allergy Unknown unknown Verified 12/26/24 14:27 Sulfa (Sulfonamide Allergy Unknown hives Verified 12/26/24 14:27 Antibiotics) morphine (MORPHINE) AdvReac Unknown ITCHY Verified 12/26/24 14:27 perflutren (From DEFINITY) AdvReac Unknown CHEST PAIN Verified 12/26/24 14:27 macrobid Allergy Intermediate Hives Uncoded 12/26/24 13:38 NSAIDS AdvReac Unknown GI upset Uncoded 12/26/24 13:38 Assessment & Plan Assessment & Plan (1) Bipolar 1 disorder with moderate rama: Status: Acute Code(s): F31.12 - Bipolar disorder, current episode manic without psychotic features, moderate (2) Closed fracture of shaft of fifth metacarpal bone of right hand: Status: Acute Code(s): S62.326A - Displaced fracture of shaft of fifth metacarpal bone, right hand, initial encounter for closed fracture Assessment and Plan: 1. Right 5th metacarpal fracture, nondisplaced Patient appears to be recovering well from her injury Patient is educated about the typical recovery course At this time, patient is educated that the likelihood of needing surgery is much lower now that she has a full week out from injury Patient is replaced into a splint due to mild swelling If patient is still admitted in a week we will place her into a cast If patient has been discharged at that time, we will see her in our office for cast placement Plan No further acute orthopedic intervention indicated until 1 week from now 01/02/25 pt agreeable to olanzapine and Depakote. Required Haldol and Valium the other day 01/03/2025 Continue Depakote and olanzapine encourage compliance patient has long history of brief compliance and then discontinuing with then long periods of until illness 01/05/2025 Patient does appear to be making an effort to be calm and cooperative as possible denying all symptoms not grossly euphoric concentration good thoughts linear. Patient had had hyponatremia previously and when on Tegretol will check electrolytes. Patient may be downplaying any psychotic symptoms which she states have been very chronic continue olanzapine Depakote 375 again check labs make sure sodium has normalized. 01/06: improved mood, stable. taking meds, sleeping well. labs reviewed, reassuring. continue current mgmt. 01/07: BUN continues uptrend, Na WNL. denies AH or negative thoughts. slept well fluid restriction in place. continue current mgmt otherwise. 01/08: BUN and Na stable. on fluid restriction, would like to come off. no overt psychosis. pleasant, cooperative. continue current mgmt. 01/09 pt completed 3 days of fluid restrictions per nephrology. Will d/c fluid restriction, monitor Sodium in 2 days. She presents as less labile, no overt moravian or paranoid delusions. taking medications as prescribed. may need cast while on the unit per Ortho. 01/10 more stable psychiatrically. hyponatremia today 132 did complete fluid restriction x 3 days and salt tablets x 4 doses BID per nephrology. will recheck tomorrow. 01/11 continue tx. improved sodium today 134. 01/12 continue tx. continue to monitor Sodium. off fluid restriction per nephrology. 01/13 continue tx. ordered BMP for 01/14- monitor sodium. 01/14/25: Social, visible, hyperverbal, but pleasant and cooperative. Lots of questions related to med and diagnoses. Denies safety concern. Somewhat intrusive. Sodium 136 WNL. Elevated BUN 01/15/25: Discussed with patient regarding lab results. Mood is calm, have good visit with her daughter yesterday. No behavior issues in the she is hyper verbal and could be intrusive symptoms. No safety concerns. No appetite or sleep issues. 01/16 continue tx. will increase depakote to 500mg po qhs. check sodium tomorrow. she is now off fluid restriction. 01/17 continue tx. bmp ordered for tomorrow. 01/18 continue tx. family meeting tomorrow. Reason for continued inpatient stay Substantial Risk for: inability to function Time Spent With Patient Time: Total time managing care of this patient today ____ minutes.
[2025-01-18 20:00] VITALS: BP 143/71; PULSE 98; RESP 18; TEMP 36.2; O2SAT 100
[2025-01-18] MEDS: Divalproex Sodium Sprinkles 125 MG CAP.DR.SPR 500 MG PO (20:32)
[2025-01-19 06:48] VITALS: BMI 24.2
[2025-01-19 07:58] VITALS: BP 114/80; PULSE 75; RESP 18; TEMP 36.6; O2SAT 98
[2025-01-19] MEDS: Aspirin Enteric Coated 81 MG TABLET.DR PO (08:03)
--- NOTE | 2025-01-19 15:25 | HO.PSYCHPN ---
Subjective Subjective Date of Service: 01/19/25 Reason For Visit: Mixed rama agitation Subjective Notes: Conditional Voluntary Interim History: Pt sleeping well. She is less intrusive, taking medications as prescribed. No overt paranoia or temple delusions. We had family meeting, went over medication changes and aftercare plans. No SI/HI. Plan to d/c next week. plan also to d/c without clonazepam due to hx of alcohol use/misuse. she is taking low dose here mostly at bedtime. Review of Systems Review of Systems Denies any shortness of breath, chest pain, dizziness, lightheadedness, abdominal pain or discomfort, nausea vomiting or diarrhea Yes all other systems are reviewed and are negative Mental Status Exam Mental Status Exam Narrative: Appearance: NAD quite bright behavior: overly friendly Psychomotor: no agitation or retardation noted Speech: clear, not pressured, spontaneous TP: generally linear and logical, tangential, hyperverbal. TC: WNL Mood ?good Affect: non-labile, calm, normo-intense SI: none expressed HI: none expressed VH/AH: none expressed Insight/judgment: impaired x 2. memory/cog: alert, oriented x 3. Diagnostics Vital Signs (24Hr): Vital Signs - 24 hr 01/18/25 20:00 01/19/25 07:58 Temperature 97.1 F 97.9 F Pulse Rate 98 75 Respiratory Rate 18 18 Blood Pressure 143/71 H 114/80 Pulse Oximetry 100 98 Oxygen Delivery Method Room Air Room Air BMI result Body Mass Index 24.2 Labs 12/30/24 16:25 01/18/25 07:53 Labs: Laboratory Results - last 48 hr 01/18/25 07:53 Sodium 135 Potassium 4.5 Chloride 98 Carbon Dioxide 29 Anion Gap 13 BUN 26 H Creatinine 1.03 Estim Creat Clear Calc 44.5 Estimated GFR 53 Random Glucose 107 Calcium 9.6 Imaging Radiology Impressions: ITS Impressions Hand X-Ray 01/02/25 10:46 IMPRESSION: Comminuted nondisplaced fracture of the 5th metacarpal shaft. Electronically signed by: Emery Concepcion MD 01/02/2025 11:25 AM EDT RP Hand X-Ray 01/09/25 11:10 IMPRESSION: Comminuted nondisplaced fracture fifth metacarpal diaphysis without change. Electronically signed by: Gordon Victor MD 01/09/2025 11:22 AM EDT RP Medications Medications Current Medications Acetaminophen (Acetaminophen 325 Mg Tablet) 650 mg PO Q6H PRN PRN Reason: Headache/Pain, Scale 1-10 Last Admin: 01/18/25 20:33 Dose: 650 mg Al Hydroxide/Mg Hydroxide (Magnesium Hydrox/Alum Hydrox 30 Ml Oral.Susp) 30 ml PO Q6H PRN PRN Reason: Heartburn/Nausea Last Admin: 01/01/25 20:01 Dose: 30 ml Aspirin (Aspirin Enteric Coated 81 Mg Tablet.) 81 mg PO DAILY [facility] Last Admin: 01/19/25 08:03 Dose: 81 mg Clonazepam (Clonazepam 0.5 Mg Tablet) 0.5 mg PO DAILY PRN PRN Reason: Anxiety Last Admin: 01/18/25 21:58 Dose: 0.5 mg Cyclobenzaprine HCl (Cyclobenzaprine Hcl 5 Mg Tablet) 5 mg PO TID PRN PRN Reason: Muscle Spasm Last Admin: 01/19/25 03:04 Dose: 5 mg Divalproex Sodium (Divalproex Sodium Sprinkles 125 Mg Cap.) 500 mg PO BEDTIME [facility] Last Admin: 01/18/25 20:32 Dose: 500 mg Famotidine (Famotidine 20 Mg Tablet) 20 mg PO DAILY [facility] Last Admin: 01/19/25 08:02 Dose: 20 mg Fluticasone Propionate (Fluticasone Propionate Nasal 16 Gm [place]) 1 spray NOSTRIL-B DAILY [facility] Last Admin: 01/19/25 08:02 Dose: 1 spray Folic Acid (Folic Acid 1 Mg Tablet) 1 mg PO DAILY [facility] Last Admin: 01/19/25 08:02 Dose: 1 mg Losartan Potassium (Losartan Potassium 25 Mg Tablet) 25 mg PO DAILY [facility]; Protocol Last Admin: 01/19/25 08:02 Dose: 25 mg Magnesium Hydroxide (Milk Of Magnesia 30 Ml Oral.Susp) 30 ml PO DAILY PRN PRN Reason: Constipation Nicotine Polacrilex (Nicotine Polacrilex 2 Mg Gum) 4 mg BUCCAL Q2H PRN PRN Reason: Nicotine Cravings Last Admin: 01/19/25 12:46 Dose: 4 mg Olanzapine (Olanzapine 5 Mg Tablet) 5 mg PO Q6H PRN PRN Reason: agitation Last Admin: 01/17/25 22:33 Dose: 5 mg Olanzapine (Olanzapine 5 Mg Tablet) 5 mg PO BEDTIME [facility] Last Admin: 01/18/25 20:33 Dose: 5 mg Thiamine HCl (Thiamine Hcl 100 Mg Tablet) 100 mg PO DAILY [facility] Last Admin: 01/19/25 08:02 Dose: 100 mg Trazodone HCl (Trazodone Hcl 50 Mg Tablet) 50 mg PO BEDTIME MRX1 PRN PRN Reason: Insomnia Last Admin: 01/18/25 21:58 Dose: 50 mg Vitamin D (Cholecalciferol (Vitamin D3) 25 Mcg Tablet) 25 mcg PO DAILY [facility] Last Admin: 01/19/25 08:02 Dose: 25 mcg Allergies Allergies Allergy/AdvReac Type Severity Reaction Status Date / Time Penicillins (PENICILLINS) Allergy Severe HIVES Verified 12/26/24 14:27 cephalexin (Keflex) Allergy Unknown unknown Verified 12/26/24 14:27 Sulfa (Sulfonamide Allergy Unknown hives Verified 12/26/24 14:27 Antibiotics) morphine (MORPHINE) AdvReac Unknown ITCHY Verified 12/26/24 14:27 perflutren (From DEFINITY) AdvReac Unknown CHEST PAIN Verified 12/26/24 14:27 macrobid Allergy Intermediate Hives Uncoded 12/26/24 13:38 NSAIDS AdvReac Unknown GI upset Uncoded 12/26/24 13:38 Assessment & Plan Assessment & Plan (1) Bipolar 1 disorder with moderate rama: Status: Acute Code(s): F31.12 - Bipolar disorder, current episode manic without psychotic features, moderate (2) Closed fracture of shaft of fifth metacarpal bone of right hand: Status: Acute Code(s): S62.326A - Displaced fracture of shaft of fifth metacarpal bone, right hand, initial encounter for closed fracture Assessment and Plan: 1. Right 5th metacarpal fracture, nondisplaced Patient appears to be recovering well from her injury Patient is educated about the typical recovery course At this time, patient is educated that the likelihood of needing surgery is much lower now that she has a full week out from injury Patient is replaced into a splint due to mild swelling If patient is still admitted in a week we will place her into a cast If patient has been discharged at that time, we will see her in our office for cast placement Plan No further acute orthopedic intervention indicated until 1 week from now 01/02/25 pt agreeable to olanzapine and Depakote. Required Haldol and Valium the other day 01/03/2025 Continue Depakote and olanzapine encourage compliance patient has long history of brief compliance and then discontinuing with then long periods of until illness 01/05/2025 Patient does appear to be making an effort to be calm and cooperative as possible denying all symptoms not grossly euphoric concentration good thoughts linear. Patient had had hyponatremia previously and when on Tegretol will check electrolytes. Patient may be downplaying any psychotic symptoms which she states have been very chronic continue olanzapine Depakote 375 again check labs make sure sodium has normalized. 01/06: improved mood, stable. taking meds, sleeping well. labs reviewed, reassuring. continue current mgmt. 01/07: BUN continues uptrend, Na WNL. denies AH or negative thoughts. slept well fluid restriction in place. continue current mgmt otherwise. 01/08: BUN and Na stable. on fluid restriction, would like to come off. no overt psychosis. pleasant, cooperative. continue current mgmt. 01/09 pt completed 3 days of fluid restrictions per nephrology. Will d/c fluid restriction, monitor Sodium in 2 days. She presents as less labile, no overt temple or paranoid delusions. taking medications as prescribed. may need cast while on the unit per Ortho. 01/10 more stable psychiatrically. hyponatremia today 132 did complete fluid restriction x 3 days and salt tablets x 4 doses BID per nephrology. will recheck tomorrow. 01/11 continue tx. improved sodium today 134. 01/12 continue tx. continue to monitor Sodium. off fluid restriction per nephrology. 01/13 continue tx. ordered BMP for 01/14- monitor sodium. 01/14/25: Social, visible, hyperverbal, but pleasant and cooperative. Lots of questions related to med and diagnoses. Denies safety concern. Somewhat intrusive. Sodium 136 WNL. Elevated BUN 01/15/25: Discussed with patient regarding lab results. Mood is calm, have good visit with her daughter yesterday. No behavior issues in the she is hyper verbal and could be intrusive symptoms. No safety concerns. No appetite or sleep issues. 01/16 continue tx. will increase depakote to 500mg po qhs. check sodium tomorrow. she is now off fluid restriction. 01/17 continue tx. bmp ordered for tomorrow. 01/18 continue tx. family meeting tomorrow. 01/19 continue tx. Reason for continued inpatient stay Substantial Risk for: inability to function Time Spent With Patient Time: Total time managing care of this patient today ____ minutes.
[2025-01-19 20:00] VITALS: BP 138/63; PULSE 86; RESP 18; TEMP 36.8; O2SAT 97
[2025-01-19] MEDS: Divalproex Sodium Sprinkles 125 MG CAP.DR.SPR 500 MG PO (20:13)
[2025-01-20 08:00] VITALS: BP 121/74; PULSE 64; RESP 16; TEMP 2.3; TEMP 36.2; O2SAT 100
[2025-01-20] MEDS: Aspirin Enteric Coated 81 MG TABLET.DR PO (08:56)
--- NOTE | 2025-01-20 14:19 | HO.PSYCHPN ---
Subjective Subjective Date of Service: 01/20/25 Reason For Visit: Mixed rama agitation Subjective Notes: Conditional Voluntary Interim History: Pt sleeping well. She is less intrusive, taking medications as prescribed. No overt paranoia or pentecostal delusions. She reports leg cramps at night. We discussed starting magnesium at night. increase olanzapine to 7.5mg po qhs. Review of Systems Review of Systems Denies any shortness of breath, chest pain, dizziness, lightheadedness, abdominal pain or discomfort, nausea vomiting or diarrhea Yes all other systems are reviewed and are negative Mental Status Exam Mental Status Exam Narrative: Appearance: NAD quite bright behavior: overly friendly Psychomotor: no agitation or retardation noted Speech: clear, not pressured, spontaneous TP: generally linear and logical, tangential, hyperverbal. TC: WNL Mood ?good Affect: non-labile, calm, normo-intense SI: none expressed HI: none expressed VH/AH: none expressed Insight/judgment: impaired x 2. memory/cog: alert, oriented x 3. Diagnostics Vital Signs (24Hr): Vital Signs - 24 hr 01/19/25 20:00 01/20/25 08:00 Temperature 98.2 F 36.2 F L Pulse Rate 86 64 Respiratory Rate 18 16 Blood Pressure 138/63 121/74 Pulse Oximetry 97 100 Oxygen Delivery Method Room Air Room Air BMI result Body Mass Index 24.2 Labs 12/30/24 16:25 01/18/25 07:53 Imaging Radiology Impressions: ITS Impressions Hand X-Ray 01/02/25 10:46 IMPRESSION: Comminuted nondisplaced fracture of the 5th metacarpal shaft. Electronically signed by: Emery Concepcion MD 01/02/2025 11:25 AM EDT RP Hand X-Ray 01/09/25 11:10 IMPRESSION: Comminuted nondisplaced fracture fifth metacarpal diaphysis without change. Electronically signed by: Gordon Victor MD 01/09/2025 11:22 AM EDT Medications Medications Current Medications Acetaminophen (Acetaminophen 325 Mg Tablet) 650 mg PO Q6H PRN PRN Reason: Headache/Pain, Scale 1-10 Last Admin: 01/20/25 13:42 Dose: 650 mg Al Hydroxide/Mg Hydroxide (Magnesium Hydrox/Alum Hydrox 30 Ml Oral.Susp) 30 ml PO Q6H PRN PRN Reason: Heartburn/Nausea Last Admin: 01/01/25 20:01 Dose: 30 ml Aspirin (Aspirin Enteric Coated 81 Mg Tablet.) 81 mg PO DAILY [facility] Last Admin: 01/20/25 08:56 Dose: 81 mg Clonazepam (Clonazepam 0.5 Mg Tablet) 0.5 mg PO DAILY PRN PRN Reason: Anxiety Last Admin: 01/19/25 20:59 Dose: 0.5 mg Cyclobenzaprine HCl (Cyclobenzaprine Hcl 5 Mg Tablet) 5 mg PO TID PRN PRN Reason: Muscle Spasm Last Admin: 01/20/25 09:05 Dose: 5 mg Divalproex Sodium (Divalproex Sodium Sprinkles 125 Mg Cap.) 500 mg PO BEDTIME [facility] Last Admin: 01/19/25 20:13 Dose: 500 mg Famotidine (Famotidine 20 Mg Tablet) 20 mg PO DAILY [facility] Last Admin: 01/20/25 08:57 Dose: 20 mg Fluticasone Propionate (Fluticasone Propionate Nasal 16 Gm [place]) 1 spray NOSTRIL-B DAILY [facility] Last Admin: 01/20/25 10:56 Dose: 1 spray Folic Acid (Folic Acid 1 Mg Tablet) 1 mg PO DAILY [facility] Last Admin: 01/20/25 08:57 Dose: 1 mg Losartan Potassium (Losartan Potassium 25 Mg Tablet) 25 mg PO DAILY [facility]; Protocol Last Admin: 01/20/25 08:56 Dose: 25 mg Magnesium Hydroxide (Milk Of Magnesia 30 Ml Oral.Susp) 30 ml PO DAILY PRN PRN Reason: Constipation Magnesium Oxide (Magnesium Oxide 400 Mg Tablet) 400 mg PO BEDTIME [facility] Nicotine Polacrilex (Nicotine Polacrilex 2 Mg Gum) 4 mg BUCCAL Q2H PRN PRN Reason: Nicotine Cravings Last Admin: 01/20/25 13:42 Dose: 4 mg Olanzapine (Olanzapine 5 Mg Tablet) 5 mg PO Q6H PRN PRN Reason: agitation Last Admin: 01/17/25 22:33 Dose: 5 mg Olanzapine (Olanzapine 7.5 Mg Tablet) 7.5 mg PO BEDTIME [facility] Thiamine HCl (Thiamine Hcl 100 Mg Tablet) 100 mg PO DAILY [facility] Last Admin: 01/20/25 08:57 Dose: 100 mg Trazodone HCl (Trazodone Hcl 50 Mg Tablet) 50 mg PO BEDTIME MRX1 PRN PRN Reason: Insomnia Last Admin: 01/19/25 20:21 Dose: 50 mg Vitamin D (Cholecalciferol (Vitamin D3) 25 Mcg Tablet) 25 mcg PO DAILY [facility] Last Admin: 01/20/25 08:57 Dose: 25 mcg Allergies Allergies Allergy/AdvReac Type Severity Reaction Status Date / Time Penicillins (PENICILLINS) Allergy Severe HIVES Verified 12/26/24 14:27 cephalexin (Keflex) Allergy Unknown unknown Verified 12/26/24 14:27 Sulfa (Sulfonamide Allergy Unknown hives Verified 12/26/24 14:27 Antibiotics) morphine (MORPHINE) AdvReac Unknown ITCHY Verified 12/26/24 14:27 perflutren (From DEFINITY) AdvReac Unknown CHEST PAIN Verified 12/26/24 14:27 macrobid Allergy Intermediate Hives Uncoded 12/26/24 13:38 NSAIDS AdvReac Unknown GI upset Uncoded 12/26/24 13:38 Assessment & Plan Assessment & Plan (1) Bipolar 1 disorder with moderate rama: Status: Acute Code(s): F31.12 - Bipolar disorder, current episode manic without psychotic features, moderate (2) Closed fracture of shaft of fifth metacarpal bone of right hand: Status: Acute Code(s): S62.326A - Displaced fracture of shaft of fifth metacarpal bone, right hand, initial encounter for closed fracture Assessment and Plan: 1. Right 5th metacarpal fracture, nondisplaced Patient appears to be recovering well from her injury Patient is educated about the typical recovery course At this time, patient is educated that the likelihood of needing surgery is much lower now that she has a full week out from injury Patient is replaced into a splint due to mild swelling If patient is still admitted in a week we will place her into a cast If patient has been discharged at that time, we will see her in our office for cast placement Plan No further acute orthopedic intervention indicated until 1 week from now 01/02/25 pt agreeable to olanzapine and Depakote. Required Haldol and Valium the other day 01/03/2025 Continue Depakote and olanzapine encourage compliance patient has long history of brief compliance and then discontinuing with then long periods of until illness 01/05/2025 Patient does appear to be making an effort to be calm and cooperative as possible denying all symptoms not grossly euphoric concentration good thoughts linear. Patient had had hyponatremia previously and when on Tegretol will check electrolytes. Patient may be downplaying any psychotic symptoms which she states have been very chronic continue olanzapine Depakote 375 again check labs make sure sodium has normalized. 01/06: improved mood, stable. taking meds, sleeping well. labs reviewed, reassuring. continue current mgmt. 01/07: BUN continues uptrend, Na WNL. denies AH or negative thoughts. slept well fluid restriction in place. continue current mgmt otherwise. 01/08: BUN and Na stable. on fluid restriction, would like to come off. no overt psychosis. pleasant, cooperative. continue current mgmt. 01/09 pt completed 3 days of fluid restrictions per nephrology. Will d/c fluid restriction, monitor Sodium in 2 days. She presents as less labile, no overt pentecostal or paranoid delusions. taking medications as prescribed. may need cast while on the unit per Ortho. 01/10 more stable psychiatrically. hyponatremia today 132 did complete fluid restriction x 3 days and salt tablets x 4 doses BID per nephrology. will recheck tomorrow. 01/11 continue tx. improved sodium today 134. 01/12 continue tx. continue to monitor Sodium. off fluid restriction per nephrology. 01/13 continue tx. ordered BMP for 01/14- monitor sodium. 01/14/25: Social, visible, hyperverbal, but pleasant and cooperative. Lots of questions related to med and diagnoses. Denies safety concern. Somewhat intrusive. Sodium 136 WNL. Elevated BUN 01/15/25: Discussed with patient regarding lab results. Mood is calm, have good visit with her daughter yesterday. No behavior issues in the she is hyper verbal and could be intrusive symptoms. No safety concerns. No appetite or sleep issues. 01/16 continue tx. will increase depakote to 500mg po qhs. check sodium tomorrow. she is now off fluid restriction. 01/17 continue tx. bmp ordered for tomorrow. 01/18 continue tx. family meeting tomorrow. 01/19 continue tx. 01/20 increase olanzapine 7.5mg po qhs, continue depakote 500mg po qhs. Add magnesium oxide 400mg po qhs for leg cramps at night. Reason for continued inpatient stay Substantial Risk for: inability to function Time Spent With Patient Time: Total time managing care of this patient today ____ minutes.
[2025-01-20 20:00] VITALS: BP 126/60; PULSE 63; RESP 18; TEMP 36.4; O2SAT 99
[2025-01-20] MEDS: OLANZapine 7.5 MG TABLET PO (20:41)
[2025-01-20] MEDS: Divalproex Sodium Sprinkles 125 MG CAP.DR.SPR 500 MG PO (20:42)
[2025-01-21 07:56] VITALS: BP 139/69; PULSE 65; RESP 18; TEMP 36.7; O2SAT 97
[2025-01-21] MEDS: Aspirin Enteric Coated 81 MG TABLET.DR PO (08:10)
--- NOTE | 2025-01-21 18:44 | P.PNPSI_ITS ---
Subjective Subjective Date of Service: 01/21/25 Reason For Visit: Mixed rama agitation Interim History: Patient seen in sensory room. She was cooperative, circumstantial in her processing, full range affect with some slight expansion. She said she's feeling better, tolerating the combination of olanzapine and Depakote, and states that she thinks the olanzapine is helping make voices go away. She may be due for a Depakote level, which we discussed. She denies SI/HI/AVH, and states that she does not have any concerns about her care. Medication Compliance: Yes Side effects from medications: No Attending Groups: Yes Review of Systems Acute medical concerns: No Medical Review of Systems: unchanged Mental Status Exam Mental Status Exam Narrative: Appearance: casual attire, adequate grooming and hygiene Behavior: cooperative with encounter Orientation: alert, generally oriented to person, place, time Memory: grossly intact to recent/remote events Attention: able to attend to the encounter discussion Psychomotor Function: no agitation or slowing; no abnormal gestures or movements Speech: talkative Mood: okay Affect: appropriate to context, slight expansiveness Thought Process: circumstantial Thought Content: denies SI/HI Hallucinations: denies AVH delusions: none evinced Insight: mild impairment Judgment: mild impairment Impulsivity: none noted Diagnostics Vital Signs (24Hr): Vital Signs - 24 hr 01/20/25 20:00 01/21/25 07:56 Temperature 97.5 F 98.1 F Pulse Rate 63 65 Respiratory Rate 18 18 Blood Pressure 126/60 139/69 Pulse Oximetry 99 97 Oxygen Delivery Method Room Air Room Air BMI result Body Mass Index 24.2 Labs 12/30/24 16:25 01/18/25 07:53 Imaging Radiology Impressions: ITS Impressions Hand X-Ray 01/02/25 10:46 IMPRESSION: Comminuted nondisplaced fracture of the 5th metacarpal shaft. Electronically signed by: Emery Concepcion MD 01/02/2025 11:25 AM EDT RP Hand X-Ray 01/09/25 11:10 IMPRESSION: Comminuted nondisplaced fracture fifth metacarpal diaphysis without change. Electronically signed by: Gordon Victor MD 01/09/2025 11:22 AM EDT RP Medications Medications Current Medications Acetaminophen (Acetaminophen 325 Mg Tablet) 650 mg PO Q6H PRN PRN Reason: Headache/Pain, Scale 1-10 Last Admin: 01/20/25 13:42 Dose: 650 mg Al Hydroxide/Mg Hydroxide (Magnesium Hydrox/Alum Hydrox 30 Ml Oral.Susp) 30 ml PO Q6H PRN PRN Reason: Heartburn/Nausea Last Admin: 01/01/25 20:01 Dose: 30 ml Aspirin (Aspirin Enteric Coated 81 Mg Tablet.) 81 mg PO DAILY [facility] Last Admin: 01/21/25 08:10 Dose: 81 mg Clonazepam (Clonazepam 0.5 Mg Tablet) 0.5 mg PO DAILY PRN PRN Reason: Anxiety Last Admin: 01/20/25 20:48 Dose: 0.5 mg Cyclobenzaprine HCl (Cyclobenzaprine Hcl 5 Mg Tablet) 5 mg PO TID PRN PRN Reason: Muscle Spasm Last Admin: 01/21/25 04:42 Dose: 5 mg Divalproex Sodium (Divalproex Sodium Sprinkles 125 Mg Cap.) 500 mg PO BEDTIME [facility] Last Admin: 01/20/25 20:42 Dose: 500 mg Famotidine (Famotidine 20 Mg Tablet) 20 mg PO DAILY [facility] Last Admin: 01/21/25 08:10 Dose: 20 mg Fluticasone Propionate (Fluticasone Propionate Nasal 16 Gm [place]) 1 spray NOSTRIL-B DAILY [facility] Last Admin: 01/21/25 08:12 Dose: 1 spray Folic Acid (Folic Acid 1 Mg Tablet) 1 mg PO DAILY [facility] Last Admin: 01/21/25 08:10 Dose: 1 mg Losartan Potassium (Losartan Potassium 25 Mg Tablet) 25 mg PO DAILY [facility]; Protocol Last Admin: 01/21/25 08:10 Dose: 25 mg Magnesium Hydroxide (Milk Of Magnesia 30 Ml Oral.Susp) 30 ml PO DAILY PRN PRN Reason: Constipation Magnesium Oxide (Magnesium Oxide 400 Mg Tablet) 400 mg PO BEDTIME [facility] Last Admin: 01/20/25 20:41 Dose: 400 mg Nicotine Polacrilex (Nicotine Polacrilex 2 Mg Gum) 4 mg BUCCAL Q2H PRN PRN Reason: Nicotine Cravings Last Admin: 01/21/25 15:19 Dose: 4 mg Olanzapine (Olanzapine 5 Mg Tablet) 5 mg PO Q6H PRN PRN Reason: agitation Last Admin: 07/15/25 22:33 Dose: 5 mg Olanzapine (Olanzapine 7.5 Mg Tablet) 7.5 mg PO BEDTIME [facility] Last Admin: 01/20/25 20:41 Dose: 7.5 mg Thiamine HCl (Thiamine Hcl 100 Mg Tablet) 100 mg PO DAILY [facility] Last Admin: 01/21/25 08:10 Dose: 100 mg Trazodone HCl (Trazodone Hcl 50 Mg Tablet) 50 mg PO BEDTIME [id number] PRN PRN Reason: Insomnia Last Admin: 01/20/25 20:41 Dose: 50 mg Vitamin D (Cholecalciferol (Vitamin D3) 25 Mcg Tablet) 25 mcg PO DAILY [facility] Last Admin: 01/21/25 08:10 Dose: 25 mcg Allergies Allergies Allergy/AdvReac Type Severity Reaction Status Date / Time Penicillins (PENICILLINS) Allergy Severe HIVES Verified 12/26/24 14:27 cephalexin (Keflex) Allergy Unknown unknown Verified 12/26/24 14:27 Sulfa (Sulfonamide Allergy Unknown hives Verified 12/26/24 14:27 Antibiotics) morphine (MORPHINE) AdvReac Unknown ITCHY Verified 12/26/24 14:27 perflutren (From DEFINITY) AdvReac Unknown CHEST PAIN Verified 12/26/24 14:27 macrobid Allergy Intermediate Hives Uncoded 12/26/24 13:38 NSAIDS AdvReac Unknown GI upset Uncoded 12/26/24 13:38 Assessment & Plan Assessment & Plan (1) Bipolar 1 disorder with moderate rama: Status: Acute Code(s): F31.12 - Bipolar disorder, current episode manic without psychotic features, moderate (2) Closed fracture of shaft of fifth metacarpal bone of right hand: Status: Acute Code(s): S62.326A - Displaced fracture of shaft of fifth metacarpal bone, right hand, initial encounter for closed fracture Assessment and Plan: 1. Right 5th metacarpal fracture, nondisplaced Patient appears to be recovering well from her injury Patient is educated about the typical recovery course At this time, patient is educated that the likelihood of needing surgery is much lower now that she has a full week out from injury Patient is replaced into a splint due to mild swelling If patient is still admitted in a week we will place her into a cast If patient has been discharged at that time, we will see her in our office for cast placement Plan No further acute orthopedic intervention indicated until 1 week from now 01/02/25 pt agreeable to olanzapine and Depakote. Required Haldol and Valium the other day 01/03/2025 Continue Depakote and olanzapine encourage compliance patient has long history of brief compliance and then discontinuing with then long periods of until illness 01/05/2025 Patient does appear to be making an effort to be calm and cooperative as possible denying all symptoms not grossly euphoric concentration good thoughts linear. Patient had had hyponatremia previously and when on Tegretol will check electrolytes. Patient may be downplaying any psychotic symptoms which she states have been very chronic continue olanzapine Depakote 375 again check labs make sure sodium has normalized. 01/06: improved mood, stable. taking meds, sleeping well. labs reviewed, reassuring. continue current mgmt. 01/07: BUN continues uptrend, Na WNL. denies AH or negative thoughts. slept well fluid restriction in place. continue current mgmt otherwise. 01/08: BUN and Na stable. on fluid restriction, would like to come off. no overt psychosis. pleasant, cooperative. continue current mgmt. 01/09 pt completed 3 days of fluid restrictions per nephrology. Will d/c fluid restriction, monitor Sodium in 2 days. She presents as less labile, no overt taoism or paranoid delusions. taking medications as prescribed. may need cast while on the unit per Ortho. 01/10 more stable psychiatrically. hyponatremia today 132 did complete fluid restriction x 3 days and salt tablets x 4 doses BID per nephrology. will recheck tomorrow. 01/11 continue tx. improved sodium today 134. 01/12 continue tx. continue to monitor Sodium. off fluid restriction per nephrology. 01/13 continue tx. ordered BMP for 01/14- monitor sodium. 01/14/25: Social, visible, hyperverbal, but pleasant and cooperative. Lots of questions related to med and diagnoses. Denies safety concern. Somewhat intrusive. Sodium 136 WNL. Elevated BUN 01/15/25: Discussed with patient regarding lab results. Mood is calm, have good visit with her daughter yesterday. No behavior issues in the she is hyper verbal and could be intrusive symptoms. No safety concerns. No appetite or sleep issues. 01/16 continue tx. will increase depakote to 500mg po qhs. check sodium tomorrow. she is now off fluid restriction. 01/17 continue tx. bmp ordered for tomorrow. 01/18 continue tx. family meeting tomorrow. 01/19 continue tx. 01/20 increase olanzapine 7.5mg po qhs, continue depakote 500mg po qhs. Add magnesium oxide 400mg po qhs for leg cramps at night. 01/21: consider VPA level Patient educated on: diagnosis and medication risk/benefits Informed Consent: understands Reason for continued inpatient stay Substantial Risk for: inability to function Time Spent With Patient Time: Total time managing care of this patient today ____ minutes.
[2025-01-21 20:00] VITALS: BP 138/77; PULSE 82; RESP 18; TEMP 36.4; O2SAT 99
[2025-01-21] MEDS: Divalproex Sodium Sprinkles 125 MG CAP.DR.SPR 500 MG PO (20:34)
[2025-01-21] MEDS: OLANZapine 7.5 MG TABLET PO (20:35)
[2025-01-22 07:55] VITALS: BP 128/64; PULSE 67; RESP 18; TEMP 36.3; O2SAT 96
[2025-01-22] MEDS: Aspirin Enteric Coated 81 MG TABLET.DR PO (08:04)
--- NOTE | 2025-01-22 16:55 | P.PNPSI_ITS ---
Subjective Subjective Date of Service: 01/22/25 Reason For Visit: Mixed rama agitation Interim History: Patient has been in adequate behavior control today. Nursing staff observed that patient has been a bit expansive in affect, however, also continuing to stabilize in this regard. Seen in the sensory room, she was cooperative with the encounter. Less talkative today. She voiced interest in the plan and timing for her left wrist/hand cast to be removed. [facility] was unable to find this detail, and so patient was encouraged to discuss this with her primary team further tomorrow. Otherwise reports that she is doing well, described mood as pretty good, and states that she slept well last night. Denies side effects of medications. Denies SI/HI/AVH. Medication Compliance: Yes Side effects from medications: No Attending Groups: Yes Review of Systems Acute medical concerns: No Medical Review of Systems: unchanged Mental Status Exam Mental Status Exam Narrative: Appearance: casual attire, adequate grooming and hygiene Behavior: cooperative with encounter Orientation: alert, generally oriented to person, place, time Memory: grossly intact to recent/remote events Attention: able to attend to the encounter discussion Psychomotor Function: no agitation or slowing; no abnormal gestures or movements Speech: normal rate, tone, volume Mood: okay Affect: appropriate to context Thought Process: coherent Thought Content: denies SI/HI Hallucinations: denies AVH delusions: none evinced Insight: mild impairment Judgment: mild impairment Impulsivity: none noted Diagnostics Vital Signs (24Hr): Vital Signs - 24 hr 01/21/25 20:00 01/22/25 07:55 Temperature 97.5 F 97.3 F Pulse Rate 82 67 Respiratory Rate 18 18 Blood Pressure 138/77 128/64 Pulse Oximetry 99 96 Oxygen Delivery Method Room Air Room Air BMI result Body Mass Index 24.2 Labs 12/30/24 16:25 01/18/25 07:53 Imaging Radiology Impressions: ITS Impressions Hand X-Ray 01/02/25 10:46 IMPRESSION: Comminuted nondisplaced fracture of the 5th metacarpal shaft. Electronically signed by: Emery Concepcion MD 01/02/2025 11:25 AM EDT Hand X-Ray 01/09/25 11:10 IMPRESSION: Comminuted nondisplaced fracture fifth metacarpal diaphysis without change. Electronically signed by: Gordon Victor MD 01/09/2025 11:22 AM EDT RP Medications Medications Current Medications Acetaminophen (Acetaminophen 325 Mg Tablet) 650 mg PO Q6H PRN PRN Reason: Headache/Pain, Scale 1-10 Last Admin: 01/20/25 13:42 Dose: 650 mg Al Hydroxide/Mg Hydroxide (Magnesium Hydrox/Alum Hydrox 30 Ml Oral.Susp) 30 ml PO Q6H PRN PRN Reason: Heartburn/Nausea Last Admin: 01/01/25 20:01 Dose: 30 ml Aspirin (Aspirin Enteric Coated 81 Mg Tablet.Dr) 81 mg PO DAILY [facility] Last Admin: 01/22/25 08:04 Dose: 81 mg Clonazepam (Clonazepam 0.5 Mg Tablet) 0.5 mg PO DAILY PRN PRN Reason: Anxiety Last Admin: 01/21/25 20:35 Dose: 0.5 mg Cyclobenzaprine HCl (Cyclobenzaprine Hcl 5 Mg Tablet) 5 mg PO TID PRN PRN Reason: Muscle Spasm Last Admin: 01/22/25 00:50 Dose: 5 mg Divalproex Sodium (Divalproex Sodium Sprinkles 125 Mg Cap.) 500 mg PO BEDTIME [facility] Last Admin: 01/21/25 20:34 Dose: 500 mg Famotidine (Famotidine 20 Mg Tablet) 20 mg PO DAILY [facility] Last Admin: 01/22/25 08:04 Dose: 20 mg Fluticasone Propionate (Fluticasone Propionate Nasal 16 Gm [place]) 1 spray NOSTRIL-B DAILY [facility] Last Admin: 01/22/25 08:05 Dose: 1 spray Folic Acid (Folic Acid 1 Mg Tablet) 1 mg PO DAILY [facility] Last Admin: 01/22/25 08:04 Dose: 1 mg Losartan Potassium (Losartan Potassium 25 Mg Tablet) 25 mg PO DAILY [facility]; Protocol Last Admin: 01/22/25 08:04 Dose: 25 mg Magnesium Hydroxide (Milk Of Magnesia 30 Ml Oral.Susp) 30 ml PO DAILY PRN PRN Reason: Constipation Magnesium Oxide (Magnesium Oxide 400 Mg Tablet) 400 mg PO BEDTIME [facility] Last Admin: 01/21/25 20:34 Dose: 400 mg Nicotine Polacrilex (Nicotine Polacrilex 2 Mg Gum) 4 mg BUCCAL Q2H PRN PRN Reason: Nicotine Cravings Last Admin: 01/22/25 14:46 Dose: 4 mg Olanzapine (Olanzapine 5 Mg Tablet) 5 mg PO Q6H PRN PRN Reason: agitation Last Admin: 01/17/25 22:33 Dose: 5 mg Olanzapine (Olanzapine 7.5 Mg Tablet) 7.5 mg PO BEDTIME [facility] Last Admin: 01/21/25 20:35 Dose: 7.5 mg Thiamine HCl (Thiamine Hcl 100 Mg Tablet) 100 mg PO DAILY [facility] Last Admin: 01/22/25 08:04 Dose: 100 mg Trazodone HCl (Trazodone Hcl 50 Mg Tablet) 50 mg PO BEDTIME MRX1 PRN PRN Reason: Insomnia Last Admin: 01/22/25 00:51 Dose: 50 mg Vitamin D (Cholecalciferol (Vitamin D3) 25 Mcg Tablet) 25 mcg PO DAILY [facility] Last Admin: 01/22/25 08:04 Dose: 25 mcg Allergies Allergies Allergy/AdvReac Type Severity Reaction Status Date / Time Penicillins (PENICILLINS) Allergy Severe HIVES Verified 12/26/24 14:27 cephalexin (Keflex) Allergy Unknown unknown Verified 12/26/24 14:27 Sulfa (Sulfonamide Allergy Unknown hives Verified 12/26/24 14:27 Antibiotics) morphine (MORPHINE) AdvReac Unknown ITCHY Verified 12/26/24 14:27 perflutren (From DEFINITY) AdvReac Unknown CHEST PAIN Verified 12/26/24 14:27 macrobid Allergy Intermediate Hives Uncoded 12/26/24 13:38 NSAIDS AdvReac Unknown GI upset Uncoded 12/26/24 13:38 Assessment & Plan Assessment & Plan (1) Bipolar 1 disorder with moderate rama: Status: Acute Code(s): F31.12 - Bipolar disorder, current episode manic without psychotic features, moderate (2) Closed fracture of shaft of fifth metacarpal bone of right hand: Status: Acute Code(s): S62.326A - Displaced fracture of shaft of fifth metacarpal bone, right hand, initial encounter for closed fracture Assessment and Plan: 1. Right 5th metacarpal fracture, nondisplaced Patient appears to be recovering well from her injury Patient is educated about the typical recovery course At this time, patient is educated that the likelihood of needing surgery is much lower now that she has a full week out from injury Patient is replaced into a splint due to mild swelling If patient is still admitted in a week we will place her into a cast If patient has been discharged at that time, we will see her in our office for cast placement Plan No further acute orthopedic intervention indicated until 1 week from now 01/02/25 pt agreeable to olanzapine and Depakote. Required Haldol and Valium the other day 01/03/2025 Continue Depakote and olanzapine encourage compliance patient has long history of brief compliance and then discontinuing with then long periods of until illness 01/05/2025 Patient does appear to be making an effort to be calm and cooperative as possible denying all symptoms not grossly euphoric concentration good thoughts linear. Patient had had hyponatremia previously and when on Tegretol will check electrolytes. Patient may be downplaying any psychotic symptoms which she states have been very chronic continue olanzapine Depakote 375 again check labs make sure sodium has normalized. 01/06: improved mood, stable. taking meds, sleeping well. labs reviewed, reassuring. continue current mgmt. 01/07: BUN continues uptrend, Na WNL. denies AH or negative thoughts. slept well fluid restriction in place. continue current mgmt otherwise. 01/08: BUN and Na stable. on fluid restriction, would like to come off. no overt psychosis. pleasant, cooperative. continue current mgmt. 01/09 pt completed 3 days of fluid restrictions per nephrology. Will d/c fluid restriction, monitor Sodium in 2 days. She presents as less labile, no overt mosque or paranoid delusions. taking medications as prescribed. may need cast while on the unit per Ortho. 01/10 more stable psychiatrically. hyponatremia today 132 did complete fluid restriction x 3 days and salt tablets x 4 doses BID per nephrology. will recheck tomorrow. 01/11 continue tx. improved sodium today 134. 01/12 continue tx. continue to monitor Sodium. off fluid restriction per nephrology. 01/13 continue tx. ordered BMP for 01/14- monitor sodium. 01/14/25: Social, visible, hyperverbal, but pleasant and cooperative. Lots of questions related to med and diagnoses. Denies safety concern. Somewhat intrusive. Sodium 136 WNL. Elevated BUN 01/15/25: Discussed with patient regarding lab results. Mood is calm, have good visit with her daughter yesterday. No behavior issues in the she is hyper verbal and could be intrusive symptoms. No safety concerns. No appetite or sleep issues. 01/16 continue tx. will increase depakote to 500mg po qhs. check sodium tomorrow. she is now off fluid restriction. 01/17 continue tx. bmp ordered for tomorrow. 01/18 continue tx. family meeting tomorrow. 01/19 continue tx. 01/20 increase olanzapine 7.5mg po qhs, continue depakote 500mg po qhs. Add magnesium oxide 400mg po qhs for leg cramps at night. 01/21: no change - somewhat expansive so considering med titration but will observe 01/22: better today; primary team may pursue VPA level prior to discharge; patient interested in f/u on cast removal as well Patient educated on: diagnosis and medication risk/benefits Informed Consent: understands Reason for continued inpatient stay Substantial Risk for: rapid decompensation Time Spent With Patient Time: Total time managing care of this patient today _25___ minutes.
[2025-01-22 20:00] VITALS: BP 139/82; PULSE 84; RESP 18; TEMP 36.3; O2SAT 98
[2025-01-22] MEDS: Divalproex Sodium Sprinkles 125 MG CAP.DR.SPR 500 MG PO (20:44)
[2025-01-22] MEDS: OLANZapine 7.5 MG TABLET PO (20:44)
[2025-01-23 08:00] VITALS: BP 143/72; PULSE 79; RESP 18; TEMP 36.2; O2SAT 100
--- NOTE | 2025-01-23 08:48 | HO.PSYCHPN ---
Subjective Subjective Date of Service: 01/23/25 Reason For Visit: Mixed rama agitation Subjective Notes: Conditional Voluntary Interim History: Pt slept through the night. She has been visible on the unit, social with peers. No overt psychosis or delusional content. reached out to Ortho, cast to be in place for 4 weeks, pt to follow up OP. denies any other concerns. Medication Compliance: Yes Side effects from medications: No Diagnostics Vital Signs (24Hr): Vital Signs - 24 hr 01/22/25 20:00 Temperature 97.3 F Pulse Rate 84 Respiratory Rate 18 Blood Pressure 139/82 Pulse Oximetry 98 Oxygen Delivery Method Room Air BMI result Body Mass Index 24.2 Labs 12/30/24 16:25 01/24/25 10:02 Imaging Radiology Impressions: ITS Impressions Hand X-Ray 01/02/25 10:46 IMPRESSION: Comminuted nondisplaced fracture of the 5th metacarpal shaft. Electronically signed by: Emery Concepcion MD 01/02/2025 11:25 AM EDT RP Hand X-Ray 01/09/25 11:10 IMPRESSION: Comminuted nondisplaced fracture fifth metacarpal diaphysis without change. Electronically signed by: Gordon Victor MD 01/09/2025 11:22 AM EDT RP Medications Medications Current Medications Acetaminophen (Acetaminophen 325 Mg Tablet) 650 mg PO Q6H PRN PRN Reason: Headache/Pain, Scale 1-10 Last Admin: 01/20/25 13:42 Dose: 650 mg Al Hydroxide/Mg Hydroxide (Magnesium Hydrox/Alum Hydrox 30 Ml Oral.Susp) 30 ml PO Q6H PRN PRN Reason: Heartburn/Nausea Last Admin: 01/01/25 20:01 Dose: 30 ml Aspirin (Aspirin Enteric Coated 81 Mg Tablet.Dr) 81 mg PO DAILY FELA Last Admin: 01/22/25 08:04 Dose: 81 mg Clonazepam (Clonazepam 0.5 Mg Tablet) 0.5 mg PO DAILY PRN PRN Reason: Anxiety Last Admin: 01/22/25 20:44 Dose: 0.5 mg Cyclobenzaprine HCl (Cyclobenzaprine Hcl 5 Mg Tablet) 5 mg PO TID PRN PRN Reason: Muscle Spasm Last Admin: 01/23/25 05:03 Dose: 5 mg Divalproex Sodium (Divalproex Sodium Sprinkles 125 Mg ) 500 mg PO BEDTIME [facility] Last Admin: 01/22/25 20:44 Dose: 500 mg Famotidine (Famotidine 20 Mg Tablet) 20 mg PO DAILY [facility] Last Admin: 01/22/25 08:04 Dose: 20 mg Fluticasone Propionate (Fluticasone Propionate Nasal 16 Gm [place]) 1 spray NOSTRIL-B DAILY [facility] Last Admin: 01/22/25 08:05 Dose: 1 spray Folic Acid (Folic Acid 1 Mg Tablet) 1 mg PO DAILY [facility] Last Admin: 01/22/25 08:04 Dose: 1 mg Losartan Potassium (Losartan Potassium 25 Mg Tablet) 25 mg PO DAILY [facility]; Protocol Last Admin: 01/22/25 08:04 Dose: 25 mg Magnesium Hydroxide (Milk Of Magnesia 30 Ml Oral.Susp) 30 ml PO DAILY PRN PRN Reason: Constipation Magnesium Oxide (Magnesium Oxide 400 Mg Tablet) 400 mg PO BEDTIME [facility] Last Admin: 01/22/25 20:44 Dose: 400 mg Nicotine Polacrilex (Nicotine Polacrilex 2 Mg Gum) 4 mg BUCCAL Q2H PRN PRN Reason: Nicotine Cravings Last Admin: 01/22/25 20:44 Dose: 4 mg Olanzapine (Olanzapine 5 Mg Tablet) 5 mg PO Q6H PRN PRN Reason: agitation Last Admin: 01/17/25 22:33 Dose: 5 mg Olanzapine (Olanzapine 7.5 Mg Tablet) 7.5 mg PO BEDTIME [facility] Last Admin: 01/22/25 20:44 Dose: 7.5 mg Thiamine HCl (Thiamine Hcl 100 Mg Tablet) 100 mg PO DAILY [facility] Last Admin: 01/22/25 08:04 Dose: 100 mg Trazodone HCl (Trazodone Hcl 50 Mg Tablet) 50 mg PO BEDTIME MRX1 PRN PRN Reason: Insomnia Last Admin: 01/22/25 20:44 Dose: 50 mg Vitamin D (Cholecalciferol (Vitamin D3) 25 Mcg Tablet) 25 mcg PO DAILY [facility] Last Admin: 01/22/25 08:04 Dose: 25 mcg Allergies Allergies Allergy/AdvReac Type Severity Reaction Status Date / Time Penicillins (PENICILLINS) Allergy Severe HIVES Verified 12/26/24 14:27 cephalexin (Keflex) Allergy Unknown unknown Verified 12/26/24 14:27 Sulfa (Sulfonamide Allergy Unknown hives Verified 12/26/24 14:27 Antibiotics) morphine (MORPHINE) AdvReac Unknown ITCHY Verified 12/26/24 14:27 perflutren (From DEFINITY) AdvReac Unknown CHEST PAIN Verified 12/26/24 14:27 macrobid Allergy Intermediate Hives Uncoded 12/26/24 13:38 NSAIDS AdvReac Unknown GI upset Uncoded 12/26/24 13:38 Assessment & Plan Assessment & Plan (1) Bipolar 1 disorder with moderate rama: Status: Acute Code(s): F31.12 - Bipolar disorder, current episode manic without psychotic features, moderate (2) Closed fracture of shaft of fifth metacarpal bone of right hand: Status: Acute Code(s): S62.326A - Displaced fracture of shaft of fifth metacarpal bone, right hand, initial encounter for closed fracture Assessment and Plan: 1. Right 5th metacarpal fracture, nondisplaced Patient appears to be recovering well from her injury Patient is educated about the typical recovery course At this time, patient is educated that the likelihood of needing surgery is much lower now that she has a full week out from injury Patient is replaced into a splint due to mild swelling If patient is still admitted in a week we will place her into a cast If patient has been discharged at that time, we will see her in our office for cast placement Plan No further acute orthopedic intervention indicated until 1 week from now 01/02/25 pt agreeable to olanzapine and Depakote. Required Haldol and Valium the other day 01/03/2025 Continue Depakote and olanzapine encourage compliance patient has long history of brief compliance and then discontinuing with then long periods of until illness 01/05/2025 Patient does appear to be making an effort to be calm and cooperative as possible denying all symptoms not grossly euphoric concentration good thoughts linear. Patient had had hyponatremia previously and when on Tegretol will check electrolytes. Patient may be downplaying any psychotic symptoms which she states have been very chronic continue olanzapine Depakote 375 again check labs make sure sodium has normalized. 01/06: improved mood, stable. taking meds, sleeping well. labs reviewed, reassuring. continue current mgmt. 01/07: BUN continues uptrend, Na WNL. denies AH or negative thoughts. slept well fluid restriction in place. continue current mgmt otherwise. 01/08: BUN and Na stable. on fluid restriction, would like to come off. no overt psychosis. pleasant, cooperative. continue current mgmt. 01/09 pt completed 3 days of fluid restrictions per nephrology. Will d/c fluid restriction, monitor Sodium in 2 days. She presents as less labile, no overt yarsani or paranoid delusions. taking medications as prescribed. may need cast while on the unit per Ortho. 01/10 more stable psychiatrically. hyponatremia today 132 did complete fluid restriction x 3 days and salt tablets x 4 doses BID per nephrology. will recheck tomorrow. 01/11 continue tx. improved sodium today 134. 01/12 continue tx. continue to monitor Sodium. off fluid restriction per nephrology. 01/13 continue tx. ordered BMP for 01/14- monitor sodium. 01/14/25: Social, visible, hyperverbal, but pleasant and cooperative. Lots of questions related to med and diagnoses. Denies safety concern. Somewhat intrusive. Sodium 136 WNL. Elevated BUN 01/15/25: Discussed with patient regarding lab results. Mood is calm, have good visit with her daughter yesterday. No behavior issues in the she is hyper verbal and could be intrusive symptoms. No safety concerns. No appetite or sleep issues. 01/16 continue tx. will increase depakote to 500mg po qhs. check sodium tomorrow. she is now off fluid restriction. 01/17 continue tx. bmp ordered for tomorrow. 01/18 continue tx. family meeting tomorrow. 01/19 continue tx. 01/20 increase olanzapine 7.5mg po qhs, continue depakote 500mg po qhs. Add magnesium oxide 400mg po qhs for leg cramps at night. 01/21: no change - somewhat expansive so considering med titration but will observe 01/22: better today; primary team may pursue VPA level prior to discharge; patient interested in f/u on cast removal as well 01/23 continue tx. plan to d/c on 01/24 Reason for continued inpatient stay Substantial Risk for: inability to function Time Spent With Patient Time: Total time managing care of this patient today ____ minutes.
[2025-01-23 08:52] VITALS: BP 143/72
[2025-01-23] MEDS: Aspirin Enteric Coated 81 MG TABLET.DR PO (08:53)
[2025-01-23 20:00] VITALS: BP 145/85; PULSE 86; RESP 17; TEMP 36.4; O2SAT 98
[2025-01-23] MEDS: OLANZapine 7.5 MG TABLET PO (20:09)
[2025-01-23] MEDS: Divalproex Sodium Sprinkles 125 MG CAP.DR.SPR 500 MG PO (20:09)
[2025-01-24 07:52] VITALS: BP 149/91; PULSE 86; RESP 16; TEMP 2.3; TEMP 36.1; O2SAT 95
[2025-01-24] MEDS: Aspirin Enteric Coated 81 MG TABLET.DR PO (08:10)
[2025-01-24 10:24] LABS: Anion Gap 14 (12-20); Blood Urea Nitrogen 22 mg/dL (9-16); Calcium 9.3 mg/dL (8.4-10.2); Carbon Dioxide 25 mmol/L (22-29); Chloride 98 mmol/L (96-108); Creatinine Clr Calc Pharmacy 43.6; Estimated Glomerular Filt Rate 52; Potassium 4.7 mmol/L (3.3-5.1); Sodium 132 mmol/L (135-145)
--- NOTE | 2025-01-24 11:07 | P.DS_ITS ---
DS: Providers Provider Date of Service: 01/24/25 Date of admission: 12/28/24 16:17 Date of discharge: 01/24/25 Primary care physician: Unknown Physician Consults: 12/29/24 11:27 Consult to Hospitalist Routine Comment: please see alesia Consulting Provider: Birdie Sanchez Reason For Exam: c/o flank abd pain hx ashd see note from med floor 01/02/25 10:02 Consult to Orthopedics Routine Consulting Provider: Gabriele Chance Reason for consultation: f/u hand injury not using splint?advise and tx 01/02/25 10:33 Consult to Orthopedics Routine Consulting Provider: [facility] [facility] Reason for consultation: Right ashok metacarpal fractute 01/05/25 21:58 Consult to Hospitalist Routine Comment: Consulting Provider: [facility] Reason For Exam: hyponatremia 01/05/25 22:52 Consult to Nephrology Routine Consulting Provider: [facility] Reason for consultation: hyponatremia Has provider been notified: No 01/05/25 23:43 Consult to Nephrology Stat Consulting Provider: [facility] Reason for consultation: worsening hyponatremia Has provider been notified: No DS: Diagnosis Discharge Diagnosis (1) Bipolar 1 disorder with moderate rama: Status: Acute (2) Closed fracture of shaft of fifth metacarpal bone of right hand: Status: Acute DS: Medications Discharge Medications Home Medications: Previous Rx's ?Medication ?Instructions ?Recorded aspirin 81 mg tablet,delayed 81 mg PO DAILY #30 tabs 0 01/24/25 release cholecalciferol (vitamin D3) 25 25 mcg PO DAILY #30 ta bs 01/24/25 mcg (1,000 unit) tablet cyclobenzaprine 5 mg tablet 5 mg PO BID PRN [place] sm #60 01/24/25 tabs divalproex 125 mg capsule,delayed 500 mg (4 x 125 mg) PO BEDTIME 01/24/25 release sprinkle #120 caps famotidine 20 mg tablet 20 mg PO DAILY #30 tabs 01/04 08/30 fluticasone propionate 50 1 spray intranasal DAILY #16 grams 01/24/25 mcg/actuation nasal spray,suspension folic acid 1 mg tablet 1 mg PO DAILY #30 tabs 01/24 losartan 25 mg tablet 25 mg PO DAILY #30 tabs 01/04 08/30 magnesium oxide 400 mg (241.3 mg 400 mg PO BEDTIME #30 tabs 01/24/25 magnesium) tablet olanzapine 7.5 mg tablet 7.5 mg PO BEDTIME #30 tabs 0 01/24/25 thiamine mononitrate (vit B1) 100 100 mg PO DAILY #30 tabs 01/24/25 mg tablet trazodone 50 mg tablet 50 mg PO BEDTIME PRN [place] a #30 01/24/25 tabs Mental Status Exam Mental Status Exam Narrative: Appearance: casual attire, adequate grooming and hygiene Behavior: cooperative with encounter Orientation: alert, generally oriented to person, place, time Memory: grossly intact to recent/remote events Attention: able to attend to the encounter discussion Psychomotor Function: no agitation or slowing; no abnormal gestures or movements Speech: normal rate, tone, volume Mood: okay Affect: appropriate to context Thought Process: coherent Thought Content: denies SI/HI Hallucinations: denies AVH delusions: none evinced Insight: mild impairment Judgment: mild impairment Impulsivity: none noted Data Data Completed and Pending Completed studies during hospitalization [Text1]: 01/18/25 01/24/25 07:53 10:02 Sodium 135 132 L Potassium 4.5 4.7 Chloride 98 98 Carbon Dioxide 29 25 Anion Gap 13 14 BUN 26 H 22 H Creatinine 1.03 1.05 Estim Creat Clear Calc 44.5 43.6 Estimated GFR 53 52 Random Glucose 107 97 Calcium 9.6 9.3 12/29/24 13:50 Urine clean catch Urine Culture - Final Imaging Diagnostic Imaging Impressions Hand X-Ray 01/02/25 10:46 IMPRESSION: Comminuted nondisplaced fracture of the 5th metacarpal shaft. Electronically signed by: Emery Concepcion MD 01/02/2025 11:25 AM EDT Hand X-Ray 01/09/25 11:10 IMPRESSION: Comminuted nondisplaced fracture fifth metacarpal diaphysis without change. Electronically signed by: Gordon Victor MD 01/09/2025 11:22 AM EDT DS: Summary Hospital Course Hospital Course: Mrs. Boone is a 69 year-old woman with hx of Bipolar Disorder who was admitted with s/s of expansive and labile mood, auditory hallucinations, some paranoid ideas thinking someone she knew from her past was following her and attempting to harm her. She also presented as tearful, with passive SI but limited insight into her mental illness and need for treatment. She had also increase alcohol use which was of concern due to hx of alcohol use. She was initially admitted on a sect 12b. She later agreed to sign CV and continue treatment. She was started on combination of depakote low dose 500mg po qhs and olanzapine 7.5mg po qhs. She agreed to start psychotropic medications despite initially verbalizing not needing nor wanting to take them due to side effects. Her affect gradually presented as less labile. She had few incidents of thinking someone was on the unit trying to harm her and required PRN medication and redirection by staff. She denied SI/HI. She less religiously preoccupied. She reported and appeared less internally preoccupied. She was sleeping well. She was continued while on the unit on clonazepam 0.5mg po qhs prn but given concern of increase alcohol use and misuse of medication, clonazepam is not continue after discharge. We had family meeting to discuss treatment and aftercare plans. Medically, pt had hyponatremia. She was seen by nephrology who recommended restrict PO fluid intake to 1.2 L per 24 hrs, Salt tabs 1 gm PO BID x 4 doses and replace Lisinopril 5 mg with Losartan 25 mg QD with goal of Na>130. Pt to follow up with nephrology outpatient. Status at Discharge Cognitive/behavioral status at discharge: Pt less labile. No overt psychosis or delusions. No SI/HI. Sleeping and eating well. No aggression towards self or others. Functional status at discharge: independent ambulation Overall status at discharge: patient is progressing back to baseline Time Spent with Patient Time attestation: Total time managing care of this patient today __45__ minutes. Time spent: Greater than 30 minutes Discharge Plan Discharge Anticipated Discharge Date/Time: 01/24/25 10:39 Patient Disposition: Home, Self-Care Discharge Diagnosis: Bipolar type 1 Disorder Referrals: Therapy with Mary Ellen Llanes [Other] - 01/28/25 9:00 am Referral Note: [facility] [Outside] - 1 Week Referral Note: [facility] will be reaching out to you to set up first meeting. They will be there for teaching only. Corey Mortensen APRN [Registered Nurse, Psychology] - 02/03/25 11:30 am Referral Note: You will see Corey in person on 02/03 in his office. If you need to cancel or reschedule the appointment please call the number listed. Please keep in mind Corey only sees people in person on Fridays. Katie New PA-C [Physician Nurse Intern, Orthopedics] - 01/27/25 2:15 pm Referral Note: You will see Katie on 01/27 at 2:15pm. They will taking a look at your cast to find the course of it. If you need to cancel or reschedule the appointment please call the number listed. Carrillo Zarco MD [Physician, Internal Medicine] - 3-5 Days Referral Note: Dr. Zarco's office will reach out after discharge to set up an after discharge appointment. If they do not reach out with in 3-5 days please reach out to them at the number listed. Discharge Medications: New aspirin 81 mg Tablet,Delayed Release (/Ec) 81 mg PO DAILY Qty: 30 0RF losartan 25 mg Tablet 25 mg PO DAILY Qty: 30 0RF Protocol: Hold for SBP< HOLD for SBP < : 90 divalproex 125 mg Capsule, Delayed Rel Sprinkle 500 mg PO BEDTIME Qty: 120 0RF cyclobenzaprine 5 mg Tablet 5 mg PO BID PRN (Reason: Muscle Spasm) Qty: 60 0RF trazodone 50 mg Tablet 50 mg PO BEDTIME PRN (Reason: Insomnia) Qty: 30 0RF olanzapine 7.5 mg Tablet 7.5 mg PO BEDTIME Qty: 30 0RF famotidine 20 mg Tablet 20 mg PO DAILY Qty: 30 0RF magnesium oxide 400 mg (241.3 mg magnesium) Tablet 400 mg PO BEDTIME Qty: 30 0RF folic acid 1 mg Tablet 1 mg PO DAILY Qty: 30 0RF fluticasone propionate 50 mcg/actuation [place],Suspension 1 spray intranasal DAILY Qty: 16 0RF cholecalciferol (vitamin D3) 25 mcg (1,000 unit) Tablet 25 mcg PO DAILY Qty: 30 0RF thiamine mononitrate (vit B1) 100 mg Tablet 100 mg PO DAILY Qty: 30 0RF Discontinued lisinopril 5 mg tablet 5 mg PO DAILY Qty: 90 3RF cyclobenzaprine 5 mg tablet 5 mg PO TID PRN (Reason: Muscle Spasm) acetaminophen 500 mg Tablet 1,000 mg PO Q6H PRN (Reason: Pain) aspirin 81 mg Tablet 81 mg PO DAILY clonazepam 0.5 mg tablet 0.5 mg PO DAILY PRN (Reason: Anxiety) Rx Instructions: administer 30 minutes before bedtime olanzapine 5 mg Tablet 5 mg PO Q6H PRN (Reason: agitation) Qty: 90 0RF folic acid 1 mg Tablet 1 mg PO DAILY Qty: 90 0RF thiamine mononitrate (vit B1) 100 mg Tablet 100 mg PO DAILY Qty: 90 0RF Discharge Orders: Discharge Order (Routine); Ordered 01/24/25 Ordered By: Rosana Rocha Diet: Regular diet Activity on Discharge: As tolerated Stand Alone Forms: Patient Portal Discharge page Print Language: [place] Care Plan Goals: maintain mood No SI/HI Less paranoid delusions,less AH. Health Concerns: Follow up with Ortho for fracture. Follow up with PCP- follow up HTN (lisinopril d/c per nephrology, started on losartan) hyponatremia (also with nephrology) Plan of Treatment: Take medications as prescribed. Go to nearest ED or call 911 in event of emergency. Assessment: Pt with less labile affect, calmer, no overt psychosis or delusions. Sleeping and eating well. Visible on the unit, social with peers.
[2025-01-24 13:01] LABS: Osmolality, Serum 277 mosm/kg (281-305)
== END 2025-01-24 13:00 | disposition home or self-care (01) | DRG 885 ==
PROVIDERS: Nurse Practitioner Family; Physician Assistant; Social Worker; Student in an Organized Health Care Education/Training Program; Admitting Provider Psychiatry & Neurology Psychiatry; Visit Provider Psychiatry & Neurology Psychiatry
DX: F31.12 Bipolar disorder, current episode manic without psychotic features, moderate (principal); E87.1 Hypo-osmolality and hyponatremia; N30.10 Interstitial cystitis (chronic) without hematuria; S62.356A Nondisplaced fracture of shaft of fifth metacarpal bone, right hand, initial encounter for closed fracture; X58.XXXA Exposure to other specified factors, initial encounter; Z87.891 Personal history of nicotine dependence; Z79.82 Long term (current) use of aspirin; Z79.51 Long term (current) use of inhaled steroids; Z79.899 Other long term (current) drug therapy
CPT/HCPCS: 36415; 73130; 80048; 80053; 80061; 82436; 83036; 83735; 83930; 83935; 84133; 84300; 84484; 85025; 87086; J3420

== ENCOUNTER 2024-12-28 16:17 | Outpatient (BNV) | payer MEDICARE, MEDICAID, SELFPAY | END 2025-01-09 10:57 | PROVIDERS: Admitting Provider Psychiatry & Neurology Psychiatry; Visit Provider Radiology Diagnostic Radiology | DX: S62.306A Unspecified fracture of fifth metacarpal bone, right hand, initial encounter for closed fracture (principal) | CPT/HCPCS: 73130 ==

== ENCOUNTER 2024-12-28 16:17 | Outpatient (BNV) | payer MEDICARE, MEDICAID, SELFPAY | END 2025-01-02 10:46 | PROVIDERS: Admitting Provider Psychiatry & Neurology Psychiatry; Visit Provider Radiology Diagnostic Radiology | DX: S62.356A Nondisplaced fracture of shaft of fifth metacarpal bone, right hand, initial encounter for closed fracture (principal) | CPT/HCPCS: 73130 ==

== ENCOUNTER → 2024-12-28 16:17 | Outpatient (BNV) | payer MEDICARE, MEDICAID, SELFPAY | PROVIDERS: Admitting Provider Psychiatry & Neurology Psychiatry; Visit Provider Nurse Practitioner Family | DX: N30.10 Interstitial cystitis (chronic) without hematuria (principal) | CPT/HCPCS: 99222; 99499 ==

== ENCOUNTER → 2024-12-28 16:17 | Outpatient (BNV) | payer MEDICARE, MEDICAID, SELFPAY | PROVIDERS: Admitting Provider Psychiatry & Neurology Psychiatry | DX: S62.326A Displaced fracture of shaft of fifth metacarpal bone, right hand, initial encounter for closed fracture (principal) | CPT/HCPCS: 29085; 99232 ==

== ENCOUNTER → 2024-12-28 16:17 | Outpatient (BNV) | payer MEDICARE, MEDICAID, SELFPAY | PROVIDERS: Admitting Provider Psychiatry & Neurology Psychiatry; Visit Provider Social Worker | DX: F31.62 Bipolar disorder, current episode mixed, moderate (principal); F40.00 Agoraphobia, unspecified; F10.90 Alcohol use, unspecified, uncomplicated | CPT/HCPCS: 99231; 99232 ==

== ENCOUNTER → 2024-12-28 16:17 | Outpatient (BNV) | payer MEDICARE, MEDICAID, SELFPAY | PROVIDERS: Admitting Provider Psychiatry & Neurology Psychiatry; Visit Provider Psychiatry & Neurology Psychiatry | DX: F25.9 Schizoaffective disorder, unspecified (principal); S62.326A Displaced fracture of shaft of fifth metacarpal bone, right hand, initial encounter for closed fracture | CPT/HCPCS: 90792; 99232 ==

== ENCOUNTER 2025-01-26 14:31 | Outpatient (AMB) | payer MEDICARE, MEDICAID, SELFPAY ==
--- OUTSIDE RECORDS SUMMARY | 2024-12-24 12:19 | XMS_ITS | Encounter Summary ---
Author Organization [facility] Address [address] [facility] [address] [place] [address] Phone Care Team Providers Care Boots And Shoes Supervisor Name Role Phone Carrillo Zarco MD Primary Care Provider [phone] Encounter Details Date Type Department Care Team (Late st Contact Info) Description 12/24/2024 12:19 PM EDT Hospital Encounter [facility] [address] [place] [address] [phone] Kari Angela PA-C [address] [place], [place] [phone] Social History Tobacco Use Types Packs/Day Years [...] (RIGHT) (12/24/2024 12:30 PM EDT) MGB IMG REFRIGERATION SYSTEMS INSTALLER COMMENT 1. Nondisplaced hairline fracture of the fifth metacarpal. 2. Irregularity of the dorsal aspect of the lunate could represent a nondisplaced fracture. [facility] Anatomical Region Laterality Modality Hand Right Computed Radiogr aphy 12/24/2024 1:15 PM EDT Impressions 12/24/2024 1:16 PM EDT 1. Nondisplaced hairline fracture of the fifth metacarpal. 2. Irregularity of the dorsal aspect of the lunate could represent a nondisplaced fracture. A clinically significant result was initiated on 12/24/2024 1:16 PM, Message ID [id number]. Narrative 12/24/2024 1:16 PM EDT XR HAND [...] was initiated on 12/24/2024 1:16 PM,Message ID [id number]. Kari Angela PA-C IMG XR UPPER EXTREMITY Final Result documented in this encounter Visit Diagnoses Not on filedocumented in this encounter Care Teams Boots And Shoes Supervisor Relationship Specialty Start Date End Date Carrillo Zarco MD [facility] [place] [address] PCP - General Internal Medicine 12/24/24 documented as of this encounter Additional Source Comments The information contained in this document represents components of the legal health record. It is not the complete legal health record.[facility]
--- NOTE | 2025-01-26 14:32 | A.OFFVIS_ITS ---
Vital Signs 01/26/25 14:33 Height 5 ft 4 in Weight 134 lb 7.712 oz BMI 23.1 BP 128/68 Blood Pressure Location Lt brachial Position Sitting Pulse 79 Pulse Source Pulse Oximeter Intake Visit Reasons: 1 yr follow up Allergies Penicillins (PENICILLINS) Allergy (Severe, Verified 12/26/24 14:27) HIVES cephalexin (Keflex) Allergy (Unknown, Verified 12/26/24 14:27) unknown Sulfa (Sulfonamide Antibiotics) Allergy (Unknown, Verified 12/26/24 14:27) hives morphine (MORPHINE) Adverse Reaction (Unknown, Verified 12/26/24 14:27) ITCHY perflutren (From DEFINITY) Adverse Reaction (Unknown, Verified 12/26/24 14:27) CHEST PAIN macrobid Allergy (Intermediate, Uncoded 12/26/24 13:38) Hives NSAIDS Adverse Reaction (Unknown, Uncoded 12/26/24 13:38) GI upset Medication List - Last Reconciled 01/26/25 by Fred Gabriel MD aspirin 81 mg PO DAILY cholecalciferol (vitamin D3) 25 mcg PO DAILY cyclobenzaprine 5 mg PO BID PRN divalproex 500 mg (4 x 125 mg) PO BEDTIME famotidine 20 mg PO DAILY fluticasone propionate 50 mcg/actuation 1 spray intranasal DAILY folic acid 1 mg PO DAILY losartan 25 mg See Protocol PO DAILY magnesium oxide 400 mg PO BEDTIME olanzapine 7.5 mg PO BEDTIME thiamine mononitrate (vit B1) 100 mg PO DAILY trazodone 50 mg PO BEDTIME PRN HPI Comments Details: Jossy returns for follow-up regarding stress-induced cardiomyopathy. To recall, in 2019, she had chest pain and shortness of breath following argument with her family. Then had elevated troponins and elevated cardiac BNP. She was diagnosed as NSTEMI. She underwent cardiac catheterization. This revealed only minimal to mild luminal irregularities. She also had apical thrombus on echocardiogram. Impression was stress-induced cardiomyopathy. Of note, she had a similar episode of stress-induced cardiomyopathy but without any LV thrombus, in 2017 that happened in the setting of pancreatitis. For the most part, she is doing fine. No clear-cut cardiac symptoms. With regard to medications, she has not been tolerant of beta-blockers including metoprolol/carvedilol. She was on lisinopril but it seems that it was switch to losartan. She also has dyslipidemia. Statins prescribed last time but because of muscle aches she is not taking any. [facility] Medical History (Updated 01/17/25 @ 12:27 by Rosana Rocha NP) Anxiety, generalized Marijuana use Alcohol use disorder Claustrophobia Agoraphobia Bipolar 1 disorder with moderate rama Gout Gallstone pancreatitis Non-STEMI (non-ST elevated myocardial infarction) LV (left ventricular) mural thrombus Stress-induced cardiomyopathy Surgical History (Updated 01/03/25 @ 00:01 by Demar Wilkinson) History of cardiac catheterization (~05/13/19) History of cholecystectomy (~06/2017) History of knee surgery Family History Father Substance use disorder Mother Cancer Other Mental health disorder Social History Household Members: Unknown / Unable to assess Household Members Other:: refusing to report Housing: Unknown / Unable to assess Alcohol intake: current Alcohol intake frequency: holidays/special occasions only Comment: 5 min checks Patient Tobacco Use Status: Former Tobacco user Years Smoked: 30 e-Cigarette/Vaping Use: Never Used Substance Use Type: Marijuana service: No Current occupational status: retired 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 Sexual orientation: Straight/Heterosexual Cognitive needs: No Hearing needs: No Vision needs: Yes Review of Systems Const Denies weakness ENT Denies dizziness Card Denies chest pain, Denies chest pain with activity, Denies syncope, Denies rapid heart rate, Denies pedal edema, Denies edema, Denies leg edema, Denies lightheadedness, Reports palpitations, Denies dyspnea, Denies dyspnea on exertion and Denies orthopnea Resp Denies cough, Denies dyspnea and Denies dyspnea on exertion GI Denies hematochezia and Denies change in stool character Musc Denies abnormal gait, Denies muscle cramps, Denies muscle weakness, Denies numbness, Denies radiating pain into limb and Denies tingling Neuro Denies abnormal gait, Denies dizziness, Denies syncope, Denies numbness, Denies tingling and Denies weakness Psych Reports anxiety Endo Reports palpitations Physical Exam Vital Signs: Last Vital Signs Pulse 79 01/26/25 14:33 BP 128/68 01/26/25 14:33 BMI result Body Mass Index 23.1 Const General: comfortable and no acute distress Orientation/consciousness: patient oriented x3 HEENT Other: Unremarkable Head: Yes normal to inspection Neck Neck: Yes normal visual inspection Chest Chest palpation & inspection: normal inspection of the chest Resp Auscultation: clear to auscultation bilaterally Cardio Palpation: normal PMI Heart sounds: S1 normal heart sound present, S2 normal heart sound present, no gallops, no murmurs and no rubs GI Palpation (GI): Soft to palpation Back/Spine/Pelvis Other: unremarkable Skin General skin exam: no rashes or lesions noted Neuro General: patient oriented x3 Extrem General: Yes normal to inspection Psych Mental Status: mental status grossly normal Assessment & Plan Assessment & Plan (1) Stress-induced cardiomyopathy: Code(s): I51.81 - Takotsubo syndrome Category: Medical (2) Hyperlipidemia: Code(s): E78.5 - Hyperlipidemia, unspecified Category: Medical Qualifiers: Hyperlipidemia type: mixed hyperlipidemia Qualified Code(s): E78.2 - Mixed hyperlipidemia Plan Cardiac studies were reviewed. Echocardiogram from 2019 hospitalization had shown LVEF of 15-20% with extensive wall motion abnormalities as well as an apical thrombus. Last echocardiogram from 2020 shows recovered LVEF. No thrombus noted. Cardiac catheterization had shown minimal irregularities in the LAD and circumflex and mild irregularities in the RCA but no obstructive disease anywhere. Similar picture in 2017. Overall, she has recurrent stress-induced cardiomyopathy, but now with recovered LVEF. She is not tolerant of beta-blockers including metoprolol/carvedilol. Continue Losartan. With regard to lipids, they are quite high. Direct LDL 213 mg/dL. There is no significant disease on catheterization. Ideally, some statins but because of myalgias we discussed about Repatha/Praluent but she is not interested in any injectables. She would like to go back on Zetia that she has taken in the past. Recheck lipids in a few months after starting this. Total time including review of records, counseling, documentation coordination of care-32 minutes. Orders: Orders Lipid Panel 3 Months E78.5 - Hyperlipidemia, unspecified Medications: New ezetimibe (Zetia) 10 mg PO DAILY 90 tabs 3RF Coding Level of Care Code Est Pt Level 4 (05721) Diagnoses Stress-induced cardiomyopathy I51.81 Mixed hyperlipidemia E78.2 Hyperlipidemia type: mixed hyperlipidemia
[2025-01-26 14:33] VITALS: BP 128/68; PULSE 79; BMI 23.1
== END 2025-01-26 15:15 | disposition home or self-care (01) ==
LOC: HO.HCS 14:32
PROVIDERS: PCP Internal Medicine; Visit Provider Internal Medicine
DX: I51.81 Takotsubo syndrome (principal); E78.2 Mixed hyperlipidemia
CPT/HCPCS: 99214

== ENCOUNTER → 2025-01-26 14:31 | Outpatient (BNVA) | payer MEDICARE, MEDICAID, SELFPAY | PROVIDERS: PCP Internal Medicine; Visit Provider Internal Medicine | DX: I51.81 Takotsubo syndrome (principal); E78.2 Mixed hyperlipidemia; I25.2 Old myocardial infarction; Z79.899 Other long term (current) drug therapy; Z79.82 Long term (current) use of aspirin | CPT/HCPCS: 99212 ==

== ENCOUNTER 2025-01-27 14:24 | Outpatient (REF) | payer MEDICARE, MEDICAID, SELFPAY ==
--- NOTE | ~2025-01-27 | XR_ITS ---
EXAMINATION: XR HAND, RIGHT CLINICAL INFORMATION: M79.641 - Pain in right hand COMPARISON: None available. TECHNIQUE: PA, lateral, and oblique views of the right hand. PRIOR: None XR/XR hand RT min 3V IMPRESSION: Fracture lucency is visible in the diaphysis and neck of the fifth metacarpal. There are marginal osteophytes involving the IP joint, MCP, and first CMC joints of the thumb. There is mild ulnar minus variance. IMPRESSION: Nondisplaced fracture of the fifth metacarpal diaphysis and neck. Mild osteoarthritis involving the first IP, MCP, and CMC joints. Electronically signed by: Hiren Benz MD 01/27/2025 03:00 PM EDT
== END 2025-01-27 14:25 | disposition home or self-care (01) ==
LOC: HO.HOSX 14:24
DX: S62.326D Displaced fracture of shaft of fifth metacarpal bone, right hand, subsequent encounter for fracture with routine healing (principal); M79.641 Pain in right hand
CPT/HCPCS: 29085; 73130; 99212

== ENCOUNTER 2025-01-27 14:24 | Outpatient (AMB) | payer MEDICARE, MEDICAID, SELFPAY ==
--- OUTSIDE RECORDS SUMMARY | 2024-12-24 12:19 | XMS_ITS | Encounter Summary ---
Author Organization [facility] Address [address] [facility] [address] [place] [address] Phone Care Team Providers Care Iuss Acoustic Analyst Name Role Phone Carrillo Zarco MD Primary Care Provider [phone] Encounter Details Date Type Department Care Team (Late st Contact Info) Description 12/24/2024 12:19 PM EDT Hospital Encounter [facility] [address] [place] [address] [phone] Kari Angela PA-C [address] [place], [place] [phone] Social History Tobacco Use Types Packs/Day Years [...] (RIGHT) (12/24/2024 12:30 PM EDT) MGB IMG CASHIER ASSISTANT COMMENT 1. Nondisplaced hairline fracture of the fifth metacarpal. 2. Irregularity of the dorsal aspect of the lunate could represent a nondisplaced fracture. [facility] Anatomical Region Laterality Modality Hand Right Computed Radiogr aphy 12/24/2024 1:15 PM EDT Impressions 12/24/2024 1:16 PM EDT 1. Nondisplaced hairline fracture of the fifth metacarpal. 2. Irregularity of the dorsal aspect of the lunate could represent a nondisplaced fracture. A clinically significant result was initiated on 12/24/2024 1:16 PM, Message ID [id number]. Narrative 12/24/2024 1:16 PM EDT XR HAND [...] was initiated on 12/24/2024 1:16 PM,Message ID [id number]. Kari Angela PA-C IMG XR UPPER EXTREMITY Final Result documented in this encounter Visit Diagnoses Not on filedocumented in this encounter Care Teams Iuss Acoustic Analyst Relationship Specialty Start Date End Date Carrillo Zarco MD [facility] [place] [address] PCP - General Internal Medicine 12/24/24 documented as of this encounter Additional Source Comments The information contained in this document represents components of the legal health record. It is not the complete legal health record.[facility]
--- NOTE | 2025-01-27 14:28 | MHC.OFFVIS ---
Vital Signs 01/27/25 14:40 Height 5 ft 4 in Weight 134 lb BMI 23.0 Intake Visit Reasons: FC-s/p rt hand fifth metacarpal fracture Intake Note: Jossy is a 69 year old right hand dominant female who presents today for follow up of her right hand, fifth metacarpal fracture, DOI: 12/23/24. Patient was originally evaluated in the office on 12/26/24 however she left the office before being placed on a 2 ulnar gutter splint. Patient was then splinted while at [facility]. At that time, patient was to follow up in one week for evaluation of her fracture. If on going tenderness of the scaphoid tubercle and anatomic snuffbox 2 weeks from her last visit, a MRI would be considered to rule out an occult scaphoid fracture. Patient reports today she is doing well, states very mild pain. She has stiffness with cast removal. Allergies Penicillins (PENICILLINS) Allergy (Severe, Verified 01/27/25 14:41) HIVES cephalexin (Keflex) Allergy (Unknown, Verified 01/27/25 14:41) unknown Sulfa (Sulfonamide Antibiotics) Allergy (Unknown, Verified 01/27/25 14:41) hives morphine (MORPHINE) Adverse Reaction (Unknown, Verified 01/27/25 14:41) ITCHY perflutren (From DEFINITY) Adverse Reaction (Unknown, Verified 01/27/25 14:41) CHEST PAIN macrobid Allergy (Intermediate, Uncoded 01/27/25 14:41) Hives NSAIDS Adverse Reaction (Unknown, Uncoded 01/27/25 14:41) GI upset HPI HPI FC-s/p rt hand fifth metacarpal fracture: Details: Jossy is a 69 year old right hand dominant female who presents today for follow up of her right hand, fifth metacarpal fracture, DOI: 12/23/24. Patient was originally evaluated in the office on 12/26/24 however she left the office before being placed on a 2 ulnar gutter splint. Patient was then splinted while at [facility]. At that time, patient was to follow up in one week for evaluation of her fracture. If on going tenderness of the scaphoid tubercle and anatomic snuffbox 2 weeks from her last visit, a MRI would be considered to rule out an occult scaphoid fracture. Patient reports today she is doing well, states very mild pain. She has stiffness with cast removal. [facility] Medical History (Updated 01/17/25 @ 12:27 by Rosana Rocha NP) Anxiety, generalized Marijuana use Alcohol use disorder Claustrophobia Agoraphobia Bipolar 1 disorder with moderate rama Gout Gallstone pancreatitis Non-STEMI (non-ST elevated myocardial infarction) LV (left ventricular) mural thrombus Stress-induced cardiomyopathy Surgical History History of cardiac catheterization (~05/13/19) History of cholecystectomy (~06/2017) History of knee surgery Family History Father Substance use disorder Mother Cancer Other Mental health disorder Social History Household Members: Unknown / Unable to assess Household Members Other:: refusing to report Housing: Unknown / Unable to assess Alcohol intake: current Alcohol intake frequency: holidays/special occasions only Comment: 5 min checks Patient Tobacco Use Status: Former Tobacco user Years Smoked: 30 e-Cigarette/Vaping Use: Never Used Substance Use Type: Marijuana service: No Current occupational status: retired 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 Neuro: Normal sensation of the tips of all digits of the right hand at this time Vascular: Cap refill brisk Pain: Mild Tenderness to palpation over 5th metacarpal of right hand No snuffbox tenderness Pain with all range of motion ROM: Patient is able to make close to a closed fist with the right hand Skin: No lacerations or abrasions. General: Ecchymosis resolved Psych: Appears grossly normal Affect normal Attitude cooperative Office Procedures Casting/Splints 15016-Kxbw/Wrist Cast Application Procedure code (CPT) selection complete Results Reviewed Results Reviewed: X-rays obtained in the office today and independently reviewed by me, Gabriele Chance PA-C, demonstrate nondisplaced right 5th metacarpal neck fracture with minimal evidence of interval bony healing. Assessment & Plan Assessment & Plan (1) Closed fracture of shaft of fifth metacarpal bone of right hand: Code(s): S62.326A - Displaced fracture of shaft of fifth metacarpal bone, right hand, initial encounter for closed fracture Category: Medical Plan 1. Right 5th metacarpal neck fracture Date of injury 12/26/2024 Patient appears to be recovering fairly well from her injury Patient is educated about the typical recovery course At this time, due to minimal evidence of healing and continued tenderness to palpation, patient is replaced into a 2 finger ulnar gutter cast Patient is educated on proper cast care and precautions Patient follow-up in 1-2 weeks for reassessment, anticipate second time worker cast removal at that time, sooner with any acute concerns Orders: Orders XR hand RT min 3V 01/27/25 M79.641 - Pain in right hand Coding Level of Care Code Global (10405) Diagnoses Closed fracture of shaft of fifth metacarpal bone of right hand S62.326A CPT Codes Casting - CPT: 18607-Forx/Wrist Cast Application ([id number])
[2025-01-27 14:40] VITALS: BMI 23.0
--- OUTSIDE RECORDS SUMMARY | 2025-03-24 20:00 | XMS_ITS | Clinical Summary ---
Author Organization Unknown Care Team Providers Care Nozzleman Name Role Phone SUSAN GAVIRIA, SANKET Unavailable Unavaillonnie JOSEPH RN, MELIZA Unavailable Unavailable Payers Payer Name Policy Type Policy Number Effective Date Expira tion Date MEDICARE - [facility] - [place] [id number] Problems Condition Name Condition Details Condition Category Status Onset Date Resolution Date Last Treatment Date Treating Clinician Comments BIPOLAR DISORDER, CURRENT EPISODE MIXED, UNSPECIFIED Active 12-28 00:00: 00 Allergies, Adverse Reactions, Alerts Allergy Name Allergy Type Status Severity Reaction(s) Onset Date Inactive Date Treating Clinician Comments NKA Propensity to adverse reactions Active 2025-01 19:32:3 5 Immunizations Ordered Immunization Name Filled Immunization Name Date Status Comments Refusal Reason SHINGLES, TIV (INACTIVATED) 2025-01-25 00:00:00 Vital Signs Vital Name Observation Time Observation Value Commen ts Temperature 2025-01-25 20:16:00.000 98.6 [degF] BMI (%) 2025-01-25 18:46:52.000 24 kg/m2 Height 2025-01-25 18:46:33.000 62 [in_us] Pulse 2025-01-25 20:16:00.000 82 /min Respirations 2025-01-25 20:16:00.000 20 /min Weight (lbs) 2025-01-25 18:46:52.000 135 [lb_av] Systolic Blood Pressure 2025-01-25 20:16:00.000 138 mm [Hg] Diastolic Blood Pressure 2025-01-25 20:16:00.000 [...] AWARENESS FOR SAFETY AND WILL NOTIFY CLINICAL OIL RIG ROUGHNECK AND PHYSICIAN/PROVIDER WITH ANY CHANGE IN CONDITION. [code = SKILLED NURSE WILL MAINTAIN SITUATIONAL AWARENESS FOR SAFETY AND WILL NOTIFY CLINICAL OIL RIG ROUGHNECK AND PHYSICIAN/PROVIDER WITH ANY CHANGE IN CONDITION.] Goal Patient Goal - I WANT TO GET BETTER Goal Provider Goal - A PLAN OF CARE WILL BE ESTABLISHED THAT MEETS PATIENT'S CUSTODIAL NEEDS AND INCLUDES PATIENT GOAL FOR HOME [...] Notes Progress Notes <paragraph>[Visit Date: 2024 by KAVON CHACON RN]:</paragraph><paragraph>THIS A 69 YEAR OLD FEMALE PRIMARY DIAGNOSIS OF BIPOLAR DISORDER MIXED PMH; REPORTED HTN, GERD, CHRONIC PAIN SYNDROME, ARTHRITIS, R8GHT WRIST FRACTURE CURRENT CAST, REPORTED SEASONAL ALLERGIES, PATIENT SEEN TODAY FOR ADMISSION!, REFERRED BY PSYCHIACTRIC FACILITY, FOR MEDICATION MANAGEMENT AND SN TEACHING ON IDENTIFIED DIAGNOSIS DISEASE PROCESS :PATIENT PRESENTS ALERT ORIENTED X 3 SPHERES, WELL GROOMED. PATIENT OVERWHELMED, TEARFUL REGARDING RECENT MEDICAL CARE FOR RIGHT WRIST FRACTURE AND PSYCHIATRIC HOSPITALIZATION, PSYCHOSIS, STATED I LOST MY MIND.HER SPEECH PRESSURED, MOOD DEPRESSED ANXIOUS IRRITABLE VERBALIZED HOPELESSNESS REGARDING DECLINED MENTAL STATUS, NOTED DISTRACTED BEHAVIOR DENIED SUICIDAL OR HOMICIDAL PLANS DURING VISIT , NOTABLY DISTRACTED, REPORTED HEARING VIOCES FAR AWAY DENIED COMMAND VIOCES TO HURT SELF OR OTHERS, DENIED VISUAL HALLUCINATIONS. COGNITIVE ASSESSMENT REQUIRES VERBAL CUES REPEATED INSTRUCTIONS, PATIENT HAS POOR COPING SKILLS, UPSET DURING VISIT THAT DAUGHTER WOULD PROVIDE CORRECT INFORMATION ABOUT PRIOR HISTORY, PATIENT POOR HISTORIAN GAPS IN MEMORY.PATIENT INSIGHT FAIR, POOR JUDGMENT DIFFICULTY MAKING DECISIONS, NEEDS ASSISSTANCE IN RECALLING OF MEDICCAL PSYCHIATRIC HISTORY, SN PERFORMED SUICIDE ASSESSMENT, BECAME TEARFUL SOBBED, DENIED PLANS TO HURT SELF, OFFERS A FALSE SENSE OF SAFETY, SN PROVIDED EMERGENCY CONTACT NUMBERS INCLUDING [facility] CRISIS NUMBERS. PATIENT RESIDES WITH WORKING CAREGIVER WHO PROVIDES EMOTIONAL SUPPORT AND ABLE TO MANAGE MEDICATIONS FOR BEDTIME. PATIENT NEEDS LOCKED MEDICATION BOX TO SECURE SAFETY AND MEDICATION ADHERENCE. NO DME. SN CALLED PCP FOR MEDICATION RECONCILLIATION AND PATIENTS POC.</paragraph> Encounters Start Date/Time End Date/Time Encounter Type Admission Type Attending [facility] Care Department Encounter ID Discharge Date Discharge Status Discharge Condition Discharge Reason Percent Goals Met 2025-01-25 00:00:00 2025-03-25 00:00:00 Outpatient NEW ADMISSION MELIZA JOSEPH [facility] ED [id number]
== END 2025-01-27 15:23 | disposition home or self-care (01) ==
LOC: HO.HOS 14:24
DX: S62.326A Displaced fracture of shaft of fifth metacarpal bone, right hand, initial encounter for closed fracture (principal)
CPT/HCPCS: 29085; 99213

== ENCOUNTER → 2025-01-27 14:35 | Outpatient (BNV) | payer MEDICARE, MEDICAID, SELFPAY | PROVIDERS: Visit Provider Radiology Diagnostic Radiology | DX: S62.366A Nondisplaced fracture of neck of fifth metacarpal bone, right hand, initial encounter for closed fracture (principal) | CPT/HCPCS: 73130 ==

== ENCOUNTER 2025-02-06 15:03 | Outpatient (REF) | payer MEDICARE, MEDICAID, SELFPAY ==
--- OUTSIDE RECORDS SUMMARY | 2024-12-24 12:19 | XMS_ITS | Encounter Summary ---
Author Organization [facility] Address [address] [facility] [address] [place] [address] Phone Care Team Providers Care Carpet Binder Name Role Phone Carrillo Zarco MD Primary Care Provider [phone] Encounter Details Date Type Department Care Team (Late st Contact Info) Description 12/24/2024 12:19 PM EDT Hospital Encounter [facility] [address] [place] [address] [phone] Kari Angela PA-C [address] [place], [place] [phone] Social History Tobacco Use Types Packs/Day Years [...] (RIGHT) (12/24/2024 12:30 PM EDT) MGB IMG HEAD OF TALENT MANAGEMENT COMMENT 1. Nondisplaced hairline fracture of the fifth metacarpal. 2. Irregularity of the dorsal aspect of the lunate could represent a nondisplaced fracture. [facility] Anatomical Region Laterality Modality Hand Right Computed Radiogr aphy 12/24/2024 1:15 PM EDT Impressions 12/24/2024 1:16 PM EDT 1. Nondisplaced hairline fracture of the fifth metacarpal. 2. Irregularity of the dorsal aspect of the lunate could represent a nondisplaced fracture. A clinically significant result was initiated on 12/24/2024 1:16 PM, Message ID [id number]. Narrative 12/24/2024 1:16 PM EDT XR HAND [...] was initiated on 12/24/2024 1:16 PM,Message ID [id number]. Kari Angela PA-C IMG XR UPPER EXTREMITY Final Result documented in this encounter Visit Diagnoses Not on filedocumented in this encounter Care Teams Carpet Binder Relationship Specialty Start Date End Date Carrillo Zarco MD [facility] [place] [address] PCP - General Internal Medicine 12/24/24 documented as of this encounter Additional Source Comments The information contained in this document represents components of the legal health record. It is not the complete legal health record.[facility]
--- NOTE | ~2025-02-06 | XR_ITS ---
EXAMINATION: XR HAND, RIGHT CLINICAL INFORMATION: M79.641 - Pain in right hand COMPARISON: 01/27/2025, 01/09/2025, 12/26/2024. TECHNIQUE: PA, lateral, and oblique views of the right hand. FINDINGS: Casting material overlies the hand obscuring fine bony detail. Redemonstration of a comminuted nondisplaced fracture of the fifth metacarpal shaft. Stable anatomic alignment. Difficult to visualize fracture lines through the casting material although fracture lines do persist. No gross bridging callus although fracture margins do appear slightly more sclerotic allowing for overlying artifact. Moderate osteoarthritis of the first CMC joint again noted. Soft tissues appear unremarkable allowing for technical factors. XR/XR hand RT min 3V IMPRESSION: Comminuted nondisplaced fracture fifth metacarpal diaphysis without change in anatomic alignment. Electronically signed by: Gordon Victor MD 02/06/2025 03:35 PM EDT
[2025-02-06 17:33] LABS: Anion Gap 14 (12-20); Blood Urea Nitrogen 16 mg/dL (9-16); Calcium 9.5 mg/dL (8.4-10.2); Carbon Dioxide 26 mmol/L (22-29); Chloride 96 mmol/L (96-108); Estimated Glomerular Filt Rate 58; Potassium 4.5 mmol/L (3.3-5.1); Sodium 131 mmol/L (135-145)
== END 2025-02-06 15:04 | disposition home or self-care (01) ==
LOC: HO.HOSX 15:03
PROVIDERS: Absent Provider Registered Nurse Psychiatric/Mental Health, Adult; PCP Internal Medicine
DX: S62.366D Nondisplaced fracture of neck of fifth metacarpal bone, right hand, subsequent encounter for fracture with routine healing (principal); M79.641 Pain in right hand; X58.XXXD Exposure to other specified factors, subsequent encounter
CPT/HCPCS: 36415; 73130; 80048; 80164; 99212

== ENCOUNTER → 2025-02-06 15:08 | Outpatient (BNV) | payer MEDICARE, MEDICAID, SELFPAY | PROVIDERS: PCP Internal Medicine; Visit Provider Radiology Diagnostic Radiology | DX: M79.641 Pain in right hand (principal) | CPT/HCPCS: 73130 ==

== ENCOUNTER 2025-02-06 15:36 | Outpatient (AMB) | payer MEDICARE, MEDICAID, SELFPAY ==
[2025-02-06 15:36] VITALS: BMI 23.0
--- NOTE | 2025-02-06 15:36 | MHC.OFFVIS ---
Vital Signs 02/06/25 15:36 Height 5 ft 4 in Weight 134 lb BMI 23.0 Intake Visit Reasons: OV-rt SF metacarpal fx, DOI: 12/23/24- NEEDS XRAY Intake Note: Jossy is a 69 year old right hand dominant female who presents today for follow up status post right fifth metacarpal fracture, DOI: 12/23/24. Patient reports she is doing well. No complaintss today. Allergies Penicillins (PENICILLINS) Allergy (Severe, Verified 02/08/25 14:00) HIVES cephalexin (Keflex) Allergy (Unknown, Verified 02/08/25 14:00) unknown Sulfa (Sulfonamide Antibiotics) Allergy (Unknown, Verified 02/08/25 14:00) hives morphine (MORPHINE) Adverse Reaction (Unknown, Verified 02/08/25 14:00) ITCHY perflutren (From DEFINITY) Adverse Reaction (Unknown, Verified 02/08/25 14:00) CHEST PAIN macrobid Allergy (Intermediate, Uncoded 02/06/25 16:04) Hives NSAIDS Adverse Reaction (Unknown, Uncoded 02/06/25 16:04) GI upset HPI HPI OV-rt SF metacarpal fx, DOI: 12/23/24- NEEDS XRAY: Details: Jossy is a 69 year old right hand dominant female who presents today for follow up status post right fifth metacarpal fracture, DOI: 12/23/24. Patient reports she is doing well. No complaintss today. Denies numbness or tingling in the right hand. Reports no ongoing pain in the right 5th metacarpal. [facility] Medical History Anxiety, generalized Marijuana use Alcohol use disorder Claustrophobia Bipolar 1 disorder with moderate rama Gout Gallstone pancreatitis Non-STEMI (non-ST elevated myocardial infarction) LV (left ventricular) mural thrombus Stress-induced cardiomyopathy Surgical History History of cardiac catheterization (~05/13/19) History of cholecystectomy (~06/2017) History of knee surgery Family History Father Substance use disorder Mother Cancer Other Mental health disorder Social History Household Members: Unknown / Unable to assess Household Members Other:: refusing to report Housing: Unknown / Unable to assess Alcohol intake: current Alcohol intake frequency: holidays/special occasions only Comment: 5 min checks Patient Tobacco Use Status: Former Tobacco user Years Smoked: 30 e-Cigarette/Vaping Use: Never Used Substance Use Type: Marijuana service: No Current occupational status: retired 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 Neuro: Normal sensation of the tips of all digits of the right hand at this time Vascular: Cap refill brisk Pain: Mild Tenderness to palpation over 5th metacarpal of right hand No snuffbox tenderness Pain with all range of motion ROM: Patient is able to make close to a closed fist with the right hand Skin: No lacerations or abrasions. General: Ecchymosis resolved Psych: Appears grossly normal Affect normal Attitude cooperative Results Reviewed Results Reviewed: X-rays obtained in the office today and independently reviewed by me, Gabriele Chance PA-C, demonstrate nondisplaced right 5th metacarpal neck fracture with good evidence of interval bony healing. Assessment & Plan Assessment & Plan (1) Closed fracture of shaft of fifth metacarpal bone of right hand: Code(s): S62.326A - Displaced fracture of shaft of fifth metacarpal bone, right hand, initial encounter for closed fracture Category: Medical Plan 1. Right 5th metacarpal neck fracture Date of injury 12/26/2024 Patient appears to be recovering well from her injury Patient is educated about the typical recovery course At this time, now that the patient does have evidence of solid interval bony healing as well as no tenderness to palpation of the fracture site, she is removed from the cast in his provided with a Velcro wrist splint to wear with daytime activities and sana tape to wear while awake, may remove for bathing 2 lb weight limit reinforced at this time Patient is educated that she should begin working on range of motion of the right hand, particularly the ring and small fingers, as they has been immobilized in a cast for approximately 5 weeks, and despite the fact that the patient has full range of motion may be lacking in strength Patient understands this is amenable to this plan Follow-up in 4 weeks, sooner with any acute concerns Orders: Orders XR hand RT min 3V 02/06/25 M79.641 - Pain in right hand Coding Level of Care Code Global (60677) Diagnoses Closed fracture of shaft of fifth metacarpal bone of right hand S62.326A
--- OUTSIDE RECORDS SUMMARY | 2025-03-24 20:00 | XMS_ITS | Clinical Summary ---
Author Organization Unknown Care Team Providers Care Chute Puller Name Role Phone SUSAN GAVIRIA, SANKET Unavailable Unavaillonnie JOSEPH RN, MELIZA Unavailable Unavailable Payers Payer Name Policy Type Policy Number Effective Date Expira tion Date MEDICARE - [facility] - [place] [id number] Problems Condition Name Condition Details Condition Category [...] FINANCL HARDSHIP Active 01-24 00:00: 00 OTHER [facility] (CURRENT) DRUG THERAPY Active 01-24 00:00: 00 [...] mg chewable tablet 01-25 00:00: 00 Yes [id number] 1 tablet DAILY 1 tablet DAILY (route: oral) Med Classific ation: Hematolog ical Agents cyclobenzap rine 5 mg tablet 01-25 00:00: 00 Yes [id number] for muscle spasm 1 tablet NEEDED 1 tablet NEEDED (route: oral) Med Classific ation: Locomotor System divalproex 125 mg capsule,del ayed release sprinkle 01-25 00:00: 00 Yes [id number] 500 mg BEDTIME 500 mg BEDTIME (route: oral) Med Classific ation: Central Nervous System Agents famotidine 20 mg tablet 01-25 00:00: 00 Yes [id number] 1 tablet DAILY 1 tablet DAILY (route: oral) Med Classific ation: Gastroint estinal Therapy Agents fluticasone propionate 50 mcg/actuati on nasal spray,suspe nsion 01-25 00:00: 00 Yes [id number] 1 spray DAILY 1 spray DAILY (route: nasal) Med Classific ation: Respirato ry Therapy Agents folic acid 1 mg tablet 01-25 00:00: 00 Yes [id number] 1 tablet DAILY 1 tablet DAILY (route: oral) Med Classific ation: Electroly te Balance-N utritiona l Products losartan 25 mg tablet 01-25 00:00: 00 Yes [id number] 1 tablet DAILY 1 tablet DAILY (route: oral) Med Classific ation: Cardiovas cular Therapy Agents magnesium 400 mg (as magnesium oxide) tablet 01-25 00:00: 00 Yes [id number] 1 tablet DAILY 1 tablet DAILY (route: oral) Med Classific ation: Electroly te Balance-N utritiona l Products olanzapine 7.5 mg tablet 01-25 00:00: 00 Yes [id number] 1 tablet BEDTIME 1 tablet BEDTIME (route: oral) Med Classific ation: Central Nervous System Agents trazodone 50 mg tablet 01-25 00:00: 00 Yes [id number] 1 tablet NEEDED 1 tablet NEEDED (route: oral) Med Classific ation: Central Nervous System Agents Vitamin B-1 (mononitrat e) 100 mg tablet 01-25 00:00: 00 Yes [id number] 1 tablet DAILY 1 tablet DAILY (route: oral) Med Classific ation: Electroly te Balance-N utritiona l Products Vitamin D3 25 mcg (1,000 unit) tablet 01-25 00:00: 00 Yes [id number] 1 tablet DAILY 1 tablet DAILY (route: oral) Med Classific ation: Electroly te Balance-N utritiona l Products ezetimibe 10 mg tablet 01-30 00:00: 00 Yes [id number] 1 tablet BEDTIME 1 tablet BEDTIME (route: [...] AWARENESS FOR SAFETY AND WILL NOTIFY CLINICAL WET PAN MIXER AND PHYSICIAN/PROVIDER WITH ANY CHANGE IN CONDITION. [code = SKILLED NURSE WILL MAINTAIN SITUATIONAL AWARENESS FOR SAFETY AND WILL NOTIFY CLINICAL WET PAN MIXER AND PHYSICIAN/PROVIDER WITH ANY CHANGE IN CONDITION.] Goal Patient Goal - I WANT TO GET BETTER Goal Provider Goal - A PLAN OF CARE WILL BE ESTABLISHED THAT MEETS PATIENT'S [facility] NEEDS AND INCLUDES PATIENT GOAL FOR HOME [...] End Date/Time Encounter Type Admission Type Attending [facility] Care Facility Care Department Encounter ID Discharge Date Discharge Status Discharge Condition Discharge Reason Percent Goals Met 2025-01-25 00:00:00 2025-03-25 00:00:00 Outpatient NEW ADMISSION MELIZA JOSEPH [facility] [id number] 38.24
== END 2025-02-06 16:15 | disposition home or self-care (01) ==
LOC: HO.HOS 15:36
PROVIDERS: PCP Internal Medicine
DX: S62.326A Displaced fracture of shaft of fifth metacarpal bone, right hand, initial encounter for closed fracture (principal)
CPT/HCPCS: 99213

== ENCOUNTER 2025-02-07 15:06 | Outpatient (AMB) | payer MEDICARE, MEDICAID, SELFPAY ==
--- OUTSIDE RECORDS SUMMARY | 2024-12-24 12:19 | XMS_ITS | Encounter Summary ---
Author Organization [facility] Address [address] [facility] [address] [place] [address] Phone Care Team Providers Care Communications Professor Name Role Phone Carrillo Zarco MD Primary Care Provider Encounter Details Date Type Department Care Team (Late st Contact Info) Description 12/24/2024 12:19 PM EDT Hospital Encounter [facility] [address] [place] [address] [phone] Kari Angela PA-C [address] [place], [place] [phone] Social History Tobacco Use Types Packs/Day Years [...] (RIGHT) (12/24/2024 12:30 PM EDT) MGB IMG SEMI DRIVER COMMENT 1. Nondisplaced hairline fracture of the fifth metacarpal. 2. Irregularity of the dorsal aspect of the lunate could represent a nondisplaced fracture. [facility] Anatomical Region Laterality Modality Hand Right Computed Radiogr aphy 12/24/2024 1:15 PM EDT Impressions 12/24/2024 1:16 PM EDT 1. Nondisplaced hairline fracture of the fifth metacarpal. 2. Irregularity of the dorsal aspect of the lunate could represent a nondisplaced fracture. A clinically significant result was initiated on 12/24/2024 1:16 PM, Message ID [id number]. Narrative 12/24/2024 1:16 PM EDT XR HAND [...] was initiated on 12/24/2024 1:16 PM,Message ID [id number]. Kari Angela PA-C IMG XR UPPER EXTREMITY Final Result documented in this encounter Visit Diagnoses Not on filedocumented in this encounter Care Teams Communications Professor Relationship Specialty Start Date End Date Carrillo Zarco MD [facility] [place] [address] PCP - General Internal Medicine 12/24/24 documented as of this encounter Additional Source Comments The information contained in this document represents components of the legal health record. It is not the complete legal health record.[facility]
[2025-02-07 15:18] VITALS: BP 128/64; PULSE 72; O2SAT 98; BMI 23.3
--- NOTE | 2025-02-07 15:18 | HO.NEPHOV_ITS ---
Vital Signs 02/07/25 15:18 Height 5 ft 4 in Weight 136 lb BMI 23.3 BP 128/64 Blood Pressure Location Rt brachial Position Sitting Pulse 72 Pulse Source Pulse Oximeter Pulse Oximetry (%) 98 Oxygen Delivery Method Room Air Intake Visit Reasons[place] [facility] [place] Blood Donor Unit Assistant Required: No Accompanied by: Daughter Allergies Penicillins (PENICILLINS) Allergy (Severe, Verified 02/07/25 15:21) HIVES cephalexin (Keflex) Allergy (Unknown, Verified 02/07/25 15:21) unknown Sulfa (Sulfonamide Antibiotics) Allergy (Unknown, Verified 02/07/25 15:21) hives morphine (MORPHINE) Adverse Reaction (Unknown, Verified 02/07/25 15:21) ITCHY perflutren (From DEFINITY) Adverse Reaction (Unknown, Verified 02/07/25 15:21) CHEST PAIN macrobid Allergy (Intermediate, Uncoded 02/06/25 16:04) Hives NSAIDS Adverse Reaction (Unknown, Uncoded 02/06/25 16:04) GI upset Medication List - Last Reconciled 02/07/25 by Chet Bhagat MD aspirin 81 mg PO DAILY cholecalciferol (vitamin D3) 25 mcg PO DAILY cyclobenzaprine 5 mg PO BID PRN divalproex 500 mg (4 x 125 mg) PO BEDTIME ezetimibe (Zetia) 10 mg PO DAILY famotidine 20 mg PO DAILY fluticasone propionate 50 mcg/actuation 1 spray intranasal DAILY folic acid 1 mg PO DAILY losartan 25 mg See Protocol PO DAILY magnesium oxide 400 mg PO BEDTIME olanzapine 7.5 mg PO BEDTIME thiamine mononitrate (vit B1) 100 mg PO DAILY trazodone 50 mg PO BEDTIME PRN HPI Comments Details: 69-year-old man with bipolar disorder. Recently she was hospitalized in she had hyponatremia. Lisinopril was discontinued and switched to losartan. She is here for further follow-up. During hospitalization CT scan revealed multiple cysts in both kidneys. Serum creatinine has been stable around 0.6 mg/dL. She is currently on Depakote. Recent serum sodium was 131 millimoles. [facility] Medical History (Updated 02/07/25 @ 15:41 by Chet Bhagat MD) Anxiety, generalized Marijuana use Alcohol use disorder Claustrophobia Bipolar 1 disorder with moderate rama Gout Gallstone pancreatitis Non-STEMI (non-ST elevated myocardial infarction) LV (left ventricular) mural thrombus Stress-induced cardiomyopathy Surgical History History of cardiac catheterization (~05/13/19) History of cholecystectomy (~06/2017) History of knee surgery Family History Father Substance use disorder Mother Cancer Other Mental health disorder Social History Household Members: Unknown / Unable to assess Household Members Other:: refusing to report Housing: Unknown / Unable to assess Alcohol intake: current Alcohol intake frequency: holidays/special occasions only Comment: 5 min checks Patient Tobacco Use Status: Former Tobacco user Years Smoked: 30 e-Cigarette/Vaping Use: Never Used Substance Use Type: Marijuana service: No Current occupational status: retired 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 Sexual orientation: Straight/Heterosexual Cognitive needs: No Hearing needs: No Vision needs: Yes Review of Systems Const Denies anorexia, Denies fever(s) and Denies weakness Eyes Denies blurry vision Card Denies no additional complaints and Denies dyspnea Resp Reports no additional complaints, Reports cough and Denies dyspnea GI Denies melena and Denies diarrhea Denies hematuria Musc Denies tingling Skin/Breast Denies rash Neuro Denies focal weakness, Denies tingling, Denies tremor(s) and Denies weakness Physical Exam Vital Signs: Last Vital Signs Pulse 72 02/07/25 15:18 BP 128/64 02/07/25 15:18 Pulse Ox 98 02/07/25 15:18 Oxygen Delivery Method Room Air 02/07/25 15:18 BMI result Body Mass Index 23.3 Const General: comfortable Nutritional Appearance: well nourished Orientation/consciousness: patient oriented x3 HEENT Head: No normal to inspection Mouth: moist mucous membranes Neck Neck: Yes supple and Yes no JVD Resp Auscultation: clear to auscultation bilaterally and no rales Cardio Jugular venous distension: no JVD Palpation: no palpable S3 and no palpable S4 Heart sounds: no rubs GI Palpation (GI): Soft to palpation and nontender Percussion: No Fluid wave present General: Yes no CVA tenderness Back/Spine/Pelvis Back: no CVA tenderness Skin General skin exam: no rashes or lesions noted Neuro General: patient oriented x3 Extrem General: Yes no pedal edema and No clubbing Results Reviewed Nephrology Results: Sodium, (135-145) 131 mmol/L L 02/06/25 Potassium, (3.3-5.1) 4.5 mmol/L 02/06/25 Chloride, (96-108) 96 mmol/L 02/06/25 Carbon Dioxide, (22-29) 26 mmol/L 02/06/25 BUN, (9-16) 16 mg/dL 02/06/25 Creatinine, (0.5-1.4) 0.96 mg/dL 02/06/25 Calcium, (8.4-10.2) 9.5 mg/dL 02/06/25 Assessment & Plan Assessment & Plan (1) Multiple renal cysts: Code(s): 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 She has been having increased urinary frequency. I will check a 24 urine collection for volume and osmolality. Encouraged to stay on oral free water restriction of 1.2 L. Goal is to maintain serum sodium more than 130 millimoles. Multiple renal cysts We will obtain follow up renal ultrasonogram in 1 year. 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
--- OUTSIDE RECORDS SUMMARY | 2025-03-24 20:00 | XMS_ITS | Clinical Summary ---
Author Organization Unknown Care Team Providers Care Plant Attendant Or Assistant Operator Name Role Phone SUSAN GAVIRIA, SANKET Unavailable Unavaillonnie JOSEPH RN, MELIZA Unavailable Unavailable Payers Payer Name Policy Type Policy Number Effective Date Expira tion Date MEDICARE - [facility] - [place] [id number] Problems Condition Name Condition Details Condition Category [...] FINANCL HARDSHIP Active 01-24 00:00: 00 OTHER [facility] (CURRENT) DRUG THERAPY Active 01-24 00:00: 00 [...] mg chewable tablet 01-25 00:00: 00 Yes [id number] 1 tablet DAILY 1 tablet DAILY (route: oral) Med Classific ation: Hematolog ical Agents cyclobenzap rine 5 mg tablet 01-25 00:00: 00 Yes [id number] for muscle spasm 1 tablet NEEDED 1 tablet NEEDED (route: oral) Med Classific ation: Locomotor System divalproex 125 mg capsule,del ayed release sprinkle 01-25 00:00: 00 Yes [id number] 500 mg BEDTIME 500 mg BEDTIME (route: oral) Med Classific ation: Central Nervous System Agents famotidine 20 mg tablet 01-25 00:00: 00 Yes [id number] 1 tablet DAILY 1 tablet DAILY (route: oral) Med Classific ation: Gastroint estinal Therapy Agents fluticasone propionate 50 mcg/actuati on nasal spray,suspe nsion 01-25 00:00: 00 Yes [id number] 1 spray DAILY 1 spray DAILY (route: nasal) Med Classific ation: Respirato ry Therapy Agents folic acid 1 mg tablet 01-25 00:00: 00 Yes [id number] 1 tablet DAILY 1 tablet DAILY (route: oral) Med Classific ation: Electroly te Balance-N utritiona l Products losartan 25 mg tablet 01-25 00:00: 00 Yes [id number] 1 tablet DAILY 1 tablet DAILY (route: oral) Med Classific ation: Cardiovas cular Therapy Agents magnesium 400 mg (as magnesium oxide) tablet 01-25 00:00: 00 Yes [id number] 1 tablet DAILY 1 tablet DAILY (route: oral) Med Classific ation: Electroly te Balance-N utritiona l Products olanzapine 7.5 mg tablet 01-25 00:00: 00 Yes [id number] 1 tablet BEDTIME 1 tablet BEDTIME (route: oral) Med Classific ation: Central Nervous System Agents trazodone 50 mg tablet 01-25 00:00: 00 Yes [id number] 1 tablet NEEDED 1 tablet NEEDED (route: oral) Med Classific ation: Central Nervous System Agents Vitamin B-1 (mononitrat e) 100 mg tablet 01-25 00:00: 00 Yes [id number] 1 tablet DAILY 1 tablet DAILY (route: oral) Med Classific ation: Electroly te Balance-N utritiona l Products Vitamin D3 25 mcg (1,000 unit) tablet 01-25 00:00: 00 Yes [id number] 1 tablet DAILY 1 tablet DAILY (route: oral) Med Classific ation: Electroly te Balance-N utritiona l Products ezetimibe 10 mg tablet 01-30 00:00: 00 Yes [id number] 1 tablet BEDTIME 1 tablet BEDTIME (route: oral) Med Classific ation: Cardiovas cular Therapy Agents Immunizations Ordered Immunization Name Filled Immunization Name Date Status Comments Refusal Reason SHINGLES, TIV (INACTIVATED) 2025-01-25 00:00:00 Vital Signs Vital Name Observation Time Observation Value Commen ts Temperature 2025-02-01 08:09:00.000 97.1 [degF] Temperature 2025-01-30 08:23:00.000 97.5 [degF] Temperature 2025-01-27 09:11:00.000 97.2 [degF] Temperature 2025-01-25 20:16:00.000 98.6 [degF] BMI (%) 2025-01-25 18:46:52.000 24 kg/m2 Height 2025-01-25 18:46:33.000 62 [in_us] Pulse 2025-02-01 08:09:00.000 67 /min Pulse 2025-01-30 08:23:00.000 73 /min Pulse 2025-01-27 09:11:00.000 68 /min Pulse 2025-01-25 20:16:00.000 82 /min O2 Saturation (%) 2025-02-01 08:09:00.000 99 % O2 Saturation (%) 2025-01-30 08:23:00.000 97 % O2 Saturation (%) 2025-01-27 09:11:00.000 99 % Respirations 2025-02-01 08:09:00.000 16 /min Respirations 2025-01-30 08:23:00.000 16 /min Respirations 2025-01-27 09:11:00.000 16 /min Respirations 2025-01-25 20:16:00.000 20 /min Weight (lbs) 2025-01-25 18:46:52.000 135 [lb_av] Systolic Blood Pressure 2025-02-01 08:09:00.000 150 mm [Hg] Systolic Blood Pressure 2025-01-30 08:23:00.000 137 mm [Hg] Systolic Blood Pressure 2025-01-27 09:11:00.000 150 mm [Hg] Systolic Blood Pressure 2025-01-25 20:16:00.000 138 mm [Hg] Diastolic Blood Pressure 2025-02-01 08:09:00.000 [...] AWARENESS FOR SAFETY AND WILL NOTIFY CLINICAL FERRY OPERATOR AND PHYSICIAN/PROVIDER WITH ANY CHANGE IN CONDITION. [code = SKILLED NURSE WILL MAINTAIN SITUATIONAL AWARENESS FOR SAFETY AND WILL NOTIFY CLINICAL FERRY OPERATOR AND PHYSICIAN/PROVIDER WITH ANY CHANGE IN CONDITION.] Goal Patient Goal - I WANT TO GET BETTER Goal Provider Goal - A PLAN OF CARE WILL BE ESTABLISHED THAT MEETS PATIENT'S [facility] NEEDS AND INCLUDES PATIENT GOAL FOR HOME [...] <paragraph>[Visit Date: 2024 by MELIZA JOSEPH RN]:</paragraph><paragraph>FEBRUARY 01 SNV DISCUSS WITH PATIENT MONITORING FOR EXACERBATIONS OF MENTAL HEALTH STATUS AND MONITORING MOOD. PATIENT REPORTED THAT MOOD HAS BEEN IMPROVING AND MORE STABLE HOWEVER SHE STILL CONTINUES TO REPORT SHORT FUSE SHE STATES. REPORT SHE FREQUENTLY GETS IRRITATED WITH HER QUICKLY BUT CONTINUES TO FEEL GUILT AFTER BECAUSE SHE KNOWS HE IS NOT TRYING TO DO IT INTENTIONALLY. PATIENT REPORTS WHEN SHE STARTS TO FEEL AGITATED SHE PLAYS A GAME ON HER TABLET THAT HELPS HER CALM DOWN. REPORTS NO RECENT FALLS. EDUCATED PATIENT TO STAY COMPLIANT WITH MEDICATION ORDERED FROM MD AND TO MONITOR MOOD SWINGS. DISCUSS NOT STOPPING OR STARTING ANY MEDICATION TO ROUGHLY PATIENT REPORT SHE DOESN'T WANT TO BE ON MANY MEDICATIONS ONCE YOU BECOMES MORE STABLE. DISCUSS WITH PATIENTS THAT WE NEED TO STICK TO MD'S ORDERS UNTIL WE HAVE A VISIT WITH THE DOCTOR</paragraph> Encounters Start Date/Time End Date/Time Encounter Type Admission Type Attending [facility] Care Facility Care Department Encounter ID Discharge Date Discharge Status Discharge Condition Discharge Reason Percent Goals Met 2025-01-25 00:00:00 2025-03-25 00:00:00 Outpatient NEW ADMISSION MELIZA JOSEPH [facility] [id number] 38.24
== END 2025-02-07 15:42 | disposition home or self-care (01) ==
LOC: HO.HKA 15:06
PROVIDERS: Visit Provider Internal Medicine Hypertension Specialist
DX: Q61.02 Congenital multiple renal cysts (principal); E87.1 Hypo-osmolality and hyponatremia
CPT/HCPCS: 99204

== ENCOUNTER → 2025-02-07 15:06 | Outpatient (BNVA) | payer MEDICARE, MEDICAID, SELFPAY | PROVIDERS: Visit Provider Internal Medicine Hypertension Specialist | DX: E87.1 Hypo-osmolality and hyponatremia (principal); Q61.02 Congenital multiple renal cysts | CPT/HCPCS: 99202 ==

== ENCOUNTER 2025-02-08 13:55 | Outpatient (AMB) | payer MEDICARE, MEDICAID, SELFPAY ==
--- OUTSIDE RECORDS SUMMARY | 2024-12-24 12:19 | XMS_ITS | Encounter Summary ---
Author Organization [facility] Address [address] [facility] [address] [place] [address] Phone Care Team Providers Care Manager Civil Name Role Phone Carrillo Zarco MD Primary Care Provider [phone] Encounter Details Date Type Department Care Team (Late st Contact Info) Description 12/24/2024 12:19 PM EDT Hospital Encounter [facility] [address] [place] [address] [phone] Kari Angela PA-C [address] [place], [place] [phone] [email or web address] Social History Tobacco Use Types Packs/Day Years [...] (RIGHT) (12/24/2024 12:30 PM EDT) MGB IMG STEAM FITTER SUPERVISOR COMMENT 1. Nondisplaced hairline fracture of the fifth metacarpal. 2. Irregularity of the dorsal aspect of the lunate could represent a nondisplaced fracture. [facility] Anatomical Region Laterality Modality Hand Right Computed Radiogr aphy 12/24/2024 1:15 PM EDT Impressions 12/24/2024 1:16 PM EDT 1. Nondisplaced hairline fracture of the fifth metacarpal. 2. Irregularity of the dorsal aspect of the lunate could represent a nondisplaced fracture. A clinically significant result was initiated on 12/24/2024 1:16 PM, Message ID [id number]. Narrative 12/24/2024 1:16 PM EDT XR HAND [...] was initiated on 12/24/2024 1:16 PM,Message ID [id number]. Kari Angela PA-C IMG XR UPPER EXTREMITY Final Result documented in this encounter Visit Diagnoses Not on filedocumented in this encounter Care Teams Manager Civil Relationship Specialty Start Date End Date Carrillo Zarco MD [facility] [place] [address] PCP - General Internal Medicine 12/24/24 documented as of this encounter Additional Source Comments The information contained in this document represents components of the legal health record. It is not the complete legal health record.[facility]
[2025-02-08 14:00] VITALS: BP 126/68; PULSE 70; O2SAT 98; BMI 23.5
--- NOTE | 2025-02-08 14:00 | MHC.PC.OV ---
Vital Signs 02/08/25 14:00 Height 5 ft 4 in Weight 137 lb BMI 23.5 BP 126/68 Blood Pressure Location Lt brachial Position Sitting Pulse 70 Pulse Source Pulse Oximeter Pulse Oximetry (%) 98 Intake Visit Reasons: Manic Episode, ok per [place] Allergies Penicillins (PENICILLINS) Allergy (Severe, Verified 02/08/25 14:00) HIVES cephalexin (Keflex) Allergy (Unknown, Verified 02/08/25 14:00) unknown Sulfa (Sulfonamide Antibiotics) Allergy (Unknown, Verified 02/08/25 14:00) hives morphine (MORPHINE) Adverse Reaction (Unknown, Verified 02/08/25 14:00) ITCHY perflutren (From DEFINITY) Adverse Reaction (Unknown, Verified 02/08/25 14:00) CHEST PAIN macrobid Allergy (Intermediate, Uncoded 02/06/25 16:04) Hives NSAIDS Adverse Reaction (Unknown, Uncoded 02/06/25 16:04) GI upset Medication List - Last Reconciled 02/08/25 by Carrillo Zarco MD aspirin 81 mg PO DAILY cholecalciferol (vitamin D3) 25 mcg PO DAILY cyclobenzaprine 5 mg PO BID PRN divalproex 500 mg (4 x 125 mg) PO BEDTIME ezetimibe (Zetia) 10 mg PO DAILY famotidine 20 mg PO DAILY fluticasone propionate 50 mcg/actuation 1 spray intranasal DAILY folic acid 1 mg PO DAILY losartan 25 mg See Protocol PO DAILY magnesium oxide 400 mg PO BEDTIME olanzapine 7.5 mg PO BEDTIME thiamine mononitrate (vit B1) 100 mg PO DAILY trazodone 50 mg PO BEDTIME PRN Tobacco use date assessed: 02/08/25 Fall risk assessment: 2 + Falls in past year Last assessed Fall Risk: 02/08/25 Dental Screening Dental Screen Date: 02/08/25 Did you have a dental visit in the last 12 months?: No Did you have a dental problem in the last 6 months where you did not have access to dental care?: No Was dental information given to patient?: Patient declined HPI Manic Episode, ok per [place] HPI Details Patient is 69-year-old female with a medical history of bipolar disorder/schizoaffective disorder was admitted in hospital in December with manic and auditory hallucinations, anxiety, undiagnosed ADHD/OCD, agoraphobia, claustrophobia and found to have UTI and nephrolithiasis when she complained of flank pain Patient also have a chronic hyponatremia due to her psychiatric medications Last set of lab was 12/30/2024 CBC showed hemoglobin of 11.9 which has improved from 10 on 12/27/2024 We will continue to keep a track of that Platelet count within normal limit white count within normal limit Sodium 131 with normal rest of the electrolytes GFR 58 with normal creatinine Last set of liver enzymes were done 01/11/2025 they were within normal limit except total protein of 6.1 Her sodium was 138 May of 2019 After that it has been in 140s and then went down to 132 December 2024 Her blood pressure is 126/68 pulse is 70 and oxygen saturation is 98% on room air She has been doing well, came in with her daughter for the follow-up appointment seeing the psychiatrist and therapist Patient is also established with other providers and have appointment coming up Continued to feel tired Fatigue: - The symptoms of fatigue have been present for the last few days. - The patient reports feeling unusually tired despite getting more sleep than usual, with instances of suddenly sleeping for extended periods (up to 12 hours). - The fatigue coincided with recent medication changes following a hospitalization last month. - The patient generally wakes up early but noticed increased tiredness even after getting eight hours of sleep. - Denies any associated chest pain, shortness of breath, or nausea. Anemia: - Reports recent anemia with a hemoglobin level of 11.9, slightly below the normal range starting from 12. - Recent history indicates lower hemoglobin levels during hospitalization, previously at 10.0 in December. - The patient associates recent anemia with poor dietary intake due to a urinary tract infection. Medications: - Valproate (Depakote) for mood stabilization - Olanzapine for psychiatric management - Trazodone for psychiatric management - Cyclobenzaprine for muscle pain relief (used occasionally for back pain) - Zetia for cholesterol management - Famotidine as needed for acid reduction - Fluticasone (Flonase) for nasal congestion - Losartan for blood pressure control - Thiamine (Vitamin B1) supplement - Magnesium supplement - Nicotine replacement therapy (Nicorette gum) for smoking cessation support Social History: - The patient previously smoked but is using Nicorette gum for cessation. Problem List - Essential Hypertension - Hyponatremia - Anemia - Fatigue - Leg Swelling - Psychiatric Disorder - lipid disorder - chronic nasal congestion - back muscle spasms off and on - GERD [place] [employer] - Patient is monitored by a power plant operations manager, psychiatrist, topstitcher lockstitch, urologist, and therapist. Patient Instructions - Continue current medications and follow specialty providers. - Elevate legs when sitting to minimize swelling. - Monitor sodium intake and maintain hydration. - Reduce Nicorette gum gradually from four pieces/day to zero over three months. - Use famotidine only as needed. - Ensure a balanced diet to prevent further decline in hemoglobin levels. - Contact medical providers if symptoms worsen or new symptoms emerge, particularly concerning swelling, fatigue, or medication side effects. Review of Systems General: No fever no chills neurological: No headaches no dizziness ear nose throat: No sore throat no hearing difficulty no ear pain cardiovascular: No syncope, no chest pain, no palpitations gastrointestinal: No nausea vomiting or diarrhea endocrine: No polyuria polydipsia no heat intolerance genitourinary: No dysuria skin: No new complaints Physical Exam general: No acute distress HEENT: No acute findings neck: Supple respiratory system: Able to talk in full sentences, no audible wheeze, no stridor cardiovascular: S1-S2 RRR, heart is fine gastrointestinal: No pain, no nausea or vomiting extremities: 1+ swelling in both ankles CONTINUOUS IMPROVEMENT COORDINATOR: Alert, awake, oriented x3, motor sensory intact skin: Normal turgor PFSH Medical History Anxiety, generalized Marijuana use Alcohol use disorder Claustrophobia Bipolar 1 disorder with moderate rama Gout Gallstone pancreatitis Non-STEMI (non-ST elevated myocardial infarction) LV (left ventricular) mural thrombus Stress-induced cardiomyopathy Surgical History History of cardiac catheterization (~05/13/19) History of cholecystectomy (~06/2017) History of knee surgery Family History Father Substance use disorder Mother Cancer Other Mental health disorder Social History Household Members: Unknown / Unable to assess Household Members Other:: refusing to report Housing: Unknown / Unable to assess Alcohol intake: current Alcohol intake frequency: holidays/special occasions only Comment: 5 min checks Patient Tobacco Use Status: Former Tobacco user Years Smoked: 30 e-Cigarette/Vaping Use: Never Used Substance Use Type: Marijuana service: No Current occupational status: 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 1. Little interest or pleasure in doing things: several days 2. Feeling down, depressed, or hopeless: not at all 3. Trouble falling or staying asleep, or sleeping too much: not at all 4. Feeling tired or having little energy: not at all 5. Poor appetite or overeating: not at all 6. Feeling bad about yourself - or that you are a failure or have let yourself or your family down: several days 7. Trouble concentrating on things, such as reading the newspaper or watching television: several days 8. Moving or speaking so slowly that other people could have noticed. Or the opposite - being so fidgety or restless that you have been moving around a lot more than usual: several days 9. Thoughts that you would be better off or of hurting yourself in some way: not at all Total score: 4 Depression Screening Interpretation: Negative Depression Screening Done: Yes 21397 - PHQ-9 Billing: Yes Source: Developed by Drs. Emery Iqbal, Mayuri Cunha, Lester Kemp and colleagues, with an educational cheyanne from [employer]. Thrive Questionnaire Date Thrive assessed: 02/08/25 I am a: Patient What is your living situation today?: I have a steady place to live Within the past 12 months, did the food you bought not last and you didn't have the money to get more?: Never true Within the past 12 months, did you worry whether your food would run out before you got money to buy more?: Never true Do you have trouble paying for medicines?: No Do you have trouble getting transportation to medical appointments?: No Do you have trouble paying your heating and electricity bill?: No Do you have trouble taking care of your child, family member or friend?: No Do you have trouble with day-to-day activities such as bathing, preparing meals, shopping, managing finances, etc.?: Yes Are you currently unemployed and looking for a job?: No Are you interested in more education?: No Please select the resources that you would like help with: Paying for medicine, Transportation, Care for elder or disabled and Daily support Currently or been in a relationship where the following occur: I choose not to answer THRIVE Score: 0 AUDIT C Alcohol Use Questionnaire (AUDIT-C) 1. How often do you have a drink containing alcohol?: Never 3. How often do you have six or more drinks on one occasion?: Never Total Score: 0 Score Reviewed/Action Taken: Yes CORBY-7 AMB Questionnaire CORBY-7 Date CORBY - 7 assessed: 02/08/25 Feeling nervous, anxious, or on edge: 3 = Nearly every day Not being able to stop or control worryin = Nearly every day Worrying too much about different things: 3 = Nearly every day Trouble relaxin = Nearly every day Being so restless that it is hard to sit still: 3 = Nearly every day Becoming easily annoyed or irritable: 3 = Nearly every day Feeling afraid as if something awful might happen: 3 = Nearly every day Total CORBY-7 score (0-4 normal; 5-9 mild; 10-14 moderate; 15-21 severe): 21 Source: Developed by Drs. Emery Iqbal, Mayuri Cunha, Lester Kemp and colleagues, with an educational cheyanne from [employer]. CORBY-7 Assessment Billing CORBY-7 Assessment Tool: CORBY-7 Assessment 47058 Physical exam (Primary Care) Vital Signs: Last Vital Signs Pulse 70 02/08/25 14:00 BP 126/68 02/08/25 14:00 Pulse Ox 98 02/08/25 14:00 BMI result Body Mass Index 23.5 Tobacco/Smoking Status: Tobacco use Status Tobacco use date assessed 02/08/25 02/08/25 14:05 Patient Tobacco Use Status Former Tobacco user 02/08/25 14:05 e-Cigarette/Vaping Use Never Used 02/08/25 14:05 PHQ-9: PHQ-9 Score PHQ-9: Total score 4 02/08/25 14:12 Depression Screening Interpretation: Negative Thrive Assessment: Date of Thrive Assessment Date Thrive assessed 02/08/25 02/08/25 14:05 Currently or been in a relationship where the following occur: I choose not to answer Coding Level of Care Code Est Pt Level 5 (03812) Complex EM visit Add On G2211 Diagnoses Hospital discharge follow-up Z09 Hyponatremia syndrome E87.1 Nephropathy N28.9 Hypertension, essential I10 Stress-induced cardiomyopathy I51.81 Bipolar 1 disorder with moderate rama F31.12 Schizoaffective disorder, bipolar type F25.0 Schizoaffective disorder type: bipolar Cigarette nicotine dependence without complication F17.210 Nicotine product type: cigarettes Substance use status: uncomplicated Lipid disorder E78.9 Muscle spasm of back M62.830 Additional Codes CORBY-7 Assessment Billing - CORBY-7 Assessment Tool: CORBY-7 Assessment 35285 ([id number]) PHQ-9 - 07102 - PHQ-9 Billing: Yes ([id number]) Time Spent (min) 45 Comment Reviewing labs/hospital notes/charts/consultations/[id number]-yn-bocq with daughter and patient Assessment & Plan Assessment & Plan (1) Hospital discharge follow-up: Code(s): Z09 - Encounter for follow-up examination after completed treatment for conditions other than malignant neoplasm Category: Medical (2) Hyponatremia syndrome: Code(s): E87.1 - Hypo-osmolality and hyponatremia Category: Medical (3) Nephropathy: Code(s): N28.9 - Disorder of kidney and ureter, unspecified Category: Medical (4) Hypertension, essential: Code(s): I10 - Essential (primary) hypertension Category: Medical (5) Stress-induced cardiomyopathy: Code(s): I51.81 - Takotsubo syndrome Category: Medical (6) Bipolar 1 disorder with moderate rama: Code(s): F31.12 - Bipolar disorder, current episode manic without psychotic features, moderate Category: Medical (7) Schizoaffective disorder: Code(s): F25.9 - Schizoaffective disorder, unspecified Category: Medical Qualifiers: Schizoaffective disorder type: bipolar Qualified Code(s): F25.0 - Schizoaffective disorder, bipolar type (8) Nicotine dependence: Code(s): F17.200 - Nicotine dependence, unspecified, uncomplicated Category: Medical Qualifiers: Nicotine product type: cigarettes Substance use status: uncomplicated Qualified Code(s): F17.210 - Nicotine dependence, cigarettes, uncomplicated (9) Lipid disorder: Code(s): E78.9 - Disorder of lipoprotein metabolism, unspecified Category: Medical (10) Muscle spasm of back: Code(s): M62.830 - Muscle spasm of back Category: Medical Plan Patient is 69-year-old female with a medical history of bipolar disorder/schizoaffective disorder was admitted in hospital in December with manic and auditory hallucinations, anxiety, undiagnosed ADHD/OCD, agoraphobia, claustrophobia and found to have UTI and nephrolithiasis when she complained of flank pain Patient also have a chronic hyponatremia due to her psychiatric medications Last set of lab was 12/30/2024 CBC showed hemoglobin of 11.9 which has improved from 10 on 12/27/2024 We will continue to keep a track of that Platelet count within normal limit white count within normal limit Sodium 131 with normal rest of the electrolytes GFR 58 with normal creatinine Last set of liver enzymes were done 01/11/2025 they were within normal limit except total protein of 6.1 Her sodium was 138 May of 2019 After that it has been in 140s and then went down to 132 December 2024 Her blood pressure is 126/68 pulse is 70 and oxygen saturation is 98% on room air She has been doing well, came in with her daughter for the follow-up appointment seeing the psychiatrist and therapist Patient is also established with other providers and have appointment coming up Continued to feel tired Fatigue: - The symptoms of fatigue have been present for the last few days. - The patient reports feeling unusually tired despite getting more sleep than usual, with instances of suddenly sleeping for extended periods (up to 12 hours). - The fatigue coincided with recent medication changes following a hospitalization last month. - The patient generally wakes up early but noticed increased tiredness even after getting eight hours of sleep. - Denies any associated chest pain, shortness of breath, or nausea. Anemia: - Reports recent anemia with a hemoglobin level of 11.9, slightly below the normal range starting from 12. - Recent history indicates lower hemoglobin levels during hospitalization, previously at 10.0 in December. - The patient associates recent anemia with poor dietary intake due to a urinary tract infection. Medications: - Valproate (Depakote) for mood stabilization - Olanzapine for psychiatric management - Trazodone for psychiatric management - Cyclobenzaprine for muscle pain relief (used occasionally for back pain) - Zetia for cholesterol management - Famotidine as needed for acid reduction - Fluticasone (Flonase) for nasal congestion - Losartan for blood pressure control - Thiamine (Vitamin B1) supplement - Magnesium supplement - Nicotine replacement therapy (Nicorette gum) for smoking cessation support Social History: - The patient previously smoked but is using Nicorette gum for cessation. Problem List - Essential Hypertension - Hyponatremia - Anemia - Fatigue - Leg Swelling - Psychiatric Disorder - lipid disorder - chronic nasal congestion - back muscle spasms off and on - GERD [place] [employer] - Patient is monitored by a power plant operations manager, psychiatrist, topstitcher lockstitch, urologist, and therapist. Patient Instructions - Continue current medications and follow specialty providers. - Elevate legs when sitting to minimize swelling. - Monitor sodium intake and maintain hydration. - Reduce Nicorette gum gradually from four pieces/day to zero over three months. - Use famotidine only as needed. - Ensure a balanced diet to prevent further decline in hemoglobin levels. - Contact medical providers if symptoms worsen or new symptoms emerge, particularly concerning swelling, fatigue, or medication side effects. Medications: New nicotine (polacrilex) 2 mg buccal Q6H 100 ea 2RF 30 days F17.200 - Nicotine dependence, unspecified, uncomplicated Refilled losartan 25 mg See Protocol PO DAILY 30 tabs 0RF magnesium oxide 400 mg PO BEDTIME 30 tabs 0RF thiamine mononitrate (vit B1) 100 mg PO DAILY 30 tabs 0RF famotidine 20 mg PO DAILY 90 tabs 0RF fluticasone propionate 50 mcg/actuation 1 spray intranasal DAILY 16 grams 3RF Discontinued cyclobenzaprine Discontinued Reason: Doctor's Order 5 mg PO BID PRN 60 tabs 0RF Muscle Spasm
== END 2025-02-08 14:32 | disposition home or self-care (01) ==
LOC: HO.HMCC 13:56
PROVIDERS: PCP Internal Medicine; Visit Provider Internal Medicine
DX: E87.1 Hypo-osmolality and hyponatremia (principal); N28.9 Disorder of kidney and ureter, unspecified; I10 Essential (primary) hypertension; I51.81 Takotsubo syndrome; F31.12 Bipolar disorder, current episode manic without psychotic features, moderate; F25.0 Schizoaffective disorder, bipolar type; F17.210 Nicotine dependence, cigarettes, uncomplicated; E78.9 Disorder of lipoprotein metabolism, unspecified; M62.830 Muscle spasm of back

== ENCOUNTER → 2025-02-08 13:55 | Outpatient (BNVA) | payer MEDICARE, MEDICAID, SELFPAY | PROVIDERS: PCP Internal Medicine; Visit Provider Internal Medicine | DX: Z09 Encounter for follow-up examination after completed treatment for conditions other than malignant neoplasm (principal); E87.1 Hypo-osmolality and hyponatremia; N28.9 Disorder of kidney and ureter, unspecified; I10 Essential (primary) hypertension; I51.81 Takotsubo syndrome; F31.12 Bipolar disorder, current episode manic without psychotic features, moderate; F25.0 Schizoaffective disorder, bipolar type; E78.9 Disorder of lipoprotein metabolism, unspecified; M62.830 Muscle spasm of back; F17.210 Nicotine dependence, cigarettes, uncomplicated; Z71.6 Tobacco abuse counseling | CPT/HCPCS: 96127; 99212 ==

== ENCOUNTER 2025-02-17 10:00 | Outpatient (REF) | payer MEDICARE, MEDICAID, SELFPAY ==
--- OUTSIDE RECORDS SUMMARY | 2024-12-24 12:19 | XMS_ITS | Encounter Summary ---
Author Organization [facility] Address [address] [facility] [address] [place] [address] Phone Care Team Providers Care Wooden Box Maker Name Role Phone Carrillo Zarco MD Primary Care Provider [phone] Encounter Details Date Type Department Care Team (Late st Contact Info) Description 12/24/2024 12:19 PM EDT Hospital Encounter [facility] [address] [place] [address] [phone] Kari Angela PA-C [address] [place], [place] [phone] Social History Tobacco Use Types Packs/Day Years [...] (RIGHT) (12/24/2024 12:30 PM EDT) [facility] IMG AGRONOMY LOCATION MANAGER COMMENT 1. Nondisplaced hairline fracture of the fifth metacarpal. 2. Irregularity of the dorsal aspect of the lunate could represent a nondisplaced fracture. [facility] Anatomical Region Laterality Modality Hand Right Computed Radiogr aphy 12/24/2024 1:15 PM EDT Impressions 12/24/2024 1:16 PM EDT 1. Nondisplaced hairline fracture of the fifth metacarpal. 2. Irregularity of the dorsal aspect of the lunate could represent a nondisplaced fracture. A clinically significant result was initiated on 12/24/2024 1:16 PM, Message ID [id number]. Narrative 12/24/2024 1:16 PM EDT XR HAND [...] was initiated on 12/24/2024 1:16 PM,Message ID [id number]. Kari Angela PA-C IMG XR UPPER EXTREMITY Final Result documented in this encounter Visit Diagnoses Not on filedocumented in this encounter Care Teams Wooden Box Maker Relationship Specialty Start Date End Date Carrillo Zarco MD [facility] [place] [address] PCP - General Internal Medicine 12/24/24 documented as of this encounter Additional Source Comments The information contained in this document represents components of the legal health record. It is not the complete legal health record.[facility]
[2025-02-17 12:11] LABS: Creatinine, mg/dL 42.97; Creatinine, mg/dL 43.81; Sodium, 24 Hr Urine 106.0 mmol/L
[2025-02-17 12:19] LABS: Total Volume 24 Hour Urine 1375 mL
--- OUTSIDE RECORDS SUMMARY | 2025-03-24 20:00 | XMS_ITS | Clinical Summary ---
Author Organization Unknown Care Team Providers Care Editorial Specialist Name Role Phone SUSAN GAVIRIA, SANKET Unavailable Unavaillonnie JOSEPH RN, MELIZA Unavailable Unavailable Payers Payer Name Policy Type Policy Number Effective Date Expira tion Date MEDICARE - [facility] - [place] [id number] Problems Condition Name Condition Details Condition Category [...] FINANCL HARDSHIP Active 01-24 00:00: 00 OTHER CREDIT PORTFOLIO ADVISOR (CURRENT) DRUG THERAPY Active 01-24 00:00: 00 [...] mg chewable tablet 01-25 00:00: 00 Yes [id number] 1 tablet DAILY 1 tablet DAILY (route: oral) Med Classific ation: Hematolog ical Agents cyclobenzap rine 5 mg tablet 01-25 00:00: 00 Yes [id number] for muscle spasm 1 tablet NEEDED 1 tablet NEEDED (route: oral) Med Classific ation: Locomotor System divalproex 125 mg capsule,del ayed release sprinkle 01-25 00:00: 00 Yes [id number] 500 mg BEDTIME 500 mg BEDTIME (route: oral) Med Classific ation: Central Nervous System Agents famotidine 20 mg tablet 01-25 00:00: 00 Yes [id number] 1 tablet DAILY 1 tablet DAILY (route: oral) Med Classific ation: Gastroint estinal Therapy Agents fluticasone propionate 50 mcg/actuati on nasal spray,suspe nsion 01-25 00:00: 00 Yes [id number] 1 spray DAILY 1 spray DAILY (route: nasal) Med Classific ation: Respirato ry Therapy Agents folic acid 1 mg tablet 01-25 00:00: 00 Yes [id number] 1 tablet DAILY 1 tablet DAILY (route: oral) Med Classific ation: Electroly te Balance-N utritiona l Products losartan 25 mg tablet 01-25 00:00: 00 Yes [id number] 1 tablet DAILY 1 tablet DAILY (route: oral) Med Classific ation: Cardiovas cular Therapy Agents magnesium 400 mg (as magnesium oxide) tablet 01-25 00:00: 00 Yes [id number] 1 tablet DAILY 1 tablet DAILY (route: oral) Med Classific ation: Electroly te Balance-N utritiona l Products olanzapine 7.5 mg tablet 01-25 00:00: 00 Yes [id number] 1 tablet BEDTIME 1 tablet BEDTIME (route: oral) Med Classific ation: Central Nervous System Agents trazodone 50 mg tablet 01-25 00:00: 00 Yes [id number] 1 tablet NEEDED 1 tablet NEEDED (route: oral) Med Classific ation: Central Nervous System Agents Vitamin B-1 (mononitrat e) 100 mg tablet 01-25 00:00: 00 Yes [id number] 1 tablet DAILY 1 tablet DAILY (route: oral) Med Classific ation: Electroly te Balance-N utritiona l Products Vitamin D3 25 mcg (1,000 unit) tablet 01-25 00:00: 00 Yes [id number] 1 tablet DAILY 1 tablet DAILY (route: oral) Med Classific ation: Electroly te Balance-N utritiona l Products ezetimibe 10 mg tablet 01-30 00:00: 00 Yes [id number] 1 tablet BEDTIME 1 tablet BEDTIME (route: [...] AWARENESS FOR SAFETY AND WILL NOTIFY CLINICAL COMPENSATION AND HRIS ANALYST AND PHYSICIAN/PROVIDER WITH ANY CHANGE IN CONDITION. [code = SKILLED NURSE WILL MAINTAIN SITUATIONAL AWARENESS FOR SAFETY AND WILL NOTIFY CLINICAL COMPENSATION AND HRIS ANALYST AND PHYSICIAN/PROVIDER WITH ANY CHANGE IN CONDITION.] Goal Patient Goal - I WANT TO GET BETTER Goal Provider Goal - A PLAN OF CARE WILL BE ESTABLISHED THAT MEETS PATIENT'S LONG-TERM NEEDS AND INCLUDES PATIENT GOAL FOR HOME [...] SLEEP AND SEEING IF THAT HELPS WITH FACILITY SERVICE ASSOCIATE SEDATION AND DIFFICULTY WITH TIREDNESS AND MOURNING. [...] End Date/Time Encounter Type Admission Type Attending [facility] Care Department Encounter ID Discharge Date Discharge Status Discharge Condition Discharge Reason Percent Goals Met 2025-01-25 00:00:00 2025-03-25 00:00:00 Outpatient NEW ADMISSION MELIZA JOSEPH [facility] [id number] 44.12
== END 2025-02-17 10:01 | disposition home or self-care (01) ==
LOC: HO.LNP 10:00
PROVIDERS: Visit Provider Internal Medicine Hypertension Specialist
DX: E87.1 Hypo-osmolality and hyponatremia (principal)
CPT/HCPCS: 82570; 84300

== ENCOUNTER 2025-02-21 15:20 | Outpatient (REF) | payer MEDICARE, MEDICAID, SELFPAY ==
--- OUTSIDE RECORDS SUMMARY | 2024-12-24 12:19 | XMS_ITS | Encounter Summary ---
Author Organization [facility] Address [address] [facility] [address] [place] [address] Phone Care Team Providers Care Grades 1 Through 6 Teacher Name Role Phone Carrillo Zarco MD Primary Care Provider [phone] Encounter Details Date Type Department Care Team (Late st Contact Info) Description 12/24/2024 12:19 PM EDT Hospital Encounter [facility] [address] [place] [address] [phone] Kari Angela PA-C [address] [place], [place] [phone] Social History Tobacco Use Types Packs/Day Years [...] (RIGHT) (12/24/2024 12:30 PM EDT) MGB IMG SPACE AND MISSILE OPERATIONS SPACELIFT COMMENT 1. Nondisplaced hairline fracture of the fifth metacarpal. 2. Irregularity of the dorsal aspect of the lunate could represent a nondisplaced fracture. [facility] Anatomical Region Laterality Modality Hand Right Computed Radiogr aphy 12/24/2024 1:15 PM EDT Impressions 12/24/2024 1:16 PM EDT 1. Nondisplaced hairline fracture of the fifth metacarpal. 2. Irregularity of the dorsal aspect of the lunate could represent a nondisplaced fracture. A clinically significant result was initiated on 12/24/2024 1:16 PM, Message ID [id number]. Narrative 12/24/2024 1:16 PM EDT XR HAND [...] was initiated on 12/24/2024 1:16 PM,Message ID [id number]. Kari Angela PA-C IMG XR UPPER EXTREMITY Final Result documented in this encounter Visit Diagnoses Not on filedocumented in this encounter Care Teams Grades 1 Through 6 Teacher Relationship Specialty Start Date End Date Carrillo Zarco MD [facility] [place] [address] PCP - General Internal Medicine 12/24/24 documented as of this encounter Additional Source Comments The information contained in this document represents components of the legal health record. It is not the complete legal health record.[facility]
--- NOTE | ~2025-02-21 | US_ITS ---
EXAMINATION: US RETROPERITONEAL LIMITED (RENAL ONLY) CLINICAL INFORMATION: Hypertension.. COMPARISON: Collated to CT dated December 28, 2024 TECHNIQUE: Real-time ultrasound kidneys using grayscale and color Doppler technique. FINDINGS: RIGHT KIDNEY: 10 x 5 x 5 cm (SAG x AP x TRV). Volume: 117 cc normal echotexture. Mild renal cortical thinning. No hydronephrosis. There is a 2.8 cm exophytic anechoic lesion in the upper pole without flow on color Doppler interrogation or septations. LEFT KIDNEY: 9 x 5 x 4 cm (SAG x AP x TRV). Volume: 95 cc. Normal echotexture. Renal cortical thinning. No hydronephrosis. There are multifocal anechoic lesions throughout the parenchyma in an exophytic location, the largest measures 2.8 cm without septations or flow on color Doppler interrogation. US/US renal BI IMPRESSION: Bilateral renal cysts. No hydronephrosis. Bilateral renal cortical thinning suggesting medical renal disease.. Electronically signed by: Juan Antonio Ward MD 02/21/2025 03:52 PM EDT
[2025-02-21 16:12] LABS: Appearance Urine Clear; Glucose Urine UA Negative (Negative); PH 6.0 (5.0-9.0); Specific Gravity - Urine 1.015 (1.005-1.025); UMIC TRIGGER UA YES
--- OUTSIDE RECORDS SUMMARY | 2025-03-24 20:00 | XMS_ITS | Clinical Summary ---
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 Active 01-24 00:00: 00 [...] mg chewable tablet 01-25 00:00: 00 Yes [id number] 1 tablet DAILY 1 tablet DAILY (route: oral) Med Classific ation: Hematolog ical Agents cyclobenzap rine 5 mg tablet 01-25 00:00: 00 Yes [id number] for muscle spasm 1 tablet NEEDED 1 tablet NEEDED (route: oral) Med Classific ation: Locomotor System divalproex 125 mg capsule,del ayed release sprinkle 01-25 00:00: 00 Yes [id number] 500 mg BEDTIME 500 mg BEDTIME (route: oral) Med Classific ation: Central Nervous System Agents famotidine 20 mg tablet 01-25 00:00: 00 Yes [id number] 1 tablet DAILY 1 tablet DAILY (route: oral) Med Classific ation: Gastroint estinal Therapy Agents fluticasone propionate 50 mcg/actuati on nasal spray,suspe nsion 01-25 00:00: 00 Yes [id number] 1 spray DAILY 1 spray DAILY (route: nasal) Med Classific ation: Respirato ry Therapy Agents folic acid 1 mg tablet 01-25 00:00: 00 Yes [id number] 1 tablet DAILY 1 tablet DAILY (route: oral) Med Classific ation: Electroly te Balance-N utritiona l Products losartan 25 mg tablet 01-25 00:00: 00 Yes [id number] 1 tablet DAILY 1 tablet DAILY (route: oral) Med Classific ation: Cardiovas cular Therapy Agents magnesium 400 mg (as magnesium oxide) tablet 01-25 00:00: 00 Yes [id number] 1 tablet DAILY 1 tablet DAILY (route: oral) Med Classific ation: Electroly te Balance-N utritiona l Products olanzapine 7.5 mg tablet 01-25 00:00: 00 Yes [id number] 1 tablet BEDTIME 1 tablet BEDTIME (route: oral) Med Classific ation: Central Nervous System Agents trazodone 50 mg tablet 01-25 00:00: 00 Yes [id number] 1 tablet NEEDED 1 tablet NEEDED (route: oral) Med Classific ation: Central Nervous System Agents Vitamin B-1 (mononitrat e) 100 mg tablet 01-25 00:00: 00 Yes [id number] 1 tablet DAILY 1 tablet DAILY (route: oral) Med Classific ation: Electroly te Balance-N utritiona l Products Vitamin D3 25 mcg (1,000 unit) tablet 01-25 00:00: 00 Yes [id number] 1 tablet DAILY 1 tablet DAILY (route: oral) Med Classific ation: Electroly te Balance-N utritiona l Products ezetimibe 10 mg tablet 01-30 00:00: 00 Yes [id number] 1 tablet BEDTIME 1 tablet BEDTIME (route: oral) Med Classific ation: Cardiovas cular Therapy Agents Immunizations Ordered Immunization Name Filled Immunization Name Date Status Comments Refusal Reason SHINGLES, TIV (INACTIVATED) 2025-01-25 00:00:00 Vital Signs Vital Name Observation Time Observation Value Commen ts Temperature 2025-02-16 09:30:00.000 97.2 [degF] Temperature 2025-02-09 09:34:00.000 97.9 [degF] Temperature 2025-02-01 08:09:00.000 97.1 [degF] Temperature 2025-01-30 08:23:00.000 97.5 [degF] Temperature 2025-01-27 09:11:00.000 97.2 [degF] Temperature 2025-01-25 20:16:00.000 98.6 [degF] BMI (%) 2025-01-25 18:46:52.000 24 kg/m2 Height 2025-01-25 18:46:33.000 62 [in_us] Pulse 2025-02-16 09:32:00.000 63 /min Pulse 2025-02-09 09:34:00.000 74 /min Pulse 2025-02-01 08:09:00.000 67 /min Pulse 2025-01-30 08:23:00.000 73 /min Pulse 2025-01-27 09:11:00.000 68 /min Pulse 2025-01-25 20:16:00.000 82 /min O2 Saturation (%) 2025-02-16 09:30:00.000 95 % O2 Saturation (%) 2025-02-09 09:34:00.000 99 % O2 Saturation (%) 2025-02-01 08:09:00.000 99 % O2 Saturation (%) 2025-01-30 08:23:00.000 97 % O2 Saturation (%) 2025-01-27 09:11:00.000 99 % Respirations 2025-02-16 09:30:00.000 16 /min Respirations 2025-02-09 09:34:00.000 16 /min Respirations 2025-02-01 08:09:00.000 16 /min Respirations 2025-01-30 08:23:00.000 16 /min Respirations 2025-01-27 09:11:00.000 16 /min Respirations 2025-01-25 20:16:00.000 20 /min Weight (lbs) 2025-01-25 18:46:52.000 135 [lb_av] Systolic Blood Pressure 2025-02-16 09:32:00.000 146 mm [Hg] Systolic Blood Pressure 2025-02-09 09:34:00.000 154 mm [Hg] Systolic Blood Pressure 2025-02-01 08:09:00.000 150 mm [Hg] Systolic Blood Pressure 2025-01-30 08:23:00.000 137 mm [Hg] Systolic Blood Pressure 2025-01-27 09:11:00.000 150 mm [Hg] Systolic Blood Pressure 2025-01-25 20:16:00.000 138 mm [Hg] Diastolic Blood Pressure 2025-02-16 09:32:00.000 [...] NU RSE FOR OBSERVATION AND ASSESSMENT OF PATIENTS PAIN LEVEL AND EFFECTIVENESS OF PAIN MANAGEMENT REGIMEN. SKILLED NURSE TO INSTRUCT PATIENT/CAREGIVER REGARDING PHARMACOLOGIC AND NON-PHARMACOLOGIC PAIN CONTROL MEASURES. SKILLED NURSE TO REPORT TO PHYSICIAN IF PAIN IS UNCONTROLLED WITH CURRENT PAIN MANAGEMENT REGIMEN. [code = SKILLED NURSE FOR OBSERVATION AND ASSESSMENT OF PATIENTS PAIN LEVEL AND EFFECTIVENESS OF PAIN MANAGEMENT [...] FOR EARLY INTERVENTION OF COMPLICATIONS DURING VISIT ] Future Scheduled Test SKILLED NU RSE TO [...] AWARENESS FOR SAFETY AND WILL NOTIFY CLINICAL SENIOR INSIGHT MANAGER INTERNATIONAL AND PHYSICIAN/PROVIDER WITH ANY CHANGE IN CONDITION. [code = SKILLED NURSE WILL MAINTAIN SITUATIONAL AWARENESS FOR SAFETY AND WILL NOTIFY CLINICAL SENIOR INSIGHT MANAGER INTERNATIONAL AND PHYSICIAN/PROVIDER WITH ANY CHANGE IN CONDITION.] Goal Patient Goal - I WANT TO GET BETTER Goal Provider Goal - A PLAN OF CARE WILL BE ESTABLISHED THAT MEETS PATIENT'S RESIDENTIAL NEEDS AND INCLUDES PATIENT GOAL FOR HOME [...] SELF AND OTHERS THROUGHOUT THE CERTIFICATION PERIOD. Progress Notes Progress Notes <paragraph>[Visit Date: 2024 by MELIZA JOSEPH RN]:</paragraph><paragraph>FEBRUARY 16 SNV ALERT AMD ORIENTED TO PERSON ANDVPLACE FORGETFUL ON DATE BUT CORRECT YEAR AND MONTH. PATIENT IS IMPULSIVE WITH MOVEMENTS DURING VISIT. PATIENT FREQUENTLY PACING AROUND KITCHEN DURING NURSING VISIT. PATIENT REPORT SHE FEELS SLEEPY AND HAS DIFFICULTY WAKING UP. PATIENT REPORT SHE HAS BEEN TAKING THE TRAZODONE EVERY NIGHT ALONG WITH THE ZYPREXA, REPORT SHE IS MEDICATION COMPLIANT HER HELPS ADMINISTER MEDS ON NON-NURSING DAY. DISCUSS WITH PATIENT THAT TRAZODONE ISN'T NEEDED MEDICATION, DISCUSS POTENTIALLY NOT TAKING IT UNLESS UNABLE TO SLEEP AND SEEING IF THAT HELPS WITH SAFETY PHYSICIAN SEDATION AND DIFFICULTY WITH TIREDNESS AND MOURNING. PATIENT REPORTS IT IMPROVES AND USUALLY BY NOON SHE IS FINE BUT REPORTS THAT SHE DOES NOT WANT TO ALWAYS FEEL LIKE THIS. FACIAL REPORTED THAT SHE WOULD LIKE TO COME OFF HER MEDS, REPORTED WITH PATIENT THAT SHE MUST SPEAK WITH HER PSYCHIATRIC PROVIDER AND THAT WE DO NOT WANT TO COME OFF MEDS WITHOUT SPEAKING TO PROVIDER. DISCUSS THE PURPOSE OF ZYPREXA. EDUCATED PATIENT ON THE THERAPEUTIC EFFECTS SUCH HELPING KEEPING THOUGHTS AND CONTROL, PATIENT REPORTED THAT SHE FEELS THAT IT HAS HELPED KEEP HER BRAIN FROM BEING BUSY. PATIENT DENIED ANY ANXIETY OR DEPRESSION, DENIED ANY AUDITORY VISUAL HALLUCINATIONS, DENIED ANY SUICIDE OR HOMICIDAL IDEATION. REINFORCIFICATION THE IMPORTANCE OF MEDICATION COMPLIANCE. PATIENT REPORTS MOOD HAS BEEN MORE STABLE THIS LAST WEEK. REPORTS AGITATION AND SNAPPING HAS BEEN TO A MINIMUM PERIOD</paragraph> Encounters Start Date/Time End Date/Time Encounter Type Admission Type Attending [facility] Care Department Encounter ID Discharge Date Discharge Status Discharge Condition Discharge Reason Percent Goals Met 2025-01-25 00:00:00 2025-03-25 00:00:00 Outpatient NEW ADMISSION MELIZA [facility] [id number] 44.12
== END 2025-02-21 15:21 | disposition home or self-care (01) ==
LOC: HO.US 15:20
PROVIDERS: Absent Provider Urology; PCP Internal Medicine; Visit Provider Internal Medicine Hypertension Specialist
DX: Q61.02 Congenital multiple renal cysts (principal); E87.1 Hypo-osmolality and hyponatremia; I10 Essential (primary) hypertension; N39.0 Urinary tract infection, site not specified
CPT/HCPCS: 76775; 81001; 87086; 87088; 87186

== ENCOUNTER → 2025-02-21 15:23 | Outpatient (BNV) | payer MEDICARE, MEDICAID, SELFPAY | PROVIDERS: Absent Provider Urology; PCP Internal Medicine; Visit Provider Radiology Diagnostic Radiology | DX: I10 Essential (primary) hypertension (principal); N28.1 Cyst of kidney, acquired | CPT/HCPCS: 76775 ==

== ENCOUNTER 2025-03-07 16:17 | Outpatient (REF) | payer MEDICARE, MEDICAID, SELFPAY ==
--- OUTSIDE RECORDS SUMMARY | 2024-12-24 12:19 | XMS_ITS | Encounter Summary ---
Author Organization [facility] Address [address] [facility] [address] [place] [address] Phone Care Team Providers Care Electronic Prepress Operator Name Role Phone Carrillo Zarco MD Primary Care Provider [phone] Encounter Details Date Type Department Care Team (Late st Contact Info) Description 12/24/2024 12:19 PM EDT Hospital Encounter [facility] [address] [place] [address] [phone] Kari Angela PA-C [address] [place], [place] [phone] [email or web address] Social History Tobacco Use Types Packs/Day Years [...] (RIGHT) (12/24/2024 12:30 PM EDT) MGB IMG STUDENT OUTREACH COORDINATOR COMMENT 1. Nondisplaced hairline fracture of the fifth metacarpal. 2. Irregularity of the dorsal aspect of the lunate could represent a nondisplaced fracture. [facility] Anatomical Region Laterality Modality Hand Right Computed Radiogr aphy 12/24/2024 1:15 PM EDT Impressions 12/24/2024 1:16 PM EDT 1. Nondisplaced hairline fracture of the fifth metacarpal. 2. Irregularity of the dorsal aspect of the lunate could represent a nondisplaced fracture. A clinically significant result was initiated on 12/24/2024 1:16 PM, Message ID [id number]. Narrative 12/24/2024 1:16 PM EDT XR HAND [...] was initiated on 12/24/2024 1:16 PM,Message ID [id number]. Kari Angela PA-C IMG XR UPPER EXTREMITY Final Result documented in this encounter Visit Diagnoses Not on filedocumented in this encounter Care Teams Electronic Prepress Operator Relationship Specialty Start Date End Date Carrillo Zarco MD [facility] [place] [address] PCP - General Internal Medicine 12/24/24 documented as of this encounter Additional Source Comments The information contained in this document represents components of the legal health record. It is not the complete legal health record.[facility]
--- OUTSIDE RECORDS SUMMARY | 2025-03-07 16:53 | XMS_ITS | Clinical Summary ---
Author Organization [facility] Address [address] [facility] [address] [place] [address] Phone Care Team Providers Care Comedian Name Role Phone Carrillo Zarco MD Primary Care Provider [phone] Allergies No known active allergies Medications clonazePAM (KLONOPIN) 0.5 MG tablet 12/22/2024 Active hydrOXYzine (ATARAX) 25 MG tablet TAKE 1 TABLET BY MOUTH TWICE A DAY NEEDED FOR ANXIETY /INSOMNIA 11/22/2024 Active lisinopril (PRINIVIL,ZESTR IL) 5 MG tablet Take 1 tablet by mouth every morning. 10/19/2024 Active Active Problems Problem Noted Date Diagnosed Date Closed nondisplaced fracture of proximal phalanx of right little finger 12/24/2024 Encounters Date Type Department Care Team Description 12/24/2024 12:19 PM EDT Hospital Encounter [facility] [address] [place] [id number] Kari Angela PA-C 12/24/2024 11:50 AM EDT Office Visit [facility] Ur[facility] Care at [address] [address] Kari Angela PA-C Closed nondisplaced fracture of proximal phalanx of right little finger, initial encounter (Primary Dx) from Last 3 Months Social History Tobacco Use Types Packs/Day Years [...] on file Sexual Orientation Not on file Last Filed Vital Signs Vital Sign Reading Time Taken Comments Blood Pressure 148/97 12/24/2024 12:00 PM EDT Pulse 87 12/24/2024 12:00 PM EDT Temperature 37.2 C (98.9 F) 12/24/2024 12:00 PM EDT Respiratory Rate 20 12/24/2024 12:00 PM EDT Oxygen Saturation 99% 12/24/2024 12:00 PM EDT Inhaled Oxygen Concentration - - Weight 59 kg (130 lb) 12/24/2024 12:00 PM EDT Height 160 cm (5' 3 ) 12/24/2024 12:00 PM EDT Body Mass Index 23.03 12/24/2024 12:00 PM EDT Plan of Treatment Health Maintenance Due Date Last Done Comments CREATININE LEVEL 1955 LIPID PANEL 1955 POTASSIUM LEVEL 1955 DEPRESSION SCREENING 1967 SMOKING Hx and SMOKELESS TOBACCO SCREENING 1968 HEPATITIS C SCREENING 1973 MAMMOGRAM 1995 COLOGUARD 2000 COLONOSCOPY 2000 COLORECTAL CANCER SCREENING 2000 FIT TEST 2000 FOBT 2000 SIGMOIDOSCOPY 2000 VIRTUAL COLONOSCOPY 2000 PNEUMOCOCCAL VACCINES (50+ years) (1 of 1 - PCV) 2005 ZOSTER VACCINES (1 of 2) 2005 OSTEOPOROSIS SCREENING INITI AL (ONE-TIME) 2020 INFLUENZA VACCINE (#1) 2025 , 05/20/2019 COVID-19 VACCINE (4 - 2024-2 6 season) 2025 05/27/2021, 10/08/2020, 09/10/2020 Adult Td,Tdap Booster 03/12/2028 03/12/2018 , 07/24/2017 RSV VACCINE (1 - 1-dose 75+ series) 2030 HEPATITIS A VACCINES Aged Out No long er eligible based on patient's age to complete this topic HIB VACCINES Aged Out No longer eligi ble based on patient's age to complete this topic MENINGOCOCCAL VACCINES (ACWY) Aged Out No longer eligible based on patient's age to complete this topic MENINGOCOCCAL VACCINES (B) Aged Out N o longer eligible based on patient's age to complete this topic Medical Devices Not on file Procedures Procedure Name Priority Date/Time Associated Diagnosis Comments XR HAND 3 OR MORE VIEWS (RIGHT) Routine 12/24/2024 12:30 PM EDT Closed nondisplaced fracture of proximal phalanx of right little finger, initial encounter from Last 3 Months Results * XR HAND 3 OR MORE VIEWS (RIGHT) (12/24/2024 12:30 PM EDT) MGB IMG RETAIL MARKETING COORDINATOR COMMENT 1. Nondisplaced hairline fracture of the fifth metacarpal. 2. Irregularity of the dorsal aspect of the lunate could represent a nondisplaced fracture. [facility] Anatomical Region Laterality Modality Hand Right Computed Radiogr aphy 12/24/2024 1:15 PM EDT Impressions 12/24/2024 1:16 PM EDT 1. Nondisplaced hairline fracture of the fifth metacarpal. 2. Irregularity of the dorsal aspect of the lunate could represent a nondisplaced fracture. A clinically significant result was initiated on 12/24/2024 1:16 PM, Message ID [id number]. Narrative 12/24/2024 1:16 PM EDT XR HAND [...] was initiated on 12/24/2024 1:16 PM,Message ID [id number]. Kari Angela PA-C IMG XR UPPER EXTREMITY Final Result from Last 3 Months Insurance MEDICARE PART A & B MEDICARE PART A & B MEDICARE PART A & B MEDICARE PART A & B MEDICARE PART A & B MEDICARE PART A & B Care Teams Comedian Relationship Specialty Start Date End Date Carrillo Zarco MD [address] [facility] [place] [address] PCP - General Internal Medicine 12/24/24 Additional Source Comments The information contained in this document represents components of the legal health record. It is not the complete legal health record.[facility]
[2025-03-07 17:25] LABS: Appearance Urine Clear; Glucose Urine UA Negative (Negative); PH 6.0 (5.0-9.0); Specific Gravity - Urine 1.010 (1.005-1.025); UMIC TRIGGER UA YES
[2025-03-07 17:43] LABS: Anion Gap 14 (12-20); Blood Urea Nitrogen 24 mg/dL (9-16); Calcium 8.8 mg/dL (8.4-10.2); Carbon Dioxide 26 mmol/L (22-29); Chloride 101 mmol/L (96-108); Estimated Glomerular Filt Rate 49; Potassium 4.1 mmol/L (3.3-5.1); Sodium 137 mmol/L (135-145)
== END 2025-03-07 16:18 | disposition home or self-care (01) ==
LOC: HO.LAB 16:17
PROVIDERS: Internal Medicine Hypertension Specialist; PCP Internal Medicine; Visit Provider Urology
DX: N30.10 Interstitial cystitis (chronic) without hematuria (principal); R39.9 Unspecified symptoms and signs involving the genitourinary system; Q61.02 Congenital multiple renal cysts; E87.1 Hypo-osmolality and hyponatremia
CPT/HCPCS: 36415; 80048; 81001; 87086; 87088; 87186

== ENCOUNTER 2025-03-10 14:41 | Outpatient (REF) | payer MEDICARE, MEDICAID, SELFPAY ==
--- NOTE | ~2025-03-10 | XR_ITS ---
EXAMINATION: XR HAND 3 OR MORE VIEWS RIGHT HISTORY: M79.641 - Pain in right hand COMPARISON: Comparison is made with the prior examinations dated 02/06/2025 and 01/27/2025. FINDINGS: Three views of the right hand are submitted. Osseous mineralization is normal. Again seen is a nondisplaced fracture of the 5th metacarpal. The fracture line is less well visualized, consistent with healing. The joint spaces are preserved. The soft tissues are unremarkable. XR/XR hand RT min 3V IMPRESSION: Healing nondisplaced fracture of the 5th metacarpal. Electronically signed by: Emery Concepcion MD 03/10/2025 03:05 PM EDT
== END 2025-03-10 14:42 | disposition home or self-care (01) ==
LOC: HO.HOSX 14:41
PROVIDERS: PCP Internal Medicine
DX: S62.326D Displaced fracture of shaft of fifth metacarpal bone, right hand, subsequent encounter for fracture with routine healing (principal); X58.XXXD Exposure to other specified factors, subsequent encounter
CPT/HCPCS: 73130; 99212

== ENCOUNTER 2025-03-10 14:41 | Outpatient (AMB) | payer MEDICARE, MEDICAID, SELFPAY ==
--- OUTSIDE RECORDS SUMMARY | 2024-12-24 12:19 | XMS_ITS | Encounter Summary ---
Author Organization [facility] Address [address] [facility] [address] [place] [address] Phone Care Team Providers Care Drywall Applicator Name Role Phone Carrillo Zarco MD Primary Care Provider [phone] Encounter Details Date Type Department Care Team (Late st Contact Info) Description 12/24/2024 12:19 PM EDT Hospital Encounter [facility] [address] [place] [address] [phone] Kari Angela PA-C [address] [place], [place] [phone] [email or web address] Social History Tobacco Use Types Packs/Day Years [...] (RIGHT) (12/24/2024 12:30 PM EDT) MGB IMG IDENTIFICATION AND RECORDS COMMANDER COMMENT 1. Nondisplaced hairline fracture of the fifth metacarpal. 2. Irregularity of the dorsal aspect of the lunate could represent a nondisplaced fracture. [facility] Anatomical Region Laterality Modality Hand Right Computed Radiogr aphy 12/24/2024 1:15 PM EDT Impressions 12/24/2024 1:16 PM EDT 1. Nondisplaced hairline fracture of the fifth metacarpal. 2. Irregularity of the dorsal aspect of the lunate could represent a nondisplaced fracture. A clinically significant result was initiated on 12/24/2024 1:16 PM, Message ID [id number]. Narrative 12/24/2024 1:16 PM EDT XR HAND [...] was initiated on 12/24/2024 1:16 PM,Message ID [id number]. Kari Angela PA-C IMG XR UPPER EXTREMITY Final Result documented in this encounter Visit Diagnoses Not on filedocumented in this encounter Care Teams Drywall Applicator Relationship Specialty Start Date End Date Carrillo Zarco MD [facility] [place] [address] PCP - General Internal Medicine 12/24/24 documented as of this encounter Additional Source Comments The information contained in this document represents components of the legal health record. It is not the complete legal health record.[facility]
--- NOTE | 2025-03-10 14:49 | A.OFFVIS_ITS ---
Vital Signs 03/10/25 15:04 Height 5 ft 3 in Weight 130 lb BMI 23.0 Handedness Left Intake Visit Reasons: OV-rt SF metacarpal fx, DOI: 12/23/24- NEEDS XRAY Intake Note: Jossy is a 69 year old left hand dominant female who presents today for follow up status post right fifth metacarpal fracture, DOI: 12/23/24. At her last visit, 02/06/25, she was given a Velcro wrist brace to wear with daytime activities and sana tape to wear while awake. A 2 lb weight limit was reinforced. She was advised to work on ROM. Patient reports discontinuing the use of her brace due to her right hand becoming more irritated from it. She has been working on ROM and says there are no issues with her hands. Full closed fist was done with no issues. Only complaint is tenderness with palpation. Allergies Penicillins (PENICILLINS) Allergy (Severe, Verified 03/14/25 15:16) HIVES cephalexin (Keflex) Allergy (Unknown, Verified 03/14/25 15:16) unknown Sulfa (Sulfonamide Antibiotics) Allergy (Unknown, Verified 03/14/25 15:16) hives ciprofloxacin Allergy (Verified 03/14/25 15:16) rash morphine (MORPHINE) Adverse Reaction (Unknown, Verified 03/14/25 15:16) ITCHY perflutren (From DEFINITY) Adverse Reaction (Unknown, Verified 03/14/25 15:16) CHEST PAIN macrobid Allergy (Intermediate, Uncoded 03/10/25 15:03) Hives NSAIDS Adverse Reaction (Unknown, Uncoded 03/10/25 15:03) GI upset HPI HPI OV-rt SF metacarpal fx, DOI: 12/23/24- NEEDS XRAY: Details: Jossy is a 69 year old left hand dominant female who presents today for follow up status post right fifth metacarpal fracture, DOI: 12/23/24. At her last visit, 02/06/25, she was given a Velcro wrist brace to wear with daytime activities and sana tape to wear while awake. A 2 lb weight limit was reinforced. She was advised to work on ROM. Patient reports discontinuing the use of her brace due to her right hand becoming more irritated from it. She has been working on ROM and says there are no issues with her hands. Full closed fist was done with no issues. Only complaint is tenderness with palpation. [facility] Medical History Anxiety, generalized Marijuana use Alcohol use disorder Claustrophobia Bipolar 1 disorder with moderate rama Gout Gallstone pancreatitis Non-STEMI (non-ST elevated myocardial infarction) LV (left ventricular) mural thrombus Stress-induced cardiomyopathy Surgical History History of cardiac catheterization (~05/13/19) History of cholecystectomy (~06/2017) History of knee surgery Family History Father Substance use disorder Mother Cancer Other Mental health disorder Social History Household Members: Unknown / Unable to assess Household Members Other:: refusing to report Housing: Unknown / Unable to assess Alcohol intake: current Alcohol intake frequency: holidays/special occasions only Comment: 5 min checks Patient Tobacco Use Status: Former Tobacco user Years Smoked: 30 e-Cigarette/Vaping Use: Never Used Substance Use Type: Marijuana service: No Current occupational status: retired Current occupation: left hand Sexual orientation: Straight/Heterosexual Cognitive needs: No Hearing needs: No Vision needs: Yes Physical Exam Vital Signs: BMI result Body Mass Index 23.0 Last Vital Signs Temp 97.2 F 01/02/25 08:00 Pulse 76 01/02/25 08:00 Resp 18 01/02/25 08:00 BP 137/69 01/02/25 08:32 Pulse Ox 96 01/02/25 08:00 O2 Del Method Room Air 01/02/25 08:00 BMI result Body Mass Index 23.5 Extrem Other: Patient is alert, oriented, and in no acute distress. Neuro: Normal sensation of the tips of all digits of the right hand at this time Vascular: Cap refill brisk Pain: No Tenderness to palpation over 5th metacarpal of right hand No snuffbox tenderness Pain with all range of motion ROM: Patient is able to make close to a closed fist with the right hand Skin: No lacerations or abrasions. General: Ecchymosis resolved Psych: Appears grossly normal Affect normal Attitude cooperative Results Reviewed Results Reviewed: X-rays obtained in the office today and independently reviewed by me, Gabriele Chance PA-C, demonstrate nondisplaced fracture of the right 5th metacarpal with evidence of solid bony healing. Assessment & Plan Assessment & Plan (1) Closed fracture of shaft of fifth metacarpal bone of right hand: Code(s): S62.326A - Displaced fracture of shaft of fifth metacarpal bone, right hand, initial encounter for closed fracture Category: Medical Plan 1. Right 5th metacarpal neck fracture Date of injury 12/26/2024 Patient appears to be recovering well from her injury Patient is educated about the typical recovery course Velcro wrist splint no longer indicated, as the patient appears to be healing quite well Patient may increase to 5 lb weight limit over the next 2 weeks, 10 lb over the 2 weeks following, and then increase to full normal lifting Patient is educated that she should begin working on range of motion of the right hand, particularly the ring and small fingers, as they has been immobilized in a cast for approximately 5 weeks, and despite the fact that the patient has full range of motion may be lacking in strength Patient understands this is amenable to this plan Follow-up As needed Orders: Orders XR hand RT min 3V 03/10/25 M79.641 - Pain in right hand Coding Level of Care Code Global (63672) Diagnoses Closed fracture of shaft of fifth metacarpal bone of right hand S62.326A
--- OUTSIDE RECORDS SUMMARY | 2025-03-10 14:54 | XMS_ITS | Clinical Summary ---
Author Organization [facility] Address [address] [facility] [address] [place] [address] Phone Care Team Providers Care Storage Worker Name Role Phone Carrillo Zarco MD Primary Care Provider [phone] Allergies No known active allergies Medications clonazePAM [...] Description 12/24/2024 12:19 PM EDT Hospital Encounter [facility] [address] [place] [phone] Kari Angela PA-C 12/24/2024 11:50 AM EDT Office Visit [facility] Care at [address] [address] Kari Angela PA-C Closed nondisplaced fracture of [...] (RIGHT) (12/24/2024 12:30 PM EDT) MGB IMG EMPLOYEE WELLNESS/FITNESS COORDINATOR COMMENT 1. Nondisplaced hairline fracture of the fifth metacarpal. 2. Irregularity of the dorsal aspect of the lunate could represent a nondisplaced fracture. [facility] Anatomical Region Laterality Modality Hand Right Computed Radiogr aphy 12/24/2024 1:15 PM EDT Impressions 12/24/2024 1:16 PM EDT 1. Nondisplaced hairline fracture of the fifth metacarpal. 2. Irregularity of the dorsal aspect of the lunate could represent a nondisplaced fracture. A clinically significant result was initiated on 12/24/2024 1:16 PM, Message ID [id number]. Narrative 12/24/2024 1:16 PM EDT XR HAND [...] was initiated on 12/24/2024 1:16 PM,Message ID [id number]. Kari Angela PA-C IMG XR UPPER EXTREMITY Final Result from Last 3 Months Insurance MEDICARE PART A & B MEDICARE PART A & B MEDICARE PART A & B MEDICARE PART A & B MEDICARE PART A & B MEDICARE PART A & B Care Teams Storage Worker Relationship Specialty Start Date End Date Carrillo Zarco MD [address] [place] [place] [address] PCP - General Internal Medicine 12/24/24 Additional Source Comments The information contained in this document represents components of the legal health record. It is not the complete legal health record.[facility]
[2025-03-10 15:04] VITALS: BMI 23.0
--- OUTSIDE RECORDS SUMMARY | 2025-03-24 20:00 | XMS_ITS | Clinical Summary ---
Author Organization Unknown Care Team Providers Care Textile Pin Worker Name Role Phone SUSAN GAVIRIA, SANKET Unavailable Unavaillonnie JOSEPH RN, MELIZA Unavailable Unavailable Payers Payer Name Policy Type Policy Number Effective Date Expira tion Date MEDICARE - [facility] - [place] [id number] Problems Condition Name Condition Details Condition Category [...] FINANCL HARDSHIP Active 01-24 00:00: 00 OTHER GROUP HOME (CURRENT) DRUG THERAPY Active 01-24 00:00: 00 Allergies, Adverse Reactions, Alerts Allergy Name Allergy Type Status Severity Reaction(s) Onset Date Inactive Date Treating Clinician Comments NKA Propensity to adverse reactions Inactive 01-25 19:32: 35 2024--2 9 16:03:34 PENICILLIN Propensity to adverse reactions [...] mg chewable tablet 01-25 00:00: 00 Yes [id number] 1 tablet DAILY 1 tablet DAILY (route: oral) Med Classific ation: Hematolog ical Agents cyclobenzap rine 5 mg tablet 01-25 00:00: 00 Yes [id number] for muscle spasm 1 tablet NEEDED 1 tablet NEEDED (route: oral) Med Classific ation: Locomotor System divalproex 125 mg capsule,del ayed release sprinkle 01-25 00:00: 00 Yes [id number] 500 mg BEDTIME 500 mg BEDTIME (route: oral) Med Classific ation: Central Nervous System Agents famotidine 20 mg tablet 01-25 00:00: 00 Yes [id number] 1 tablet DAILY 1 tablet DAILY (route: oral) Med Classific ation: Gastroint estinal Therapy Agents fluticasone propionate 50 mcg/actuati on nasal spray,suspe nsion 01-25 00:00: 00 Yes [id number] 1 spray DAILY 1 spray DAILY (route: nasal) Med Classific ation: Respirato ry Therapy Agents folic acid 1 mg tablet 01-25 00:00: 00 Yes [id number] 1 tablet DAILY 1 tablet DAILY (route: oral) Med Classific ation: Electroly te Balance-N utritiona l Products losartan 25 mg tablet 01-25 00:00: 00 Yes [id number] 1 tablet DAILY 1 tablet DAILY (route: oral) Med Classific ation: Cardiovas cular Therapy Agents magnesium 400 mg (as magnesium oxide) tablet 01-25 00:00: 00 Yes [id number] 1 tablet DAILY 1 tablet DAILY (route: oral) Med Classific ation: Electroly te Balance-N utritiona l Products olanzapine 7.5 mg tablet 01-25 00:00: 00 03-09 23:59 :00 No [id number] 1 tablet BEDTIME 1 tablet BEDTIME (route: oral) Med Classific ation: Central Nervous System Agents trazodone 50 mg tablet 01-25 00:00: 00 Yes [id number] 1 tablet NEEDED 1 tablet NEEDED (route: oral) Med Classific ation: Central Nervous System Agents Vitamin B-1 (mononitrat e) 100 mg tablet 01-25 00:00: 00 Yes [id number] 1 tablet DAILY 1 tablet DAILY (route: oral) Med Classific ation: Electroly te Balance-N utritiona l Products Vitamin D3 25 mcg (1,000 unit) tablet 01-25 00:00: 00 Yes [id number] 1 tablet DAILY 1 tablet DAILY (route: oral) Med Classific ation: Electroly te Balance-N utritiona l Products ezetimibe 10 mg tablet 01-30 00:00: 00 Yes [id number] 1 tablet BEDTIME 1 tablet BEDTIME (route: oral) Med Classific ation: Cardiovas cular Therapy Agents olanzapine 5 mg tablet 03-09 00:00: 00 Yes [id number] 1 tablet BEDTIME 1 tablet BEDTIME (route: [...] AWARENESS FOR SAFETY AND WILL NOTIFY CLINICAL HOGSHEAD FILLER AND PHYSICIAN/PROVIDER WITH ANY CHANGE IN CONDITION. [code = SKILLED NURSE WILL MAINTAIN SITUATIONAL AWARENESS FOR SAFETY AND WILL NOTIFY CLINICAL HOGSHEAD FILLER AND PHYSICIAN/PROVIDER WITH ANY CHANGE IN CONDITION.] Goal Patient Goal - I WANT TO GET BETTER Goal Provider Goal - A PLAN OF CARE WILL BE ESTABLISHED THAT MEETS PATIENT'S HALF-WAY NEEDS AND INCLUDES PATIENT GOAL FOR HOME [...] Notes <paragraph>[Visit Date: 2024 by MELIZA JOSEPH RN]:</paragraph><paragraph>SEPT 4 SN[facility]</paragraph><paragraph>PATIENT IS PLEASANT AND COOPERATIVE WITH NURSING ASSESSMENT SPEAKS IN RAPID PRESSURE PHRASES. PATIENT DENIED ANY ACUTE COMPLAINTS. LAST WEEK AT PROVIDERS OFFICE MEDICATION ORDER FOR OLANZAPINE CHANGED TO FIVE MILLIGRAMS AT BEDTIME AND THEN WE'LL DECREASE THE 2.5 MILLIGRAMS AFTER TWO WEEKS. PATIENT REPORTED PLAN IS TO EVENTUALLY BE OFF OF OLANZAPINE THE PAIN ALL TOGETHER BY THE END OF THE MONTH. PATIENT DENIED ANY SUICIDAL OR HOMICIDAL IDEATION.</paragraph><paragraph>REPORTS GOOD SLEEP AND APPETITE. REPORTS MORE STABLE MOOD LAST WEEK.</paragraph> Encounters Start Date/Time End Date/Time Encounter Type Admission Type Attending Clinicians Care Facility Care Department Encounter ID Discharge Date Discharge Status Discharge Condition Discharge Reason Percent Goals Met 2025-01-25 00:00:00 2025-03-25 00:00:00 Outpatient NEW ADMISSION MELIZA JOSEPH [facility] [id number] 52.94
== END 2025-03-10 15:11 | disposition home or self-care (01) ==
LOC: HO.HOS 14:42
PROVIDERS: PCP Internal Medicine
DX: S62.326A Displaced fracture of shaft of fifth metacarpal bone, right hand, initial encounter for closed fracture (principal)
CPT/HCPCS: 99213

== ENCOUNTER → 2025-03-10 14:54 | Outpatient (BNV) | payer MEDICARE, MEDICAID, SELFPAY | PROVIDERS: PCP Internal Medicine; Visit Provider Radiology Diagnostic Radiology | DX: M79.641 Pain in right hand (principal); S62.346D Nondisplaced fracture of base of fifth metacarpal bone, right hand, subsequent encounter for fracture with routine healing | CPT/HCPCS: 73130 ==

== ENCOUNTER 2025-03-14 15:05 | Outpatient (AMB) | payer MEDICARE, MEDICAID, SELFPAY ==
--- OUTSIDE RECORDS SUMMARY | 2024-12-24 12:19 | XMS_ITS | Encounter Summary ---
Author Organization [facility] Address [address] [facility] [address] [place] [address] 18[address] Phone Care Team Providers Care Eyeglass Frames Inspector Name Role Phone Carrillo Zarco MD Primary Care Provider [phone] Encounter Details Date Type Department Care Team (Late st Contact Info) Description 12/24/2024 12:19 PM EDT Hospital Encounter [facility] [address] [place] [address] [phone] Kari Angela PA-C [address] [place], [place] [phone] [email or web address] Social History Tobacco Use Types Packs/Day [...] (RIGHT) (12/24/2024 12:30 PM EDT) MGB IMG CHIEF ENTERPRISE ARCHITECT COMMENT 1. Nondisplaced hairline fracture of the fifth metacarpal. 2. Irregularity of the dorsal aspect of the lunate could represent a nondisplaced fracture. [facility] Anatomical Region Laterality Modality Hand Right Computed Radiogr aphy 12/24/2024 1:15 PM EDT Impressions 12/24/2024 1:16 PM EDT 1. Nondisplaced hairline fracture of the fifth metacarpal. 2. Irregularity of the dorsal aspect of the lunate could represent a nondisplaced fracture. A clinically significant result was initiated on 12/24/2024 1:16 PM, Message ID [id number]. Narrative 12/24/2024 1:16 PM EDT XR HAND [...] was initiated on 12/24/2024 1:16 PM,Message ID [id number]. Kari Angela PA-C IMG XR UPPER EXTREMITY Final Result documented in this encounter Visit Diagnoses Not on filedocumented in this encounter Care Teams Eyeglass Frames Inspector Relationship Specialty Start Date End Date Carrillo Zarco MD [facility] [place] [address] PCP - General Internal Medicine 12/24/24 documented as of this encounter Additional Source Comments The information contained in this document represents components of the legal health record. It is not the complete legal health record.[facility]
--- NOTE | 2025-03-14 15:13 | HO.NEPHOV_ITS ---
Vital Signs 03/14/25 15:14 Height 5 ft 3 in Weight 133 lb BMI 23.6 BP 82/54 L Blood Pressure Location Rt brachial Position Sitting Pulse 69 Pulse Source Pulse Oximeter Pulse Oximetry (%) 98 Oxygen Delivery Method Room Air Intake Visit Reasons: 1 MO [facility] [place] Debeader Required: No Accompanied by: Ex Allergies Penicillins (PENICILLINS) Allergy (Severe, Verified 03/14/25 15:16) HIVES cephalexin (Keflex) Allergy (Unknown, Verified 03/14/25 15:16) unknown Sulfa (Sulfonamide Antibiotics) Allergy (Unknown, Verified 03/14/25 15:16) hives ciprofloxacin Allergy (Verified 03/14/25 15:16) rash morphine (MORPHINE) Adverse Reaction (Unknown, Verified 03/14/25 15:16) ITCHY perflutren (From DEFINITY) Adverse Reaction (Unknown, Verified 03/14/25 15:16) CHEST PAIN macrobid Allergy (Intermediate, Uncoded 03/10/25 15:03) Hives NSAIDS Adverse Reaction (Unknown, Uncoded 03/10/25 15:03) GI upset HPI Comments Details: 69-year-old woman with bipolar disorder. Recently she was hospitalized in she had hyponatremia. Lisinopril was discontinued and switched to losartan. She is here for further follow-up. During hospitalization CT scan revealed multiple cysts in both kidneys. Serum creatinine has been stable around 0.6 mg/dL. She is currently on Depakote. Recent serum sodium was 131 millimoles. 03/14/2025. Overall doing well. No specific complaints today. [facility] Medical History Anxiety, generalized Marijuana use Alcohol use disorder Claustrophobia Bipolar 1 disorder with moderate rama Gout Gallstone pancreatitis Non-STEMI (non-ST elevated myocardial infarction) LV (left ventricular) mural thrombus Stress-induced cardiomyopathy Surgical History History of cardiac catheterization (~05/13/19) History of cholecystectomy (~06/2017) History of knee surgery Family History Father Substance use disorder Mother Cancer Other Mental health disorder Social History (Reviewed 03/14/25 @ 15:15 by ANABEL Galeano Household Members: Unknown / Unable to assess Household Members Other:: refusing to report Housing: Unknown / Unable to assess Alcohol intake: current Alcohol intake frequency: holidays/special occasions only Comment: 5 min checks Patient Tobacco Use Status: Former Tobacco user Years Smoked: 30 e-Cigarette/Vaping Use: Never Used Substance Use Type: Marijuana service: No Current occupational status: retired Current occupation: left hand Sexual orientation: Straight/Heterosexual Cognitive needs: No Hearing needs: No Vision needs: Yes Physical Exam Vital Signs: Last Vital Signs Pulse 69 03/14/25 15:14 BP 82/54 L 03/14/25 15:14 Pulse Ox 98 03/14/25 15:14 Oxygen Delivery Method Room Air 03/14/25 15:14 BMI result Body Mass Index 23.6 Const General: comfortable Nutritional Appearance: well nourished Orientation/consciousness: patient oriented x3 HEENT Head: No normal to inspection Mouth: moist mucous membranes Neck Neck: Yes supple and Yes no JVD Resp Auscultation: clear to auscultation bilaterally and no rales Cardio Jugular venous distension: no JVD Palpation: no palpable S3 and no palpable S4 Heart sounds: no rubs GI Palpation (GI): Soft to palpation and nontender Percussion: No Fluid wave present General: Yes no CVA tenderness Back/Spine/Pelvis Back: no CVA tenderness Skin General skin exam: no rashes or lesions noted Neuro General: patient oriented x3 Extrem General: Yes no pedal edema and No clubbing Results Reviewed Nephrology Results: Sodium, (135-145) 137 mmol/L 03/07/25 Potassium, (3.3-5.1) 4.1 mmol/L 03/07/25 Chloride, (96-108) 101 mmol/L 03/07/25 Carbon Dioxide, (22-29) 26 mmol/L 03/07/25 BUN, (9-16) 24 mg/dL H 03/07/25 Creatinine, (0.5-1.4) 1.10 mg/dL 03/07/25 Calcium, (8.4-10.2) 8.8 mg/dL Δ 03/07/25 Urine Protein, (Neg-Trace) Negative mg/dL 03/07/25 Renal US 02/21/25 Assessment & Plan Assessment & Plan (1) Multiple renal cysts: Code(s): 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 She has been having increased urinary frequency. I will check a 24 urine col lection for volume and osmolality. Encouraged to stay on oral free water restriction of 1.2 L. Goal is to maintain serum sodium more than 130 millimoles. Recent serum sodium is 137 Multiple renal cysts We will obtain follow up renal ultrasonogram in 1 year. No significant protein Orders: Orders Basic Metabolic Panel 6 Months E87.1 - Hypo-osmolality and hyponatremia, I10 - Essential (primary) hypertension Coding Level of Care Code Est Pt Level 4 (34592) Diagnoses Multiple renal cysts Q61.02 Hyponatremia E87.1
[2025-03-14 15:14] VITALS: BP 82/54; PULSE 69; O2SAT 98; BMI 23.6
--- OUTSIDE RECORDS SUMMARY | 2025-03-14 17:29 | XMS_ITS | Clinical Summary ---
Author Organization [facility] Address [address] [facility] [address] [place] [phone] Phone Care Team Providers Care Senior Media Planner Name Role Phone Carrillo Zarco MD Primary Care Provider [phone] Allergies No known active allergies Medications clonazePAM [...] Description 12/24/2024 12:19 PM EDT Hospital Encounter [facility] Ur[facility] Care [address] [place] [id number] Kari Angela PA-C 12/24/2024 11:50 AM EDT Office Visit [facility] at [address] [address] Kari Angela PA-C Closed nondisplaced fracture of [...] (RIGHT) (12/24/2024 12:30 PM EDT) MGB IMG MARKER MAKER COMMENT 1. Nondisplaced hairline fracture of the fifth metacarpal. 2. Irregularity of the dorsal aspect of the lunate could represent a nondisplaced fracture. [facility] Anatomical Region Laterality Modality Hand Right Computed Radiogr aphy 12/24/2024 1:15 PM EDT Impressions 12/24/2024 1:16 PM EDT 1. Nondisplaced hairline fracture of the fifth metacarpal. 2. Irregularity of the dorsal aspect of the lunate could represent a nondisplaced fracture. A clinically significant result was initiated on 12/24/2024 1:16 PM, Message ID [id number]. Narrative 12/24/2024 1:16 PM EDT XR HAND [...] was initiated on 12/24/2024 1:16 PM,Message ID [id number]. Kari Angela PA-C IMG XR UPPER EXTREMITY Final Result from Last 3 Months Insurance MEDICARE PART A & B MEDICARE PART A & B MEDICARE PART A & B MEDICARE PART A & B MEDICARE PART A & B MEDICARE PART A & B Care Teams Senior Media Planner Relationship Specialty Start Date End Date Carrillo Zarco MD [address] [facility] [place] [address] PCP - General Internal Medicine 12/24/24 Additional Source Comments The information contained in this document represents components of the legal health record. It is not the complete legal health record.[facility]
--- OUTSIDE RECORDS SUMMARY | 2025-03-24 20:00 | XMS_ITS | Clinical Summary ---
Author Organization Unknown Care Team Providers Care Dag Sprayer Name Role Phone SUSAN GAVIRIA, SANKET Unavailable Unavaillonnie JOSEPH RN, MELIZA Unavailable Unavailable Payers Payer Name Policy Type Policy Number Effective Date Expira tion Date MEDICARE - [facility]/[place] - [place] [id number] Problems Condition Name Condition Details Condition Category Status Onset Date Resolution Date Last Treatment Date Treating Clinician Comments BIPOLAR DISORDER, CURRENT EPISODE MIXED, UNSPECIFIED Active 12-28 00:00: 00 AGORAPHOBIA, UNSPECIFIED Active 01-24 00:00: 00 ALCOHOL USE, UNSPECIFIED, UNCOMPLICATE D Active 01-24 00:00: 00 INTERSTITIAL CYSTITIS (CHRONIC) WITHOUT HEMATURIA Active 01-24 00:00: 00 ESSENTIAL (PRIMARY) HYPERTENSION Active 01-24 00:00: 00 HYPOMAGNESEM IA Active 01-24 00:00: 00 VITAMIN D DEFICIENCY, UNSPECIFIED Active 01-24 00:00: 00 PERSONAL HISTORY OF NICOTINE DEPENDENCE Active 01-24 00:00: 00 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 Active 01-24 00:00: 00 PT NONCOMPL W OTH MED TRTMT AND REGIMEN D/T FINANCL HARDSHIP Active 01-24 00:00: 00 OTHER DETENTION (CURRENT) DRUG THERAPY Active 01-24 00:00: 00 Allergies, Adverse Reactions, Alerts Allergy Name Allergy Type Status Severity Reaction(s) Onset Date Inactive Date Treating Clinician Comments NKA Propensity to adverse reactions Inactive 01-25 19:32: 35 2025-01-2 9 16:03:34 PENICILLIN Propensity to adverse reactions Active 01-31 16:03: 34 Keflex Propensity to adverse reactions Active 01-31 16:03: 34 SULFA (SULFONAMID E ANTIBIOTICS ) Propensity to adverse reactions Active 01-31 16:03: 34 MACROBID Propensity to adverse reactions Active 01-31 16:03: 34 MORPHINE Propensity to adverse reactions Active 01-31 16:03: 34 PERFLUTREN Propensity to adverse reactions Active 01-31 16:03: 34 NSAIDS Propensity to adverse reactions Active 01-31 16:03: 34 Medications Ordered Medication Name Filled Medication Name Start Date Stop Date Current Medication? Ordering Clinician Indication Dosage Frequency Signature (SIG) Comments Components Aspirin Childrens 81 mg chewable tablet 01-25 00:00: 00 Yes [id number] 1 tablet DAILY 1 tablet DAILY (route: oral) Med Classific ation: Hematolog ical Agents cyclobenzap rine 5 mg tablet 01-25 00:00: 00 Yes [id number] for muscle spasm 1 tablet NEEDED 1 tablet NEEDED (route: oral) Med Classific ation: Locomotor System divalproex 125 mg capsule,del ayed release sprinkle 01-25 00:00: 00 Yes [id number] 500 mg BEDTIME 500 mg BEDTIME (route: oral) Med Classific ation: Central Nervous System Agents famotidine 20 mg tablet 01-25 00:00: 00 Yes [id number] 1 tablet DAILY 1 tablet DAILY (route: oral) Med Classific ation: Gastroint estinal Therapy Agents fluticasone propionate 50 mcg/actuati on nasal spray,suspe nsion 01-25 00:00: 00 Yes [id number] 1 spray DAILY 1 spray DAILY (route: nasal) Med Classific ation: Respirato ry Therapy Agents folic acid 1 mg tablet 01-25 00:00: 00 Yes [id number] 1 tablet DAILY 1 tablet DAILY (route: oral) Med Classific ation: Electroly te Balance-N utritiona l Products losartan 25 mg tablet 01-25 00:00: 00 Yes [id number] 1 tablet DAILY 1 tablet DAILY (route: oral) Med Classific ation: Cardiovas cular Therapy Agents magnesium 400 mg (as magnesium oxide) tablet 01-25 00:00: 00 Yes [id number] 1 tablet DAILY 1 tablet DAILY (route: oral) Med Classific ation: Electroly te Balance-N utritiona l Products olanzapine 7.5 mg tablet 01-25 00:00: 00 03-09 23:59 :00 No [id number] 1 tablet BEDTIME 1 tablet BEDTIME (route: oral) Med Classific ation: Central Nervous System Agents trazodone 50 mg tablet 01-25 00:00: 00 Yes [id number] 1 tablet NEEDED 1 tablet NEEDED (route: oral) Med Classific ation: Central Nervous System Agents Vitamin B-1 (mononitrat e) 100 mg tablet 01-25 00:00: 00 Yes [id number] 1 tablet DAILY 1 tablet DAILY (route: oral) Med Classific ation: Electroly te Balance-N utritiona l Products Vitamin D3 25 mcg (1,000 unit) tablet 01-25 00:00: 00 Yes [id number] 1 tablet DAILY 1 tablet DAILY (route: oral) Med Classific ation: Electroly te Balance-N utritiona l Products ezetimibe 10 mg tablet 01-30 00:00: 00 Yes [id number] 1 tablet BEDTIME 1 tablet BEDTIME (route: oral) Med Classific ation: Cardiovas cular Therapy Agents olanzapine 5 mg tablet 03-09 00:00: 00 Yes [id number] 1 tablet BEDTIME 1 tablet BEDTIME (route: oral) Med Classific ation: Central Nervous System Agents Immunizations Ordered Immunization Name Filled Immunization Name Date Status Comments Refusal Reason SHINGLES, TIV (INACTIVATED) 2025-01-25 00:00:00 Vital Signs Vital Name Observation Time Observation Value Commen ts Temperature 2025-03-09 07:59:00.000 97.1 [degF] Temperature 2025-02-16 09:30:00.000 97.2 [degF] Temperature 2025-02-09 09:34:00.000 97.9 [degF] Temperature 2025-02-01 08:09:00.000 97.1 [degF] Temperature 2025-01-30 08:23:00.000 97.5 [degF] Temperature 2025-01-27 09:11:00.000 97.2 [degF] Temperature 2025-01-25 20:16:00.000 98.6 [degF] BMI (%) 2025-01-25 18:46:52.000 24 kg/m2 Height 2025-01-25 18:46:33.000 62 [in_us] Pulse 2025-03-09 07:59:00.000 65 /min Pulse 2025-02-16 09:32:00.000 63 /min Pulse 2025-02-09 09:34:00.000 74 /min Pulse 2025-02-01 08:09:00.000 67 /min Pulse 2025-01-30 08:23:00.000 73 /min Pulse 2025-01-27 09:11:00.000 68 /min Pulse 2025-01-25 20:16:00.000 82 /min O2 Saturation (%) 2025-03-09 07:59:00.000 99 % O2 Saturation (%) 2025-02-16 09:30:00.000 95 % O2 Saturation (%) 2025-02-09 09:34:00.000 99 % O2 Saturation (%) 2025-02-01 08:09:00.000 99 % O2 Saturation (%) 2025-01-30 08:23:00.000 97 % O2 Saturation (%) 2025-01-27 09:11:00.000 99 % Respirations 2025-03-09 07:59:00.000 16 /min Respirations 2025-03-02 07:56:00.000 16 /min Respirations 2025-02-16 09:30:00.000 16 /min Respirations 2025-02-09 09:34:00.000 16 /min Respirations 2025-02-01 08:09:00.000 16 /min Respirations 2025-01-30 08:23:00.000 16 /min Respirations 2025-01-27 09:11:00.000 16 /min Respirations 2025-01-25 20:16:00.000 20 /min Weight (lbs) 2025-01-25 18:46:52.000 135 [lb_av] Systolic Blood Pressure 2025-03-09 07:59:00.000 140 mm [Hg] Systolic Blood Pressure 2025-02-16 09:32:00.000 146 mm [Hg] Systolic Blood Pressure 2025-02-09 09:34:00.000 154 mm [Hg] Systolic Blood Pressure 2025-02-01 08:09:00.000 150 mm [Hg] Systolic Blood Pressure 2025-01-30 08:23:00.000 137 mm [Hg] Systolic Blood Pressure 2025-01-27 09:11:00.000 150 mm [Hg] Systolic Blood Pressure 2025-01-25 20:16:00.000 138 mm [Hg] Diastolic Blood Pressure 2025-03-09 07:59:00.000 70 mm [Hg] Diastolic Blood Pressure 2025-02-16 09:32:00.000 73 mm [Hg] Diastolic Blood Pressure 2025-02-09 09:34:00.000 75 mm [Hg] Diastolic Blood Pressure 2025-02-01 08:09:00.000 76 mm [Hg] Diastolic Blood Pressure 2025-01-30 08:23:00.000 73 mm [Hg] Diastolic Blood Pressure 2025-01-27 09:11:00.000 77 mm [Hg] Diastolic Blood Pressure 2025-01-25 20:16:00.000 82 mm [Hg] Plan of Treatment Planned Activity Planned Date Details Comments Future Scheduled Test SKILLED NU RSE TO EVALUATE PATIENT, IDENTIFY PRIMARY AND CO-MORBID CONDITIONS CODED PER CODING GUIDELINES, AND DEVELOP PATIENT SPECIFIC PLAN OF CARE THAT INCLUDES PATIENT GOAL FOR HOME HEALTH. [code = SKILLED NURSE TO EVALUATE PATIENT, IDENTIFY PRIMARY AND CO-MORBID CONDITIONS CODED PER CODING GUIDELINES, AND DEVELOP PATIENT SPECIFIC PLAN OF CARE THAT INCLUDES PATIENT GOAL FOR HOME HEALTH.] Future Scheduled Test SKILLED NU RSE TO PERFORM HOME SAFETY AND FALL ASSESSMENT AND PROVIDE INSTRUCTION TO IMPLEMENT HOME SAFETY AND FALL PREVENTION STRATEGIES. [code = SKILLED NURSE TO PERFORM HOME SAFETY AND FALL ASSESSMENT AND PROVIDE INSTRUCTION TO IMPLEMENT HOME SAFETY AND FALL PREVENTION STRATEGIES.] Future Scheduled Test SKILLED NU RSE FOR OBSERVATION AND ASSESSMENT OF PATIENT S PAIN LEVEL AND EFFECTIVENESS OF PAIN MANAGEMENT REGIMEN. SKILLED NURSE TO INSTRUCT PATIENT/CAREGIVER REGARDING PHARMACOLOGIC AND NON-PHARMACOLOGIC PAIN CONTROL MEASURES. SKILLED NURSE TO REPORT TO PHYSICIAN IF PAIN IS UNCONTROLLED WITH CURRENT PAIN MANAGEMENT REGIMEN. [code = SKILLED NURSE FOR OBSERVATION AND ASSESSMENT OF PATIENT S PAIN LEVEL AND EFFECTIVENESS OF PAIN MANAGEMENT REGIMEN. SKILLED NURSE TO INSTRUCT PATIENT/CAREGIVER REGARDING PHARMACOLOGIC AND NON-PHARMACOLOGIC PAIN CONTROL MEASURES. SKILLED NURSE TO REPORT TO PHYSICIAN IF PAIN IS UNCONTROLLED WITH CURRENT PAIN MANAGEMENT REGIMEN.] Future Scheduled Test PATIENT RUBI S A RISK OF HOSPITALIZATION AND ED USE. SKILLED NURSE TO ESTABLISH SUPPORT MEASURES TO MINIMIZE RISK OF HOSPITALIZATION AND ED USE, AND INSTRUCT PATIENT/CAREGIVER ON METHODS TO REDUCE AVOIDABLE HOSPITALIZATION AND ED USE. [code = PATIENT HAS A RISK OF HOSPITALIZATION AND ED USE. SKILLED NURSE TO ESTABLISH SUPPORT MEASURES TO MINIMIZE RISK OF HOSPITALIZATION AND ED USE, AND INSTRUCT PATIENT/CAREGIVER ON METHODS TO REDUCE AVOIDABLE HOSPITALIZATION AND ED USE.] Future Scheduled Test SKILLED NU RSE TO O/A OF PATIENTS MENTAL/BEHAVIORAL STATUS, ASSESS VITAL SIGNS EVERY VISIT ALLOW 2 PRNS FOR MEDICATION MANAGEMENT. [code = SKILLED NURSE TO O/A OF PATIENTS MENTAL/BEHAVIORAL STATUS, ASSESS VITAL SIGNS EVERY VISIT ALLOW 2 PRNS FOR MEDICATION MANAGEMENT.] Future Scheduled Test SKILLED NU RSE FOR O/A OF GENERAL HEALTH STATUS OF PAIN, CARDIAC, RESPIRATORY, GASTROINTESTINAL, GENITOURINARY, SKIN, NEUROLOGIC, ENDOCRINE SYSTEMS TO IDENTIFY CHANGES ASSOCIATED WITH EXACERBATION FOR EARLY INTERVENTION OF COMPLICATIONS DURING VISIT [code = SKILLED NURSE FOR O/A OF GENERAL HEALTH STATUS OF PAIN, CARDIAC, RESPIRATORY, GASTROINTESTINAL, GENITOURINARY, SKIN, NEUROLOGIC, ENDOCRINE SYSTEMS TO IDENTIFY CHANGES ASSOCIATED WITH EXACERBATION FOR EARLY INTERVENTION OF COMPLICATIONS DURING VISIT] Future Scheduled Test SKILLED NU RSE TO PRE-POUR MEDICATION PER MEDICATION LIST MD ORDERS [code = SKILLED NURSE TO PRE-POUR MEDICATION PER MEDICATION LIST MD ORDERS] Future Scheduled Test SKILLED NU RSE FOR O/A AND SKILLED TEACHING RELATED TO MANAGEMENT OF DEPRESSIVE SYMPTOMS AND/OR DEPRESSION. SN TO REPORT SIGNIFICANT CHANGE IN DEPRESSIVE SYMPTOMS TO CLINICAL PROVIDER FOR EARLY INTERVENTION. [code = SKILLED NURSE FOR O/A AND SKILLED TEACHING RELATED TO MANAGEMENT OF DEPRESSIVE SYMPTOMS AND/OR DEPRESSION. SN TO REPORT SIGNIFICANT CHANGE IN DEPRESSIVE SYMPTOMS TO CLINICAL PROVIDER FOR EARLY INTERVENTION.] Future Scheduled Test SKILLED NU RSE FOR O/A AND SKILLED TEACHING OF COPING SKILLS TO MANAGE ANXIETY AND MAINTAIN SAFETY. [code = SKILLED NURSE FOR O/A AND SKILLED TEACHING OF COPING SKILLS TO MANAGE ANXIETY AND MAINTAIN SAFETY.] Future Scheduled Test SKILLED NU RSE FOR O/A OF ALTERED MOOD [code = SKILLED NURSE FOR O/A OF ALTERED MOOD] Future Scheduled Test MEDICATION S WILL BE HELD AND STORED IN LOCKBOX [code = MEDICATIONS WILL BE HELD AND STORED IN LOCKBOX] Future Scheduled Test SKILLED NU RSE FOR O/A OF MUSCULOSKELETAL STATUS AND TEACHING ON MEASURES TO MANAGE MUSCULOSKELETAL DISEASE) AND TO MAINTAIN SAFETY WITH ACTIVITY [code = SKILLED NURSE FOR O/A OF MUSCULOSKELETAL STATUS AND TEACHING ON MEASURES TO MANAGE MUSCULOSKELETAL DISEASE) AND TO MAINTAIN SAFETY WITH ACTIVITY] Future Scheduled Test SKILLED NU RSE WILL MAINTAIN SITUATIONAL AWARENESS FOR SAFETY AND WILL NOTIFY CLINICAL NEIGHBORHOOD WORKER AND PHYSICIAN/PROVIDER WITH ANY CHANGE IN CONDITION. [code = SKILLED NURSE WILL MAINTAIN SITUATIONAL AWARENESS FOR SAFETY AND WILL NOTIFY CLINICAL NEIGHBORHOOD WORKER AND PHYSICIAN/PROVIDER WITH ANY CHANGE IN CONDITION.] Goal Patient Goal - I WANT TO GET BETTER Goal Provider Goal - A PLAN OF CARE WILL BE ESTABLISHED THAT MEETS PATIENT'S RETIREMENT NEEDS AND INCLUDES PATIENT GOAL FOR HOME HEALTH. Goal Provider Goal - PATIENT/CAREGIVER WILL VERBALIZE/DEMONSTRATE EFFECTIVE HOME SAFETY AND FALL PREVENTION STRATEGIES THROUGHOUT CERTIFICATION PERIOD. Goal Provider Goal - PATIENT/CAREGIVER WILL DEMONSTRATE UNDERSTANDING OF PHARMACOLOGIC AND NONPHARMACOLOGIC PAIN CONTROL MEASURES AND PATIENT WILL HAVE IMPROVEMENT IN PAIN INTERFERING WITH ACTIVITY EVIDENCED BY PAIN AT A LEVEL THAT IS ACCEPTABLE TO THE PATIENT AND PAIN LEVEL WITHIN ESTABLISHED PARAMETERS BY END OF CERTIFICATION PERIOD. Goal Provider Goal - PATIENT WILL HAVE SUPPORT MEASURES ESTABLISHED TO PREVENT HOSPITALIZATION AND ED USE AND PATIENT/CAREGIVER WILL VERBALIZE/DEMONSTRATE METHODS TO REDUCE AVOIDABLE HOSPITALIZATION AND ED USE BY END OF EPISODE. Goal Provider Goal - ALTERED MENTAL/BEHAVIORAL STATUS WILL BE IDENTIFIED PROMPTLY AND INTERVENTION INITIATED QUICKLY TO MINIMIZE ASSOCIATED RISKS THROUGHOUT CERTIFICATION PERIOD. Goal Provider Goal - CHANGE IN GENERAL HEALTH STATUS WILL BE IDENTIFIED AND REPORTED TO PHYSICIAN FOR PROMPT INTERVENTION TO MINIMIZE ASSOCIATED RISKS THROUGHOUT CERTIFICATION PERIOD. Goal Provider Goal - PATIENT WILL COMPLY WITH MEDICATION WHEN SKILLED NURSE PRE-POURS MEDICATION THROUGHOUT CERTIFICATION PERIOD. Goal Provider Goal - PATIENT WILL REMAIN SAFE WITHOUT DECOMPENSATION IN DEPRESSIVE CONDITION, WHILE MAINTAINING OPTIMAL LEVEL OF MENTAL HEALTH AND WELL BEING THROUGHOUT CERTIFICATION PERIOD. Goal Provider Goal - PATIENT WILL BE ABLE TO PERFORM DAILY FUNCTIONS AND HAVE OPTIMAL IMPROVEMENT IN LEVEL OF ANXIETY THROUGHOUT CERTIFICATION PERIOD. Goal Provider Goal - PATIENT WILL BE ABLE TO PERFORM DAILY FUNCTIONS AND HAVE OPTIMAL IMPROVEMENT IN MOOD STABILITY THROUGHOUT CERTIFICATION PERIOD. Goal Provider Goal - MEDICATION WILL BE STORED IN LOCKBOX FOR SAFETY. Goal Provider Goal - PATIENT/CAREGIVER WILL VERBALIZE/DEMONSTRATE ABILITY TO MANAGE MUSCULOSKELETAL DISEASE WHILE MAINTAINING SAFETY THROUGHOUT THE EPISODE. Goal Provider Goal - PATIENT WILL REMAIN SAFE IN THE COMMUNITY AND WILL BE FREE OF DANGER TO SELF AND OTHERS THROUGHOUT THE CERTIFICATION PERIOD. Encounters Start Date/Time End Date/Time Encounter Type Admission Type Attending Clinicians Care Facility Care Department Encounter ID Discharge Date Discharge Status Discharge Condition Discharge Reason Percent Goals Met 2025-01-25 00:00:00 2025-03-25 00:00:00 Outpatient NEW ADMISSION [facility] [id number] 52.94
== END 2025-03-14 15:30 | disposition home or self-care (01) ==
LOC: HO.HKA 15:06
PROVIDERS: PCP Internal Medicine; Visit Provider Internal Medicine Hypertension Specialist
DX: Q61.02 Congenital multiple renal cysts (principal); E87.1 Hypo-osmolality and hyponatremia
CPT/HCPCS: 99214

== ENCOUNTER → 2025-03-14 15:05 | Outpatient (BNVA) | payer MEDICARE, MEDICAID, SELFPAY | PROVIDERS: PCP Internal Medicine; Visit Provider Internal Medicine Hypertension Specialist | DX: Q61.02 Congenital multiple renal cysts (principal); E87.1 Hypo-osmolality and hyponatremia | CPT/HCPCS: 99212 ==

== ENCOUNTER 2025-03-27 13:09 | Outpatient (AMB) | payer MEDICARE, MEDICAID, SELFPAY ==
--- OUTSIDE RECORDS SUMMARY | 2024-12-24 12:19 | XMS_ITS ---
12/24/2024 1:15 PM EDT Impressions 12/24/2024 1:16 PM EDT 1. Nondisplaced hairline fracture of the fifth metacarpal. 2. Irregularity of the dorsal aspect of the lunate could represent a nondisplaced fracture. A clinically significant result was initiated on 12/24/2024 1:16 PM, Message ID [id number]. Narrative 12/24/2024 1:16 PM EDT XR HAND [...] was initiated on 12/24/2024 1:16 PM,Message ID [id number]. Kari Angela PA-C IMG XR UPPER EXTREMITY Final Result documented in this encounter Visit Diagnoses Not on filedocumented in this encounter Care Teams Blanket Cutter Hand Relationship Specialty Start Date End Date Carrillo Zarco MD [facility] [place] [address] PCP - General Internal Medicine 12/24/24 documented as of this encounter Additional Source Comments The information contained in this document represents components of the legal health record. It is not the complete legal health record.[facility]
--- NOTE | 2025-03-27 14:41 | MHC.OFFVIS ---
Intake Visit Reasons: 6m follow up Intake Note: Patient presents today for 6m follow up Urology Meds- None Allergies to Antibiotic- Penicillin & Sulfa Blood Thinner- None Wanted BP today, reading was 118/65 [employer] Hr[employer] Developer Required: No Accompanied by: Self / Same As Patient Allergies Penicillins (PENICILLINS) Allergy (Severe, Verified 03/27/25 14:41) HIVES cephalexin (Keflex) Allergy (Unknown, Verified 03/27/25 14:41) unknown Sulfa (Sulfonamide Antibiotics) Allergy (Unknown, Verified 03/27/25 14:41) hives ciprofloxacin Allergy (Verified 03/27/25 14:41) rash morphine (MORPHINE) Adverse Reaction (Unknown, Verified 03/27/25 14:41) ITCHY perflutren (From DEFINITY) Adverse Reaction (Unknown, Verified 03/27/25 14:41) CHEST PAIN macrobid Allergy (Intermediate, Uncoded 03/10/25 15:03) Hives NSAIDS Adverse Reaction (Unknown, Uncoded 03/10/25 15:03) GI upset Medication List - Last Reconciled 03/27/25 by Perry Kline MD aspirin 81 mg PO DAILY cholecalciferol (vitamin D3) 25 mcg PO DAILY divalproex 500 mg (4 x 125 mg) PO BEDTIME estradiol 0.01%(0.1mg/gram) (Estrace) Use pea-sized amount on fingertip and apply to vaginal tissue daily at bedtime ezetimibe (Zetia) 10 mg PO DAILY famotidine 20 mg PO DAILY fluticasone propionate 50 mcg/actuation 1 spray intranasal DAILY folic acid 1 mg PO DAILY fosfomycin tromethamine 3 grams PO Q3D 3 doses fosfomycin tromethamine 3 grams PO Q3D 6 days losartan 25 mg See Protocol PO DAILY magnesium oxide 400 mg PO BEDTIME nicotine (polacrilex) 2 mg buccal Q6H 30 days olanzapine 7.5 mg PO BEDTIME olanzapine 5 mg PO DAILY thiamine mononitrate (vit B1) 100 mg PO DAILY trazodone 50 mg PO BEDTIME PRN HPI Comments Details: 03/27/25--Jossy is a 69-year-old female who I am following for interstitial cystitis she has had symptoms including bladder pain and urgency. The patient experiences anxiety, impacting her daily activities. I have discussed diet modification and Prelief PRN. History of Present Illness The patient is a 69-year-old female presenting with interstitial cystitis. She reports bladder pain and urgency, and has been advised on dietary modifications and the use of Prelief. She has a history of urinary tract infections, with recent treatments noted. Dietary triggers such as spicy foods and chocolate are monitored to prevent symptom exacerbation. Urine culture 03/07/2025 came back Klebsiella the patient was treated with fosfomycin. Estrogen cream was previously prescribed but she stopped using it. A new prescription was issued to support bladder health and vaginal pH balance. Results - Urinalysis: Leukocytes negative, blood negative - Kidney ultrasound: Normal with some cysts, benign-appearing Plan 1. Interstitial Cystitis - Continue dietary modifications and use of Prelief to manage symptoms. - Monitor for symptom triggers such as spicy foods and chocolate. 2. Urinary Tract Infection - Recent treatment for UTI noted; continue monitoring for recurrence. - Prescribe estrogen cream to support bladder health and maintain vaginal pH balance. 07/04/24--Jossy is a 68-year-old female who presents today via Tele-health visit for a follow-up. Past medical has history of bipolar. Chronic interstitial cystitis patient states her symptoms of bladder/pelvic pain improved after she completed treatment for UTI. She did not take Gabapentin. She complains of flank pain. 04/29/24--Jossy is a 68-year-old female who presents today via Tele-health visit for a follow-up. Past medical has history of bipolar. Chronic interstitial cystitis patient states she is has symptoms of bladder/pelvic pain. She denies dysuria. Discussed trial os gabapentin, pyridium prn. 12/14/23--Jossy is a 68-year-old female who presents today via Tele-health visit for a follow-up. Past medical has history of bipolar. Chronic interstitial cystitis patient manages with IC diet and Prelief. She does not want to take other medications for the interstitial cystitis. She will use Pyridium p.r.n. for flare in painful urinary symptoms but states that the medication upsets her stomach even when she takes it with food. She was treated for UTI in October urine culture came back E coli. She had a urine culture 12/05/2023 that noted mixed bacteria. She states she saw a urogynecologist the told her she had stage II cystocele and vaginal atrophy, she was prescribed Estrace cream but stated that when she used the cream at affected her mood causing her to be very irritated. She is using [id number] D mannose and a probiotic. Plan discussed she will call when she has UTI symptoms to have a urine culture done to distinguish between and IC flare and a true UTI. 30 minutes spent in review of records pertaining to this visit and including discussion with the patient and documentation of this visit. 06/11/2023? She is followed today to discuss treatment. She was last seen by me on 04/24/2023 for chronic interstitial cystitis. She states that she had cystoscopy hydrodistention and bladder instillation in the past was not helpful. She states that her insurance did not cover the uribel. She had tried Pyridium in the past which caused her nausea, vomiting and diarrhea. Patient states that she is on oxybutynin which did not help her bladder spasms. [facility] Medical History Anxiety, generalized Marijuana use Alcohol use disorder Claustrophobia Bipolar 1 disorder with moderate rama Gout Gallstone pancreatitis Non-STEMI (non-ST elevated myocardial infarction) LV (left ventricular) mural thrombus Stress-induced cardiomyopathy Surgical History History of cardiac catheterization (~05/13/19) History of cholecystectomy (~06/2017) History of knee surgery Family History Father Substance use disorder Mother Cancer Other Mental health disorder Social History Household Members: Unknown / Unable to assess Household Members Other:: refusing to report Housing: Unknown / Unable to assess Alcohol intake: current Alcohol intake frequency: holidays/special occasions only Comment: 5 min checks Patient Tobacco Use Status: Former Tobacco user Years Smoked: 30 e-Cigarette/Vaping Use: Never Used Substance Use Type: Marijuana service: No Current occupational status: retired Current occupation: left hand Sexual orientation: Straight/Heterosexual Cognitive needs: No Hearing needs: No Vision needs: Yes Review of Systems Const All systems reviewed & are unremarkable except as noted in HPI and below Reports no additional complaints Eyes Reports no additional complaints ENT Reports no additional complaints Card Reports no additional complaints Resp Reports no additional complaints GI Reports no additional complaints Reports as per HPI Musc Reports no additional complaints Skin/Breast Reports system reviewed and no additional complaints, except as documented Neuro Reports no additional complaints Psych Reports no additional complaints Endo Reports no additional complaints Alfonzo/Lymph Reports no additional complaints Aller/Immun Reports no additional complaints Results Reviewed Results Reviewed: Collected: 03/07/25 Status: COMP Req#: [id number] Received: 03/07/25 Source: [facility] Desc: Clean Cat Subm Dr: Perry Kline MD Ordered: Urine Culture Procedure Result Verified Urine Culture Final 03/09/25 Organism 1 Klebsiella pneumoniae Quant > 100,000 cfu/mL Kleb pneum M.I.C. RX --------- --- Ampicillin >=32 R Cefazolin 2 S Cefepime <=0.12 S Ceftriaxone <=0.25 S Ciprofloxacin <=0.06 S Gentamicin <=1 S Nitrofurantoin 64 I Trimethoprim/Sulfamethoxazole <=20 S Date of Service: 02/21/25 Procedure(s): US renal BI US RETROPERITONEAL LIMITED (RENAL ONLY) CLINICAL INFORMATION: Hypertension.. COMPARISON: Collated to CT dated December 28, 2024 TECHNIQUE: Real-time ultrasound kidneys using grayscale and color Doppler technique. FINDINGS: RIGHT KIDNEY: 10 x 5 x 5 cm (SAG x AP x TRV). Volume: 117 cc normal echotexture. Mild renal cortical thinning. No hydronephrosis. There is a 2.8 cm exophytic anechoic lesion in the upper pole without flow on color Doppler interrogation or septations. LEFT KIDNEY: 9 x 5 x 4 cm (SAG x AP x TRV). Volume: 95 cc. Normal echotexture. Renal cortical thinning. No hydronephrosis. There are multifocal anechoic lesions throughout the parenchyma in an exophytic location, the largest measures 2.8 cm without septations or flow on color Doppler interrogation. IMPRESSION: Bilateral renal cysts. No hydronephrosis. Bilateral renal cortical thinning suggesting medical renal disease.. 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 Interstitial Cystitis - Continue dietary modifications and use of Prelief to manage symptoms. - Monitor for symptom triggers such as spicy foods and chocolate. 2. Urinary Tract Infection - Recent treatment for UTI noted; continue monitoring for recurrence. - Prescribe estrogen cream to support bladder health and maintain vaginal pH balance. Medications: New estradiol 0.01%(0.1mg/gram) (Estrace) Use pea-sized amount on fingertip and apply to vaginal tissue daily at bedtime 42.5 grams 1RF Discontinued fosfomycin tromethamine Discontinued Reason: Patient Completed Course 3 grams PO Q3D 3 ea 0RF fosfomycin tromethamine One dose (one packet) every 3 days Discontinued Reason: Patient Completed Course 3 grams PO Q3D 6 days 2 ea 0RF N39.0 - Urinary tract infection, site not specified Coding Level of Care Code Est Pt Level 4 (51551) Diagnoses Multiple renal cysts Q61.02 Interstitial cystitis N30.10 Vaginal atrophy N95.2 Recurrent UTI N39.0
--- OUTSIDE RECORDS SUMMARY | 2025-03-27 15:31 | XMS_ITS | Clinical Summary ---
Author Organization [facility] Address [address] [address] Phone Care Team Providers Care Heel Coverer Machine Operator Name Role Phone Carrillo Zarco MD Primary Care Provider [phone] Allergies No known active allergies Medications clonazePAM [...] proximal phalanx of right little finger 12/24/2024 Social History Tobacco Use Types Packs/Day Years [...] SCREENING 2000 FIT TEST 2000 FOBT 2000 PNEUMOCOCCAL VACCINES (50+ years) (1 of [...] this topic Medical Devices Not on file Insurance MEDICARE PART A & B Member Subscriber Plan / Payer (Ef fective 2013-Present) Name:Jossy Boone Member ID:[id number] Relation to Subscriber:Self Name:Jossy Boone Subscriber ID:[id number] Payer ID:[id number] Group ID:Not on file Type:Medicare Address: [facility].
== END 2025-03-27 15:06 | disposition home or self-care (01) ==
LOC: HO.HUSH 13:10
PROVIDERS: Visit Provider Urology
DX: Q61.02 Congenital multiple renal cysts (principal); N30.10 Interstitial cystitis (chronic) without hematuria; N95.2 Postmenopausal atrophic vaginitis; N39.0 Urinary tract infection, site not specified
CPT/HCPCS: 99214

== ENCOUNTER → 2025-03-27 13:09 | Outpatient (BNVA) | payer MEDICARE, MEDICAID, SELFPAY | PROVIDERS: Visit Provider Urology | DX: Q61.02 Congenital multiple renal cysts (principal); N30.10 Interstitial cystitis (chronic) without hematuria; N95.2 Postmenopausal atrophic vaginitis | CPT/HCPCS: 99212 ==

== ENCOUNTER → 2025-03-31 12:58 | Outpatient (BNVA) | payer MEDICARE, MEDICAID, SELFPAY | DX: I95.9 Hypotension, unspecified (principal) | CPT/HCPCS: 99211 ==

== ENCOUNTER 2025-04-05 12:59 | Outpatient (AMB) | payer MEDICARE, MEDICAID, SELFPAY ==
--- OUTSIDE RECORDS SUMMARY | 2024-12-24 12:19 | XMS_ITS | Encounter Summary ---
Author Organization [facility] Address [address] [facility] [address] [place] [address] Phone Care Team Providers Care Vibration Analyst Name Role Phone Carrillo Zarco MD Primary Care Provider [phone] Encounter Details Date Type Department Care Team (Late st Contact Info) Description 12/24/2024 12:19 PM EDT Hospital Encounter [facility] [address] [place] [address] [phone] Kari Angela PA-C [address] [place], [place] [phone] Social History Tobacco Use Types Packs/Day Years [...] (RIGHT) (12/24/2024 12:30 PM EDT) MGB IMG MACHINIST COMMENT 1. Nondisplaced hairline fracture of the fifth metacarpal. 2. Irregularity of the dorsal aspect of the lunate could represent a nondisplaced fracture. [facility] Anatomical Region Laterality Modality Hand Right Computed Radiogr aphy 12/24/2024 1:15 PM EDT Impressions 12/24/2024 1:16 PM EDT 1. Nondisplaced hairline fracture of the fifth metacarpal. 2. Irregularity of the dorsal aspect of the lunate could represent a nondisplaced fracture. A clinically significant result was initiated on 12/24/2024 1:16 PM, Message ID [id number]. Narrative 12/24/2024 1:16 PM EDT XR HAND [...] was initiated on 12/24/2024 1:16 PM,Message ID [id number]. Kari Angela PA-C IMG XR UPPER EXTREMITY Final Result documented in this encounter Visit Diagnoses Not on filedocumented in this encounter Care Teams Vibration Analyst Relationship Specialty Start Date End Date Carrillo Zarco MD [facility] [place] [address] PCP - General Internal Medicine 12/24/24 documented as of this encounter Additional Source Comments The information contained in this document represents components of the legal health record. It is not the complete legal health record.[facility]
[2025-04-05 13:06] VITALS: BP 144/80; PULSE 76; O2SAT 98; BMI 23.7
--- NOTE | 2025-04-05 13:06 | A.OFFPC_ITS ---
Vital Signs 04/05/25 13:06 Height 5 ft 3 in Weight 134 lb BMI 23.7 BP 144/80 H Blood Pressure Location Lt brachial Position Sitting Pulse 76 Pulse Source Pulse Oximeter Pulse Oximetry (%) 98 Oxygen Delivery Method Room Air Intake Visit Reasons: follow up BP meds Allergies Penicillins (PENICILLINS) Allergy (Severe, Verified 04/05/25 13:08) HIVES cephalexin (Keflex) Allergy (Unknown, Verified 04/05/25 13:08) unknown Sulfa (Sulfonamide Antibiotics) Allergy (Unknown, Verified 04/05/25 13:08) hives ciprofloxacin Allergy (Verified 04/05/25 13:08) rash morphine (MORPHINE) Adverse Reaction (Unknown, Verified 04/05/25 13:08) ITCHY perflutren (From DEFINITY) Adverse Reaction (Unknown, Verified 04/05/25 13:08) CHEST PAIN macrobid Allergy (Intermediate, Uncoded 03/10/25 15:03) Hives NSAIDS Adverse Reaction (Unknown, Uncoded 03/10/25 15:03) GI upset Medication List - Last Reconciled 04/05/25 by Carrillo Zarco MD aspirin 81 mg PO DAILY cholecalciferol (vitamin D3) 25 mcg PO DAILY divalproex 500 mg (4 x 125 mg) PO BEDTIME estradiol 0.01%(0.1mg/gram) (Estrace) Use pea-sized amount on fingertip and apply to vaginal tissue daily at bedtime ezetimibe (Zetia) 10 mg PO DAILY famotidine 20 mg PO DAILY fluticasone propionate 50 mcg/actuation 1 spray intranasal DAILY folic acid 1 mg PO DAILY losartan 25 mg See Protocol PO DAILY magnesium oxide 400 mg PO BEDTIME thiamine mononitrate (vit B1) 100 mg PO DAILY trazodone 50 mg PO BEDTIME PRN Tobacco use date assessed: 02/08/25 Fall risk assessment: No Falls in past year Last assessed Fall Risk: 04/05/25 Dental Screening Dental Screen Date: 02/08/25 HPI follow up BP meds HPI Details History The patient is a 69-year-old female presenting with issues related to blood pressure management and kidney function. Blood Pressure Management: - The patient reported that her blood pr essure was recorded as 82/54 mmHg last month at Nephrology office - patient states that blood pressure rec hecked was fine - The patient stopped taking the medicat ion intermittently, as she seeks an accurate assessment of her blood pressure. - she has been taking losartan bothered by all this time Kidney Function: - The patient's glomerular filtration ra te (GFR) decreased from 58 to 49, a situation that caused concern - The patient attributed some of this de crease potentially to reduced water intake due to urge incontinence. Nephrology note reviewed from last month, patient have hyponatremia most likely secondary to non osmotic ADH release. It is recommended that she limit her water intake to 1.2 L and no more Urge Incontinence/interstitial cystitis - The patient experiences frequent urina tion, necessitating urination up to five times per night upon adequate water intake. - The patient has been taking a muscle r elaxant for bladder spasms instead of prescribed medication for bladder issues. - Symptoms suggestive of interstitial cy stitis were noted, as the patient experiences discomfort and urgency upon bladder distention with fluids. She is established with Urology for that, and had visit last month with them Problem List - Hypertension - Chronic Kidney Disease - Urge incontinence - Interstitial cystitis [place] of Care - Nephrology and Urology Patient Instructions I have sent message to Dr. Rosenberg regarding blood pressure medication For now I have changed the medication to atenolol 25 mg we will wait for response from Nephrology Patient will talk to Urology regarding medication for urgency She came in with her granddaughter who is actively involved in patient's care Review of Systems General: No fever no chills neurological: No headaches no dizziness ear nose throat: No sore throat no hearing difficulty no ear pain cardiovascular: No syncope, no chest pain, no palpitations gastrointestinal: No nausea vomiting or diarrhea skin: No new complaints Physical Exam general: No acute distress HEENT: No acute findings neck: Supple respiratory system: Able to talk in full sentences, no audible wheeze no stridor gastrointestinal: No pain extremities: No new findings ASSEMBLER FINGER BUFFS: Alert awake oriented x3 motor sensory intact skin: Normal turgor [facility] Medical History Anxiety, generalized Marijuana use Alcohol use disorder Claustrophobia Bipolar 1 disorder with moderate rama Gout Gallstone pancreatitis Non-STEMI (non-ST elevated myocardial infarction) LV (left ventricular) mural thrombus Stress-induced cardiomyopathy Surgical History History of cardiac catheterization (~05/13/19) History of cholecystectomy (~06/2017) History of knee surgery Family History Father Substance use disorder Mother Cancer Other Mental health disorder Social History Household Members: Unknown / Unable to assess Household Members Other:: refusing to report Housing: Unknown / Unable to assess Alcohol intake: current Alcohol intake frequency: holidays/special occasions only Comment: 5 min checks Patient Tobacco Use Status: Former Tobacco user Years Smoked: 30 e-Cigarette/Vaping Use: Never Used Substance Use Type: Marijuana service: No Current occupational status: retired Current occupation: left hand Sexual orientation: Straight/Heterosexual Cognitive needs: No Hearing needs: No Vision needs: Yes Questionnaire Thrive Questionnaire Date Thrive assessed: 02/08/25 I am a: Patient What is your living situation today?: I have a steady place to live Within the past 12 months, did the food you bought not last and you didn't have the money to get more?: Never true Within the past 12 months, did you worry whether your food would run out before you got money to buy more?: Never true Do you have trouble paying for medicines?: No Do you have trouble getting transportation to medical appointments?: No Do you have trouble paying your heating and electricity bill?: No Do you have trouble taking care of your child, family member or friend?: No Do you have trouble with day-to-day activities such as bathing, preparing meals, shopping, managing finances, etc.?: Yes Are you currently unemployed and looking for a job?: No Are you interested in more education?: No Currently or been in a relationship where the following occur: I choose not to answer THRIVE Score: 0 CORBY-7 AMB Questionnaire CORBY-7 Date CORBY - 7 assessed: 02/08/25 Source: Developed by Drs. Emery Iqbal, Mayuri Cunha, Lester Kemp and colleagues, with an educational cheyanne from [employer]. Physical exam (Primary Care) Vital Signs: Last Vital Signs Pulse 76 04/05/25 13:06 BP 144/80 H 04/05/25 13:06 Pulse Ox 98 04/05/25 13:06 Oxygen Delivery Method Room Air 04/05/25 13:06 BMI result Body Mass Index 23.7 Tobacco/Smoking Status: Tobacco use Status Tobacco use date assessed 02/08/25 04/05/25 13:11 Patient Tobacco Use Status Former Tobacco user 04/05/25 13:11 e-Cigarette/Vaping Use Never Used 04/05/25 13:11 Thrive Assessment: Date of Thrive Assessment Date Thrive assessed 02/08/25 04/05/25 13:11 Currently or been in a relationship where the following occur: I choose not to answer Coding Level of Care Code Est Pt Level 4 (83057) Diagnoses Hypertension, essential I10 CKD stage 3a, GFR 45-59 ml/min N18.31 Interstitial cystitis N30.10 Urinary frequency R35.0 Sensation of pressure in bladder area R39.89 Assessment & Plan Assessment & Plan (1) Hypertension, essential: Code(s): I10 - Essential (primary) hypertension Category: Medical (2) CKD stage 3a, GFR 45-59 ml/min: Code(s): N18.31 - Chronic kidney disease, stage 3a Category: Medical (3) Interstitial cystitis: Code(s): N30.10 - Interstitial cystitis (chronic) without hematuria Category: Medical (4) Urinary frequency: Code(s): R35.0 - Frequency of micturition Category: Medical (5) Sensation of pressure in bladder area: Code(s): R39.89 - Other symptoms and signs involving the genitourinary system Category: Medical Plan History The patient is a 69-year-old female presenting with issues related to blood pressure management and kidney function. Blood Pressure Management: - The patient reported that her blood pressure was recorded as 82/54 mmHg last month at Nephrology office - patient states that blood pressure rechecked was fine - The patient stopped taking the medication intermittently, as she seeks an accurate assessment of her blood pressure. - she has been taking losartan bothered by all this time Kidney Function: - The patient's glomerular filtration rate (GFR) decreased from 58 to 49, a situation that caused concern - The patient attributed some of this decrease potentially to reduced water intake due to urge incontinence. Nephrology note reviewed from last month, patient have hyponatremia most likely secondary to non osmotic ADH release. It is recommended that she limit her water intake to 1.2 L and no more Urge Incontinence/interstitial cystitis - The patient experiences frequent urination, necessitating urination up to five times per night upon adequate water intake. - The patient has been taking a muscle relaxant for bladder spasms instead of prescribed medication for bladder issues. - Symptoms suggestive of interstitial cystitis were noted, as the patient experiences discomfort and urgency upon bladder distention with fluids. She is established with Urology for that, and had visit last month with them Problem List - Hypertension - Chronic Kidney Disease - Urge incontinence - Interstitial cystitis [place] of Care - Nephrology and Urology Patient Instructions I have sent message to Dr. Rosenberg regarding blood pressure medication For now I have changed the medication to atenolol 25 mg we will wait for response from Nephrology Patient will talk to Urology regarding medication for urgency She came in with her granddaughter who is actively involved in patient's care Medications: New atenolol 25 mg PO DAILY 30 tabs 0RF
--- OUTSIDE RECORDS SUMMARY | 2025-04-05 14:18 | XMS_ITS | Clinical Summary ---
Author Organization [facility] Address [address] [address] Phone Care Team Providers Care Dramatic Critic Name Role Phone Carrillo Zarco MD Primary Care Provider [phone] Allergies No known active allergies Medications clonazePAM [...] file Insurance MEDICARE PART A & B MEDICARE PART A & B MEDICARE PART A & B MEDICARE PART A & B MEDICARE PART A & B MEDICARE PART A & B Care Teams Dramatic Critic Relationship Specialty Start Date End Date Carrillo Zarco MD [facility] [place] [address] PCP - General Internal Medicine 12/24/24 Additional Source Comments The information contained in this document represents components of the legal health record. It is not the complete legal health record.[facility]
== END 2025-04-05 13:33 | disposition home or self-care (01) ==
LOC: HO.HMCC 13:00
PROVIDERS: PCP Internal Medicine; Visit Provider Internal Medicine
DX: I10 Essential (primary) hypertension (principal); N18.31 Chronic kidney disease, stage 3a; N30.10 Interstitial cystitis (chronic) without hematuria; R35.0 Frequency of micturition; R39.89 Other symptoms and signs involving the genitourinary system

== ENCOUNTER → 2025-04-05 12:59 | Outpatient (BNVA) | payer MEDICARE, MEDICAID, SELFPAY | PROVIDERS: PCP Internal Medicine; Visit Provider Internal Medicine | DX: N39.41 Urge incontinence (principal); I12.9 Hypertensive chronic kidney disease with stage 1 through stage 4 chronic kidney disease, or unspecified chronic kidney disease; N18.31 Chronic kidney disease, stage 3a; N30.10 Interstitial cystitis (chronic) without hematuria; R35.0 Frequency of micturition; R39.89 Other symptoms and signs involving the genitourinary system | CPT/HCPCS: 99212 ==

== ENCOUNTER 2025-04-19 14:10 | Outpatient (REF) | payer MEDICARE, MEDICAID, SELFPAY ==
--- OUTSIDE RECORDS SUMMARY | 2024-12-24 12:19 | XMS_ITS | Encounter Summary ---
Author Organization [facility] Address [address] [facility] [address] [place] [address] Phone Care Team Providers Care Pickler Helper Name Role Phone Carrillo Zarco MD Primary Care Provider [phone] Encounter Details Date Type Department Care Team (Late st Contact Info) Description 12/24/2024 12:19 PM EDT Hospital Encounter [facility] [address] [place] [address] [phone] Kari Angela PA-C [address] [place], [place] [phone] Social History Tobacco Use Types Packs/Day Years [...] (RIGHT) (12/24/2024 12:30 PM EDT) [facility] IMG ENVIRONMENTAL RESTORATION PLANNER COMMENT 1. Nondisplaced hairline fracture of the fifth metacarpal. 2. Irregularity of the dorsal aspect of the lunate could represent a nondisplaced fracture. [facility] Anatomical Region Laterality Modality Hand Right Computed Radiogr aphy 12/24/2024 1:15 PM EDT Impressions 12/24/2024 1:16 PM EDT 1. Nondisplaced hairline fracture of the fifth metacarpal. 2. Irregularity of the dorsal aspect of the lunate could represent a nondisplaced fracture. A clinically significant result was initiated on 12/24/2024 1:16 PM, Message ID [id number]. Narrative 12/24/2024 1:16 PM EDT XR HAND [...] was initiated on 12/24/2024 1:16 PM,Message ID [id number]. Kari Angela PA-C IMG XR UPPER EXTREMITY Final Result documented in this encounter Visit Diagnoses Not on filedocumented in this encounter Care Teams Pickler Helper Relationship Specialty Start Date End Date Carrillo Zarco MD [facility] [place] [address] PCP - General Internal Medicine 12/24/24 documented as of this encounter Additional Source Comments The information contained in this document represents components of the legal health record. It is not the complete legal health record.[facility]
[2025-04-19 15:09] LABS: Appearance Urine Clear; Glucose Urine UA Negative (Negative); PH 7.0 (5.0-9.0); Specific Gravity - Urine 1.015 (1.005-1.025)
--- OUTSIDE RECORDS SUMMARY | 2025-04-19 17:55 | XMS_ITS | Clinical Summary ---
Author Organization [facility] Address [address] [address] Phone Care Team Providers Care High School Counselor Name Role Phone Carrillo Zarco MD Primary Care Provider [phone] Allergies No known active allergies Medications clonazePAM [...] MEDICARE PART A & B Care Teams High School Counselor Relationship Specialty Start Date End Date Carrillo Zarco MD [facility] [address] PCP - General Internal Medicine 12/24/24 Additional Source Comments The information contained in this document represents components of the legal health record. It is not the complete legal health record.[facility]
== END 2025-04-19 14:11 | disposition home or self-care (01) ==
LOC: HO.LAB 14:10
PROVIDERS: PCP Internal Medicine; Visit Provider Urology
DX: N30.10 Interstitial cystitis (chronic) without hematuria (principal); R35.0 Frequency of micturition; R30.0 Dysuria; R39.9 Unspecified symptoms and signs involving the genitourinary system
CPT/HCPCS: 81001; 87086

== ENCOUNTER 2025-04-21 13:58 | Outpatient (AMB) | payer MEDICARE, MEDICAID, SELFPAY ==
--- OUTSIDE RECORDS SUMMARY | 2024-12-24 12:19 | XMS_ITS | Encounter Summary ---
Author Organization [facility] Address [address] [facility] [address] [place] [address] Phone Care Team Providers Care Camera Control Operator Name Role Phone Carrillo Zarco MD Primary Care Provider [phone] Encounter Details Date Type Department Care Team (Late st Contact Info) Description 12/24/2024 12:19 PM EDT Hospital Encounter [facility] [address] [place] [address] [phone] Kari Angela PA-C [address] [place], [place] [phone] [email or web address] Social History Tobacco Use Types Packs/Day Years [...] (RIGHT) (12/24/2024 12:30 PM EDT) MGB IMG CITY PLANNER COMMENT 1. Nondisplaced hairline fracture of the fifth metacarpal. 2. Irregularity of the dorsal aspect of the lunate could represent a nondisplaced fracture. [facility] Anatomical Region Laterality Modality Hand Right Computed Radiogr aphy 12/24/2024 1:15 PM EDT Impressions 12/24/2024 1:16 PM EDT 1. Nondisplaced hairline fracture of the fifth metacarpal. 2. Irregularity of the dorsal aspect of the lunate could represent a nondisplaced fracture. A clinically significant result was initiated on 12/24/2024 1:16 PM, Message ID [id number]. Narrative 12/24/2024 1:16 PM EDT XR HAND [...] was initiated on 12/24/2024 1:16 PM,Message ID [id number]. Kari Angela PA-C IMG XR UPPER EXTREMITY Final Result documented in this encounter Visit Diagnoses Not on filedocumented in this encounter Care Teams Camera Control Operator Relationship Specialty Start Date End Date Carrillo Zarco MD [facility] [place] [address] PCP - General Internal Medicine 12/24/24 documented as of this encounter Additional Source Comments The information contained in this document represents components of the legal health record. It is not the complete legal health record.[facility]
--- NOTE | 2025-04-21 14:01 | HO.NEPHOV_ITS ---
Vital Signs 04/21/25 14:10 Height 5 ft 3 in Weight 135 lb 8 oz BMI 24.0 BP 122/70 Blood Pressure Location Rt brachial Position Sitting Pulse 59 Pulse Source Pulse Oximeter Pulse Oximetry (%) 100 Oxygen Delivery Method Room Air Intake Visit Reasons: Dr Bhagat pt-Low heart rate/Change in meds? Certified Professional Ergonomist Required: No Accompanied by: Daughter Allergies Penicillins (PENICILLINS) Allergy (Severe, Verified 04/21/25 14:10) HIVES cephalexin (Keflex) Allergy (Unknown, Verified 04/21/25 14:10) unknown Sulfa (Sulfonamide Antibiotics) Allergy (Unknown, Verified 04/21/25 14:10) hives ciprofloxacin Allergy (Verified 04/21/25 14:10) rash morphine (MORPHINE) Adverse Reaction (Unknown, Verified 04/21/25 14:10) ITCHY perflutren (From DEFINITY) Adverse Reaction (Unknown, Verified 04/21/25 14:10) CHEST PAIN macrobid Allergy (Intermediate, Uncoded 03/10/25 15:03) Hives NSAIDS Adverse Reaction (Unknown, Uncoded 03/10/25 15:03) GI upset HPI Comments Details: I had the pleasure of seeing Jossy who is a 69-year-old woman with bipolar disorder for low HR. She had stopped her Atenolol last week but continues to have asymptomatic bradycardia .Recently she was hospitalized in she had hyponatremia. Recently her isinopril was discontinued and switched to losartan.During her last hospitalization CT scan revealed multiple cysts in both kidneys. Serum creatinine has been stable around 0.6 mg/dL. Recent serum sodium was 137 millimoles. She denies dizziness or syncope. [facility] Medical History Anxiety, generalized Marijuana use Alcohol use disorder Claustrophobia Bipolar 1 disorder with moderate rama Gout Gallstone pancreatitis Non-STEMI (non-ST elevated myocardial infarction) LV (left ventricular) mural thrombus Stress-induced cardiomyopathy Surgical History History of cardiac catheterization (~05/13/19) History of cholecystectomy (~06/2017) History of knee surgery Family History Father Substance use disorder Mother Cancer Other Mental health disorder Social History Household Members: Unknown / Unable to assess Household Members Other:: refusing to report Housing: Unknown / Unable to assess Alcohol intake: current Alcohol intake frequency: holidays/special occasions only Comment: 5 min checks Patient Tobacco Use Status: Former Tobacco user Years Smoked: 30 e-Cigarette/Vaping Use: Never Used Substance Use Type: Marijuana service: No Current occupational status: retired Current occupation: left hand Sexual orientation: Straight/Heterosexual Cognitive needs: No Hearing needs: No Vision needs: Yes Review of Systems Const All systems reviewed & are unremarkable except as noted in HPI and below Physical Exam Vital Signs: Last Vital Signs Pulse 59 04/21/25 14:10 BP 122/70 04/21/25 14:10 Pulse Ox 100 04/21/25 14:10 Oxygen Delivery Method Room Air 04/21/25 14:10 BMI result Body Mass Index 24.0 Const General: comfortable and no acute distress Orientation/consciousness: patient oriented x3 HEENT Head: Yes normocephalic Mouth: Normal oral and palatal mucosa present Eyes EOM: EOMs intact bilaterally Neck Neck: Yes supple Resp Auscultation: clear to auscultation bilaterally Cardio Jugular venous distension: no JVD Rate: regular rate GI Palpation (GI): Soft to palpation Auscultation: normal bowel sounds General: Yes no CVA tenderness Back/Spine/Pelvis Back: no CVA tenderness Skin General skin exam: no rashes or lesions noted Neuro General: patient oriented x3 and moves all extremities Extrem General: Yes no pedal edema Results Reviewed Nephrology Results: Urine Protein, (Neg-Trace) Negative mg/dL 04/19/25 Renal US 02/21/25 Assessment & Plan Assessment & Plan (1) Hypertension, essential: Code(s): I10 - Essential (primary) hypertension Category: Medical (2) Hyponatremia: Code(s): E87.1 - Hypo-osmolality and hyponatremia Category: Medical (3) Bradycardia: Code(s): R00.1 - Bradycardia, unspecified Category: Medical Plan She had hyponatremia due to non osmotic ADH release. Encouraged to stay on oral free water restriction of 1.2 L. Goal is to maintain serum sodium more than 130 millimoles. Recent serum sodium is 137;Has multiple renal cysts No significant protein; Mom had ESRD from [facility] Ordered TSH, CK, Holter monitor; May need pacemaker Continue to hold atenolol for now; F/U in 2 weeks Orders: Orders CK, Total+Isoenzymes, Serum Today R00.1 - Bradycardia, unspecified ECG 7 day holter monitor Today R00.1 - Bradycardia, unspecified TSH reflex Free T4 Today R00.1 - Bradycardia, unspecified Coding Level of Care Code Est Pt Level 4 (65005) Diagnoses Hypertension, essential I10 Hyponatremia E87.1 Bradycardia R00.1
[2025-04-21 14:10] VITALS: BP 122/70; PULSE 59; O2SAT 100; BMI 24.0
--- OUTSIDE RECORDS SUMMARY | 2025-04-21 16:28 | XMS_ITS | Clinical Summary ---
Author Organization [facility] Address [address] [address] Phone Care Team Providers Care Dispatch Specialist Name Role Phone Carrillo Zarco MD Primary Care Provider [phone] Allergies No known active allergies Medications clonazePAM [...] MEDICARE PART A & B Care Teams Dispatch Specialist Relationship Specialty Start Date End Date Carrillo Zarco MD [facility] [place] [address] PCP - General Internal Medicine 12/24/24 Additional Source Comments The information contained in this document represents components of the legal health record. It is not the complete legal health record.[facility]
== END 2025-04-21 14:37 | disposition home or self-care (01) ==
LOC: HO.HKA 13:59
PROVIDERS: PCP Internal Medicine; Visit Provider Internal Medicine Nephrology
DX: I10 Essential (primary) hypertension (principal); E87.1 Hypo-osmolality and hyponatremia; R00.1 Bradycardia, unspecified
CPT/HCPCS: 99214

== ENCOUNTER 2025-04-21 13:58 | Outpatient (REF) | payer MEDICARE, MEDICAID, SELFPAY ==
[2025-04-26 21:08] LABS: CK-BB None Detected (None Detected); CK-MB 0 % (<5); CK-MM 87 % (95-100); Creatine Kinase,Total,Serum 70 U/L (20-243)
== END 2025-04-21 13:59 | disposition home or self-care (01) ==
LOC: HO.LAB 13:58
PROVIDERS: PCP Internal Medicine; Visit Provider Internal Medicine Nephrology
DX: I10 Essential (primary) hypertension (principal); E87.1 Hypo-osmolality and hyponatremia; R00.1 Bradycardia, unspecified; Z79.899 Other long term (current) drug therapy
CPT/HCPCS: 36415; 82552; 84443; 99212

== ENCOUNTER → 2025-04-28 07:31 | Outpatient (REF) | payer MEDICARE, MEDICAID, SELFPAY ==
--- OUTSIDE RECORDS SUMMARY | 2024-12-24 12:19 | XMS_ITS | Encounter Summary ---
Author Organization [facility] Address [address] [facility] [address] [place] [address] Phone Care Team Providers Care Corrugated Fastener Driver Name Role Phone Carrillo Zarco MD Primary Care Provider [phone] Encounter Details Date Type Department Care Team (Late st Contact Info) Description 12/24/2024 12:19 PM EDT Hospital Encounter [facility] [address] [place] [address] [phone] Kari Angela PA-C [address] [place], [place] [phone] [email or web address] Social History Tobacco Use Types Packs/Day Years [...] (RIGHT) (12/24/2024 12:30 PM EDT) MGB IMG TRACK WORKER COMMENT 1. Nondisplaced hairline fracture of the fifth metacarpal. 2. Irregularity of the dorsal aspect of the lunate could represent a nondisplaced fracture. [facility] Anatomical Region Laterality Modality Hand Right Computed Radiogr aphy 12/24/2024 1:15 PM EDT Impressions 12/24/2024 1:16 PM EDT 1. Nondisplaced hairline fracture of the fifth metacarpal. 2. Irregularity of the dorsal aspect of the lunate could represent a nondisplaced fracture. A clinically significant result was initiated on 12/24/2024 1:16 PM, Message ID [id number]. Narrative 12/24/2024 1:16 PM EDT XR HAND [...] was initiated on 12/24/2024 1:16 PM,Message ID [id number]. Kari Angela PA-C IMG XR UPPER EXTREMITY Final Result documented in this encounter Visit Diagnoses Not on filedocumented in this encounter Care Teams Corrugated Fastener Driver Relationship Specialty Start Date End Date Carrillo Zarco MD [facility] [place] [address] PCP - General Internal Medicine 12/24/24 documented as of this encounter Additional Source Comments The information contained in this document represents components of the legal health record. It is not the complete legal health record.[facility]
--- OUTSIDE RECORDS SUMMARY | 2025-04-28 07:34 | XMS_ITS | Clinical Summary ---
Author Organization [facility] Address [address] [address] Phone Care Team Providers Care Sequins Slinger Name Role Phone Carrillo Zarco MD Primary Care Provider [phone] Allergies No known active allergies Medications clonazePAM [...] MEDICARE PART A & B Care Teams Sequins Slinger Relationship Specialty Start Date End Date Carrillo Zarco MD [facility] [place] [address] PCP - General Internal Medicine 12/24/24 Additional Source Comments The information contained in this document represents components of the legal health record. It is not the complete legal health record.[facility]
--- NOTE | 2025-04-28 07:37 | HM_ITS ---
Conclusion: 1. Patient was monitored for total period of 7 days 2. Baseline was normal sinus rhythm with average heart of 64 beats per minute 3. Rare PACs and PVCs noted without any sustained tachyarrhythmias 4. No significant pauses noted 5. No patient reported events MTDD
== END ==
LOC: HO.CARD 07:31
PROVIDERS: PCP Internal Medicine; Visit Provider Internal Medicine Nephrology
DX: R00.1 Bradycardia, unspecified (principal)
CPT/HCPCS: 93242

== ENCOUNTER → 2025-04-28 07:37 | Outpatient (BNV) | payer MEDICARE, MEDICAID, SELFPAY | PROVIDERS: PCP Internal Medicine; Visit Provider Internal Medicine Cardiovascular Disease | DX: I49.1 Atrial premature depolarization (principal); I49.3 Ventricular premature depolarization | CPT/HCPCS: 93244 ==

== ENCOUNTER 2025-05-11 13:07 | Outpatient (AMB) | payer MEDICARE, MEDICAID, SELFPAY ==
--- OUTSIDE RECORDS SUMMARY | 2024-12-24 11:19 | XMS_ITS | Encounter Summary ---
Author Organization [facility] Address [address] [facility] [address] [place] [address] Phone Care Team Providers Care Personal Care Attendant Name Role Phone Carrillo Zarco MD Primary Care Provider [phone] Encounter Details Date Type Department Care Team (Late st Contact Info) Description 12/24/2024 12:19 PM EDT Hospital Encounter [facility] [address] [place] [address] [phone] Kari Angela PA-C [address] [place], [place] [phone] [email or web address] Social History Tobacco Use Types Packs/Day Years Used Date Smoking Tobacco: Never Assessed Education Answer Date Recorded Are you interested in more education? Not on edmar e 12/24/2024 Are you concerned about learning? Not on file 12/24/2024 No 12/24/2024 No 12/24/2024 Digital Access Answer Date Recorded No 12/24/2024 No 12/24/2024 Reliable internet access at home? Not on file 12/24/2024 Device with a working camera? Not on file Comments Unknown Sex and Gender Information Value Date Recorded Sex Assigned at Not on file Legal Sex Female 9:55 PM EDT Gender Identity Not on file Sexual Orientation Not on file documented as of this encounter Plan of Treatment Not on file documented as of this encounter Procedures Procedure Name Priority Date/Time Associated Diagnosis Comments XR HAND 3 OR MORE VIEWS (RIGHT) Routine 12/24/2024 12:30 PM EDT Closed nondisplaced fracture of proximal phalanx of right little finger, initial encounter documented in this encounter Results * XR HAND 3 OR MORE VIEWS (RIGHT) (12/24/2024 12:30 PM EDT) [facility] IMG RETAIL BANKER COMMENT 1. Nondisplaced hairline fracture of the fifth metacarpal. 2. Irregularity of the dorsal aspect of the lunate could represent a nondisplaced fracture. [facility] Anatomical Region Laterality Modality Hand Right Computed Radiogr aphy 12/24/2024 1:15 PM EDT Impressions 12/24/2024 1:16 PM EDT 1. Nondisplaced hairline fracture of the fifth metacarpal. 2. Irregularity of the dorsal aspect of the lunate could represent a nondisplaced fracture. A clinically significant result was initiated on 12/24/2024 1:16 PM, Message ID [id number]. Narrative 12/24/2024 1:16 PM EDT XR HAND 3 OR MORE VIEWS (RIGHT) Referring clinician's provided indication for this examination in Epic: Pain; Trauma COMPARISON: None. FINDINGS: Nondisplaced hairline fracture of the fifth metacarpal with no extension to the articular surface. Irregularity of the dorsal aspect of the lunate. Degenerative changes of the STT and first CMC joints. Soft tissue swelling over the fifth metacarpal. Procedure Note Amanda Nielsen MD - 12/24/2024 XR HAND 3 OR MORE VIEWS (RIGHT) Referring clinician's provided indication for this examination in Epic:Pain; Trauma COMPARISON: None. FINDINGS: Nondisplaced hairline fracture of the fifth metacarpal with no extensionto the articular surface. Irregularity of the dorsal aspect of the lunate.Degenerative changes of the STT and first CMC joints. Soft tissue swellingover the fifth metacarpal. IMPRESSION: 1. Nondisplaced hairline fracture of the fifth metacarpal. 2. Irregularity of the dorsal aspect of the lunate could represent anondisplaced fracture. A clinically significant result was initiated on 12/24/2024 1:16 PM,Message ID [id number]. Kari Angela PA-C IMG XR UPPER EXTREMITY Final Result documented in this encounter Visit Diagnoses Not on filedocumented in this encounter Care Teams Personal Care Attendant Relationship Specialty Start Date End Date Carrillo Zarco MD [facility] [place] [address] PCP - General Internal Medicine 12/24/24 documented as of this encounter Additional Source Comments The information contained in this document represents components of the legal health record. It is not the complete legal health record.[facility]
--- NOTE | 2025-05-11 13:10 | HO.NEPHOV ---
Vital Signs 05/11/25 13:11 05/11/25 13:26 Height 5 ft 3 in Weight 140 lb BMI 24.8 BP 138/72 130/66 Blood Pressure Location Lt brachial Lt brachial Position Sitting Sitting Pulse 64 Pulse Source Pulse Oximeter Pulse Oximetry (%) 98 Oxygen Delivery Method Room Air Intake Visit Reasons: 2-3wks f/u w/labs conf Senior Medical Director Required: No Accompanied by: Daughter Allergies Penicillins (PENICILLINS) Allergy (Severe, Verified 05/11/25 13:13) HIVES cephalexin (Keflex) Allergy (Unknown, Verified 05/11/25 13:13) unknown Sulfa (Sulfonamide Antibiotics) Allergy (Unknown, Verified 05/11/25 13:13) hives ciprofloxacin Allergy (Verified 05/11/25 13:13) rash morphine (MORPHINE) Adverse Reaction (Unknown, Verified 05/11/25 13:13) ITCHY perflutren (From DEFINITY) Adverse Reaction (Unknown, Verified 05/11/25 13:13) CHEST PAIN macrobid Allergy (Intermediate, Uncoded 03/10/25 15:03) Hives NSAIDS Adverse Reaction (Unknown, Uncoded 03/10/25 15:03) GI upset Medication List - Last Reconciled 05/11/25 by Chet Bhagat MD aspirin 81 mg PO DAILY cholecalciferol (vitamin D3) 25 mcg PO DAILY divalproex 375 mg PO BEDTIME estradiol 0.01%(0.1mg/gram) (Estrace) Use pea-sized amount on fingertip and apply to vaginal tissue daily at bedtime ezetimibe (Zetia) 10 mg PO DAILY famotidine 20 mg PO DAILY fluticasone propionate 50 mcg/actuation 1 spray intranasal DAILY folic acid 1 mg PO DAILY magnesium oxide 400 mg PO BEDTIME thiamine mononitrate (vit B1) 100 mg PO DAILY trazodone 50 mg PO BEDTIME PRN HPI Comments Details: 69-year-old woman with bipolar disorder. Recently she was hospitalized in she had hyponatremia. Lisinopril was discontinued and switched to losartan. She is here for further follow-up. During hospitalization CT scan revealed multiple cysts in both kidneys. Serum creatinine has been stable around 0.6 mg/dL. She is currently on Depakote. Recent serum sodium was 131 millimoles. 03/14/2025. Overall doing well. No specific complaints today. 05/11/25 History of Present Illness The patient is a 69-year-old female presenting with bradycardia and concerns about kidney function. She was previously on Atenolol, which was discontinued due to a significant drop in heart rate to 41-42 bpm. A heart monitor showed an average heart rate of 64 bpm with occasional ectopic beats, which were deemed non-threatening. The patient has a history of multicystic kidney disease, characterized by multiple cysts in both kidneys. Her kidney function has been stable, with a creatinine level of 1.1 mg/dL, which is considered good for her age. There was a temporary increase in creatinine to 1.73 mg/dL in December, which subsequently normalized. Hyponatremia was noted in February, with sodium levels dropping due to excessive water intake and medication effects. Current sodium levels have returned to normal at 137 mmol/L. The patient also has hypothyroidism, which was considered as a potential cause for her low heart rate. Thyroid function tests conducted in April were normal. [facility] Medical History Anxiety, generalized Marijuana use Alcohol use disorder Claustrophobia Bipolar 1 disorder with moderate rama Gout Gallstone pancreatitis Non-STEMI (non-ST elevated myocardial infarction) LV (left ventricular) mural thrombus Stress-induced cardiomyopathy Surgical History History of cardiac catheterization (~05/13/19) History of cholecystectomy (~06/2017) History of knee surgery Family History Father Substance use disorder Mother Cancer Other Mental health disorder Social History Household Members: Unknown / Unable to assess Household Members Other:: refusing to report Housing: Unknown / Unable to assess Alcohol intake: current Alcohol intake frequency: holidays/special occasions only Comment: 5 min checks Patient Tobacco Use Status: Former Tobacco user Years Smoked: 30 e-Cigarette/Vaping Use: Never Used Substance Use Type: Marijuana service: No Current occupational status: retired Current occupation: left hand Sexual orientation: Straight/Heterosexual Cognitive needs: No Hearing needs: No Vision needs: Yes Physical Exam Vital Signs: Last Vital Signs Pulse 64 11/06/25 13:11 BP 130/66 05/11/25 13:26 Pulse Ox 98 05/11/25 13:11 Oxygen Delivery Method Room Air 05/11/25 13:11 BMI result Body Mass Index 24.8 Results Reviewed Nephrology Results: Urine Protein, (Neg-Trace) Negative mg/dL 04/19/25 Renal US 02/21/25 Assessment & Plan Assessment & Plan (1) Multiple renal cysts: Comment: Followed by nephrology Code(s): 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 She has been having increased urinary frequency. I will check a 24 urine collection for volume and osmolality. Encouraged to stay on oral free water restriction of 1.2 L. Goal is to maintain serum sodium more than 130 millimoles. Recent serum sodium is 137 Multicystic renal disease Both kidneys normal in size. ( 10 and 9 cm) Mom has ? PCKD No significant proteinuria Creatinine stable around 1.1 We will obtain follow up renal ultrasonogram in 1 year. Orders: Orders Basic Metabolic Panel 6 Months Chet Bhagat MD I10 - Essential (primary) hypertension Medications: Changed From divalproex 500 mg (4 x 125 mg) PO BEDTIME 120 caps 0RF To divalproex 375 mg PO BEDTIME Rosana Rocha NP Discontinued atenolol Discontinued Reason: Patient no longer taking 25 mg PO DAILY 90 tabs 1RF Coding Level of Care Code Est Pt Level 4 (46471) Diagnoses Multiple renal cysts Q61.02 Hyponatremia E87.1
[2025-05-11 13:11] VITALS: BP 138/72; PULSE 64; O2SAT 98; BMI 24.8
[2025-05-11 13:26] VITALS: BP 130/66
--- OUTSIDE RECORDS SUMMARY | 2025-05-11 15:59 | XMS_ITS | Clinical Summary ---
Author Organization [facility] Address [address] [address] Phone Care Team Providers Care Building Construction Engineer Name Role Phone Carrillo Zarco MD Primary Care Provider [phone] Allergies No known active allergies Medications clonazePAM [...] MEDICARE PART A & B Care Teams Building Construction Engineer Relationship Specialty Start Date End Date Carrillo Zarco MD [facility] [place] [address] PCP - General Internal Medicine 12/24/24 Additional Source Comments The information contained in this document represents components of the legal health record. It is not the complete legal health record.[facility]
== END 2025-05-11 13:32 | disposition home or self-care (01) ==
LOC: HO.HKA 13:08
PROVIDERS: PCP Internal Medicine; Visit Provider Internal Medicine Hypertension Specialist
DX: Q61.02 Congenital multiple renal cysts (principal); E87.1 Hypo-osmolality and hyponatremia
CPT/HCPCS: 99214

== ENCOUNTER → 2025-05-11 13:07 | Outpatient (BNVA) | payer MEDICARE, MEDICAID, SELFPAY | PROVIDERS: PCP Internal Medicine; Visit Provider Internal Medicine Hypertension Specialist | DX: Q61.02 Congenital multiple renal cysts (principal); E87.1 Hypo-osmolality and hyponatremia; R35.0 Frequency of micturition | CPT/HCPCS: 99212 ==